=== PATIENT | female | born 1960 | race Caucasian/White ===

== ENCOUNTER → 2018-02-12 01:26 | Outpatient (CLI) | payer MEDICAID, SELFPAY ==
--- NOTE | 2018-02-12 14:16 | SCREENCT_ITS ---
SYMPTOMS/DIAGNOSIS: COPD, J44.9 CT SCAN OF THE CHEST: CT scan of the chest was performed following the lung cancer screening protocol. There are no priors for comparison. There is atherosclerosis of the thoracic aorta but no aneurysmal dilatation is seen. The heart size is within normal limits. No significant pericardial effusion is seen. No significant mediastinal, hilar or axillary adenopathy is seen on this noncontrast examination. No pleural effusion or pneumothorax is identified. Moderate central lobular emphysematous changes are present in the lungs. There is a 3 mm noncalcified pulmonary nodule in the right upper lobe adjacent to the major fissure. No other pulmonary nodules are seen. There is scarring seen in the left lung apex. There is an infiltrate seen in the right lower lobe. This may represent atelectasis, scarring or pneumonia. Degenerative changes are seen in the spine. IMPRESSION: 1. A 3 mm noncalcified pulmonary nodule in the right upper lobe. 2. Moderate central lobular emphysema. 3. Infiltrate in the right lower lobe. This may represent atelectasis, scarring or pneumonia. Follow-up as clinically appropriate. Lung-RAD Category: 2- Benign Appearance/Behavior Lung- RAD Managements of Findings As appropriate to the specific findings
== END ==
PROVIDERS: PCP Nurse Practitioner; Visit Provider Internal Medicine
DX: Z12.2 Encounter for screening for malignant neoplasm of respiratory organs (principal); J44.9 Chronic obstructive pulmonary disease, unspecified; R91.1 Solitary pulmonary nodule; R91.8 Other nonspecific abnormal finding of lung field
CPT/HCPCS: G0297

== ENCOUNTER 2018-08-16 21:36 | Emergency (ER) | payer MEDICAID, SELFPAY ==
[2018-08-16] VITALS (58 sets, daily range): BP systolic 137–153; BP diastolic 58–132; PULSE 64–83; RESP 10–31; TEMP 37; O2SAT 88–94
--- NOTE | 2018-08-16 21:39 | ED.GENADUL_ITS ---
Discharge Plan Disposition Patient Disposition: HOME Condition: Stable Discharge Details Chief Complaint: Dizzy/Sync Clinical Impression: Dizziness, Weakness, Vertigo Reason For Visit: JOHN Primary Care Provider: Jenna Nayak ED Provider: Astrid Steinberg Home Meds and New Rx's Prescriptions: New meclizine 12.5 mg tablet 12.5 mg PO TID PRN (Reason: dizziness) Qty: 7 RF: 0 Continued cyanocobalamin (vitamin B-12) 1,000 MCG/1 ML solution 1,000 mcg IJ MONTHLY Qty: 1 RF: 0 ascorbic acid (vitamin C) [Vitamin C] 500 MG tablet 500 mg PO DAILY RF: 0 ketoconazole 15 GM cream 1 film Topical BID PRNQty: 1 RF: 1 diaper,brief,adult,disposable [Briefs, Adult-Extra Large] 1 EACH misc 1 ea Miscellaneous TID Qty: 90 RF: 11 sennosides [Senokot] 8.6 MG tablet 1 tab-cap PO DAILY PRNQty: 30 RF: 12 trazodone 50 MG tablet 25 mg PO HS Qty: 15 RF: 12 citalopram 20 MG tablet 20 mg PO DAILY Qty: 30 RF: 12 primidone 250 MG tablet 250 mg PO as directed Qty: 60 RF: 12 pantoprazole 40 MG tablet,delayed release (DR/EC) 40 mg PO DAILY Qty: 30 RF: 12 oxybutynin chloride 5 MG tablet 5 mg PO TID Qty: 90 RF: 12 Fluticasone/Umeclidin/Vilanter [Trelegy Ellipta 100-62.5-25] 1 EACH BLST.W.DEV 1 ea Inhalation DAILY RF: 0 ipratropium-albuterol 3 ML solution for nebulization 3 ml Inhalation Q6H PRN PRNQty: 1 RF: 12 lovastatin 40 mg tablet 40 mg PO DAILY Qty: 30 RF: 5 ProAir HFA 90 mcg/actuation HFA aerosol inhaler 2 puff Inhalation Q4H PRN Qty: 3 RF: 3 Discharge Instructions Instructions: Vertigo (ED), Weakness (ED) Additional Instructions: Take the Compazine as needed and directed for any nausea or vomiting. Drink plenty of fluids and get plenty of rest. Follow-up with your primary care doctor in 1 week for reevaluation. Return immediately to the emergency department with any worsening or new concerning symptoms. Discharge Data Discharge Physician: Astrid Steinberg Medical Decision Making 58-year-old female with a history of GERD, hypertension, hyperlipidemia, COPD, DVT, seizure disorder and depression who presents for dizziness, generalized weakness, and nausea today. No complaints of chest pain, shortness of breath, abdominal pain. She does admit to some diarrhea but denies any vomiting or fever. Afebrile. Patient is a smoker and has COPD and O2 sat 94%. No tachycardia normal respiratory rate. No focal deficits on exam. Normal ENT exam, and lungs clear to auscultation. Differential diagnosis includes vertigo, electrolyte abnormality, MA, UTI, dehydration, etc. Will place an IV, bolus IV fluids, Compazine, meclizine labs, urinalysis, CT head EKG and chest x-ray and reassess. 0015 --labs and imaging reviewed and unremarkable. Normal white blood cell count, electrolytes, troponin, lipase, urinalysis. Chest x-ray and CT head negative for acute findings. 0100 --patient was able to ambulate, drink fluids and feels much better. Prior to evaluation, patient's friends pushing pt out in wheelchair and stated to me you're a quack. They asked what was taking so long and that it should not take this long for one blood test. Explained to patient and friends that we obtain multiple blood tests, EKG and imaging all of which take time, and in a busy emergency department with multiple other patients, while awaiting patient's improvement with fluids, meds and p.o. challenge, this can take time. It was explained to patient that her workup was negative and she is now agreeable to wait for her discharge paperwork. We will send home with 2 tabs of Compazine as well as prescription for meclizine. Explained that her symptom presentation could be due to vertigo, dehydration. Instructed to follow-up with primary care doctor for reevaluation and return here at any time if worse per Medical Records Medical records reviewed: Yes I reviewed the patient's medical records. Imaging Data Radiologic Study: Radiologist's impression: CT Head Without Contrast EXAM DATE/TIME: 08/16/2018 10:02 PM FINDINGS: Brain: Typical for age. No hemorrhage. No evidence of acute infarct. No mass. Ventricles: No ventriculomegaly. Bones/joints: Unremarkable. Sinuses: No sinus fluid. Mastoid air cells: Unremarkable. Soft tissues: Unremarkable. IMPRESSION: No acute intracranial abnormality. XR Chest, 2 Views EXAM DATE/TIME: 08/16/2018 10:02 PM FINDINGS: Lungs: Unremarkable. No consolidation. Pleural space: Unremarkable. No evidence of pneumothorax. Heart/Mediastinum: Unremarkable. Heart size within normal limits for technique. Bones/joints: Unremarkable. IMPRESSION: No acute findings. Lab Data Lab results reviewed: Yes I reviewed the patient's lab results. Laboratory Tests Range/Units 08/16/18 08/16/18 08/16/18 22:05 22:05 22:45 WBC (4.4-10.8) k/cumm 9.67 RBC (4.00-5.20) m/cumm 4.64 Hgb (12.0-15.5) g/dL 14.6 Hct (36.0-46.0) % 43.0 MCV (80-95) fL 92.7 MCH (27.0-33.0) pg 31.5 MCHC (32.0-36.0) g/dL 34.0 RDW (11.7-14.6) % 14.5 Plt Count (130-400) x1000/uL 275 MPV (8.0-11.0) fL 10.3 Immature Gran % 0.1 Neutrophils % 70.2 Lymphocytes % 24.5 Monocytes % 4.3 Eosinophils % 0.7 Basophils % 0.2 Absolute Neutrophils (1.2-6.7) k/cumm 6.78 H Absolute Lymphocytes (1.2-3.4) k/cumm 2.37 Absolute Monocytes (0.11-0.7) k/cumm 0.42 Absolute Eosinophils (0.0-0.7) k/cumm 0.07 Absolute Basophils (0.0-0.2) k/cumm 0.02 Sodium (136-145) mmol/L 139 Potassium (3.5-5.1) mmol/L 3.8 Chloride (98-107) mmol/L 104 Carbon Dioxide (21.0-32.0) mmol/L 27.8 Anion Gap (3-11) mmol/L 7.2 BUN (7-18) mg/dL 11 Creatinine (0.55-1.02) mg/dL 0.83 Estimated GFR/1.73 m2 (mL/min/1.73m2) >= 60.00 Glucose (70-100) mg/dL 140 H Calcium (8.5-10.1) mg/dL 9.1 Magnesium (1.8-2.4) mg/dL 1.9 Total Bilirubin (0.2-1.0) mg/dL 0.2 AST (15-37) U/L 15 ALT (12-78) U/L 12 Alkaline Phosphatase (46-116) U/L 81 Troponin I (0.00-0.06) ng/mL < 0.02 Total Protein (6.4-8.2) g/dL 7.3 Albumin (3.4-5.0) g/dL 3.3 L Lipase (73-393) U/L 84 Urine Color (Yellow) Yellow Urine Clarity Sl cloudy Urine pH (5-8) 7.5 Ur Specific Plush (1.005-1.025) 1.010 Urine Protein (Negative) mg/dL Negative Urine Ketones (Negative) mg/dL Negative Urine Blood (Negative) Negative Urine Nitrite (Negative) Negative Urine Bilirubin (Negative) Negative Urine Urobilinogen (Up TO 0.2) EU/dL 0.2 Ur Leukocyte Esterase (Negative) Negative Urine Glucose (Negative) mg/dL Negative ECG Data Attestation: I personally reviewed and interpreted this ECG (s) as follows: Interpretation: Rate of 71, sinus, no acute ST elevation or depression. QTc 450. QRS 94 HPI General Mode of arrival: ambulatory . Date/Time Provider Initiated Documentation: 08/16/18 21:46 . Limitations to Documentation: no limitations . Information obtained by: patient . HPI Narrative: Patient is a 58 yo F with a history of COPD, hypertension, seizure disorder, depression, hyperlipidemia and GERD who presents for generalized weakness, nausea and dizziness today. Patient states she occasionally feels lightheadedness but also a spinning sensation. She had told EMS that she was concerned about possibly having a seizure due to the symptoms. She states her last seizure was 5 years ago. Patient states her throat feels dry and she did not eat much today. She admits to 3 episodes of diarrhea today but denies any bleeding. She denies any known fever, vomiting, chest pain, shortness of breath, abdominal pain, headache, urinary symptoms, vision changes, or recent hospital admission or recent antibiotics. Related Data Home Medications Medication Instructions Recorded Confirmed cyanocobalamin (vitamin B-12) 1,000 mcg IJ MONTHLY #1 vial 09/17/12 08/16/18 ascorbic acid (vitamin C) [Vitamin 500 mg PO DAILY 05/24/13 08/16/18 C] ketoconazole 1 film TOPICAL BID PRN #1 tube 02/08/16 08/16/18 diaper,brief,adult,disposable #90 ea 06/10/16 [Briefs, Adult-Extra Large] citalopram 20 mg PO DAILY #30 tab-cap 11/29/17 08/16/18 oxybutynin chloride 5 mg PO TID #90 tab-cap 11/29/17 08/16/18 pantoprazole 40 mg PO DAILY #30 tab-cap 11/29/17 08/16/18 primidone 250 mg PO as directed #60 tab 11/29/17 08/16/18 sennosides [Senokot] 1 tab-cap PO DAILY PRN #30 tab-cap 11/29/17 08/16/18 trazodone 25 mg PO HS #15 tab-cap 11/29/17 08/16/18 Fluticasone/Umeclidin/Vilanter 1 ea INHALATION DAILY 01/18/18 08/16/18 [Valdez Martinez 100-62.5-25] ipratropium-albuterol 3 ml INHALATION Q6H PRN PRN #1 box 02/16/18 08/16/18 lovastatin 40 mg tablet 40 mg PO DAILY #30 tab 08/06/18 08/16/18 albuterol sulfate HFA 90 2 puff INHALATION Q4H PRN #3 08/16/18 08/16/18 mcg/actuation aerosol inhaler inhaler meclizine 12.5 mg PO TID PRN #7 tab 08/17/18 Previous Rx's Medication Instructions Recorded citalopram 20 mg PO DAILY #30 tab-cap 11/29/17 oxybutynin chloride 5 mg PO TID #90 tab-cap 11/29/17 pantoprazole 40 mg PO DAILY #30 tab-cap 11/29/17 primidone 250 mg PO as directed #60 tab 11/29/17 trazodone 25 mg PO HS #15 tab-cap 11/29/17 lovastatin 40 mg tablet 40 mg PO DAILY #30 tab 08/06/18 albuterol sulfate HFA 90 2 puff INHALATION Q4H PRN #3 08/16/18 mcg/actuation aerosol inhaler inhaler meclizine 12.5 mg PO TID PRN #7 tab 08/17/18 Allergies Allergy/AdvReac Type Severity Reaction Status Date / Time Penicillins Allergy Intermediate SKIN RASH Unverified 08/16/18 21:44 adhesive AdvReac Mild Skin Rash Unverified 08/16/18 21:44 Review of Systems Review of Systems All systems reviewed & are unremarkable except as noted in HPI and below Constitutional Reports as per HPI, Denies chills, Denies fever(s) and Reports weakness Eyes Denies blurry vision ENT Denies dizziness, Denies sore throat and Denies throat swelling Cardiovascular Denies chest pain and Denies dyspnea Respiratory Denies cough and Denies dyspnea Gastrointestinal Denies abdominal pain, Denies diarrhea, Reports nausea and Denies vomiting Genitourinary Denies hematuria and Denies dysuria Musculoskeletal Denies back pain and Denies numbness Integumentary/Breasts Denies lesions and Denies rash Neurologic Denies dizziness, Denies focal weakness, Denies numbness and Reports weakness Allergic/Immunologic Denies throat swelling PFSH Medical History Hyperlipemia (Acute) Depression (Chronic) GERD (gastroesophageal reflux disease) (Chronic) HTN (hypertension) (Chronic) Seizure disorder (Chronic) Chronic obstructive lung disease DVT of leg (deep venous thrombosis) Hyperlipidemia Surgical History H/O shoulder surgery (Chronic) History of hysterectomy (Chronic) Family History Father COPD (chronic obstructive pulmonary disease) Social History Smoking and Tabacco status: Current every day alcohol intake: former substance use type: former substance user Exam Const General: cooperative, healthy appearing and no acute distress HENMT Head: normal to inspection Ears: hearing grossly normal bilaterally and TM's normal bilaterally General nose exam: external nose normal Face and sinus: normal facial exam Mouth: oral mucosae normal Teeth and gingiva: dentition normal Throat: posterior oropharynx normal Eyes General: appearance normal, both eyes and all related structures Pupils: PERRL EOM: EOM intact bilaterally Neck Neck: normal visual inspection and No submandibular swelling Lymphatic: no lymphadenopathy noted Chest Chest: normal inspection of the chest and no tenderness Resp Effort & Inspection: normal respiratory effort and able to speak in complete sentences Auscultation: clear to auscultation bilaterally Cardio Rate: regular rate Rhythm: regular rhythm GI Inspection: normal to inspection Palpation: soft, not firm, not rigid and nontender Auscultation: normal bowel sounds Skin General skin exam: no rashes or lesions noted Neuro General: alert, awake and oriented x3 Cognition: normal cognition Speech: speech normal Motor: muscle tone normal throughout and strength 5/5 throughout Sensory Exam: no sensory deficits noted Extrem General: normal to inspection, full ROM and no edema Psych Appearance: grossly normal Mental Status: mental status grossly normal Speech and Movement: speech and movement normal Affect: normal affect
--- NOTE | 2018-08-16 21:59 | DI.COMBO_ITS ---
SYMPTOM/DIAGNOSIS: WEAK, DIZZY CRANIAL CT (WITHOUT CONTRAST): A noncontrast cranial CT was performed. The ventricular system is normal in appearance. There is no evidence of an intracranial mass lesion. There is no evidence of a subdural or epidural hematoma. No focal areas of decreased attenuation are seen. CONCLUSION: Normal noncontrast Cranial CT. PA AND LATERAL CHEST: There appear to be changes of COPD and pulmonary scarring. No gross interval change in appearance in comparison with previous examinations including 08/17/17. No pleural effusion is seen. CONCLUSION: No evidence of acute intrapulmonary process.
[2018-08-16] MEDS: Normal Saline 1,000 ML 1000 ML IV (22:12)
[2018-08-16] MEDS: Prochlorperazine 10 MG/2 ML VIAL IVP (22:13)
[2018-08-16] MEDS: Meclizine 25 MG TAB PO (22:13)
[2018-08-16 22:14] LABS: Abs Immature Grans 0.01 k/cumm (0.0-0.09); Absolute Basophil Count 0.02 k/cumm (0.0-0.2); Absolute Eosinophil Count 0.07 k/cumm (0.0-0.7); Absolute Lymphocyte Count 2.37 k/cumm (1.2-3.4); Absolute Monocyte Count 0.42 k/cumm (0.11-0.7); Absolute Neutrophil Count 6.78 k/cumm (1.2-6.7); Basophils % 0.2; Eosinophils % 0.7; HGB 14.6 g/dL (12.0-15.5); Immature Grans % 0.1; Lymphocytes % 24.5; Mean Corpuscular Hemoglobin 31.5 pg (27.0-33.0); Mean Corpuscular Volume 92.7 fL (80-95); Mean Platelet Volume 10.3 fL (8.0-11.0); Monocytes % 4.3; Neutrophils % 70.2; Platelet Count 275 x1000/uL (130-400); RBC 4.64 m/cumm (4.00-5.20); RBC Distribution Width 14.5 % (11.7-14.6); White Blood Cell Count 9.67 k/cumm (4.4-10.8)
[2018-08-16 22:34] LABS: ALT 12 U/L (12-78); AST 15 U/L (15-37); Albumin 3.3 g/dL (3.4-5.0); Alkaline Phosphatase 81 U/L (46-116); Anion Gap 7.2 mmol/L (3-11); BUN 11 mg/dL (7-18); Bilirubin, Total 0.2 mg/dL (0.2-1.0); CO2 27.8 mmol/L (21.0-32.0); CREATININE 0.83 mg/dL (0.55-1.02); Calcium 9.1 mg/dL (8.5-10.1); Chloride 104 mmol/L (98-107); Glucose 140 mg/dL (70-100); Lipase 84 U/L (73-393); Magnesium 1.9 mg/dL (1.8-2.4); Potassium 3.8 mmol/L (3.5-5.1); Sodium 139 mmol/L (136-145); Total Protein 7.3 g/dL (6.4-8.2); Troponin I < 0.02 ng/mL (0.00-0.06)
--- NOTE | 2018-08-16 23:16 | DI.VRAD_ITS ---
EXAM: CT Head Without Contrast EXAM DATE/TIME: 08/16/2018 10:02 PM CLINICAL HISTORY: 58 years old, female; Signs and symptoms; Dizziness and other: Weakness, R/O acute cva/mass TECHNIQUE: Axial computed tomography images of the head/brain without contrast. Coronal and sagittal reformatted images were created and reviewed. COMPARISON: CT HEAD WITHOUT CONTRAST 09/16/2011 12:52 PM FINDINGS: Brain: Typical for age. No hemorrhage. No evidence of acute infarct. No mass. Ventricles: No ventriculomegaly. Bones/joints: Unremarkable. Sinuses: No sinus fluid. Mastoid air cells: Unremarkable. Soft tissues: Unremarkable. IMPRESSION: No acute intracranial abnormality. Dictated and Authenticated by: Roni Leong MD. Ordering:MATILDE Resendiz MD
--- NOTE | 2018-08-16 23:17 | DI.VRAD_ITS ---
EXAM: XR Chest, 2 Views EXAM DATE/TIME: 08/16/2018 10:02 PM CLINICAL HISTORY: 58 years old, female; Signs and symptoms; Other: Weakness, dizziness, R/O acute disease TECHNIQUE: XR of the chest, 2 views. COMPARISON: CR CHEST 2 VIEWS PA,LAT 08/17/2017 7:32 AM FINDINGS: Lungs: Unremarkable. No consolidation. Pleural space: Unremarkable. No evidence of pneumothorax. Heart/Mediastinum: Unremarkable. Heart size within normal limits for technique. Bones/joints: Unremarkable. IMPRESSION: No acute findings. Dictated and Authenticated by: Roni Leong MD. Ordering:MATILDE Resendiz MD
[2018-08-16 23:24] LABS: Bilirubin Negative (Negative); Blood Negative (Negative); Clarity Sl Cloudy; Glucose Negative (Negative); Ketones Negative (Negative); Leukocyte Esterase Negative (Negative); Nitrite Negative (Negative); Urobilinogen 0.2 EU/dL (Up TO 0.2); pH 7.5 (5-8)
[2018-08-17] VITALS (12 sets, daily range): RESP 16–27
--- NOTE | 2018-08-17 01:21 | NUR.NOTE ---
patient receive medication and follow up instruction per MD order Nursing Note:
== END 2018-08-17 01:20 | disposition home or self-care (01) ==
PROVIDERS: Emergency Provider Physician Assistant; PCP Nurse Practitioner
DX: R42 Dizziness and giddiness (principal); R53.1 Weakness; I10 Essential (primary) hypertension; J44.9 Chronic obstructive pulmonary disease, unspecified
CPT/HCPCS: 36415; 80053; 83690; 93005; 96361; 96374; 99285; 70450; 71046; 81003; 83735; 84484; 85025; 93010; J0780

== ENCOUNTER 2018-11-20 00:09 | Outpatient (CLI) | payer MEDICAID, SELFPAY ==
--- NOTE | 2018-11-20 08:27 | DI.US_ITS ---
SYMPTOMS/DIAGNOSIS: CHRONIC OBSTRUCTIVE LUNG DISEASE, J44.9, ALPHA 1 ANTITRYPSIN DEFICIENCY ABDOMINAL ULTRASOUND: Comparison is made with March,. The liver appears enlarged at 16.6 cm in length. The echogenicity appears normal. No focal liver lesions are identified. There is no evidence of biliary dilatation. The gallbladder has a normal appearance. The pancreas is obscured by bowel gas. The kidneys show no evidence of hydronephrosis or stones. The spleen is normal in size. IMPRESSION: Hepatomegaly. No evidence of fatty infiltration or focal liver lesions.
[2018-11-20 10:06] LABS: Cholesterol 191 mg/dL (50-200); HDL Cholesterol 58 mg/dL (40-60); LDL CHOLESTEROL 98 mg/dL (<100); Triglyceride 163 mg/dL (30-150)
== END 2018-11-20 00:29 ==
PROVIDERS: PCP Nurse Practitioner; Visit Provider Internal Medicine
DX: E78.5 Hyperlipidemia, unspecified (principal); R16.0 Hepatomegaly, not elsewhere classified; J44.9 Chronic obstructive pulmonary disease, unspecified; E88.01 Alpha-1-antitrypsin deficiency
CPT/HCPCS: 36415; 80061; 83721; 76700

== ENCOUNTER 2018-12-04 15:28 | Outpatient (REF) | payer MEDICAID, SELFPAY ==
[2018-12-04 19:41] LABS: ALT 18 U/L (12-78); AST 12 U/L (15-37); Albumin 3.4 g/dL (3.4-5.0); Alkaline Phosphatase 94 U/L (46-116); Bilirubin, Direct 0.08 mg/dL (0.00-0.20); Bilirubin, Total 0.3 mg/dL (0.2-1.0); Total Protein 6.8 g/dL (6.4-8.2)
== END 2018-12-04 15:48 ==
LOC: LBN 15:28
PROVIDERS: PCP Nurse Practitioner; Visit Provider Nurse Practitioner
DX: E88.01 Alpha-1-antitrypsin deficiency (principal)
CPT/HCPCS: 80076

== ENCOUNTER 2019-01-08 11:15 | Outpatient (REF) | payer MEDICAID, SELFPAY ==
--- NOTE | 2019-01-08 10:10 | PAPFT_PTH ---
PATIENT: Sophy Alvarado LOC: [facility] U#:[id number] AGE/SX: 58/F ROOM: RE01/08/[address]: Jenna Nayak APRN : 1960 BED: DIS: 01/08/2019 SPEC #: [id number] RECD: 01/08/19 12:47 STATUS: RADHA REJamar #: [id number] BHARATH: 01/08/19 10:[address]: Jenna Nayak DEPT: [facility] Cytology RECD BY: Adilene Macias Tissues: 1 - CX/ENDOCX FOR PAP SMEARS Procedures: PAP THIN PREP/UVM Screening HPV DNA PROBE Comments: [id number]
== END 2019-01-08 11:35 ==
LOC: LBN 11:15
PROVIDERS: PCP Nurse Practitioner; Visit Provider Nurse Practitioner
DX: Z12.4 Encounter for screening for malignant neoplasm of cervix (principal); Z11.51 Encounter for screening for human papillomavirus (HPV)
CPT/HCPCS: 88142; 87624

== ENCOUNTER 2019-02-15 02:23 | Outpatient (CLI) | payer MEDICAID, SELFPAY ==
--- NOTE | 2019-02-15 13:09 | DI.CTLCSR_ITS ---
SYMPTOMS/DIAGNOSIS: TOBACCO USE, Z72.0 CT CHEST, LOW DOSE LUNG CANCER SCREENING PROTOCOL: CT examination of the chest was performed utilizing low dose lung cancer screening protocol. Images obtained through the upper abdomen show unremarkable appearance of visualized portions of liver, spleen and pancreas. Left adrenal appears hypertrophied. Right adrenal unremarkable in appearance. No mediastinal or hilar mass or adenopathy seen. Tracheobronchial tree appears intact. There are diffuse changes of central lobular emphysema and there are areas of linear scarring seen, predominantly in right lung base and left lung apex; these are essentially unchanged from the previous examination of 02/12/2018. Previously described 3 mm nodule again noted directly adjacent to major fissure on the right. A 5 mm well-circumscribed noncalcified nodule is also seen in the right upper lobe more peripherally at the level of the distal trachea and is unchanged from the previous examination. No new nodule identified. No pleural effusion or pleural-based mass. CONCLUSION: Stable right pulmonary nodules as described. Category 2. Continue annual screening with LDCT in 12 months. Lung-RAD Category: 2- Benign Appearance/Behavior Lung- RAD Management of Findings: Continue annual LDCT screening in 12 months
== END 2019-02-15 02:43 ==
PROVIDERS: PCP Nurse Practitioner; Visit Provider Internal Medicine
DX: R91.1 Solitary pulmonary nodule (principal); Z87.891 Personal history of nicotine dependence; Z12.2 Encounter for screening for malignant neoplasm of respiratory organs; F17.210 Nicotine dependence, cigarettes, uncomplicated
CPT/HCPCS: G0297

== ENCOUNTER 2019-02-21 07:36 | Outpatient (CLI) | payer MEDICAID, SELFPAY ==
--- NOTE | 2019-02-21 14:02 | DI.RAD_ITS ---
SYMPTOMS/DIAGNOSIS: LEFT HIP PAIN, LEFT GROIN PAIN, LOW BACK PAIN, LEFT LOWER QUADRANT PAIN, M25.552, R10.32, M54.5 LEFT HIP AND PELVIS: Three views were obtained. There is slight narrowing of the cartilaginous joint spaces of both hips superiorly. Minimal acetabular spurring noted bilaterally. No other significant bony or soft tissue abnormality seen. CONCLUSION: Mild DJD, both hips. LUMBOSACRAL SPINE: Six views were obtained. There is mild degenerative change of both SI joints. There are mild facet and vertebral endplate hypertrophic degenerative changes. Intervertebral disc spaces mildly narrowed at L4-5 and L5-S1. CONCLUSION: Degenerative change of the lumbar spine as described above.
== END 2019-02-21 07:56 ==
PROVIDERS: PCP Nurse Practitioner; Visit Provider Nurse Practitioner
DX: M25.552 Pain in left hip (principal); R10.32 Left lower quadrant pain; M54.5 Low back pain; M16.0 Bilateral primary osteoarthritis of hip; M47.817 Spondylosis without myelopathy or radiculopathy, lumbosacral region; M51.37 Other intervertebral disc degeneration, lumbosacral region
CPT/HCPCS: 72110; 73502

== ENCOUNTER 2019-03-22 08:29 | Day surgery (SDC) | payer MEDICAID, SELFPAY ==
[2019-03-22 10:07] VITALS: BP 139/76; PULSE 77; RESP 20; TEMP 36.6; O2SAT 88
[2019-03-22] MEDS: Albuterol/Ipratropium 3 ML UPD VIAL (12:39)
--- NOTE | 2019-03-22 12:40 | NUR.NOTE ---
Addendum entered by Loly Mary RN 03/22/19 12:46: Pt was given gingerale and toast after case was cancelled. Addendum entered by Loly Mary RN 03/22/19 12:46: Original Note: Pt case cancelled by Dr. Min and Anesthesia due to difficulty breathing, sats in low 80s and a poor prep. Per pt she was still having brown stool and was unable to finish prep. Pt did receive a duoneb shortly after arriving to [facility]. Nursing Note:
== END 2019-03-22 11:30 | disposition home or self-care (01) ==
LOC: SUR 08:29
PROVIDERS: PCP Nurse Practitioner; Visit Provider Surgery
DX: Z12.11 Encounter for screening for malignant neoplasm of colon (principal); Z86.010 Personal history of colon polyps; Z53.09 Procedure and treatment not carried out because of other contraindication; Y66 Nonadministration of surgical and medical care; R06.09 Other forms of dyspnea; J44.9 Chronic obstructive pulmonary disease, unspecified
CPT/HCPCS: 45378; 99211; J7620

== ENCOUNTER 2019-04-18 04:11 | Inpatient (IN) | payer MEDICAID, SELFPAY ==
[2019-04-18] VITALS (71 sets, daily range): BP systolic 86–121; BP diastolic 29–97; PULSE 80–108; RESP 4–33; TEMP 36.7–37.5; O2SAT 9–100
--- NOTE | 2019-04-18 04:21 | ED.GENADUL_ITS ---
Discharge Plan Disposition Patient Disposition: [facility] INPATIENT Condition: Serious Discharge Details Chief Complaint: SOB Clinical Impression: COPD exacerbation Primary Care Provider: Jenna Nayak ED Provider: Carlos Palacio [place] Meds and New Rx's Prescriptions: No Action citalopram 20 mg tablet 20 mg PO DAILY Qty: 90 RF: 3 lovastatin 40 mg tablet 40 mg PO DAILY Qty: 90 RF: 3 oxybutynin chloride 5 mg tablet 5 mg PO TID Qty: 270 RF: 3 trazodone 50 mg tablet 25 mg PO HS Qty: 45 RF: 3 meclizine 12.5 mg tablet 12.5 mg PO TID PRN (Reason: dizziness) Qty: 30 RF: 0 cyanocobalamin (vitamin B-12) 1,000 MCG/1 ML solution 1,000 mcg IJ MONTHLY Qty: 1 RF: 0 ascorbic acid (vitamin C) [Vitamin C] 500 MG tablet 500 mg PO DAILY RF: 0 ketoconazole 15 GM cream 1 film Topical BID PRNQty: 1 RF: 1 (DME) Briefs, Adult-Extra Large 1 EACH misc 1 ea Miscellaneous TID Qty: 90 RF: 11 sennosides [Senokot] 8.6 MG tablet 1 tab-cap PO DAILY PRNQty: 30 RF: 12 ipratropium-albuterol 3 ML solution for nebulization 3 ml Inhalation Q6H PRN PRNQty: 1 RF: 12 pantoprazole 40 mg tablet,delayed release (DR/EC) 40 mg PO DAILY Qty: 90 RF: 3 primidone 250 mg tablet 250 mg PO as directed Qty: 60 RF: 12 meloxicam 15 mg tablet 15 mg PO DAILY Qty: 30 RF: 0 Trelegy Ellipta 100-62.5-25 mcg blister with device 1 inh IH DAILY RF: 0 albuterol sulfate [ProAir HFA] 90 mcg/actuation HFA aerosol inhaler 2 puff Inhalation Q4H PRN Qty: 3 RF: 3 Medical Decision Making Patient presenting with COPD exacerbation. She is not febrile. She is working relatively hard. She has diffuse wheezing and decreased breath sounds. She has already had Solu-Medrol. She has had one DuoNeb. We will go ahead and start her on CPAP. Continue albuterol neb. Obtain EKG, portable chest x-ray, laboratory studies. Will need admission to ICU for further management. EKG is sinus rhythm at 93. She has normal axis and intervals. She has no acute ST changes. Chest x-ray shows some interstitial prominence but no definitive infiltrate. No effusions. Laboratories studies significant for CBC with minimally elevated white count of 11.4. She is hemoconcentrated with a hemoglobin of 15.9. Chemistries unremarkable other than elevated bicarb at 34 likely suggesting chronic CO2 retention. Liver function normal. Troponin negative. Patient is doing better on CPAP. Discussed with hospitalist. Patient accepted to hospitalist service to an ICU bed for further management of COPD exacerbation. Medical Records Medical records reviewed: Yes I reviewed the patient's medical records. Lab Data Lab results reviewed: Yes I reviewed the patient's lab results. ECG Data Attestation: I personally reviewed and interpreted this ECG (s) as follows: HPI General Mode of arrival: EMS . Date/Time Provider Initiated Documentation: 04/18/19 04:23 . Limitations to Documentation: no limitations . Information obtained by: patient, EMS and RN notes reviewed . HPI Narrative: Patient is brought in by ambulance with shortness of breath and wheezing. Patient has a history of severe COPD. She continues to smoke. Over the last 3 to 4 days, she has had increased difficulty breathing. She has been wearing her oxygen more. She has been using her nebulizer machine. Tonight she became much worse. She called EMS and was brought in. She received a DuoNeb and IV Solu- Medrol in route. She denies having fever. She denies any chest pain or pressure. She denies URI type symptoms. She has a minimal nonproductive cough. Related Data Home Medications Medication Instructions Recorded Confirmed cyanocobalamin (vitamin B-12) 1,000 mcg IJ MONTHLY #1 vial 09/17/12 03/22/19 ascorbic acid (vitamin C) [Vitamin 500 mg PO DAILY 05/24/13 03/22/19 C] ketoconazole 1 film TOPICAL BID PRN #1 tube 02/08/16 03/22/19 Briefs, Adult-Extra Large #90 ea 06/10/16 03/01/19 sennosides [Senokot] 1 tab-cap PO DAILY PRN #30 tab-cap 11/29/17 03/20/19 ipratropium-albuterol 3 ml INHALATION Q6H PRN PRN #1 box 02/16/18 03/22/19 meclizine 12.5 mg tablet 12.5 mg PO TID PRN #30 tab 08/23/18 03/22/19 pantoprazole 40 mg tablet,delayed 40 mg PO DAILY #90 tab-cap 09/03/18 03/22/19 release primidone 250 mg tablet 250 mg PO as directed #60 tab 11/01/18 03/22/19 citalopram 20 mg tablet 20 mg PO DAILY #90 tab-cap 12/04/18 03/22/19 lovastatin 40 mg tablet 40 mg PO DAILY #90 tab 12/04/18 03/22/19 oxybutynin chloride 5 mg tablet 5 mg PO TID #270 tab-cap 12/04/18 03/22/19 trazodone 50 mg tablet 25 mg PO HS #45 tab-cap 12/04/18 03/22/19 meloxicam 15 mg tablet 15 mg PO DAILY #30 tab 02/28/19 03/22/19 fluticasone fur. 100 mcg-umeclid 1 inh IH DAILY 03/08/19 03/22/19 62.5 mcg-vilant 25 mcg inhalat.powder albuterol sulfate 90 mcg/actuation 2 puff INHALATION Q4H PRN #3 03/18/19 03/22/19 aerosol inhaler inhaler Previous Rx's Medication Instructions Recorded meclizine 12.5 mg tablet 12.5 mg PO TID PRN #30 tab 08/23/18 pantoprazole 40 mg tablet,delayed 40 mg PO DAILY #90 tab-cap 09/03/18 release primidone 250 mg tablet 250 mg PO as directed #60 tab 11/01/18 citalopram 20 mg tablet 20 mg PO DAILY #90 tab-cap 12/04/18 lovastatin 40 mg tablet 40 mg PO DAILY #90 tab 12/04/18 oxybutynin chloride 5 mg tablet 5 mg PO TID #270 tab-cap 12/04/18 trazodone 50 mg tablet 25 mg PO HS #45 tab-cap 12/04/18 meloxicam 15 mg tablet 15 mg PO DAILY #30 tab 02/28/19 albuterol sulfate 90 mcg/actuation 2 puff INHALATION Q4H PRN #3 03/18/19 aerosol inhaler inhaler Allergies Allergy/AdvReac Type Severity Reaction Status Date / Time Penicillins Allergy Intermediate SKIN RASH Verified 03/22/19 10:02 adhesive AdvReac Mild Skin Rash Verified 03/22/19 10:02 General Stated Complaint: SOB BO: 2 Review of Systems Review of Systems Narrative: 04/22 Review of Systems completed and is negative except as stated above in HPI (Systems reviewed: Const, Eyes, ENT, Resp, CV, GI, , MSK, Skin, Neuro) [facility] Medical History B12 deficiency (Acute 07/29/14) Benign neoplasm of colon (Acute 11/22/12) Chronic obstructive lung disease Depression (Chronic) DVT of leg (deep venous thrombosis) Fx upper humerus-closed (Acute 03/05/13) GERD (gastroesophageal reflux disease) (Chronic) HTN (hypertension) (Chronic) Hyperlipidemia Hypomagnesemia (Acute 11/28/17) Insomnia (Acute) Left hip pain (Acute) Memory loss (Acute 11/22/12) Mood disorder (Acute) Other convulsions (Acute 11/22/12) Seizure disorder (Chronic) Sensorineural hearing loss, bilateral (Acute 05/25/15) Tendonitis of wrist, left (Acute 03/31/17) Tinnitus (Acute 09/04/14) Tobacco dependence syndrome (Acute 11/22/12) Unspecified hearing loss (Acute 11/22/12) Urinary incontinence (Acute 11/22/12) Surgical History H/O shoulder surgery (Chronic) per pt she reports she has never had shoulder surgery History of cataract surgery (Chronic) History of colonoscopy (Chronic) Social History Smoking/Tobacco Use Status: Current every day Tobacco Type: cigarettes Alcohol Intake: former Drug use: Current Sobriety Substance use type: former substance user Housing: apartment What type of physical activity do you participate in: walking Duration: 15-30 minutes/day Frequency: daily Seatbelt use: always 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 Slight tachycardia and tachypnea. Normal blood pressure . Normal oxygen saturation on DuoNeb at 6 L. Const: WDWN elderly female in NAD. HEENT: NC/AT. Normal facial exam. Eyes: Normal conjunctiva and sclera. Neck: Supple. Trachea midline. Lungs: Increased work of breathing. Lungs with diffuse wheezing and decreased. Cor: RRR without murmur/gallop. Good radial pulses. GI: Soft. NT/ND. No guarding or rebound. Neuro: A+O x 3. CN grossly in tact. Good strength and no focal deficit. Ext: No C/C/E. No deformity or tenderness. Skin: Warm and dry without rash. Course Vital Signs Vital signs: Vital Signs Temperature 98.1 F 04/18/19 04:04 Pulse 108 H 04/18/19 04:04 Respiratory Rate 23 04/18/19 04:04 Blood Pressure 121/73 04/18/19 04:04 Pulse Oximetry 96 04/18/19 04:04 Temperature 98.1 F 04/18/19 04:04 Temperature Source Skin 04/18/19 04:04 Pulse 108 H 04/18/19 04:04 Respiratory Rate 25 H 04/18/19 04:12 Respiratory Effort Labored 04/18/19 04:12 Blood Pressure 121/73 04/18/19 04:04 Blood Pressure Position Supine 04/18/19 04:04 Pulse Oximetry 96 04/18/19 04:04 Oxygen Delivery Method Nasal Cannula 04/18/19 04:04 Oxygen Flow Rate 4 04/18/19 04:04 Critical Care Time Critical Care Time Critical Care Time: Yes Total Critical Care Time: 45 Attestation: Upon my evaluation, this patient had a high probability of imminent or life- threatening deterioration, which required my direct attention, intervention, and personal management. I have personally provided minutes of critical care time exclusive of time spent on separately billable procedures. Time includes review of laboratory data, radiology results, discussion with consultants, and monit oring for potential decompensation. Interventions were performed as documented above.
[2019-04-18] MEDS: Albuterol 2.5 MG/3 ML INH SOLN VIAL (04:22)
--- NOTE | 2019-04-18 04:23 | NUR.NOTE ---
GERALDO Hansen from home with c/o 3-4 days of not feeling well. tonight feeling increasing SOB. On EMS arrival RA sat 83% after walking to answer door. Denies CP. ST on monitor. Pt arrived with #20 to left wrist. 125mg solumedrol given en route. 1 duoneb given en route. Pt grunting with breathing. Speaking in 4-5 word sentences. insp/exp wheezes throughout.
--- NOTE | 2019-04-18 05:04 | DI.RAD_ITS ---
EXAM: XR PORTABLE CHEST AP INDICATION: SOB. COMPARISON: XR CHEST 2V PA LATERAL from 08/16/2018 TECHNIQUE: 2D digital imaging was performed. FINDINGS: Semi upright portable chest was obtained. Heart is not enlarged. Mild pole pulmonary interstitial p rominence noted, nonspecific, likely chronic fibrotic change. Possibility of mild superimposed acute edema not excluded, follow-up PA and lateral chest recommended. IMPRESSION:
--- NOTE | 2019-04-18 05:10 | NUR.NOTE ---
Placed on bipap by MD Palacio, initial setting 15/5, changed to 10/5 by RT. Pt devin well.
[2019-04-18 05:16] LABS: ALT 12 U/L (14-59); AST 12 U/L (15-37); Alkaline Phosphatase 102 U/L (46-116); Anion Gap 6.3 mmol/L (3-11); BUN 5 mg/dL (7-18); Bilirubin, Total 0.3 mg/dL (0.2-1.0); CO2 33.7 mmol/L (21.0-32.0); CREATININE 0.77 mg/dL (0.55-1.02); Calcium 9.1 mg/dL (8.5-10.1); Chloride 102 mmol/L (98-107); Glucose 119 mg/dL (70-100); Magnesium 2.2 mg/dL (1.8-2.4); Potassium 3.7 mmol/L (3.5-5.1); Sodium 142 mmol/L (136-145); Total Protein 8.3 g/dL (6.4-8.2)
[2019-04-18 05:20] LABS: Troponin I < 0.05 ng/mL (0.00-0.06)
--- NOTE | 2019-04-18 05:20 | NUR.NOTE ---
EKG done without V5. Attempted with 3 machines, unable to obtain KEG with all leads. MD Palacio aware.
--- NOTE | 2019-04-18 05:28 | DI.VRAD_ITS ---
PROCEDURE INFORMATION: Exam: XR Chest, 1 View Exam date and time: 04/18/2019 4:59 AM Clinical history: 58 years old, female; Shortness of breath TECHNIQUE: Imaging protocol: XR of the chest Views: 1 view. COMPARISON: CR XR CHEST 2V PA LATERAL 08/16/2018 11:05 PM FINDINGS: Lungs: Interstitial prominence noted without definite septal lines. Differential would include early CHF prior to septal thickening. An atypical nonspecific infectious/inflammatory process such as a viral pneumonia should be excluded in the correct clinical setting. Pleural space: Unremarkable. No pleural effusion. No pneumothorax. Heart/Mediastinum: Unremarkable. No cardiomegaly. Bones/joints: Unremarkable. IMPRESSION: Interstitial prominence noted without definite septal lines. Differential would include early CHF prior to septal thickening. An atypical nonspecific infectious/inflammatory process such as a viral pneumonia should be excluded in the correct clinical setting. Dictated and Authenticated by: Geronimo White MD. Ordering:DORI Gonzalez MD
[2019-04-18 05:40] LABS: Abs Immature Grans 0.02 k/cumm (0.0-0.09); Absolute Basophil Count 0.07 k/cumm (0.0-0.2); Absolute Eosinophil Count 0.71 k/cumm (0.0-0.7); Absolute Monocyte Count 1.03 k/cumm (0.11-0.7); Basophils % 0.6; Eosinophils % 6.2; HCT 48.4 % (36.0-46.0); HGB 15.9 g/dL (12.0-15.5); Immature Grans % 0.2; Lymphocytes % 26.9; Mean Corp. HGB Concentration 32.9 g/dL (32.0-36.0); Mean Corpuscular Hemoglobin 31.1 pg (27.0-33.0); Mean Corpuscular Volume 94.7 fL (80-95); Mean Platelet Volume 11.2 fL (8.0-11.0); Neutrophils % 57.1; Platelet Count 286 x1000/uL (130-400); RBC 5.11 m/cumm (4.00-5.20); RBC Distribution Width 14.9 % (11.7-14.6); White Blood Cell Count 11.43 k/cumm (4.4-10.8)
[2019-04-18 05:41] LABS: Absolute Lymphocyte Count 3.07 k/cumm (1.2-3.4); Absolute Neutrophil Count 6.53 k/cumm (1.2-6.7)
[2019-04-18] MEDS: levoFLOXacin 750 MG/150 ML BAG 100 MG IVPB (05:53)
[2019-04-18] MEDS: Lactated Ringers 500 ML IV (06:12)
--- NOTE | 2019-04-18 06:15 | HPE_ITS ---
Date of service: 04/18/19 Time of Service: 06:15 Assessment and Plan Assessment and plan (1) COPD exacerbation: Status: Acute Assessment and plan: continue scheduled nebulizer treatments w/ DuoNeb along w/ prn albuterol; continue iv corticosteroids and Levaquin. Use BIPAP for supportive care and transition back to NC oxygen once her stability is sustained. Presently she appears to be stable and markedly improved from her condition upon arrival per Dr. Palacio and the ER staff. History of Present Illness History of Present Illness Chief Complaint: dyspnea Narrative: 58-year-old female smoker with a history of COPD on chronic home oxygen 3 L/min per nasal cannula but not chronically on corticosteroids, history of alpha-1 antitrypsin heterozygosity as well as hypertension, GERD, hyperlipidemia, tobaccoism presents emergency department with 2 to 3 days of increasing dyspnea and nonproductive cough not associated with a fever or rigors or chills or chest pain. Dyspnea worsen in spite of of her increased use of her DuoNeb treatments at home. She called EMS to bring her into the hospital. On their arrival she was in acute respiratory distress was given immediate DuoNeb treatment and Solu- Medrol and placed on oxygen. On arrival to the emergency department she was tachycardic with a heart rate of 108 bpm stable blood pressure 121/73. Oxygen saturation was 96% 4 L/min per nasal cannula and she was afebrile at 36.7 but was tachypneic with respiratory rates of 25 to 30 breaths/min. She was placed on BiPAP and given further nebulizer treatments with albuterol. She was started on Levaquin 750 mg IV for COPD exacerbation. She has stabilized with use of BiPAP and is no longer in respiratory distress. She is being admitted to the intensive care unit for further treatment of COPD exacerbation. She is currently up-to-date on her Pneumovax 23. Review of Systems Review of Systems ROS Unobtainable: All systems reviewed & are unremarkable except as noted in HPI and below Eyes Eyes: Reports system reviewed and no additional complaints, except as docu ENT Ears, Nose, Mouth, and Throat: Reports system reviewed and no additional complaints, except as docu and Reports hearing loss Cardiovascular Cardiovascular: Denies chest pain, Denies chest pain at rest, Denies chest pain with activity, Denies pedal edema, Denies edema, Denies lightheadedness, Reports dyspnea, Reports dyspnea on exertion and Denies orthopnea Respiratory Respiratory: Reports as per HPI, Denies change in phlegm color, Denies chest congestion, Reports cough, Denies hemoptysis, Denies excessive phlegm production, Denies pain with cough, Reports dyspnea, Reports dyspnea on exertion and Reports wheezing Gastrointestinal Gastrointestinal: Reports system reviewed and no additional complaints, except as docu Genitourinary Genitourinary: Reports system reviewed and no additional complaints, except as docu Musculoskeletal Musculoskeletal: Reports system reviewed and no additional complaints, except as docu Integumentary/Breasts Skin/Breast: Reports system reviewed and no additional complaints, except as docu Neurologic Neurologic: Reports system reviewed and no additional complaints, except as docu Psychiatric Psychiatric: Reports system reviewed and no additional complaints, except as docu Endocrine Endocrine: Reports system reviewed and no additional complaints, except as docu Hematologic/Lymphatic Hematologic/Lymphatic: Reports system reviewed and no additional complaints, except as docu Allergic/Immunologic Allergic/Immunologic: Reports system reviewed and no additional complaints, exc ept as docu and Reports wheezing [facility] Medical History (Updated 04/18/19 @ 07:11 by David Matthews) [id number] 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 Sargent B12 deficiency (Chronic 07/29/14) Benign neoplasm of colon (Chronic 11/22/12) Chronic airway obstruction, not elsewhere classified (Chronic 11/22/12) Severe 01/2016 FEV1 36%; 11/2012 overnight O2 sat: no sig nocturnal hypoxia alpha 1 antitrypsin level NL 02/15/18 Last APt with Rosetta at sleep/pulmonary clinic 02/15/18 Depression (Chronic) DVT of leg (deep venous thrombosis) Essential hypertension (Chronic 08/23/17) Fx upper humerus-closed (Acute 03/05/13) GERD (gastroesophageal reflux disease) (Chronic) Hyperlipidemia Hypomagnesemia (Chronic 11/28/17) Influenza A (Inactive) Insomnia (Chronic) Left hip pain (Acute) Memory loss (Acute 11/22/12) Mood disorder (Chronic) Other convulsions (Acute 11/22/12) Pneumonia (Inactive) Seizure disorder (Chronic) Sensorineural hearing loss, bilateral (Chronic 05/25/15) Tendonitis of wrist, left (Acute 03/31/17) Tinnitus (Acute 09/04/14) Tobacco dependence syndrome (Acute 11/22/12) Unspecified hearing loss (Acute 11/22/12) Urinary incontinence (Acute 11/22/12) Surgical History H/O shoulder surgery (Chronic) per pt she reports she has never had shoulder surgery History of cataract surgery (Chronic) History of colonoscopy (Chronic) Family History Father COPD (chronic obstructive pulmonary disease) Social History Smoking/Tobacco Use Status: Current every day Tobacco Type: cigarettes Alcohol Intake: former Drug use: Current Sobriety Substance use type: former substance user Housing: apartment What type of physical activity do you participate in: walking Duration: 15-30 minutes/day Frequency: daily Seatbelt use: always Drive 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 Working smoke detector in home: Yes Fire extinguisher in home: Yes Carbon monox detector in home: Yes Do you feel safe at home: Yes Do you feel safe in your relationship?: Yes Meds Home Medications and Allergies Home Medications Medication Instructions Recorded Confirmed Type cyanocobalamin (vitamin B-12) 1,000 mcg IJ MONTHLY #1 vial 09/17/12 04/18/19 History ascorbic acid (vitamin C) [Vitamin 500 mg PO DAILY 05/24/13 04/18/19 History C] ketoconazole 1 film TOPICAL BID PRN #1 tube 02/08/16 04/18/19 History Briefs, Adult-Extra Large #90 ea 06/10/16 03/01/19 History sennosides [Senokot] 1 tab-cap PO DAILY PRN #30 tab-cap 11/29/17 04/18/19 H istory ipratropium-albuterol 3 ml INHALATION Q6H PRN PRN #1 box 02/16/18 04/18/19 History meclizine 12.5 mg tablet 12.5 mg PO TID PRN #30 tab 08/23/18 04/18/19 Rx pantoprazole 40 mg tablet,delayed 40 mg PO DAILY #90 tab-cap 09/03/18 04/18/19 Rx release primidone 250 mg tablet 250 mg PO as directed #60 tab 11/01/18 04/18/19 Rx citalopram 20 mg tablet 20 mg PO DAILY #90 tab-cap 12/04/18 04/18/19 Rx lovastatin 40 mg tablet 40 mg PO DAILY #90 tab 12/04/18 04/18/19 Rx oxybutynin chloride 5 mg tablet 5 mg PO TID #270 tab-cap 12/04/18 04/18/19 Rx trazodone 50 mg tablet 25 mg PO HS #45 tab-cap 12/04/18 04/18/19 Rx meloxicam 15 mg tablet 15 mg PO DAILY #30 tab 02/28/19 04/18/19 Rx fluticasone fur. 100 mcg-umeclid 1 inh IH DAILY 03/08/19 04/18/19 History 62.5 mcg-vilant 25 mcg inhalat.powder albuterol sulfate 90 mcg/actuation 2 puff INHALATION Q4H PRN #3 03/18/19 04/18/19 Rx aerosol inhaler inhaler Allergies Allergy/AdvReac Type Severity Reaction Status Date / Time Penicillins Allergy Intermediate SKIN RASH Verified 03/22/19 10:02 adhesive AdvReac Mild Skin Rash Verified 03/22/19 10:02 Exam Const General: cooperative, comfortable, no acute distress and disheveled Nutritional Appearance: average body habitus Orientation: alert, awake and oriented x3 HENMT Head: normal to inspection, no palpable skull fracture, normocephalic and atraumatic Ears: TM's normal bilaterally, EAC's normal and hearing grossly impaired bilaterally Eyes General: appearance normal, both eyes and all related structures Visual Ash: normal visual ash by confrontation Alignment and Position: alignment normal Periorbital: periorbital findings normal Eyelids: eyelids normal Conjunctivae: conjunctivae normal Sclera: sclerae normal Cornea: corneas normal Pupils: PERRL EOM: EOM intact bilaterally Direct ophthalmoscopy: normal light reflex Neck Neck: normal visual inspection, full ROM, no lymphadenopathy, trachea midline and no JVD Thyroid: thyroid normal Carotids: normal carotid upstroke Lymphatic: no lymphadenopathy noted Resp Effort & Inspection: cough Quality of cough: dry, no respiratory distress, no retractions, tachypneic, no use of accessory muscles and prolonged expiratory phase Auscultation: wheezes expiratory wheezes and scattered wheezes Percussion: percussion normal Cardio Jugular venous pressure: no JVD Palpation: normal PMI Rate: regular rate Rhythm: regular rhythm Heart Sounds: other (heart sounds obscured by diffuse wheezing) Pulses: posterior tibial pulses present bilaterally diminished and dorsalis pe dis pulses present on the right 2+ and on the left 1+ GI Inspection: normal to inspection, obesity and no scars Palpation: soft and no hepatosplenomegaly Percussion: normal to percussion Auscultation: normal bowel sounds Skin General skin exam: no rashes or lesions noted, elasticity normal and turgor normal Neuro General: alert, awake, oriented x3, moves all extremities and no focal motor deficits Cognition: normal cognition Speech: speech normal Motor: muscle tone normal throughout, strength 5/5 throughout and no movement abnormalities noted Sensory Exam: no sensory deficits noted Extrem General: full ROM, normal capillary refill, no joint enlargement, no pedal edema and no calf tenderness Psych Appearance: disheveled Mental Status: mental status grossly normal Speech and Movement: speech and movement normal Mood: congruent mood Affect: normal affect Attitude: cooperative Thought Process: normal Thought Content: normal Insight: insight good Judgment: judgment good Results Imaging Chest x-ray: image reviewed EKG: image reviewed Labs Result diagrams: 04/18/19 03:50 04/18/19 03:50 Labs: Laboratory Results - last 24 hr 04/18/19 04/18/19 03:50 03:50 WBC 11.43 H RBC 5.11 Hgb 15.9 H Hct 48.4 H MCV 94.7 MCH 31.1 MCHC 32.9 RDW 14.9 H Plt Count 286 MPV 11.2 H Immature Gran % 0.2 Neutrophils % 57.1 Lymphocytes % 26.9 Monocytes % 9.0 Eosinophils % 6.2 Basophils % 0.6 Absolute Neutrophils 6.53 Absolute Lymphocytes 3.07 Absolute Monocytes 1.03 H Absolute Eosinophils 0.71 H Absolute Basophils 0.07 Sodium 142 Potassium 3.7 Chloride 102 Carbon Dioxide 33.7 H Anion Gap 6.3 BUN 5 L Creatinine 0.77 Estimated GFR/1.73 m2 >= 60.00 Glucose 119 H Calcium 9.1 Magnesium 2.2 Total Bilirubin 0.3 AST 12 L ALT 12 L Alkaline Phosphatase 102 Troponin I < 0.05 Total Protein 8.3 H Albumin 4.0 Last Vital Signs Temp 36.7 C 04/18/19 04:04 Pulse 89 04/18/19 06:05 Resp 24 04/18/19 06:05 BP 92/59 L 04/18/19 06:05 Pulse Ox 95 04/18/19 06:05
--- NOTE | 2019-04-18 06:15 | NUR.NOTE ---
Plan for admission. BP 92/57, MD Palacio aware, LR bolus hung. Pt intermittently sleeping, easily arousable to voice. Remains on bipap 10/5, devin well. pt reports she wears home O2, 3L PRN.
--- NOTE | 2019-04-18 06:59 | NUR.NOTE ---
Bipap removed per MD. placed on 3L O2 NC. sats 95% Provided with po fluids.
[2019-04-18] MEDS: Albuterol/Ipratropium 3 ML UPD VIAL UPD ×4 (08:14→19:58)
[2019-04-18] MEDS: Budesonide/Formoterol 80/4.5 6.9 GM 60 PUFF INH IH ×2 (08:36→19:58)
--- NOTE | 2019-04-18 08:45 | W.PM.PROGNOT ---
Date of Service Date of service: 04/18/19 Time of Service: 16:00 Subjective Subjective Interval history since last seen: Patient state she feels better. Has been refusing BiPAP since arrival to the ICU. On 3L of O2. Still hypotensive. Requests real food, which I think at this point is safe. Continue empiric levofloxacin, scheduled and prn nebs, solumedrol, symbicort, antitussives. I have consulted palliative care given patient's code status, refusal of BiPAP therapy in ICU and her COPD. Objective Objective Clinical Data: Abnormal lab results 04/18/19 04/18/19 Range/Units 03:50 03:50 WBC 11.43 H (4.4-10.8) k/cumm Hgb 15.9 H (12.0-15.5) g/dL Hct 48.4 H (36.0-46.0) % RDW 14.9 H (11.7-14.6) % MPV 11.2 H (8.0-11.0) fL Absolute Monocytes 1.03 H (0.11-0.7) k/cumm Absolute Eosinophils 0.71 H (0.0-0.7) k/cumm Carbon Dioxide 33.7 H (21.0-32.0) mmol/L BUN 5 L (7-18) mg/dL Glucose 119 H (70-100) mg/dL AST 12 L (15-37) U/L ALT 12 L (14-59) U/L Total Protein 8.3 H (6.4-8.2) g/dL Vital Signs Temperature 37.2 C 04/18/19 08:22 Temperature Source Tympanic 04/18/19 08:22 Pulse 90 04/18/19 08:27 Pulse 88 04/18/19 07:20 Respiratory Rate 27 H 04/18/19 08:27 Respiratory Effort 04/18/19 08:22 Respiratory Depth Shallow 04/18/19 08:22 Respiratory Pattern Normal 04/18/19 08:22 Blood Pressure 98/52 L 04/18/19 07:16 Blood Pressure Mean 64 04/18/19 07:16 Blood Pressure Position Supine 04/18/19 08:22 Pulse Oximetry 96 04/18/19 08:27 Oxygen Delivery Method Nasal Cannula 04/18/19 08:22 Oxygen Flow Rate 3 04/18/19 08:22 Fraction of Inspired Oxygen (FIO2) 30 04/18/19 05:06 Pain Level 0 04/18/19 08:22 Intake & Output 04/17/19 04/17/19 04/18/19 11:59 23:59 11:59 Intake Total 500 / 500 Balance 500 / 500 Weight 71.2 kg Intake: IV 500 / 500 Laboratory Results WBC 11.43 k/cumm (4.4-10.8) H 04/18/19 03:50 RBC 5.11 m/cumm (4.00-5.20) 04/18/19 03:50 Hgb 15.9 g/dL (12.0-15.5) H 04/18/19 03:50 Hct 48.4 % (36.0-46.0) H 04/18/19 03:50 MCV 94.7 fL (80-95) 04/18/19 03:50 MCH 31.1 pg (27.0-33.0) 04/18/19 03:50 MCHC 32.9 g/dL (32.0-36.0) 04/18/19 03:50 RDW 14.9 % (11.7-14.6) H 04/18/19 03:50 Plt Count 286 x1000/uL (130-400) 04/18/19 03:50 MPV 11.2 fL (8.0-11.0) H 04/18/19 03:50 Immature Gran % 0.2 04/18/19 03:50 Neutrophils % 57.1 04/18/19 03:50 Lymphocytes % 26.9 04/18/19 03:50 Monocytes % 9.0 04/18/19 03:50 Eosinophils % 6.2 04/18/19 03:50 Basophils % 0.6 04/18/19 03:50 Absolute Neutrophils 6.53 k/cumm (1.2-6.7) 04/18/19 03:50 Absolute Lymphocytes 3.07 k/cumm (1.2-3.4) 04/18/19 03:50 Absolute Monocytes 1.03 k/cumm (0.11-0.7) H 04/18/19 03:50 Absolute Eosinophils 0.71 k/cumm (0.0-0.7) H 04/18/19 03:50 Absolute Basophils 0.07 k/cumm (0.0-0.2) 04/18/19 03:50 Sodium 142 mmol/L (136-145) 04/18/19 03:50 Potassium 3.7 mmol/L (3.5-5.1) 04/18/19 03:50 Chloride 102 mmol/L (98-107) 04/18/19 03:50 Carbon Dioxide 33.7 mmol/L (21.0-32.0) H 04/18/19 03:50 Anion Gap 6.3 mmol/L (3-11) 04/18/19 03:50 BUN 5 mg/dL (7-18) L 04/18/19 03:50 Creatinine 0.77 mg/dL (0.55-1.02) 04/18/19 03:50 Estimated GFR/1.73 m2 >= 60.00 (mL/min/1.73m2) 04/18/19 03:50 Glucose 119 mg/dL (70-100) H 04/18/19 03:50 Calcium 9.1 mg/dL (8.5-10.1) 04/18/19 03:50 Magnesium 2.2 mg/dL (1.8-2.4) 04/18/19 03:50 Total Bilirubin 0.3 mg/dL (0.2-1.0) 04/18/19 03:50 AST 12 U/L (15-37) L 04/18/19 03:50 ALT 12 U/L (14-59) L 04/18/19 03:50 Alkaline Phosphatase 102 U/L (46-116) 04/18/19 03:50 Troponin I < 0.05 ng/mL (0.00-0.06) 04/18/19 03:50 Total Protein 8.3 g/dL (6.4-8.2) H 04/18/19 03:50 Albumin 4.0 g/dL (3.4-5.0) 04/18/19 03:50
[2019-04-18 09:15] LABS: BE 5.9 mmol/L (-3-3); HCO3 31 mmol/L (22-28); pCO2 51 mmHg (34-47); pH 7.39 (7.35-7.45); pO2 66 mmHg (83-108); sO2 93 % (94-98); tCO2 27 mmol/L (22-29)
[2019-04-18 09:18] LABS: FIO2L 3 L; Site Right Radial
[2019-04-18] MEDS: Umeclidinium 7 CAP INHALER 1 CAP IH (09:26)
[2019-04-18] MEDS: Enoxaparin 40 MG/0.4 ML SYR SC (10:12)
[2019-04-18] MEDS: methylPREDNISolone SUCC 125 MG VIAL 60 MG IVP ×2 (10:14→15:37)
[2019-04-18] MEDS: Oxybutynin 5 MG TAB PO ×3 (10:17→19:05)
[2019-04-18] MEDS: Citalopram 20 MG TAB PO (10:17)
[2019-04-18] MEDS: Primidone 250 MG TAB 125 MG PO (10:17)
[2019-04-18] MEDS: Pantoprazole 40 MG TABCR PO (10:18)
--- NOTE | 2019-04-18 11:24 | PHARADMIT ---
Addendum entered by Isauro Bassett III 04/20/19 14:03: Pharmacy Note Subjective MD noted that patient is slow to recover from this exacerbation. Objective VS-Ok Labs-WNL No BM noted yet Assessment Steroids to PO, continue Updrafts and levaquin empirically Plan Sputum: normal austin,scant growth, Kacy Albicans. Continue current therapy. Addendum entered by Isauro Bassett III 04/19/19 11:09: Pharmacy Note Subjective COPD EXACERBATION, Hx of Alpha-1 antichymotrysin deficiency. MD thought this may be a PE, but Chest CT shows no evidence. Had palliative care consult today, patient does not want intubation. COSLT form completed. Objective VS-OK K+4.3 Na-136, WBC-9.20 Wgt-72.2 Assessment Levaquin IV continues for now, Sputum culture pending Plan Watch sputum & ABX therapy. Original Note: Admission Pharmacy Clinical Review COPD EXACERBATION Code Status Full Code Current Weight 71.2 kg Renally Cleared and Narrow Therapeutic Index Meds CrCl ~59, meds ok -- levofloxacin q24h QTc Value / Action Taken QTc 448 BP Control, Fever BP 107/58, afebrile Electrolytes reviewed Na 142, K+ 3.7, Mag 2.2 DVT Prophylaxis LMWH 40MG Opiate Usage / Scheduled Bowel Regimen Ordered none, prn Plt/SCr for Heparin / Enoxaparin Plt 286, Scr 0.77 INR for Warfarin H/H stable, WBC/Bands H/H 15.9/48.4, WBC 11.43 Antibiotic appropriateness Levofloxacin 750 q24h Cultures and Sensitivities None Surgical ABX d/c within 24 hr DM control / Insulin Dosing Heart Failure (Check EF%) (FELIPE's, B-Block, Diuretics) IV to PO Switch Home Meds Reviewed Yes -- all ok Home Meds Not Ordered Trelegy -- switched to symbicort and incruse per HP, meloxicam, meclizine Comments Abx day 1
--- NOTE | 2019-04-18 12:31 | PDOC.CMIN ---
- If Service Date Differs Date of service: 04/18/19 Time of Service: 12:32 Care Management Initial Assess REASON FOR HOSPITALIZATION:: COPD exacerbation PAST MEDICAL HISTORY/PAST SURGICAL HISTORY:: COPD, current tobacco use, seizures, alpha 1 deficiency, HTN, GERD, insomnia, tendonitis of the left wrist, hearing loss, urinary incontinence, humerus fracture and left hip pain. PREVIOUS FUNCTIONAL STATUS/SOCIAL/FAMILY SUPPORTS:: Sophy lives at home by herself, she is independent at home. She uses chronic oxygen through [facility]. She lives in subsidized housing in [place]. Sophy has one cat and one dog. Her support person is her mother. CURRENT FUNCTIONAL STATUS:: Nursing shares concerns that Sophy arrived unkepmt, Sophy is independent and lives at home alone. CM is familer with Sophy from the community she appears to be at baseline. Sophy is sitting up in the chair when CM arrives. She reports she came to the ER department to find out what was wrong with her and was admitted. She has her family taking care of her dog while she is inpatient. Sophy will plan to return home at time of discharge. ADVANCE DIRECTIVES:: None on file - Palliaitve consult in place. CM notifed service of referral. Has patient been provided with information about the portal?: Yes Did the patient sign up for the portal?: No CODE STATUS:: Full Code INSURANCE COVERAGE / FINANCIAL ISSUES:: Medicaid CURRENT HOME/COMMUNITY SERVICES/EQUIPMENT:: [employer], and moderate needs CFC (per Pt), and home oxygen through [facility]. PRIMARY CARE PHYSICIAN:: Jenna Nayak NP POTENTIAL DISCHARGE NEEDS:: Follow up with primary care and resumption of community services. PATIENT/FAMILY EDUCATION NEEDS:: Discharge education, limitations and follow up plan of care. ANTICIPATED BARRIERS TO DISCHARGE:: None TRANSPORTATION:: Via RCT at time of discharge. PLAN:: Sophy is being treated in the ICU for COPD. She will be discharged home when medically ready. Anticipate no additional services at time of discharge and resumption of communtiy services in place. CM will continue to provide support discharge planning.
[2019-04-18] MEDS: Lactated Ringers 1,000 ML 65 ML IV (14:24)
[2019-04-18] MEDS: Normal Saline Flush 10 ML SYR IVP (15:39)
[2019-04-18] MEDS: Acetaminophen 325 MG TAB PO (19:05)
[2019-04-18] MEDS: Lovastatin 40 MG TAB PO (19:05)
[2019-04-18] MEDS: traZODone 50 MG TAB 25 MG PO (21:49)
[2019-04-18] MEDS: Primidone 250 MG TAB PO (21:50)
[2019-04-19] VITALS (42 sets, daily range): BP systolic 82–116; BP diastolic 47–83; PULSE 66–100; RESP 1–36; TEMP 36.8–37.4; O2SAT 88–100
[2019-04-19] MEDS: methylPREDNISolone SUCC 125 MG VIAL 60 MG IVP ×4 (01:10→23:50)
[2019-04-19] MEDS: Albuterol/Ipratropium 3 ML UPD VIAL UPD ×7 (01:10→23:50)
[2019-04-19] MEDS: Lactated Ringers 1,000 ML 65 ML IV ×2 (05:37→17:34)
[2019-04-19 06:39] LABS: Abs Immature Grans 0.02 k/cumm (0.0-0.09); Absolute Basophil Count 0.01 k/cumm (0.0-0.2); Absolute Lymphocyte Count 1.13 k/cumm (1.2-3.4); Absolute Monocyte Count 0.27 k/cumm (0.11-0.7); Absolute Neutrophil Count 7.77 k/cumm (1.2-6.7); Basophils % 0.1; HCT 40.1 % (36.0-46.0); HGB 13.3 g/dL (12.0-15.5); Immature Grans % 0.2; Lymphocytes % 12.3; Mean Corp. HGB Concentration 33.2 g/dL (32.0-36.0); Mean Corpuscular Hemoglobin 31.1 pg (27.0-33.0); Mean Corpuscular Volume 93.7 fL (80-95); Mean Platelet Volume 10.2 fL (8.0-11.0); Monocytes % 2.9; Neutrophils % 84.5; Platelet Count 233 x1000/uL (130-400); RBC 4.28 m/cumm (4.00-5.20); RBC Distribution Width 14.3 % (11.7-14.6)
[2019-04-19] MEDS: Pantoprazole 40 MG TABCR PO (06:49)
[2019-04-19] MEDS: Albuterol 2.5 MG/3 ML INH SOLN VIAL UPD (06:49)
[2019-04-19 06:52] LABS: Anion Gap 5.3 mmol/L (3-11); BUN 12 mg/dL (7-18); CO2 30.7 mmol/L (21.0-32.0); CREATININE 0.71 mg/dL (0.55-1.02); Calcium 8.3 mg/dL (8.5-10.1); Chloride 100 mmol/L (98-107); Glucose 130 mg/dL (70-100); Potassium 4.3 mmol/L (3.5-5.1); Sodium 136 mmol/L (136-145)
[2019-04-19 06:53] LABS: Magnesium 2.1 mg/dL (1.8-2.4)
[2019-04-19 07:15] LABS: Procalcitonin < 0.1 ng/mL
[2019-04-19] MEDS: Budesonide/Formoterol 80/4.5 6.9 GM 60 PUFF INH IH ×2 (08:03→20:07)
--- NOTE | 2019-04-19 08:06 | W.PM.PROGNOT ---
Date of Service Date of service: 04/19/19 Time of Service: 08:06 Assessment and Plan Assessment and plan (1) COPD exacerbation: Status: Acute Assessment and plan: Improving. I see that, in 2018, an echocardiogram revealed RV pressure and volume overload - I wonder if some of the symptoms have to do with pulmonary hypertension. Repeat echo ordered. CTA ruled out a PE. For now, continue present course of treatment - empiric levofloxacin, IV steroids (keep dose same), symbicort, scheduled and prn nebs. Can be transferred out of ICU later today. (2) Pulmonary hypertension: Status: Acute Assessment and plan: Echo in 2018 with RV pressure and volume overload. Exact PA pressures could not be estimated at that time. Echo is being repeated today. Monitor volume status carefully (3) Nicotine withdrawal: Status: Acute Assessment and plan: Provide nicotine replacement (4) Gastroesophageal reflux disease: Status: Chronic Assessment and plan: Continue protonix (5) Hypotension: Status: Acute Assessment and plan: Obtain echo. Continue gentle IVF, carefully monitoring respiratory status. Not on any anithypertensives at this time, but is on oxybutynin. (6) DVT prophylaxis: Status: Acute Assessment and plan: Lovenox (7) Discharge planning issues: Status: Acute Assessment and plan: DNI Would benefit from home health RN, PT, OT, [employer] Palliative care would like to follow up with the patient on Monday if she is still here and at home on discharge. Subjective Subjective Interval history since last seen: Spent the night up in a chair short of breath, was on 3L. Episode of shortness of breath at 6 am - better with nebs. At 7 am - 88% on 3L - now on 4L MARTE with exertion - 86% - had to be increased to 5L. Not interested in BiPAP this am. Met with palliative care - changed code status to DNI, but would still like chest compressions/shocks. Denies dizziness, chest pain, nausea, vomiting. Shortness of breath is better. She is worried about who is going to take care of her cat. Exam Narrative Exam Narrative: General: Anxious, tearful middle-aged female, who looks much older than her stated age, sitting in a chair, mildly tachypneic HEENT: EOMI, MMM Heart: RRR, no m/r/g Lungs: quiet expiratory wheezing R>L; mostly diminished breath sounds B GI; abdomen soft, nontender, nondistended Extremities: trace edema BLE's Objective Objective Clinical Data: Abnormal lab results 04/18/19 04/19/19 04/19/19 Range/Units 09:10 06:25 06:25 Absolute Neutrophils 7.77 H (1.2-6.7) k/cumm Absolute Lymphocytes 1.13 L (1.2-3.4) k/cumm pCO2 51 H (34-47) mmHg pO2 66 L (83-108) mmHg O2 Saturation 93 L (94-98) % ABG HCO3 31 H (22-28) mmol/L ABG Base Excess 5.9 H (-3-3) mmol/L Glucose 130 H (70-100) mg/dL Calcium 8.3 L (8.5-10.1) mg/dL Vital Signs Temperature 37.2 C 04/19/19 04:00 Temperature Source Temporal Artery Scan 04/19/19 04:00 Pulse 100 H 04/19/19 07:52 Pulse 82 04/18/19 16:01 Respiratory Rate 20 04/19/19 07:52 Respiratory Effort 04/19/19 04:00 Respiratory Depth Normal 04/19/19 04:00 Respiratory Pattern Tachypnea 04/19/19 04:00 Blood Pressure 97/52 L 04/19/19 06:00 Blood Pressure Mean 68 04/18/19 16:01 Blood Pressure Position Sitting 04/18/19 16:24 Pulse Oximetry 88 L 04/19/19 07:52 Oxygen Delivery Method Nasal Cannula 04/19/19 07:52 Oxygen Flow Rate 5 04/19/19 07:52 Fraction of Inspired Oxygen (FIO2) 30 04/18/19 05:06 Pain Level 0 04/19/19 04:00 Intake & Output 04/18/19 04/18/19 04/19/19 11:59 23:59 11:59 Intake Total 650 / 650 1988.083 / 1988.083 Output Total 335 / 850 515 / 850 725 / 725 Balance 315 / -200 -515 / -200 1264.083 / 1264.083 Weight 71.2 kg Intake: IV 650 / 650 989.083 / 989.083 Oral 1000 / 1000 Output: Urine 335 / 850 515 / 850 725 / 725 Other: Urine Color Yellow Yellow Yellow Urine Appearance Clear Clear Clear Urine Odor Normal Strong Comment Wearing Attends. Wearing Attends. History of incontinence. Wearing Attends. History of incontinence. Voiding Methods Bedside Commode Bedside Commode Laboratory Results WBC 9.20 k/cumm (4.4-10.8) 04/19/19 06:25 RBC 4.28 m/cumm (4.00-5.20) 04/19/19 06:25 Hgb 13.3 g/dL (12.0-15.5) D 04/19/19 06:25 Hct 40.1 % (36.0-46.0) 04/19/19 06:25 MCV 93.7 fL (80-95) 04/19/19 06:25 MCH 31.1 pg (27.0-33.0) 04/19/19 06:25 MCHC 33.2 g/dL (32.0-36.0) 04/19/19 06:25 RDW 14.3 % (11.7-14.6) 04/19/19 06:25 Plt Count 233 x1000/uL (130-400) 04/19/19 06:25 MPV 10.2 fL (8.0-11.0) 04/19/19 06:25 Immature Gran % 0.2 04/19/19 06:25 Neutrophils % 84.5 04/19/19 06:25 Lymphocytes % 12.3 04/19/19 06:25 Monocytes % 2.9 04/19/19 06:25 Eosinophils % 0.0 04/19/19 06:25 Basophils % 0.1 04/19/19 06:25 Absolute Neutrophils 7.77 k/cumm (1.2-6.7) H 04/19/19 06:25 Absolute Lymphocytes 1.13 k/cumm (1.2-3.4) L 04/19/19 06:25 Absolute Monocytes 0.27 k/cumm (0.11-0.7) 04/19/19 06:25 Absolute Eosinophils 0.00 k/cumm (0.0-0.7) 04/19/19 06:25 Absolute Basophils 0.01 k/cumm (0.0-0.2) 04/19/19 06:25 Sample Site Right radial 04/18/19 09:10 pCO2 51 mmHg (34-47) H 04/18/19 09:10 pO2 66 mmHg (83-108) L 04/18/19 09:10 O2 Saturation 93 % (94-98) L 04/18/19 09:10 ABG pH 7.39 (7.35-7.45) 04/18/19 09:10 ABG HCO3 31 mmol/L (22-28) H 04/18/19 09:10 ABG Total CO2 27 mmol/L (22-29) 04/18/19 09:10 ABG Base Excess 5.9 mmol/L (-3-3) H 04/18/19 09:10 Oxygen Liter Flow 3 L 04/18/19 09:10 Sodium 136 mmol/L (136-145) 04/19/19 06:25 Potassium 4.3 mmol/L (3.5-5.1) 04/19/19 06:25 Chloride 100 mmol/L (98-107) 04/19/19 06:25 Carbon Dioxide 30.7 mmol/L (21.0-32.0) 04/19/19 06:25 Anion Gap 5.3 mmol/L (3-11) 04/19/19 06:25 BUN 12 mg/dL (7-18) D 04/19/19 06:25 Creatinine 0.71 mg/dL (0.55-1.02) 04/19/19 06:25 Estimated GFR/1.73 m2 >= 60.00 (mL/min/1.73m2) 04/19/19 06:25 Glucose 130 mg/dL (70-100) H 04/19/19 06:25 Calcium 8.3 mg/dL (8.5-10.1) L 04/19/19 06:25 Magnesium 2.1 mg/dL (1.8-2.4) 04/19/19 06:25 Total Bilirubin 0.3 mg/dL (0.2-1.0) 04/18/19 03:50 AST 12 U/L (15-37) L 04/18/19 03:50 ALT 12 U/L (14-59) L 04/18/19 03:50 Alkaline Phosphatase 102 U/L (46-116) 04/18/19 03:50 Troponin I < 0.05 ng/mL (0.00-0.06) 04/18/19 03:50 Total Protein 8.3 g/dL (6.4-8.2) H 04/18/19 03:50 Albumin 4.0 g/dL (3.4-5.0) 04/18/19 03:50 Procalcitonin < 0.1 ng/mL 04/19/19 06:25 CTA chest: No evidence of pulmonary emboli. There are small regions of atelectasis or infiltration involving the lower lobes. Echo pending
[2019-04-19] MEDS: Umeclidinium 7 CAP INHALER 1 CAP IH (08:11)
[2019-04-19 08:16] LABS: Troponin I < 0.05 ng/mL (0.00-0.06)
[2019-04-19] MEDS: levoFLOXacin 750 MG/150 ML BAG 100 MG IVPB (08:40)
[2019-04-19] MEDS: Primidone 250 MG TAB 125 MG PO ×2 (08:41→13:53)
[2019-04-19] MEDS: Oxybutynin 5 MG TAB PO ×3 (08:41→20:08)
[2019-04-19] MEDS: Citalopram 20 MG TAB PO (08:42)
[2019-04-19] MEDS: Normal Saline Flush 10 ML SYR IVP ×2 (08:43→23:50)
--- NOTE | 2019-04-19 09:41 | W.PALLCONSUL ---
Date of service: 04/19/19 Time of Service: 08:41 History of Present Illness History of Present Illness Chief Complaint: Shortness of breath Narrative: I was asked by Dr Marquez to see Latrell and assess goals of care and specially CODE status. She was concerned because the patient came in with severe SOB, yet refused CPAP. Dr Marquez was concerned that Latrell's present status of FULL CODE was not in keeping with the patient's wishes. From her H and P: History of Present Illness History of Present Illness Chief Complaint: dyspnea Narrative: 58-year-old female smoker with a history of COPD on chronic home oxygen 3 L/min per nasal cannula but not chronically on corticosteroids, history of alpha-1 antitrypsin heterozygosity as well as hypertension, GERD, hyperlipidemia, tobaccoism presents emergency department with 2 to 3 days of increasing dyspnea and nonproductive cough not associated with a fever or rigors or chills or chest pain. Dyspnea worsen in spite of of her increased use of her DuoNeb treatments at home. She called EMS to bring her into the hospital. On their arrival she was in acute respiratory distress was given immediate DuoNeb treatment and Solu-Medrol and placed on oxygen. On arrival to the emergency department she was tachycardic with a heart rate of 108 bpm stable blood pressure 121/73. Oxygen saturation was 96% 4 L/min per nasal cannula and she was afebrile at 36.7 but was tachypneic with respiratory rates of 25 to 30 breaths/min. She was placed on BiPAP and given further nebulizer treatments with albuterol. She was started on Levaquin 750 mg IV for COPD exacerbation. She has stabilized with use of BiPAP and is no longer in respiratory distress. She is being admitted to the intensive care unit for further treatment of COPD exacerbation. She is currently up-to-date on her Pneumovax 23. Pt is a poor historian and keeps repeating I want to go home and be with my dog. Assessment and Plan Assessment and plan (1) [id number] deficiency: Status: Chronic (2) Chronic airway obstruction, not elsewhere classified: Status: Chronic Assessment and plan: Discussion regarding CODE Status. She was absolutely positive she did NOT want intubation for any length of time. She was ok with chest compressions and use of pads, but does NOT want intubation of any sort. COLST completed. Dr Marquez informed I am happy to see Latrell in the future if she is still at [facility] or at her home Review of Systems Constitutional Constitutional: Reports daytime sleepiness, Reports difficulty sleeping and Reports weakness Cardiovascular Cardiovascular: Reports dyspnea and Reports dyspnea on exertion Respiratory Respiratory: Reports chest congestion, Reports dyspnea and Reports dyspnea on exertion Neurologic Neurologic: Reports weakness Psychiatric Psychiatric: Reports abnormal sleep pattern, Reports anxiety and Reports depression [facility] Medical History (Updated 04/18/19 @ 07:11 by David Matthews) 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 Sargent B12 deficiency (Chronic 07/29/14) Benign neoplasm of colon (Chronic 11/22/12) Chronic airway obstruction, not elsewhere classified (Chronic 11/22/12) Severe 01/2016 FEV1 36%; 11/2012 overnight O2 sat: no sig nocturnal hypoxia alpha 1 antitrypsin level NL 02/15/18 Last APt with Rosetta at sleep/pulmonary clinic 02/15/18 Depression (Chronic) DVT of leg (deep venous thrombosis) Essential hypertension (Chronic 08/23/17) Fx upper humerus-closed (Acute 03/05/13) GERD (gastroesophageal reflux disease) (Chronic) Hyperlipidemia Hypomagnesemia (Chronic 11/28/17) Influenza A (Inactive) Insomnia (Chronic) Left hip pain (Acute) Memory loss (Acute 11/22/12) Mood disorder (Chronic) Other convulsions (Acute 11/22/12) Pneumonia (Inactive) Seizure disorder (Chronic) Sensorineural hearing loss, bilateral (Chronic 05/25/15) Tendonitis of wrist, left (Acute 03/31/17) Tinnitus (Acute 09/04/14) Tobacco dependence syndrome (Acute 11/22/12) Unspecified hearing loss (Acute 11/22/12) Urinary incontinence (Acute 11/22/12) Surgical History H/O shoulder surgery (Chronic) per pt she reports she has never had shoulder surgery History of cataract surgery (Chronic) History of colonoscopy (Chronic) Family History Father COPD (chronic obstructive pulmonary disease) Social History Smoking/Tobacco Use Status: Current every day Tobacco Type: cigarettes Alcohol Intake: former Drug use: Current Sobriety Substance use type: former substance user Housing: apartment What type of physical activity do you participate in: walking Duration: 15-30 minutes/day Frequency: daily Seatbelt use: always 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 HENMT Other: Considerable facial hair Resp Effort & Inspection: able to speak in complete sentences Other: ent Name: Nelia CHAVEZ #: [id number]: ICU Ordering Provider: Carlos Palacio M.D. : ADM IN Primary Care Provider: Jenna Nayak NPDate of Exam: 04/18/19Sex: F Admission Date: 04/18/19 : 1960 Age: 58 Exam(s) a RAD:XR portable chest AP EXAM: XR PORTABLE CHEST AP INDICATION: SOB. COMPARISON: XR CHEST 2V PA LATERAL from 08/16/2018 TECHNIQUE: 2D digital imaging was performed. FINDINGS: Semi upright portable chest was obtained. Heart is not enlarged. Mild pole pulmonary interstitial prominence noted, nonspecific, likely chronic fibrotic change. Possibility of mild superimposed acute edema not excluded, follow-up PA and lateral chest recommended. IMPRESSION Psych Appearance: disheveled Mental Status: other (upset she can't be with her dog) Speech and Movement: speech clear Mood: other (upset she can't be with her dog) Affect: sad Attitude: cooperative Insight: limited Results Last Vital Signs Temp 99.0 F 04/19/19 04:00 Pulse 85 04/19/19 08:05 Resp 22 04/19/19 08:05 BP 97/52 L 04/19/19 06:00 Pulse Ox 92 L 04/19/19 08:14 Labs Result diagrams: 04/19/19 06:25 04/19/19 06:25 Labs: Laboratory Results - last 24 hr 04/19/19 04/19/19 04/19/19 06:25 06:25 06:25 WBC RBC Hgb Hct MCV MCH MCHC RDW Plt Count MPV Immature Gran % Neutrophils % Lymphocytes % Monocytes % Eosinophils % Basophils % Absolute Neutrophils Absolute Lymphocytes Absolute Monocytes Absolute Eosinophils Absolute Basophils Sodium 136 Potassium 4.3 Chloride 100 Carbon Dioxide 30.7 Anion Gap 5.3 BUN 12 D Creatinine 0.71 Estimated GFR/1.73 m2 >= 60.00 Glucose 130 H Calcium 8.3 L Magnesium 2.1 Troponin I < 0.05 Procalcitonin < 0.1 04/19/19 06:25 WBC 9.20 RBC 4.28 Hgb 13.3 D Hct 40.1 MCV 93.7 MCH 31.1 MCHC 33.2 RDW 14.3 Plt Count 233 MPV 10.2 Immature Gran % 0.2 Neutrophils % 84.5 Lymphocytes % 12.3 Monocytes % 2.9 Eosinophils % 0.0 Basophils % 0.1 Absolute Neutrophils 7.77 H Absolute Lymphocytes 1.13 L Absolute Monocytes 0.27 Absolute Eosinophils 0.00 Absolute Basophils 0.01 Sodium Potassium Chloride Carbon Dioxide Anion Gap BUN Creatinine Estimated GFR/1.73 m2 Glucose Calcium Magnesium Troponin I Procalcitonin
--- NOTE | 2019-04-19 09:50 | DI.CT_ITS ---
EXAM: CT CHEST PE CTA CLINICAL HISTORY: hypotension, pulmonary hypertension, ?PE. TECHNIQUE: Examination of thepatient was carried out with intravenous administration of 100 cc of Om nipaque 350 COMPARISON: No exams were available for comparison FINDINGS: There is no evidence of PE. The heart is not enlarged. There is no evidence of right ventricular stra in. Densities in the lower lobes could represent atelectasis or infiltrate. There is nothing to sug gest an aortic aneurysm or dissection. IMPRESSION: No evidence of pulmonary emboli. There are small regions of atelectasis or infiltration involving the lower lobes.
[2019-04-19] MEDS: Omnipaque 350 MG/ML 100 ML BTL IJ (09:57)
[2019-04-19] MEDS: Enoxaparin 40 MG/0.4 ML SYR SC (10:41)
--- NOTE | 2019-04-19 11:45 | DI.US_ITS ---
APPROVED REPORT EXAM: Comprehensive 2D, Doppler, and color-flow Echocardiogram Patient Location: In-Patient Room/Bed: 220A ICU Purification Supervisor: ADELFO Lopez (AE) Indications: Follow up pulmonary HTN Left Ventricle The left ventricle is normal. The left ventricular systolic function is normal. The left ventricular ejection fraction is within the normal range. The posterior wall thickness is normal. There is normal LV segmental wall motion. The left ventricular diastolic function is indeterminate. LVEF is 65-70%. Right Ventricle The right ventricle is normal size. The right ventricular systolic function is normal. Atria The left atrium is mildly dilated. The right atrium size is normal. Aortic Valve The aortic valve is normal in structure. There is no aortic valvular stenosis. No aortic regurgitatio n is present. Mitral Valve The mitral valve is normal in structure. No evidence of mitral valve stenosis. Trace mitral regurgita tion. Tricuspid Valve The tricuspid valve is normal in structure. Trace tricuspid regurgitation. Pulmonic Valve The pulmonic valve is not well-visualized. Great Vessels The aortic root size is normal. The IVC is normal in size and collapses >50% with inspiration. Pericardium There is no pericardial effusion. 2D Dimensions IVSd 0.7 cm F: 0.6-1.0 LV Mass 131.0 g F: 67 - 162 PWd 0.7 cm F: 0.6 - 1.0 LV Mass Index 76.1 g/m2 F: 43 - 95 LVDd 5.1 cm F: 3.9 - 5.3 LVDs 3.3 cm F: 2.2 - 3.5 Aortic Root 3.0 cm F: 2.7 - 3.3 Left Atrium 4.0 cm F: 2.7 - 3.8 LVOT 1.8 cm (M/F) 1.5-2.5 LVEF (Teich) 65.0 % LV Diastology E/A Ratio 0.8 Aortic Valve LVOT Area 2.7 cm2 LVOT Peak Irvin. 1.2 m/s LVOT Mean Irvin. 0.7 m/s LVOT Peak Gr. 6.2 mmHg LVOT Mean Gr. 2.8 mmHg AoV Peak Irvin. 1.7 (0.5-1.3 m/s) AoV Mean Irvin. 1.1 m/s AO Peak GR. 11.8 mmHg AO Mean GR. 6.3 (<5 mmHg) RAMÍREZ (VTI) 1.9 (2.5-4.5 cm2) Mitral Valve MV E Max Irvin. 0.7 (0.4-1.3 m/s) MV A Velocity 0.9 (0.4-1.3 m/s) MV PHT 89.0 msec Pulmonary Valve PV Peak Velocity 0.9 (0.5-1.5 m/s) Tricuspid Valve TR P. Velocity 2.4 m/s TR P. Gradient 23.9 mmHg Conclusion Left Ventricle : The left ventricle is normal. The posterior wall thickness is normal. The left vent ricular diastolic function is indeterminate. There is normal LV segmental wall motion. LVEF is 65-70% . Right Ventricle : The right ventricle is normal size. The right ventricular systolic function is norm al. Atria : The left atrium is mildly dilated. The right atrium size is normal. Aortic Valve : The aortic valve is normal in structure. No aortic regurgitation is present. There is no aortic valvular stenosis. Mitral Valve : The mitral valve is normal in structure. Trace mitral regurgitation. No evidence of mi tral valve stenosis. Tricuspid Valve : The tricuspid valve is normal in structure. Trace tricuspid regurgitation. Compared to echocardiogram dated 08/16/2017, there is no longer systolic flattening of the ventricular septum. This would indicate RV pressures are within normal limits.
--- NOTE | 2019-04-19 14:15 | PDOC.CMPRO ---
- If Service Date Differs Date of service: 04/19/19 Time of Service: 14:15 Care Management Progress Note S/O: CM met with Sophy in the ICU she feels that she may be doing a little better. She is hopeful that she can go home today she is waiting for echo results. Her CT scan was negative for PE. She wants to go home to be with her dog who is being taken care of by her Mom. Sophy agrees home health nursing she will need a face to face for new services. She will also resume services through [facility] moderate needs. Sophy would like to have her hair cut, SANTINO contacted [facility] who she has gone to before. CM left a voicemail. A:Sophy is a 58 year old female admitted with acute COPD with a long history of COPD and oxygen dependence. P: Sophy will be discharged home when medically ready. She will resume oxygen services through [facility]. She will have new nursing through [facility]. CM contacted services and provided new referral to [facility]. Sophy will need RCT arranged at time of discharge.
[2019-04-19] MEDS: Lovastatin 40 MG TAB PO (20:07)
[2019-04-19] MEDS: traZODone 50 MG TAB 25 MG PO (21:51)
[2019-04-19] MEDS: Primidone 250 MG TAB PO (21:51)
[2019-04-20] VITALS (34 sets, daily range): BP systolic 103–129; BP diastolic 54–79; PULSE 68–91; RESP 1–36; TEMP 36.6–37.2; O2SAT 86–97
[2019-04-20] MEDS: Albuterol/Ipratropium 3 ML UPD VIAL UPD ×5 (03:39→21:09)
[2019-04-20] MEDS: Benzonatate 200 MG CAP PO (04:41)
[2019-04-20] MEDS: guaiFENesin 600 MG TABCR PO (04:42)
[2019-04-20] MEDS: Pantoprazole 40 MG TABCR PO (06:41)
[2019-04-20 06:57] LABS: Abs Immature Grans 0.01 k/cumm (0.0-0.09); Absolute Lymphocyte Count 1.14 k/cumm (1.2-3.4); Absolute Neutrophil Count 7.46 k/cumm (1.2-6.7); HCT 42.2 % (36.0-46.0); HGB 13.6 g/dL (12.0-15.5); Immature Grans % 0.1; Lymphocytes % 12.5; Mean Corp. HGB Concentration 32.2 g/dL (32.0-36.0); Mean Corpuscular Hemoglobin 30.6 pg (27.0-33.0); Mean Corpuscular Volume 94.8 fL (80-95); Mean Platelet Volume 10.8 fL (8.0-11.0); Monocytes % 5.5; Neutrophils % 81.9; Platelet Count 267 x1000/uL (130-400); RBC 4.45 m/cumm (4.00-5.20); RBC Distribution Width 14.5 % (11.7-14.6); White Blood Cell Count 9.11 k/cumm (4.4-10.8)
[2019-04-20 07:08] LABS: Anion Gap 5.9 mmol/L (3-11); BUN 16 mg/dL (7-18); CO2 31.1 mmol/L (21.0-32.0); Calcium 8.1 mg/dL (8.5-10.1); Chloride 106 mmol/L (98-107); Glucose 145 mg/dL (70-100); Potassium 4.1 mmol/L (3.5-5.1); Sodium 143 mmol/L (136-145)
[2019-04-20] MEDS: Citalopram 20 MG TAB PO (08:11)
[2019-04-20] MEDS: Primidone 250 MG TAB 125 MG PO ×2 (08:11→13:37)
[2019-04-20] MEDS: Oxybutynin 5 MG TAB PO ×3 (08:11→21:09)
[2019-04-20] MEDS: methylPREDNISolone SUCC 125 MG VIAL 60 MG IVP (08:14)
[2019-04-20] MEDS: levoFLOXacin 750 MG/150 ML BAG 100 MG IVPB (08:14)
[2019-04-20] MEDS: Lactated Ringers 1,000 ML 65 ML IV (08:17)
[2019-04-20] MEDS: Budesonide/Formoterol 80/4.5 6.9 GM 60 PUFF INH IH ×2 (08:28→21:10)
[2019-04-20] MEDS: Normal Saline Flush 10 ML SYR IVP ×2 (10:10→15:58)
[2019-04-20] MEDS: Enoxaparin 40 MG/0.4 ML SYR SC (10:10)
--- NOTE | 2019-04-20 11:26 | PGE_ITS ---
Date of Service Date of service: 04/20/19 Time of Service: 11:26 Assessment and Plan Assessment and plan (1) COPD exacerbation: Status: Acute Assessment and plan: Improving symptomatically. - Continue steroids but change to oral prednisone. - Currently on empiric antibiotics - Day #3 of Levofloxacin. - Continue aggressive nebs, NIPPV if needed. - Also with question of PHTN clinically - ECHO was previously performed, with results pending at this time. (2) Gastroesophageal reflux disease: Status: Chronic Assessment and plan: Continue PPI therapy. (3) Dyslipidemia: Status: Acute Assessment and plan: On statin therapy chronically. (4) DVT prophylaxis: Status: Acute Assessment and plan: SC Lovenox. (5) Advance directive on file: Status: Acute Assessment and plan: DNI per patient's discussion with palliative care. Subjective Subjective Interval history since last seen: 58-year-old woman with a prior history of COPD on home O2, admitted from [facility] Emergency Department on 04/18 with a diagnosis of acute COPD Exacerbation. Mrs. Alvarado has a prior history of Oxygen depended COPD, on 3L/minute of home O2. Her other Medical History includes Heterozygous for alpha-1 antitrypsin Deficiency, HTN, GERD, Dyslipidemia, and Tobacco use. She initially presented via EMS to the ED with acute respiratory distress, where she was found to be tachypneic and tachycardic. Imaging with CXR and eventual CTA of the chest was essentially unremarkable, although with noted areas of atelectasis vs. infiltration by CT Scan involving the lower lobes. Her labwork was unremarkable. She initially required BiPAP therapy, and following administration of nebulizer therapy, antibiotics, and IV Steroids she was referred for admission. This morning Mrs. Alvarado feels vastly improved, and reportedly near her baseline, although with reported significant dyspnea with minimal exertion. An ECHO was performed, with official results pending at this time. No overnight events reported. She remains afebrile. Exam Narrative Exam Narrative: General: Patient appears comfortable, AAOX3, NAD Neck: Supple CV: Regular, nontachycardic, S1S2, No rubs, murmurs, or gallops. Pulmonary: Diminished diffusely but with clear breathsounds, minimal wheezing. Abdomen: + Bowel Sounds, soft, nontender, nondistended Vascular: No lower extremity edema Psych: Normal mood and affect. Objective Objective Clinical Data: Abnormal lab results 10/12/19 10/12/19 Range/Units 06:32 06:32 Absolute Neutrophils 7.46 H (1.2-6.7) k/cumm Absolute Lymphocytes 1.14 L (1.2-3.4) k/cumm Glucose 145 H (70-100) mg/dL Calcium 8.1 L (8.5-10.1) mg/dL Vital Signs Temperature 36.6 C 04/20/19 07:50 Temperature Source Temporal Artery Scan 04/20/19 07:50 Pulse 68 04/20/19 08:26 Pulse 86 04/19/19 19:00 Respiratory Rate 20 04/20/19 08:26 Respiratory Effort Short of Breath 04/20/19 07:50 Respiratory Depth Normal 04/20/19 07:50 Respiratory Pattern Tachypnea 04/20/19 07:50 Blood Pressure 117/68 04/20/19 07:51 Blood Pressure Mean 78 04/20/19 07:51 Blood Pressure Position Sitting 04/20/19 07:50 Pulse Oximetry 96 04/20/19 08:26 Oxygen Delivery Method Nasal Cannula 04/20/19 08:26 Oxygen Flow Rate 2 04/20/19 08:26 Fraction of Inspired Oxygen (FIO2) 30 04/18/19 05:06 Pain Level 0 04/20/19 07:50 Intake & Output 04/19/19 04/19/19 04/20/19 11:59 23:59 11:59 Intake Total 2715.000 / 3844.083 1129.083 / 3844.083 1631.583 / 1631.583 Output Total 950 / 1400 450 / 1400 1450 / 1450 Balance 1765.000 / 2444.083 679.083 / 2444.083 181.583 / 181.583 Weight 72.212 kg 73.7 kg Intake: IV 1590.000 / 2189.083 599.083 / 2189.083 1106.583 / 1106.583 Oral 1125 / 1655 530 / 1655 525 / 525 Output: Urine 950 / 1400 450 / 1400 1450 / 1450 Other: Urine Color Pale Yellow Yellow Urine Appearance Clear Clear Clear Urine Odor None None Strong Comment Wearing Attends. History of incontinence. Wears attends, and uses bedside commode Pt has a hx of incontinence and has some with bad coughing jags. Otherwise uses BSC about every 2-4 hours. Voiding Methods Bedside Commode Bedside Commode Laboratory Results WBC 9.11 k/cumm (4.4-10.8) 04/20/19 06:32 RBC 4.45 m/cumm (4.00-5.20) 04/20/19 06:32 Hgb 13.6 g/dL (12.0-15.5) 04/20/19 06:32 Hct 42.2 % (36.0-46.0) 04/20/19 06:32 MCV 94.8 fL (80-95) 04/20/19 06:32 MCH 30.6 pg (27.0-33.0) 04/20/19 06:32 MCHC 32.2 g/dL (32.0-36.0) 04/20/19 06:32 RDW 14.5 % (11.7-14.6) 04/20/19 06:32 Plt Count 267 x1000/uL (130-400) 04/20/19 06:32 MPV 10.8 fL (8.0-11.0) 04/20/19 06:32 Immature Gran % 0.1 04/20/19 06:32 Neutrophils % 81.9 04/20/19 06:32 Lymphocytes % 12.5 04/20/19 06:32 Monocytes % 5.5 04/20/19 06:32 Eosinophils % 0.0 04/20/19 06:32 Basophils % 0.0 04/20/19 06:32 Absolute Neutrophils 7.46 k/cumm (1.2-6.7) H 04/20/19 06:32 Absolute Lymphocytes 1.14 k/cumm (1.2-3.4) L 04/20/19 06:32 Absolute Monocytes 0.50 k/cumm (0.11-0.7) 04/20/19 06:32 Absolute Eosinophils 0.00 k/cumm (0.0-0.7) 04/20/19 06:32 Absolute Basophils 0.00 k/cumm (0.0-0.2) 04/20/19 06:32 Sample Site Right radial 04/18/19 09:10 pCO2 51 mmHg (34-47) H 04/18/19 09:10 pO2 66 mmHg (83-108) L 04/18/19 09:10 O2 Saturation 93 % (94-98) L 04/18/19 09:10 ABG pH 7.39 (7.35-7.45) 04/18/19 09:10 ABG HCO3 31 mmol/L (22-28) H 04/18/19 09:10 ABG Total CO2 27 mmol/L (22-29) 04/18/19 09:10 ABG Base Excess 5.9 mmol/L (-3-3) H 04/18/19 09:10 Oxygen Liter Flow 3 L 04/18/19 09:10 Sodium 143 mmol/L (136-145) 04/20/19 06:32 Potassium 4.1 mmol/L (3.5-5.1) 04/20/19 06:32 Chloride 106 mmol/L (98-107) 04/20/19 06:32 Carbon Dioxide 31.1 mmol/L (21.0-32.0) 04/20/19 06:32 Anion Gap 5.9 mmol/L (3-11) 04/20/19 06:32 BUN 16 mg/dL (7-18) 04/20/19 06:32 Creatinine 0.70 mg/dL (0.55-1.02) 04/20/19 06:32 Estimated GFR/1.73 m2 >= 60.00 (mL/min/1.73m2) 04/20/19 06:32 Glucose 145 mg/dL (70-100) H 04/20/19 06:32 Calcium 8.1 mg/dL (8.5-10.1) L 04/20/19 06:32 Magnesium 2.0 mg/dL (1.8-2.4) 04/20/19 06:32 Total Bilirubin 0.3 mg/dL (0.2-1.0) 04/18/19 03:50 AST 12 U/L (15-37) L 04/18/19 03:50 ALT 12 U/L (14-59) L 04/18/19 03:50 Alkaline Phosphatase 102 U/L (46-116) 04/18/19 03:50 Troponin I < 0.05 ng/mL (0.00-0.06) 04/19/19 06:25 Total Protein 8.3 g/dL (6.4-8.2) H 04/18/19 03:50 Albumin 4.0 g/dL (3.4-5.0) 04/18/19 03:50 Procalcitonin < 0.1 ng/mL 04/19/19 06:25
--- NOTE | 2019-04-20 15:45 | PDOC.CMPRO ---
- If Service Date Differs Date of service: 04/20/19 Time of Service: 15:45 Care Management Progress Note S/O: Sophy was sitting up in a chair in the ICU when CM met with her. She was pleasant and smiling and stated that she was going to be discharged tomorrow. Nursing informed CM that her Mom could not transport tomorrow, it would have to wait until Monday. CM assured Sophy that RCT would be contacted to arrange transportation home. Sophy said she is feeling much better and has been OOB ambulating. Those are the 2 things that the doctor said must happen in order for her to go home. A:Sophy is a 58 year old female admitted with acute COPD with a long history of COPD and oxygen dependence. P: Sophy will be discharged home when medically ready. She will resume oxygen services through [facility]. She will have new nursing through [facility]. CM contacted services and provided new referral to [facility]. Sophy will need RCT arranged at time of discharge.
[2019-04-20] MEDS: Lovastatin 40 MG TAB PO (21:09)
[2019-04-20] MEDS: predniSONE 20 MG TAB 60 MG PO (21:09)
[2019-04-20] MEDS: traZODone 50 MG TAB 25 MG PO (22:12)
[2019-04-20] MEDS: Primidone 250 MG TAB PO (22:12)
[2019-04-21] MEDS: Albuterol/Ipratropium 3 ML UPD VIAL UPD ×3 (00:33→08:20)
[2019-04-21 03:47] VITALS: BP 128/60; PULSE 78; RESP 19; TEMP 36.9; O2SAT 94
[2019-04-21] MEDS: Albuterol 2.5 MG/3 ML INH SOLN VIAL UPD (05:32)
[2019-04-21] MEDS: Pantoprazole 40 MG TABCR PO (07:22)
[2019-04-21 08:20] VITALS: PULSE 71; RESP 18; RESP 4; O2SAT 95
[2019-04-21 08:28] VITALS: BP 104/65; PULSE 65; RESP 18; TEMP 36.7; O2SAT 95
[2019-04-21] MEDS: Budesonide/Formoterol 80/4.5 6.9 GM 60 PUFF INH IH (08:29)
[2019-04-21 08:40] VITALS: O2SAT 95
[2019-04-21] MEDS: Primidone 250 MG TAB 125 MG PO (08:45)
[2019-04-21] MEDS: levoFLOXacin 750 MG/150 ML BAG 100 MG IVPB (08:45)
[2019-04-21] MEDS: Oxybutynin 5 MG TAB PO (08:46)
[2019-04-21] MEDS: predniSONE 20 MG TAB 60 MG PO (08:46)
[2019-04-21] MEDS: Citalopram 20 MG TAB PO (08:46)
[2019-04-21] MEDS: Enoxaparin 40 MG/0.4 ML SYR SC (10:21)
--- NOTE | 2019-04-21 11:43 | DSE_ITS ---
Date of service: 04/21/19 Time of Service: 11:43 DS: Diagnosis Discharge Diagnosis (1) COPD exacerbation: Status: Acute Discharge Plan Disposition Patient Disposition: HOME W/HOME HEALTH SERVICE Condition: Stable Discharge Details Chief Complaint: SOB Clinical Impression: COPD exacerbation Reason For Visit: COPD EXACERBATION Admit Date/Time: 04/18/19 05:59 Admit Provider: David Matthews Attending Provider: David Matthews Primary Care Provider: Jenna Nayak ED Provider: Carlos Palacio [facility] Course Hospital Course: Chief Complaint: Dyspnea HPI: 58-year-old woman with a prior history of COPD on home O2, admitted from [facility] Emergency Department on 04/18 with a diagnosis of acute COPD Exacerbation. Mrs. Alvarado has a prior history of Oxygen depended COPD, on 3L/minute of home O2. Her other Medical History includes Heterozygous for alpha-1 antitrypsin Deficiency, HTN, GERD, Dyslipidemia, and Tobacco use. She initially presented via EMS to the ED with acute respiratory distress, where she was found to be tachypneic and tachycardic. Imaging with CXR and eventual CTA of the chest was essentially unremarkable, although with noted areas of atelectasis vs. infiltration by CT Scan involving the lower lobes. Her labwork was unremarkable. She initially required BiPAP therapy, and following administration of nebulizer therapy, antibiotics, and IV Steroids she was referred for admission. This morning Mrs. Alvarado continues to feel vastly improved, and reportedly near her baseline. An ECHO was performed, with official results pending prior to discharge. She is requesting to be discharged home. No overnight events reported. She remains afebrile. Hospital Course: (1) COPD exacerbation: Improving symptomatically. - Continue steroids with plans for a slow taper. - Currently on empiric antibiotics - Day #4 of a planned 5 day course of Levofloxacin. - Continue aggressive nebs upon return home - patient reportedly has a nebulizer machine at home. - Also with question of PHTN clinically - ECHO was previously performed, with results pending at time of disharge. Patient's ECHO was performed on a Monday afternoon, with results unavailable over the weekend. (2) Gastroesophageal reflux disease: Continue PPI therapy. (3) Dyslipidemia: On statin therapy chronically. (4) DVT prophylaxis: Was maintained on SC Lovenox. (5) Advance directive on file: DNI per patient's discussion with palliative care. Home Meds and New Rx's Prescriptions: New levofloxacin 750 mg tablet 750 mg PO DAILY Qty: 1 RF: 0 prednisone 10 mg tablet 10 mg PO DAILY Qty: 72 RF: 0 Continued citalopram 20 mg tablet 20 mg PO DAILY Qty: 90 RF: 3 lovastatin 40 mg tablet 40 mg PO DAILY Qty: 90 RF: 3 oxybutynin chloride 5 mg tablet 5 mg PO TID Qty: 270 RF: 3 trazodone 50 mg tablet 25 mg PO HS Qty: 45 RF: 3 meclizine 12.5 mg tablet 12.5 mg PO TID PRN (Reason: dizziness) Qty: 30 RF: 0 cyanocobalamin (vitamin B-12) 1,000 MCG/1 ML solution 1,000 mcg IJ MONTHLY Qty: 1 RF: 0 ascorbic acid (vitamin C) [Vitamin C] 500 MG tablet 500 mg PO DAILY RF: 0 ketoconazole 15 GM cream 1 film Topical BID PRNQty: 1 RF: 1 (DME) Briefs, Adult-Extra Large 1 EACH misc 1 ea Miscellaneous TID Qty: 90 RF: 11 sennosides [Senokot] 8.6 MG tablet 1 tab-cap PO DAILY PRNQty: 30 RF: 12 pantoprazole 40 mg tablet,delayed release (DR/EC) 40 mg PO DAILY Qty: 90 RF: 3 primidone 250 mg tablet 250 mg PO as directed Qty: 60 RF: 12 meloxicam 15 mg tablet 15 mg PO DAILY Qty: 30 RF: 0 Trelegy Ellipta 100-62.5-25 mcg blister with device 1 inh IH DAILY RF: 0 albuterol sulfate [ProAir HFA] 90 mcg/actuation HFA aerosol inhaler 2 puff Inhalation Q4H PRN Qty: 3 RF: 3 Changed ipratropium-albuterol 3 ML solution for nebulization 3 ml Inhalation Q4H PRNQty: 1 RF: 12 Discharge Instructions Additional Instructions: Please see your primary care provider in 1 week. Please take your medications when prescribed. Over the next 3-4 days use your nebulizer every 4 hours while awake. Take prednisone and the antibiotic levofloxacin as prescribed until your pills are completed. Activity:: No strenuous activity Equipment/Supplies:: Patient to be discharged with [facility] Oxygen tank Diet:: As Tolerated Discharge Orders Discharge Orders: Discharge Order (Routine); Ordered 04/21/19 Ordered By: Anders Cary DS: Summary Status at Discharge Functional status at discharge: independent ambulation Overall status at discharge: patient is back to baseline Mental Status: mental status grossly normal Speech and Movement: speech and movement normal Mood: congruent mood Affect: normal affect Exam Narrative Exam Narrative: General: Patient appears comfortable, AAOX3, NAD Neck: Supple CV: Regular, nontachycardic, S1S2, No rubs, murmurs, or gallops. Pulmonary: Diminished diffusely but with clear breathsounds, minimal continued wheezing. Abdomen: + Bowel Sounds, soft, nontender, nondistended Vascular: No lower extremity edema Psych: Normal mood and affect. Psych Mental Status: mental status grossly normal Speech and Movement: speech and movement normal Mood: congruent mood Affect: normal affect DS: Data Vitals/I&O Vitals and I&O: Vital Signs Temperature 36.7 C 04/21/19 08:28 Temperature Source Tympanic 04/21/19 08:28 Pulse 65 04/21/19 08:28 Pulse Rhythm Regular 04/21/19 09:47 Pulse 86 04/19/19 19:00 Respiratory Rate 18 04/21/19 08:28 Respiratory Effort Non-Labored 04/21/19 09:47 Respiratory Depth Normal 04/21/19 09:47 Respiratory Pattern Normal 04/21/19 09:47 Blood Pressure 104/65 04/21/19 08:28 Blood Pressure Mean 71 04/20/19 15:45 Blood Pressure Position Sitting 04/20/19 12:08 Pulse Oximetry 95 04/21/19 08:28 Oxygen Delivery Method Nasal Cannula 04/21/19 08:28 Oxygen Flow Rate 2 04/21/19 08:28 Fraction of Inspired Oxygen (FIO2) 30 04/18/19 05:06 Pain Level 0 04/21/19 08:28 Intake & Output 04/20/19 04/20/19 04/21/19 11:59 23:59 11:59 Intake Total 1631.583 / 3581.583 1950.000 / 3581.583 250 / 250 Output Total 1550 / 2425 875 / 2425 Balance 81.583 / 6109.093 0884.000 / 1156.583 250 / 250 Weight 73.7 kg 74.5 kg Intake: IV 1106.583 / 2106.583 1000.000 / 2106.583 Oral 525 / 1475 950 / 1475 250 / 250 Output: Urine 1550 / 2425 875 / 2425 Other: Urine Color Yellow Yellow Yellow Urine Appearance Clear Clear Clear Urine Odor Normal Comment Pt has a hx of incontinence and has some with bad coughing jags. Otherwise uses BSC about every 2-4 hours. Stool Size Moderate Moderate Stool Characteristics Formed Soft Formed Voiding Methods Bedside Commode Bedside Commode Toilet Diaper Data Completed and Pending Completed studies during hospitalization [Text1]: Exam(s) 04/18/2019 a RAD:XR portable chest AP EXAM: XR PORTABLE CHEST AP INDICATION: SOB. COMPARISON: XR CHEST 2V PA LATERAL from 08/16/2018 TECHNIQUE: 2D digital imaging was performed. FINDINGS: Semi upright portable chest was obtained. Heart is not enlarged. Mild pole pulmonary interstitial prominence noted, nonspecific, likely chronic fibrotic change. Possibility of mild superimposed acute edema not excluded, follow-up PA and lateral chest recommended. --------- Exam(s) 04/19/[address]:CT chest PE CTA EXAM: CT CHEST PE CTA CLINICAL HISTORY: hypotension, pulmonary hypertension, ?PE. TECHNIQUE: Examination of thepatient was carried out with intravenous administration of 100 cc of Omnipaque 350 COMPARISON: No exams were available for comparison FINDINGS: There is no evidence of PE. The heart is not enlarged. There is no evidence of right ventricular strain. Densities in the lower lobes could represent atelectasis or infiltrate. There is nothing to suggest an aortic aneurysm or dissection. IMPRESSION: No evidence of pulmonary emboli. There are small regions of atelectasis or infiltration involving the lower lobes. 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 Sargent B12 deficiency (Chronic 07/29/14) Benign neoplasm of colon (Chronic 11/22/12) Chronic airway obstruction, not elsewhere classified (Chronic 11/22/12) Severe 01/2016 FEV1 36%; 11/2012 overnight O2 sat: no sig nocturnal hypoxia alpha 1 antitrypsin level NL 02/15/18 Last APt with Edwardyaz at sleep/pulmonary clinic 02/15/18 Depression (Chronic) DVT of leg (deep venous thrombosis) Essential hypertension (Chronic 08/23/17) Fx upper humerus-closed (Acute 03/05/13) GERD (gastroesophageal reflux disease) (Chronic) Hyperlipidemia Hypomagnesemia (Chronic 11/28/17) Influenza A (Inactive) Insomnia (Chronic) Left hip pain (Acute) Memory loss (Acute 11/22/12) Mood disorder (Chronic) Other convulsions (Acute 11/22/12) Pneumonia (Inactive) Seizure disorder (Chronic) Sensorineural hearing loss, bilateral (Chronic 05/25/15) Tendonitis of wrist, left (Acute 03/31/17) Tinnitus (Acute 09/04/14) Tobacco dependence syndrome (Acute 11/22/12) Unspecified hearing loss (Acute 11/22/12) Urinary incontinence (Acute 11/22/12) Surgical History H/O shoulder surgery (Chronic) per pt she reports she has never had shoulder surgery History of cataract surgery (Chronic) History of colonoscopy (Chronic) Family History Father COPD (chronic obstructive pulmonary disease) Social History Smoking/Tobacco Use Status: Current every day Tobacco Type: cigarettes Alcohol Intake: former Drug use: Current Sobriety Substance use type: former substance user Housing: apartment What type of physical activity do you participate in: walking Duration: 15-30 minutes/day Frequency: daily Seatbelt use: always Drive intox or ride w/intox services delivery driver: No Working smoke detector in home: Yes Fire extinguisher in home: Yes Carbon monox detector in home: Yes Do you feel safe at home: Yes Do you feel safe in your relationship?: Yes
[2019-04-21 11:59] VITALS: BP 104/59; PULSE 67; RESP 18; TEMP 37; O2SAT 93
--- NOTE | 2019-04-21 12:18 | PDOC.HHF2F ---
Home Health Certification Home Health Certification: 1. Encounter Date and Reason I certify that SUZIE CHAVEZ was seen by Anders Cary on 04/21/19 and that I had a [id number] encounter with this patient that meets the physician face to face encounter requirements. 2. Clinical Findings Supporting Skilled Need and Homebound Status I certify that home health services are medically necessary, include either intermittent intermediate and/or physical/speech therapy, and that this patient is homebound in that absences from the home require considerable and taxing effort and are infrequent or of short duration, or are attributable to the need to receive medical care. [X] (a) Attached documentation from encounter provides clinical findings supporting skilled need and homebound status (including what assistance patient requires to leave the home). The encounter with the patient was in whole, or in part, for the following medical condition, which is the primary reason for home health care: COPD EXACERBATION Detention: Status check following discharge. New medication reconciliation. Physical Therapy/Occupational Therapy: Chronic deconditioning with acute hospitalization. Medical Social Work: Please assist in obtaining outpatient resources. 3. Certification and Authentication I certify that I composed the above information based on my clinical judgement relating to this patient's medical condition and, if applicable, clinical findings communicated to me by the NPP or inpatient physician who performed the Home Health Referral. All further orders will be obtained through ____Jenna Nayak (Community Based Physician - PCP)
--- NOTE | 2019-04-21 13:05 | CMDISCH_ITS ---
- If Service Date Differs Date of service: 04/21/19 Time of Service: 13:05 LACE Index Scoring Tool - Questions: Length of Stay (in days): 2 Acuity (Admit via E.D.?): Yes Comorbidities: Chronic Pulmonary Disease E.D. Visits: 2 - Answers: Total Score: 9 Risk of Readmission: Low Risk Care Management Discharge Reason for Hospitalization: COPD exacerbation Discharge Plan: Sophy will be discharged home with new the [facility] for nursing through [facility]. She will transport via [facility] and follow up with her PCP and discharge plan of care. Patient/Family Education Needs: Discharge plan, limitations, follow up plan, Ask Me Three.
== END 2019-04-21 13:51 | disposition home health service (06) | DRG 191 ==
LOC: ER 06:09 → ICU 09:00 → MS 04-20 18:42 → ICU 04-29 13:20
PROVIDERS: Internal Medicine; Admitting Provider Internal Medicine; Emergency Provider Emergency Medicine; PCP Nurse Practitioner; Visit Provider Internal Medicine
DX: J44.1 Chronic obstructive pulmonary disease with (acute) exacerbation (principal); F17.213 Nicotine dependence, cigarettes, with withdrawal; Z99.81 Dependence on supplemental oxygen; I95.9 Hypotension, unspecified; R06.03 Acute respiratory distress; E88.01 Alpha-1-antitrypsin deficiency; I10 Essential (primary) hypertension; K21.9 Gastro-esophageal reflux disease without esophagitis; E78.5 Hyperlipidemia, unspecified; F17.210 Nicotine dependence, cigarettes, uncomplicated; F32.9 Major depressive disorder, single episode, unspecified; Z71.6 Tobacco abuse counseling
CPT/HCPCS: 36415; 71275; 80048; 80053; 82805; 84145; 93005; 94640; 96361; 96365; 99220; 99232; 99239; 99254; 99285; J1650; NC; 36600; 71045; 83735; 84484; 85025; 87070; 87205; 93010; 93306; 94667; 99223; J1956; J2930; J3490; J7512; J7613; J7620

== ENCOUNTER 2019-05-19 02:29 | Inpatient (IN) | payer MEDICAID, SELFPAY ==
[2019-05-19] VITALS (50 sets, daily range): BP systolic 106–151; BP diastolic 52–82; PULSE 86–126; RESP 4–42; TEMP 36.5–38.1; O2SAT 88–97
--- NOTE | 2019-05-19 02:24 | ED.GENADUL_ITS ---
Discharge Plan Disposition Patient Disposition: [facility] INPATIENT Condition: Stable Discharge Details Chief Complaint: SOB Clinical Impression: Sepsis, Pneumonia, Acute exacerbation of chronic obstructive pulmonary disease Primary Care Provider: Jenna Nayak ED Provider: Lazaro Stiles Home Meds and New Rx's Prescriptions: No Action citalopram 20 mg tablet 20 mg PO DAILY Qty: 90 RF: 3 lovastatin 40 mg tablet 40 mg PO DAILY Qty: 90 RF: 3 oxybutynin chloride 5 mg tablet 5 mg PO TID Qty: 270 RF: 3 trazodone 50 mg tablet 25 mg PO HS Qty: 45 RF: 3 meclizine 12.5 mg tablet 12.5 mg PO TID PRN (Reason: dizziness) Qty: 30 RF: 0 prednisone 20 mg tablet 40 mg PO DAILY Qty: 14 RF: 0 azithromycin [Zithromax Z-Lake] 250 mg tablet See Rx Instructions PO .COMPLEX Qty: 6 RF: 0 cyanocobalamin (vitamin B-12) 1,000 MCG/1 ML solution 1,000 mcg IJ MONTHLY Qty: 1 RF: 0 ascorbic acid (vitamin C) [Vitamin C] 500 MG tablet 500 mg PO DAILY RF: 0 ketoconazole 15 GM cream 1 film Topical BID PRNQty: 1 RF: 1 (DME) Briefs, Adult-Extra Large 1 EACH misc 1 ea Miscellaneous TID Qty: 90 RF: 11 sennosides [Senokot] 8.6 MG tablet 1 tab-cap PO DAILY PRNQty: 30 RF: 12 pantoprazole 40 mg tablet,delayed release (DR/EC) 40 mg PO DAILY Qty: 90 RF: 3 primidone 250 mg tablet 250 mg PO as directed Qty: 60 RF: 12 meloxicam 15 mg tablet 15 mg PO DAILY Qty: 30 RF: 0 Trelegy Ellipta 100-62.5-25 mcg blister with device 1 inh IH DAILY RF: 0 albuterol sulfate [ProAir HFA] 90 mcg/actuation HFA aerosol inhaler 2 puff Inhalation Q4H PRN Qty: 3 RF: 3 (DME) shower chair Qty: 1 RF: 0 Atrovent HFA 17 mcg/actuation HFA aerosol inhaler 2 puff IH QID Qty: 12.9 RF: 12 (DME) Shower Chair Qty: 1 RF: 0 Medical Decision Making This is a pleasant 59-year-old female with a history of COPD, hyper tension, previous blood clot, alpha-1 antitrypsin deficiency, seizure disorder, depression, hyperlipidemia and GERD who was on 2 L of home O2. She presents for shortness of breath by EMS. She was recently diagnosed with pneumonia and started on azithromycin and steroids for which she has been taking for 3 days. She has not had any improvement of her symptoms, and is actually worsened. She has had intermittent fevers. She is febrile here. She refused BiPAP by EMS and here. Physical exam demonstrates tachypnea, mild tachycardia, diminished breath sounds, minimal wheezes in the apex. She denies any chest pain chest pressure chest heaviness. She is slightly anxious appearing, and notably refuses BiPAP when offered. She is otherwise ANO x4. Physical exam is concerning for respiratory distress secondary to COPD exacerbation and potentially pneumonia. However the patient's tachycardia seems to be notable, and with her history of previous blood clots, I am concerned for potential PE as well. However differential is highest for pneumonia and COPD exacerbation. We will gently rehydrate, give steroids, magnesium, serial nebulizers, and reassess. We will start the patient on Levaquin for suspected community-acquired pneumonia secondary to her penicillin allergy. 4:59 AM Patient's laboratory work-up is returned, no white count, lactate minimally elevated at 1.6, renal function normal, VBG demonstrates mildly elevated PCO2 at 59. However this is likely chronic his pH is normal. Troponin and proBNP are normal. TSH normal. Chest x-ray per virtual radiology shows COPD. Patient still is febrile, tachycardia has slightly improved now at 113. Not completely resolved by fluid bolus. D-dimer is positive, with the patient's history of clots, tachycardia and shortness of breath mild fever PE is still in the differential. CTA was ordered and demonstrates no evidence of pulmonary embolism. Small infiltrate in the right base potentially. Patient is still not urinated yet. Influenza test is negative. With patient's persistent tachycardia, increased oxygen demand, and tachypnea I do feel that she would benefit from admission, treatment for COPD. She is technically septic at this time, we will continue the antibiotics for suspected pulmonary etiology of her symptoms. 5:38 AM Still pending urinalysis. Discussed the case with the hospitalist , he agrees with the assessment and plan. I will place admission orders. Patient will be admitted to the floor under telemetry for further management. I have extensively reviewed the treatment plan with the patient. I have addressed all patient concerns at this time. I have also discussed the plan with the admitting physician and they agree with the current assessment and plan and have agreed to assume responsibility for the patient. All parties demonstrate verbal understanding and agreement with our assessment and plan at this time. EKG 3: 20 Rate 127, intervals normal, sinus tachycardia, nonspecific T wave abnormality, no significant ST elevation or depression, no significant Q waves or T wave inversions. No evidence of STEMI. FINDINGS: Lungs: Chronic interstitial markings. Lungs hyperinflated. Pleural space: Unremarkable. No evidence of pneumothorax. Heart/Mediastinum: Unremarkable. Heart size within normal limits for technique. Bones/joints: Unremarkable. IMPRESSION: COPD. Dictated and Authenticated by: Roni Leong MD. Ordering:AYO Willis MD FINDINGS: Pulmonary arteries: Unremarkable. No evidence of pulmonary emboli. Aorta: Unremarkable. No aortic aneurysm. No aortic dissection. Lungs: Small amount of atelectasis in the bases. Pleural space: Unremarkable. No pneumothorax. No pleural effusion. Heart: Unremarkable. No pericardial effusion. No obvious heart strain. Lymph nodes: Unremarkable. No enlarged lymph nodes. Bones/joints: Unremarkable. No acute fracture. Soft tissues: Unremarkable. IMPRESSION: Small amount of atelectasis in the bases. Small infiltrate right base not excluded. No obvious pulmonary emboli but large amount of breathing motion obscures segmental vessels. Thank you for allowing us to participate in the care of your patient. Dictated and Authenticated by: Roni Leong MD 05/19/2019 4:44 AM Eastern Time ([place] & [place]) HPI General Date/Time Provider Initiated Documentation: 05/19/19 02:55 . HPI Narrative: This is a pleasant 59-year-old female with a history of COPD, hypertension, alpha-1 antitrypsin deficiency, seizure disorder, depression, hyperlipidemia and GERD who is on 2 L of home oxygen at baseline, and continues to smoke. She presents today for evaluation of shortness of breath. She was recently diagnosed with community-acquired pneumonia, started on azithromycin for which she is taken 3 days, as well as oral prednisone. She has had intermittent fever and productive cough. Unfortunately in spite of her home breathing treatments, and the antibiotic and steroid she has not had any improvement of her symptoms. In fact she is worsened. Patient contacted EMS who brought her to the ED for further assessment. Vital signs were stable per EMS. Patient refused BiPAP. Patient denies any chest pain, arm neck or shoulder pain, chest heaviness or chest tightness. She is notably anxious. She denies any nausea vomiting or diarrhea. She has no other complaints at this time. She is notably poor historian. Related Data Home Medications Medication Instructions Recorded Confirmed cyanocobalamin (vitamin B-12) 1,000 mcg IJ MONTHLY #1 vial 09/17/12 04/18/19 ascorbic acid (vitamin C) [Vitamin 500 mg PO DAILY 05/24/13 04/18/19 C] ketoconazole 1 film TOPICAL BID PRN #1 tube 02/08/16 04/18/19 Briefs, Adult-Extra Large #90 ea 06/10/16 03/01/19 sennosides [Senokot] 1 tab-cap PO DAILY PRN #30 tab-cap 11/29/17 04/18/19 meclizine 12.5 mg tablet 12.5 mg PO TID PRN #30 tab 08/23/18 04/18/19 pantoprazole 40 mg tablet,delayed 40 mg PO DAILY #90 tab-cap 09/03/18 04/18/19 release primidone 250 mg tablet 250 mg PO as directed #60 tab 11/01/18 04/18/19 citalopram 20 mg tablet 20 mg PO DAILY #90 tab-cap 12/04/18 04/18/19 lovastatin 40 mg tablet 40 mg PO DAILY #90 tab 12/04/18 04/18/19 oxybutynin chloride 5 mg tablet 5 mg PO TID #270 tab-cap 12/04/18 04/18/19 trazodone 50 mg tablet 25 mg PO HS #45 tab-cap 12/04/18 04/18/19 meloxicam 15 mg tablet 15 mg PO DAILY #30 tab 02/28/19 04/18/19 fluticasone fur. 100 mcg-umeclid 1 inh IH DAILY 03/08/19 04/18/19 62.5 mcg-vilant 25 mcg inhalat.powder albuterol sulfate 90 mcg/actuation 2 puff INHALATION Q4H PRN #3 03/18/19 04/18/19 aerosol inhaler inhaler ipratropium bromide 17 2 puff IH QID #12.9 gm 05/08/19 mcg/actuation HFA aerosol inhaler shower chair #1 ea 05/08/19 Shower Chair #1 ea 05/09/19 azithromycin 250 mg tablet See Rx Instructions PO .COMPLEX #6 05/16/19 05/16/19 tab prednisone 20 mg tablet 40 mg PO DAILY #14 tab 05/16/19 05/16/19 Previous Rx's Medication Instructions Recorded meclizine 12.5 mg tablet 12.5 mg PO TID PRN #30 tab 08/23/18 pantoprazole 40 mg tablet,delayed 40 mg PO DAILY #90 tab-cap 09/03/18 release primidone 250 mg tablet 250 mg PO as directed #60 tab 11/01/18 citalopram 20 mg tablet 20 mg PO DAILY #90 tab-cap 12/04/18 lovastatin 40 mg tablet 40 mg PO DAILY #90 tab 12/04/18 oxybutynin chloride 5 mg tablet 5 mg PO TID #270 tab-cap 12/04/18 trazodone 50 mg tablet 25 mg PO HS #45 tab-cap 12/04/18 meloxicam 15 mg tablet 15 mg PO DAILY #30 tab 02/28/19 albuterol sulfate 90 mcg/actuation 2 puff INHALATION Q4H PRN #3 03/18/19 aerosol inhaler inhaler ipratropium bromide 17 2 puff IH QID #12.9 gm 05/08/19 mcg/actuation HFA aerosol inhaler Shower Chair #1 ea 05/09/19 azithromycin 250 mg tablet See Rx Instructions PO .COMPLEX #6 05/16/19 tab prednisone 20 mg tablet 40 mg PO DAILY #14 tab 05/16/19 Allergies Allergy/AdvReac Type Severity Reaction Status Date / Time Penicillins Allergy Intermediate SKIN RASH Verified 05/19/19 02:43 adhesive AdvReac Mild Skin Rash Verified 05/19/19 02:43 General BO: 2 Review of Systems All systems reviewed & are unremarkable except as noted in HPI and below PFSH Social History (Updated 05/06/19 @ 11:36 by Magui Moyer) Smoking/Tobacco Use Status: Current every day Tobacco Type: cigarettes Alcohol Intake: former Drug use: Current Sobriety Substance use type: former substance user Housing: apartment What type of physical activity do you participate in: walking Duration: 15-30 minutes/day Frequency: daily Seatbelt use: always Drive intox or ride w/intox funeral car driver: No Working smoke detector in home: Yes Fire extinguisher in home: Yes Carbon monox detector in home: Yes Do you feel safe at home: Yes Do you feel safe in your relationship?: Yes Exam Narrative Exam Narrative: 1.Const: Well-nourished, Well-developed, appearing stated age 2.Eyes: PERRL, no conjunctival injection, and symmetrical lids. 3.ENT: Atraumatic external nose and ears. Notably dry MM. Neck: Symmetric, trachea midline, No thyromegaly. 4.CVS: +S1/S2, No murmurs or gallops. Peripheral pulses 2+ and equal in all extremities. Brisk capillary refill in all extremities. Radial pulses +2 bilaterally 5.RESP: Notably tachypneic with labored respiratory effort compounded by what appears to be an anxious state. Notably diminished breath sounds throughout, mild wheezes at the apex. 6.GI: Soft, Nontender/Nondistended, No hepatosplenomegaly. No guarding or rebound. 7.MSK: Normocephalic/Atraumatic, Extremities w/o deformity or ttp No cyanosis or clubbing, Normal movement of all extremities. No calf tenderness 8.Skin: Warm, Dry. No rashes or lesions. 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 Sensation grossly intact, no focal neurologic deficits. 10.Psych: (AAO) x3. Slightly anxious
--- NOTE | 2019-05-19 02:38 | DI.RAD_ITS ---
EXAM: XR PORTABLE CHEST AP INDICATION: cough, sob, fever, r/o fever. COMPARISON: XR PORTABLE CHEST AP from 04/18/2019 TECHNIQUE: 2D digital imaging was performed. FINDINGS: The heart size and pulmonary vasculature are within normal limits. The lungs appear hyperinflated, suggesting underlying COPD. Chronic interstitial markings are presen t likely reflecting fibrosis. No focal consolidating infiltrates are seen. No pleural effusions or pneumothoraces are identified. Degenerative changes are seen in the spine. IMPRESSION: No acute pulmonary process.
[2019-05-19] MEDS: methylPREDNISolone SUCC 125 MG VIAL IVP (02:48)
[2019-05-19] MEDS: Albuterol/Ipratropium 3 ML UPD VIAL 9 ML UPD (02:49)
[2019-05-19] MEDS: MAGNESIUM SULFATE 2 GM/50 ML BAG IVPB (02:49)
[2019-05-19] MEDS: levoFLOXacin 750 MG/150 ML BAG 100 MG IVPB (02:52)
[2019-05-19] MEDS: Normal Saline 1,000 ML 1000 ML IV (02:53)
--- NOTE | 2019-05-19 03:00 | NUR.NOTE ---
Nursing Note: pt confirms with this nurse that she is a DNR DNI. aware.
--- NOTE | 2019-05-19 03:00 | NUR.NOTE ---
Nursing Note: verbal order to infuse magnesium over 45min-60 min
[2019-05-19 03:03] LABS: BE (Venous) 9.6 mmol/L (-3-3); HCO3 (Venous) 35 mmol/L (22-28); O2 Sat (Venous) 76 % (70-80); TCO2 (Venous) 31 mmol/L (22-29); pCO2 (Venous) 59 mm/Hg (34-47); pH (Venous) 7.38 (7.32-7.43); pO2 (Venous) 38 mm/Hg (28-44)
[2019-05-19 03:04] LABS: Lactate 1.6 mmol/L (0.6-1.4)
[2019-05-19 03:07] LABS: Abs Immature Grans 0.02 k/cumm (0.0-0.09); Absolute Basophil Count 0.02 k/cumm (0.0-0.2); Absolute Eosinophil Count 0.18 k/cumm (0.0-0.7); Absolute Lymphocyte Count 1.39 k/cumm (1.2-3.4); Absolute Monocyte Count 0.66 k/cumm (0.11-0.7); Absolute Neutrophil Count 7.63 k/cumm (1.2-6.7); Basophils % 0.2; Eosinophils % 1.8; HCT 45.9 % (36.0-46.0); HGB 15.2 g/dL (12.0-15.5); Immature Grans % 0.2; Mean Corp. HGB Concentration 33.1 g/dL (32.0-36.0); Mean Corpuscular Hemoglobin 31.2 pg (27.0-33.0); Mean Corpuscular Volume 94.3 fL (80-95); Mean Platelet Volume 10.4 fL (8.0-11.0); Monocytes % 6.7; Neutrophils % 77.1; Platelet Count 307 x1000/uL (130-400); RBC 4.87 m/cumm (4.00-5.20); RBC Distribution Width 15.1 % (11.7-14.6)
[2019-05-19 03:21] LABS: PTT Activated 24.4 sec (21.0-31.4); Prothrombin Time 9.7 sec (9.3-11.0)
[2019-05-19 03:32] LABS: ALT 16 U/L (14-59); AST 14 U/L (15-37); Albumin 3.7 g/dL (3.4-5.0); Alkaline Phosphatase 86 U/L (46-116); Anion Gap 7.5 mmol/L (3-11); BUN 6 mg/dL (7-18); Bilirubin, Total 0.1 mg/dL (0.2-1.0); CO2 33.5 mmol/L (21.0-32.0); CREATININE 0.75 mg/dL (0.55-1.02); Calcium 9.1 mg/dL (8.5-10.1); Chloride 104 mmol/L (98-107); Glucose 94 mg/dL (70-100); NT-proBNP 166 pg/mL; Potassium 3.7 mmol/L (3.5-5.1); Sodium 145 mmol/L (136-145); TSH (W/Ref FT4) 1.02 uIU/mL (0.36-3.74); Total Protein 7.5 g/dL (6.4-8.2)
[2019-05-19 03:33] LABS: Troponin I < 0.05 ng/mL (0.00-0.06)
[2019-05-19 03:35] LABS: D-Dimer 737 ng/mlFEU (<500)
--- NOTE | 2019-05-19 03:37 | DI.VRAD_ITS ---
PROCEDURE INFORMATION: Exam: XR Chest, 1 View Exam date and time: 05/19/2019 3:27 AM Clinical history: 59 years old, female; Cough and fever and shortness of breath; Patient HX: Cough, SOB, fever TECHNIQUE: Imaging protocol: XR of the chest Views: 1 view. COMPARISON: XR PORTABLE CHEST AP 04/18/2019 4:49 AM FINDINGS: Lungs: Chronic interstitial markings. Lungs hyperinflated. Pleural space: Unremarkable. No evidence of pneumothorax. Heart/Mediastinum: Unremarkable. Heart size within normal limits for technique. Bones/joints: Unremarkable. IMPRESSION: COPD. Dictated and Authenticated by: Roni Leong MD. Ordering:AYO Willis MD
--- NOTE | 2019-05-19 03:39 | DI.CT_ITS ---
EXAM: CT CHEST PE CTA CLINICAL HISTORY: SOB, tachy, hx of clots, elevated dimer TECHNIQUE: Axial CT angiography was performed with multi-slice acquisition and multi-planar and/or 3 D reconstructions. The exam was performed utilizing 67 cc's of Omnipaque 350. COMPARISON: CT CHEST PE CTA from 04/19/2019 FINDINGS: There is patient motion artifact present. There is no evidence of a pulmonary embolus. The thoracic aorta is intact. No evidence of thoracic aortic dissection or aneurysm. The heart size is within normal limits. No pericardial effusion is seen. No evidence of right heart strain. No significant thoracic adenopathy, pleural effusion or pneumothorax is identified. Dependent atelectatic changes are seen in the lung bases. There is a small infiltrate in the right l ower lobe. This may represent atelectasis or pneumonia. Emphysematous changes are present in the al ngs. The tracheobronchial tree is unremarkable. Degenerative changes are seen in the spine. IMPRESSION: 1. No evidence of pulmonary embolus, thoracic aortic dissection or aneurysm. 2. Right basilar infiltrate. This may represent atelectasis or pneumonia.
--- NOTE | 2019-05-19 03:45 | NUR.NOTE ---
Nursing Note: pt sleeping with adequate chest rise and fall. awoke pt and she still declines bipap. aware.
[2019-05-19] MEDS: LORazepam 2 MG/ML VIAL (04:34)
[2019-05-19] MEDS: Omnipaque 350 MG/ML 100 ML BTL IJ (04:37)
--- NOTE | 2019-05-19 04:45 | DI.VRAD_ITS ---
PROCEDURE INFORMATION: Exam: CT Angiography Chest With Contrast Exam date and time: 05/19/2019 4:26 AM Clinical history: 59 years old, female; Shortness of breath and other: Tachycardic; Patient HX: SOB, tachy, h/o clots, elevated d dimer TECHNIQUE: Imaging protocol: Computed tomographic angiography of the chest with intravenous contrast. 3D rendering: MIP reconstructed images were created and reviewed. COMPARISON: CT CHEST PE CTA 04/19/2019 9:34 AM FINDINGS: Pulmonary arteries: Unremarkable. No evidence of pulmonary emboli. Aorta: Unremarkable. No aortic aneurysm. No aortic dissection. Lungs: Small amount of atelectasis in the bases. Pleural space: Unremarkable. No pneumothorax. No pleural effusion. Heart: Unremarkable. No pericardial effusion. No obvious heart strain. Lymph nodes: Unremarkable. No enlarged lymph nodes. Bones/joints: Unremarkable. No acute fracture. Soft tissues: Unremarkable. IMPRESSION: Small amount of atelectasis in the bases. Small infiltrate right base not excluded. No obvious pulmonary emboli but large amount of breathing motion obscures segmental vessels. Dictated and Authenticated by: Roni Leong MD. Ordering:AYO Willis MD
--- NOTE | 2019-05-19 05:53 | HPE_ITS ---
Date of service: 05/19/19 Time of Service: 05:53 Assessment and Plan Assessment and plan (1) COPD exacerbation: Status: Acute Assessment and plan: Continue with IV corticosteroids, high flow nasal cannula to maintain oxygen saturation of 88% or above, broad-spectrum IV antibiotics. I have continue the IV Levaquin that was started in the ER but we may need to consider changing to cefepime in light of her recent use of Levaquin. Patient adamantly refuses noninvasive positive pressure ventilation and declines any intubation or CPR. Her CODE STATUS been changed to DNR/DNI from a previous status of DNI. (2) Community acquired pneumonia of right lower lobe of lung: Status: Suspected Assessment and plan: As above History of Present Illness History of Present Illness Chief Complaint: dyspnea Narrative: Mrs. Alvarado is a 59 yr old w/ history of Oxygen dependent COPD, on 2L/minute of home O2, heterozygous for alpha-1 antitrypsin Deficiency, HTN, GERD, Dyslipidemia, remote hx of DVT and Tobacco abuse. She continues to smoke 1 cigarette per day. She was hospitalized recently at [facility] from 04/18/2019 to 04/21/2019 for COPD exacerbation (CXR did not show pneumonia and CTA showed areas of atelectasis vs infiltration at bilateral bases), she was treated w/ nebulized aerosols, antibiotics and corticosteroids. She was discharged home to complete 5 day course of Levaquin and tapering corticosteroids. She was followed up by her PCP Jenna Nayak on 05/06 and seen again on 05/16/2019 at which time she was diagnosed w/ recurrent COPD exacerbation requiring nebulized DuoNeb while in the office and was prescribed 7 days of prednisone 40 mg and started on 5 days of azithromycin. She now presents to the ER with worsening dyspnea and non- productive cough and was in acute respiratory distress w/ tachypnea and tachycardia. She refused BIPAP by EMS and the ER. She was found to be febrile 38.1, tachycardic at 125, but not hypotensive (BP 138/61), tachypneic 42/minute. Labs were remarkable for elevated pCO2 59 on VBG but with pH 7.38, elevated CO2 33 on CMP, normal renal and liver function tests, normal troponin <0.05 and normal BNP 166. d-dimer was elevated at 737 but still within the age corrected parameters. Nevertheless, she underwent CTA chest that did not show PE but demonstrated atelectasis at the bases and possible small infiltrate at right ba se could not be excluded however she had a lot of respiratory motion artifact. Treatment in the ER included multiple nebulizer treatments, solumedrol 125 mg IVP, Levaquin 750 mg IVP and magnesium bolus 2 gm and Tylenol 1000 mg orally and fluid bolus 1000 mL. She has a DNI code status. She is refusing BIPAP. She will be admitted to med/surg for continued respiratory nebulizer treatments, iv corticosteroid, and Levaquin. Review of Systems Constitutional Constitutional: Reports daytime sleepiness, Reports fatigue, Denies fever(s) and Reports weakness Cardiovascular Cardiovascular: Reports system reviewed and no additional complaints, except as docu Respiratory Respiratory: Reports as per HPI Gastrointestinal Gastrointestinal: Reports system reviewed and no additional complaints, except as docu Genitourinary Genitourinary: Reports system reviewed and no additional complaints, except as docu Neurologic Neurologic: Reports weakness Endocrine Endocrine: Reports fatigue [facility] Medical History [id number] 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 Sargent B12 deficiency (Chronic 07/29/14) Benign neoplasm of colon (Chronic 11/22/12) Chronic airway obstruction, not elsewhere classified (Chronic 11/22/12) Severe 01/2016 FEV1 36%; 11/2012 overnight O2 sat: no sig nocturnal hypoxia alpha 1 antitrypsin level NL 02/15/18 Last APt with Rosetta at sleep/pulmonary clinic 02/15/18 Depression (Chronic) DVT of leg (deep venous thrombosis) Essential hypertension (Chronic 08/23/17) Fx upper humerus-closed (Acute 03/05/13) GERD (gastroesophageal reflux disease) (Chronic) Hyperlipidemia Hypomagnesemia (Chronic 11/28/17) Influenza A (Inactive) Insomnia (Chronic) Left hip pain (Acute) Memory loss (Acute 11/22/12) Mood disorder (Chronic) Other convulsions (Acute 11/22/12) Pneumonia (Inactive) Seizure disorder (Chronic) Sensorineural hearing loss, bilateral (Chronic 05/25/15) Tendonitis of wrist, left (Acute 03/31/17) Tinnitus (Acute 09/04/14) Tobacco dependence syndrome (Acute 11/22/12) Unspecified hearing loss (Acute 11/22/12) Urinary incontinence (Acute 11/22/12) Surgical History H/O shoulder surgery (Chronic) per pt she reports she has never had shoulder surgery History of cataract surgery (Chronic) History of colonoscopy (Chronic) Family History Father COPD (chronic obstructive pulmonary disease) Social History Smoking/Tobacco Use Status: Current every day Tobacco Type: cigarettes Alcohol Intake: former Drug use: Current Sobriety Substance use type: former substance user Housing: apartment What type of physical activity do you participate in: walking Duration: 15-30 minutes/day Frequency: daily Seatbelt use: always Drive intox or ride w/intox 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 Working smoke detector in home: Yes Fire extinguisher in home: Yes Carbon monox detector in home: Yes Do you feel safe at home: Yes Do you feel safe in your relationship?: Yes Meds Home Medications and Allergies Home Medications Medication Instructions Recorded Confirmed Type cyanocobalamin (vitamin B-12) 1,000 mcg IJ MONTHLY #1 vial 09/17/12 04/18/19 History ascorbic acid (vitamin C) [Vitamin 500 mg PO DAILY 05/24/13 04/18/19 History C] ketoconazole 1 film TOPICAL BID PRN #1 tube 02/08/16 04/18/19 History Briefs, Adult-Extra Large #90 ea 06/10/16 03/01/19 History sennosides [Senokot] 1 tab-cap PO DAILY PRN #30 tab-cap 11/29/17 04/18/19 History meclizine 12.5 mg tablet 12.5 mg PO TID PRN #30 tab 08/23/18 04/18/19 Rx pantoprazole 40 mg tablet,delayed 40 mg PO DAILY #90 tab-cap 09/03/18 04/18/19 Rx release primidone 250 mg tablet 250 mg PO as directed #60 tab 11/01/18 04/18/19 Rx citalopram 20 mg tablet 20 mg PO DAILY #90 tab-cap 12/04/18 04/18/19 Rx lovastatin 40 mg tablet 40 mg PO DAILY #90 tab 12/04/18 04/18/19 Rx oxybutynin chloride 5 mg tablet 5 mg PO TID #270 tab-cap 12/04/18 04/18/19 Rx trazodone 50 mg tablet 25 mg PO HS #45 tab-cap 12/04/18 04/18/19 Rx meloxicam 15 mg tablet 15 mg PO DAILY #30 tab 02/28/19 04/18/19 Rx fluticasone fur. 100 mcg-umeclid 1 inh IH DAILY 03/08/19 04/18/19 History 62.5 mcg-vilant 25 mcg inhalat.powder albuterol sulfate 90 mcg/actuation 2 puff INHALATION Q4H PRN #3 03/18/19 04/18/19 Rx aerosol inhaler inhaler ipratropium bromide 17 2 puff IH QID #12.9 gm 05/08/19 Rx mcg/actuation HFA aerosol inhaler shower chair #1 ea 05/08/19 History Shower Chair #1 ea 05/09/19 Rx azithromycin 250 mg tablet See Rx Instructions PO .COMPLEX #6 05/16/19 05/16/19 Rx tab prednisone 20 mg tablet 40 mg PO DAILY #14 tab 05/16/19 05/16/19 Rx Allergies Allergy/AdvReac Type Severity Reaction Status Date / Time Penicillins Allergy Intermediate SKIN RASH Verified 05/19/19 02:43 adhesive AdvReac Mild Skin Rash Verified 05/19/19 02:43 Exam Const General: cooperative, acute distress mild, disheveled, frail appearing and ill appearing chronically Nutritional Appearance: overweight Orientation: alert, awake and oriented x3 Resp Effort & Inspection: cough Quality of cough: wet and tachypneic Auscultation: rhonchi lower bilaterally and wheezes scattered wheezes Cardio Jugular venous pressure: no JVD Palpation: normal PMI Rate: tachycardic Rhythm: regular rhythm Heart Sounds: other (heart sounds obscured by diffuse wheezing) GI Inspection: obesity Palpation: soft, no hepatosplenomegaly and nontender Percussion: normal to percussion Auscultation: normal bowel sounds Rectal Exam - female: deferred Skin General skin exam: no rashes or lesions noted Neuro General: alert, awake, oriented x3, moves all extremities and no focal motor deficits Cognition: normal cognition Speech: speech normal Motor: muscle tone normal throughout and no movement abnormalities noted Extrem General: normal to inspection, full ROM, no pedal edema and no calf tenderness Psych Appearance: disheveled Mental Status: mental status grossly normal Speech and Movement: speech and movement normal Mood: congruent mood Affect: normal affect Attitude: cooperative Thought Process: normal Thought Content: normal Insight: fair Judgment: fair Results Imaging Chest x-ray: report reviewed (IMPRESSION: COPD.) CT scan - chest: report reviewed (IMPRESSION: Small amount of atelectasis in the bases. Small infiltrate right base not excluded. No obvious pulmonary emboli but large amount of breathing motion obscures segmental vessels. Dictated and Authenticated by: Roni Leong MD.) Labs Result diagrams: 05/19/19 02:45 05/19/19 02:45 Labs: Laboratory Results - last 24 hr 05/19/19 05/19/19 05/19/19 02:45 02:45 02:45 WBC RBC Hgb Hct MCV MCH MCHC RDW Plt Count MPV Immature Gran % Neutrophils % Lymphocytes % Monocytes % Eosinophils % Basophils % Absolute Neutrophils Absolute Lymphocytes Absolute Monocytes Absolute Eosinophils Absolute Basophils PT 9.7 INR 1.0 APTT 24.4 D-Dimer 737 H VBG pH VBG pCO2 VBG pO2 VBG HCO3 VBG Total CO2 VBG O2 Saturation VBG Base Excess Sodium 145 Potassium 3.7 Chloride 104 Carbon Dioxide 33.5 H Anion Gap 7.5 BUN 6 L Creatinine 0.75 Estimated GFR/1.73 m2 >= 60.00 Glucose 94 Lactate 1.6 H Calcium 9.1 Total Bilirubin 0.1 L AST 14 L ALT 16 Alkaline Phosphatase 86 Troponin I < 0.05 NT-Pro-B Natriuret Pep 166 Total Protein 7.5 Albumin 3.7 TSH 1.02 05/19/19 05/19/19 02:45 02:45 WBC 9.90 RBC 4.87 Hgb 15.2 Hct 45.9 MCV 94.3 MCH 31.2 MCHC 33.1 RDW 15.1 H Plt Count 307 MPV 10.4 Immature Gran % 0.2 Neutrophils % 77.1 Lymphocytes % 14.0 Monocytes % 6.7 Eosinophils % 1.8 Basophils % 0.2 Absolute Neutrophils 7.63 H Absolute Lymphocytes 1.39 Absolute Monocytes 0.66 Absolute Eosinophils 0.18 Absolute Basophils 0.02 PT INR APTT D-Dimer VBG pH 7.38 VBG pCO2 59 H VBG pO2 38 VBG HCO3 35 H VBG Total CO2 31 H VBG O2 Saturation 76 VBG Base Excess 9.6 H Sodium Potassium Chloride Carbon Dioxide Anion Gap BUN Creatinine Estimated GFR/1.73 m2 Glucose Lactate Calcium Total Bilirubin AST ALT Alkaline Phosphatase Troponin I NT-Pro-B Natriuret Pep Total Protein Albumin TSH Last Vital Signs Temp 37.3 C 05/19/19 04:53 Pulse 113 H 05/19/19 04:45 Resp 36 H 05/19/19 04:50 BP 124/55 L 05/19/19 04:45 Pulse Ox 92 L 05/19/19 04:50
[2019-05-19 06:16] LABS: Troponin I < 0.05 ng/mL (0.00-0.06)
[2019-05-19 07:02] LABS: Bilirubin Negative (Negative); Blood Trace-intact (Negative); Clarity Clear (Clear); Glucose Negative (Negative); Ketones Negative (Negative); Leukocyte Esterase Negative (Negative); Nitrite Positive (Negative); Specific Gravity <= 1.005 (1.005-1.025); Urobilinogen 0.2 EU/dL (Up TO 0.2); pH 5.5 (5-8)
[2019-05-19 07:09] LABS: Bacteria Many HPF (Negative); C & S Indicated? Yes; Casts Negative LPF (Negative); Crystals Negative HPF (Negative); Epithelial Cells Rare HPF (Negative); Mucus Negative (Negative)
[2019-05-19] MEDS: Albuterol/Ipratropium 3 ML UPD VIAL UPD ×4 (07:32→21:21)
[2019-05-19] MEDS: guaiFENesin 600 MG TABCR PO (08:43)
[2019-05-19] MEDS: Enoxaparin 40 MG/0.4 ML SYR SC (08:43)
[2019-05-19 08:47] LABS: Lactate 0.9 mmol/L (0.6-1.4)
[2019-05-19 09:07] LABS: Troponin I < 0.05 ng/mL (0.00-0.06)
[2019-05-19] MEDS: methylPREDNISolone SUCC 125 MG VIAL 60 MG IVP ×2 (10:12→17:10)
[2019-05-19] MEDS: Normal Saline Flush 10 ML SYR IVP ×5 (10:12→21:32)
[2019-05-19] MEDS: Budesonide 0.5 MG/2 ML UPD VIAL UPD ×2 (11:12→21:21)
[2019-05-19] MEDS: LORazepam 2 MG/ML VIAL 1 MG IVP (11:18)
[2019-05-19 11:51] LABS: Procalcitonin < 0.1 ng/mL
--- NOTE | 2019-05-19 14:14 | NUR.NOTE ---
Nursing Note: Patient became sob and cyanotic after transfer to the toilet RT called to give treatment. Treatment had little effect, and provider was not happy with overall appearance. Patient did consent to bipap over an hour this really had a good effect, patient relaxed and was able to get some real sleep.Patient was monitored closely
--- NOTE | 2019-05-19 14:23 | PHARADMIT ---
Addendum entered by Isauro Bassett III 05/23/19 16:34: Pharmacy Note Subjective notes that patient is at nd stage COPD Objective vs-ok SCr-0.62 Lytes-OK h&h-OK Last BM-05/20 Assessment MS plans to continue Cefepime & Vancomycin at this time Plan Vancomycin trough ordered for 11am on Monday Addendum entered by Maribell Horowitz 05/22/19 15:53: Pharmacy Note Subjective Patient Really wants to go home, may go AMA Objective VS ok, labs ok Vanco trough 21.3 Assessment Vanco and Cefepime continue Vanco interval changed from Q10h to Q12h Palliative consult today still on IV steroids, will need to convert to oral Plan Anticipate discharge soon Addendum entered by Lwaanda Lopez 05/21/19 17:09: Pharmacy Note Subjective Has had periods of improvement but also times of significantly worsening breathing requiring BiPAP and prn lorazepam Objective BP 98/67, Assessment Cefepime day 3, Vancomycin day 2 (vanco was added on 05/20 given lack of progression) Plan Cont IV abx, steroids, aggressive nebs Watch for ototoxicity with vanco as patient has underlying hearing loss Original Note: Admission Pharmacy Clinical Review pneumonia, COPD exacerbation Code Status DNR/DNI Current Weight Wgt-74 kg Renally Cleared and Narrow Therapeutic Index Meds CrCl~ 53.44 mL/min Meds-OK QTc Value / Action Taken QTc-442 (Protonix,Celex,Trazodone-home meds not ordered) BP Control, Fever BP-112/81 Tmax-37C Electrolytes reviewed Na-145 K+3.7 DVT Prophylaxis Lovenox 40mg Opiate Usage / Scheduled Bowel Regimen Ordered No Yes Plt/SCr for Heparin / Enoxaparin Plts-307 SCr-0.75 INR for Warfarin inr-1.0 H/H stable, WBC/Bands H&H- 15.2/45.9 WBC-9.90 Antibiotic appropriateness Levaquin 750mg IV q24hrs Cultures and Sensitivities Blood/Urine-pending, Flu-neg Surgical ABX d/c within 24 hr NA DM control / Insulin Dosing BG-94 Heart Failure (Check EF%) (FELIPE's, B-Block, Diuretics) none IV to PO Switch No Home Meds Reviewed Yes Home Meds Not Ordered Trelegy ellipta, Vit-C, B-12, Celexa,Lovastatin, Ketoconazole crm, meclizine, Meloxicam Oxybutinin, Protonix, Primidone, Senna, Trazodone,Z-gee, Comments
[2019-05-19] MEDS: LORazepam 1 MG TAB PO (17:33)
[2019-05-19] MEDS: POTASSIUM CHLORIDE 20 MEQ, POTASSIUM CHLORIDE 10 MEQ 30 MEQ PO (17:35)
[2019-05-19] MEDS: Magnesium Oxide 400 MG TAB PO (17:36)
--- NOTE | 2019-05-19 18:08 | NUR.NOTE ---
Nursing Note: patient is still having difficulty breathing, she has refused to go back on bi pap. she has been offered this a couple of times. She was offered Ativan po to help her relax and she accepted. It was also noted that her home dose of primodone was not ordered, this was brought to the attention of the ccc, awaiting further orders
[2019-05-19] MEDS: Levalbuterol 0.63 MG/3 ML UPD VIAL UPD (20:14)
[2019-05-19] MEDS: CEFEPIME 2 GM in Normal Saline 100 ML IVPB (21:21)
[2019-05-19] MEDS: Primidone 250 MG TAB PO (21:22)
[2019-05-20] VITALS (26 sets, daily range): BP systolic 111–134; BP diastolic 72–77; PULSE 78–104; RESP 2–39; TEMP 36.4–37.1; O2SAT 86–95
[2019-05-20] MEDS: methylPREDNISolone SUCC 125 MG VIAL 60 MG IVP ×3 (01:44→17:56)
[2019-05-20] MEDS: Normal Saline Flush 10 ML SYR IVP ×4 (01:45→20:31)
[2019-05-20] MEDS: Albuterol/Ipratropium 3 ML UPD VIAL UPD ×6 (01:45→22:43)
[2019-05-20] MEDS: CEFEPIME 2 GM in Normal Saline 100 ML IVPB ×3 (04:25→20:29)
[2019-05-20] MEDS: Budesonide 0.5 MG/2 ML UPD VIAL UPD ×2 (10:15→22:43)
[2019-05-20] MEDS: Primidone 250 MG TAB 125 MG PO ×2 (11:36→16:33)
[2019-05-20] MEDS: LORazepam 1 MG TAB PO ×2 (11:37→16:34)
[2019-05-20] MEDS: Enoxaparin 40 MG/0.4 ML SYR SC (11:38)
--- NOTE | 2019-05-20 12:22 | PDOC.CMIN ---
- If Service Date Differs Date of service: 05/20/19 Time of Service: 12:22 Care Management Initial Assess REASON FOR HOSPITALIZATION:: Pneumonia, COPD exacerbation PAST MEDICAL HISTORY/PAST SURGICAL HISTORY:: COPD, current tobacco use, seizures, alpha 1 deficiency, HTN, GERD, insomnia, tendonitis of the left wrist, hearing loss, urinary incontinence, humerus fracture and left hip pain. PREVIOUS FUNCTIONAL STATUS/SOCIAL/FAMILY SUPPORTS:: Sophy lives at home by herself, she is independent at home. She uses chronic oxygen through [employer]. She lives in subsidized housing in [place]. Sophy has one cat and one dog. Her support person is her mother.She has choices for care moderate needs and her case maker is Tanisha Valladares at [facility] [phone] ext [phone] CURRENT FUNCTIONAL STATUS:: Sophy is sitting up in the chair she is crying, concerned about being in the hospital she is afraid her dog will not be cared for at home. Sophy is difficult to console, she is wheezing, tachypnic and struggling with secreations. She is insistant on leaving AMA. SANTINO was able to provide support, including desculation and reflective and active listening. Sophy was willing to take her updraft medications and take a shower after desculating. SANTINO contacted Sophy's Mom to address the dog she states she has been ill and is not able to go to the home. Sophy has a friend Bette that may be able to take care of the dog, there are also people willing to take the dog home for a few days if needed. Sophy is resistant to having the dog leave the home and has agreed to the friend. SANTINO has left a message for her friend waiting for call back. ADVANCE DIRECTIVES:: [facility] on file Has patient been provided with information about the portal?: Yes Did the patient sign up for the portal?: No CODE STATUS:: DNR/DNI INSURANCE COVERAGE / FINANCIAL ISSUES:: Medicaid CURRENT HOME/COMMUNITY SERVICES/EQUIPMENT:: [employer], moderate needs [facility], Home health nursing, and home oxygen through [email or web address]. PRIMARY CARE PHYSICIAN:: Jenna Nayak [facility] POTENTIAL DISCHARGE NEEDS:: Follow up with primary care and resumption of community services including home health. PATIENT/FAMILY EDUCATION NEEDS:: Discharge education, limitations and follow up plan of care including ask me three and self management ANTICIPATED BARRIERS TO DISCHARGE:: None TRANSPORTATION:: Via RCT coordianted by CM at time of discharge PLAN:: Sophy will be discharged home with resumption of home health services including nursing, she would benefit from better breathers program through home health. CM will continue to provide support discharge planning and disposition.
[2019-05-20] MEDS: Levalbuterol 0.63 MG/3 ML UPD VIAL UPD (15:56)
--- NOTE | 2019-05-20 16:28 | PGE_ITS ---
Date of Service Date of service: 05/20/19 Time of Service: 16:29 Assessment and Plan Assessment and plan (1) Community acquired pneumonia of right lower lobe of lung: Status: Suspected Assessment and plan: Recent history of hospitalization, along with antibiotic use with Levaquin and Azithromycin. - Continue Cefepime. Given lack of progression add vancomycin today. - Continue IV Steroids, aggressive nebs. - Given anxiety component, also with low dose benzo as needed. - Continue supplemental oxygen, BiPAP as required. (2) COPD exacerbation: Status: Acute Assessment and plan: As above. (3) Gastroesophageal reflux disease: Status: Chronic Assessment and plan: Initiate PPI therapy. (4) Dyslipidemia: Status: Acute Assessment and plan: Continue statin therapy. (5) DVT prophylaxis: Status: Acute Assessment and plan: SC Lovenox (6) Advance directive on file: Status: Acute Assessment and plan: DNR/DNI per discussion with admitting attending Subjective Subjective Interval history since last seen: 59 year old woman with a prior history of COPD on home O2, admitted from [facility] Emergency Department on 05/19 with a diagnosis of acute COPD Exacerbation. Mrs. Alvarado has a prior history of Oxygen depended COPD, on 3L/minute of home O2. She also continues to smoke despite multiple prior discussions, ongoing Oxygen requirement, and frequent pulmonary symptoms. Her other Medical History includes Heterozygous for alpha-1 antitrypsin Deficiency, HTN, GERD, and Dyslipidemia. She was admitted here between 04/18 and 04/21 of this year and treated for a COPD exacerbation, at which time she requested to leave prior to completion of her therapy. She was discharged with recommendations for completion of her antibiotic course with Levofloxacin, and a slow planned steroid taper. She was followed up by her PCP on 05/06 and seen again on 05/16/2019, at which time she was diagnosed with recurrent COPD exacerbation requiring nebulized DuoNeb while in the office, and a subsequent 7 day course of prednisone and 5 days of azithromycin. She presented to the ED via EMS on the day of her current admission with evidence of acute respiratory distress. Her labwork was unremarkable with the exception of a mildly elevated Lactate that quickly normalized, as well as negative troponins. Her urinalysis was nitrite +, but LE negative and with very few WBCs on microscopy. Rapid flu was checked and negative. Imaging with CXR showed no acute findings, and CTA was without evidence of PE or aneurysm, but with a right basilar infiltrate (Atelectasis vs. Pneumonia). The patient was administered IV steroids, nebs, and a dose of Levofloxacin and referred for admission for further evaluation and treatment. Since admission Mrs. Alvarado has had periods of improvement, but also with times of significantly worsening breathing that has required BiPAP therapy - reluctantly agreed to by patient. She has been maintained on antibiotic therapy with Cefepime, with optimized nebulizer therapy and IV Steroids. No overnight events reported. Patient is again requesting to leave today. Exam Narrative Exam Narrative: General: Patient appears tearful and angry, AAOX3, NAD Neck: Supple CV: Regular, borderline tachycardic, S1S2, No rubs, murmurs, or gallops. Pulmonary: Diffuse wheezing but with good air entry. No rhonchi. Abdomen: + Bowel Sounds, soft, nontender, nondistended Vascular: No lower extremity edema Psych: Normal mood and affect. Objective Objective Clinical Data: Vital Signs Temperature 37.1 C 05/20/19 16:14 Temperature Source Temporal Artery Scan 05/20/19 16:14 Pulse 90 05/20/19 16:14 Pulse Rhythm Regular 05/20/19 15:52 Pulse 114 H 05/19/19 05:47 Respiratory Rate 34 H 05/20/19 16:14 Respiratory Effort Labored 05/20/19 15:55 Respiratory Depth Deep 05/20/19 15:55 Respiratory Pattern Normal 05/20/19 15:55 Blood Pressure 134/77 05/20/19 16:14 Blood Pressure Mean 77 05/19/19 05:47 Pulse Oximetry 90 L 05/20/19 16:14 Oxygen Delivery Method Room Air 05/20/19 16:14 Oxygen Flow Rate 0 05/20/19 16:14 Fraction of Inspired Oxygen (FIO2) 26 05/20/19 01:12 Pain Level 0 05/20/19 11:35 Comment 05/20/19 07:48 Intake & Output 05/19/19 05/20/19 05/20/19 23:59 11:59 23:59 Intake Total 340 / 1540 410 / 410 Output Total 500 / 500 Balance 340 / 990 410 / -90 -500 / -90 Intake: IV 100 / 1300 110 / 110 Oral 240 / 240 300 / 300 Output: Urine 500 / 500 Other: Urine Color Yellow Yellow Urine Appearance Clear Clear Clear Urine Odor Strong Stool Size Moderate Copious Stool Characteristics Soft Liquid Formed Brown Voiding Methods Bedside Commode Bedside Commode Laboratory Results WBC 9.90 k/cumm (4.4-10.8) 05/19/19 02:45 RBC 4.87 m/cumm (4.00-5.20) 05/19/19 02:45 Hgb 15.2 g/dL (12.0-15.5) 05/19/19 02:45 Hct 45.9 % (36.0-46.0) 05/19/19 02:45 MCV 94.3 fL (80-95) 05/19/19 02:45 MCH 31.2 pg (27.0-33.0) 05/19/19 02:45 MCHC 33.1 g/dL (32.0-36.0) 05/19/19 02:45 RDW 15.1 % (11.7-14.6) H 05/19/19 02:45 Plt Count 307 x1000/uL (130-400) 05/19/19 02:45 MPV 10.4 fL (8.0-11.0) 05/19/19 02:45 Immature Gran % 0.2 05/19/19 02:45 Neutrophils % 77.1 05/19/19 02:45 Lymphocytes % 14.0 05/19/19 02:45 Monocytes % 6.7 05/19/19 02:45 Eosinophils % 1.8 05/19/19 02:45 Basophils % 0.2 05/19/19 02:45 Absolute Neutrophils 7.63 k/cumm (1.2-6.7) H 05/19/19 02:45 Absolute Lymphocytes 1.39 k/cumm (1.2-3.4) 05/19/19 02:45 Absolute Monocytes 0.66 k/cumm (0.11-0.7) 05/19/19 02:45 Absolute Eosinophils 0.18 k/cumm (0.0-0.7) 05/19/19 02:45 Absolute Basophils 0.02 k/cumm (0.0-0.2) 05/19/19 02:45 PT 9.7 sec (9.3-11.0) 05/19/19 02:45 INR 1.0 (0.9-1.1) 05/19/19 02:45 APTT 24.4 sec (21.0-31.4) 05/19/19 02:45 D-Dimer 737 ng/mlFEU (<500) H 05/19/19 02:45 VBG pH 7.38 (7.32-7.43) 05/19/19 02:45 VBG pCO2 59 mm/Hg (34-47) H 05/19/19 02:45 VBG pO2 38 mm/Hg (28-44) 05/19/19 02:45 VBG HCO3 35 mmol/L (22-28) H 05/19/19 02:45 VBG Total CO2 31 mmol/L (22-29) H 05/19/19 02:45 VBG O2 Saturation 76 % (70-80) 05/19/19 02:45 VBG Base Excess 9.6 mmol/L (-3-3) H 05/19/19 02:45 Sodium 145 mmol/L (136-145) 05/19/19 02:45 Potassium 3.7 mmol/L (3.5-5.1) 05/19/19 02:45 Chloride 104 mmol/L (98-107) 05/19/19 02:45 Carbon Dioxide 33.5 mmol/L (21.0-32.0) H 05/19/19 02:45 Anion Gap 7.5 mmol/L (3-11) 05/19/19 02:45 BUN 6 mg/dL (7-18) L 05/19/19 02:45 Creatinine 0.75 mg/dL (0.55-1.02) 05/19/19 02:45 Estimated GFR/1.73 m2 >= 60.00 (mL/min/1.73m2) 05/19/19 02:45 Glucose 94 mg/dL (70-100) 05/19/19 02:45 Lactate 0.9 mmol/L (0.6-1.4) 05/19/19 08:40 Calcium 9.1 mg/dL (8.5-10.1) 05/19/19 02:45 Total Bilirubin 0.1 mg/dL (0.2-1.0) L 05/19/19 02:45 AST 14 U/L (15-37) L 05/19/19 02:45 ALT 16 U/L (14-59) 05/19/19 02:45 Alkaline Phosphatase 86 U/L (46-116) 05/19/19 02:45 Troponin I < 0.05 ng/mL (0.00-0.06) 05/19/19 08:40 NT-Pro-B Natriuret Pep 166 pg/mL (-299) 05/19/19 02:45 Total Protein 7.5 g/dL (6.4-8.2) 05/19/19 02:45 Albumin 3.7 g/dL (3.4-5.0) 05/19/19 02:45 Procalcitonin < 0.1 ng/mL 05/19/19 08:40 TSH 1.02 uIU/mL (0.36-3.74) 05/19/19 02:45 Urine Color Yellow (Yellow) 05/19/19 06:20 Urine Clarity Clear (Clear) 05/19/19 06:20 Urine pH 5.5 (5-8) 05/19/19 06:20 Ur Specific [place] <= 1.005 (1.005-1.025) 05/19/19 06:20 Urine Protein Negative mg/dL (Negative) 05/19/19 06:20 Urine Ketones Negative mg/dL (Negative) 05/19/19 06:20 Urine Blood Trace-intact (Negative) H 05/19/19 06:20 Urine Nitrite Positive (Negative) H 05/19/19 06:20 Urine Bilirubin Negative (Negative) 05/19/19 06:20 Urine Urobilinogen 0.2 EU/dL (Up TO 0.2) 05/19/19 06:20 Ur Leukocyte Esterase Negative (Negative) 05/19/19 06:20 Urine RBC 3-5 (0-2) H 05/19/19 06:20 Urine WBC 3-5 HPF (0-5) 05/19/19 06:20 Ur Epithelial Cells Rare HPF (Negative) 05/19/19 06:20 Urine Crystals Negative HPF (Negative) 05/19/19 06:20 Urine Bacteria Many HPF (Negative) 05/19/19 06:20 Urine Casts Negative LPF (Negative) 05/19/19 06:20 Urine Mucus Negative (Negative) 05/19/19 06:20 Ur Culture Indicated? Yes 05/19/19 06:20 Urine Glucose Negative mg/dL (Negative) 05/19/19 06:20
[2019-05-20] MEDS: Pantoprazole 40 MG VIAL IVP (17:57)
[2019-05-20] MEDS: Lovastatin 40 MG TAB PO (20:31)
[2019-05-20] MEDS: Oxybutynin 5 MG TAB PO (20:31)
[2019-05-20] MEDS: Primidone 250 MG TAB PO (22:43)
[2019-05-20] MEDS: traZODone 50 MG TAB 25 MG PO (22:43)
[2019-05-21] VITALS (22 sets, daily range): BP systolic 98–144; BP diastolic 67–97; PULSE 71–98; RESP 4–32; TEMP 36–37.1; O2SAT 90–99
[2019-05-21] MEDS: methylPREDNISolone SUCC 125 MG VIAL 60 MG IVP ×3 (02:26→17:15)
[2019-05-21] MEDS: Normal Saline Flush 10 ML SYR IVP ×6 (02:27→19:50)
[2019-05-21] MEDS: CEFEPIME 2 GM in Normal Saline 100 ML IVPB ×3 (03:35→19:49)
[2019-05-21] MEDS: Albuterol/Ipratropium 3 ML UPD VIAL UPD ×5 (05:55→21:08)
[2019-05-21 07:25] LABS: Abs Immature Grans 0.01 k/cumm (0.0-0.09); Absolute Basophil Count 0.01 k/cumm (0.0-0.2); Absolute Lymphocyte Count 1.08 k/cumm (1.2-3.4); Absolute Monocyte Count 0.52 k/cumm (0.11-0.7); Absolute Neutrophil Count 3.86 k/cumm (1.2-6.7); Basophils % 0.2; HCT 43.3 % (36.0-46.0); Immature Grans % 0.2; Lymphocytes % 19.7; Mean Corp. HGB Concentration 32.3 g/dL (32.0-36.0); Mean Corpuscular Hemoglobin 31.3 pg (27.0-33.0); Mean Corpuscular Volume 96.9 fL (80-95); Monocytes % 9.5; Neutrophils % 70.4; Platelet Count 257 x1000/uL (130-400); RBC 4.47 m/cumm (4.00-5.20); RBC Distribution Width 15.3 % (11.7-14.6); White Blood Cell Count 5.48 k/cumm (4.4-10.8)
[2019-05-21] MEDS: Primidone 250 MG TAB 125 MG PO ×2 (07:25→17:14)
[2019-05-21] MEDS: LORazepam 1 MG TAB PO ×3 (07:25→21:09)
[2019-05-21] MEDS: Enoxaparin 40 MG/0.4 ML SYR SC (07:26)
[2019-05-21 07:35] LABS: Anion Gap 7.2 mmol/L (3-11); BUN 20 mg/dL (7-18); CO2 27.8 mmol/L (21.0-32.0); CREATININE 0.73 mg/dL (0.55-1.02); Calcium 8.9 mg/dL (8.5-10.1); Chloride 106 mmol/L (98-107); Glucose 137 mg/dL (70-100); Magnesium 2.3 mg/dL (1.8-2.4); Potassium 4.6 mmol/L (3.5-5.1); Sodium 141 mmol/L (136-145)
[2019-05-21] MEDS: Meloxicam 15 MG TAB PO (07:38)
[2019-05-21] MEDS: Oxybutynin 5 MG TAB PO ×3 (07:38→19:49)
[2019-05-21] MEDS: Ascorbic Acid 500 MG TAB PO (07:39)
[2019-05-21] MEDS: Citalopram 20 MG TAB PO (07:39)
[2019-05-21] MEDS: Budesonide 0.5 MG/2 ML UPD VIAL UPD ×2 (09:19→21:08)
--- NOTE | 2019-05-21 09:20 | CMPROGNOTE_ITS ---
- If Service Date Differs Date of service: 05/21/19 Time of Service: 09:20 Care Management Progress Note S/O: Sophy had an episode of difficulty breathing early this morning and required Ativan to cope. She is very anxious about her dog who is home alone. CM contacted her mother who states she is not feeling well and can't go care for the dog. Sophy's brother was apparently sent by her mother to feed the dog this morning but it is not clear if or when he will return. Sophy has a friend , Ying, who may be able to help but CM has been unable to reach her. Several calls have been made but the line is either busy, someone hangs up or a message states the number is no longer in service. A: Sophy is a 59 year old woman admitted with COPD exacerbation P: Sophy will be discharged home with resumption of home health services including nursing. She would benefit from [facility] program through home health. CM will continue to provide support, discharge planning and disposition. Attempts to reach her friend will also continue.
--- NOTE | 2019-05-21 15:32 | CHAPLAIN ---
Sophy was sitting up in her chair when I visited. She told me about her dog, Kirt Bear, and a cat that she had put down three days after she was discharged the last time she was a patient here. Sophy became tearful talking about how much she misses her dog, and telling me about her physical issue. No one understands what I'm going through, she said. I offered comfort and support and will continue to visit
[2019-05-21] MEDS: Levalbuterol 0.63 MG/3 ML UPD VIAL UPD (16:13)
--- NOTE | 2019-05-21 16:43 | W.PM.PROGNOT ---
Date of Service Date of service: 05/21/19 Time of Service: 16:43 Assessment and Plan Assessment and plan (1) Community acquired pneumonia of right lower lobe of lung: Status: Suspected Assessment and plan: Recent history of hospitalization, along with antibiotic use with Levaquin and Azithromycin. Procalcitonin undetectable at time of admission, but CT with right basilar infiltrate and evidence of fever at time of admission. - Continue Cefepime. Given lack of progression added vancomycin on 05/19. - Continue IV Steroids, aggressive nebs. Hold off on weaning of steroids. - Given anxiety component, also with low dose benzo as needed. - Continue supplemental oxygen, BiPAP as required. (2) COPD exacerbation: Status: Acute Assessment and plan: As above. (3) Gastroesophageal reflux disease: Status: Chronic Assessment and plan: Continue PPI therapy. (4) Dyslipidemia: Status: Acute Assessment and plan: Continue statin therapy. (5) DVT prophylaxis: Status: Acute Assessment and plan: SC Lovenox (6) Advance directive on file: Status: Acute Assessment and plan: DNR/DNI per discussion with admitting attending Subjective Subjective Patient reports: no new complaints Interval history since last seen: 59 year old woman with a prior history of COPD on home O2, admitted from [facility] Emergency Department on 05/19 with a diagnosis of acute COPD Exacerbation. Mrs. Alvarado has a prior history of Oxygen depended COPD, on 3L/minute of home O2. She also continues to smoke despite multiple prior discussions, ongoing Oxygen requirement, and frequent pulmonary symptoms. Her other Medical History includes Heterozygous for alpha-1 antitrypsin Deficiency, HTN, GERD, and Dyslipidemia. She was admitted here between 04/18 and 04/21 of this year and treated for a COPD exacerbation, at which time she requested to leave prior to completion of her therapy. She was discharged with recommendations for completion of her antibiotic course with Levofloxacin, and a slow planned steroid taper. She was followed up by her PCP on 05/06 and seen again on 05/16/2019, at which time she was diagnosed with recurrent COPD exacerbation requiring nebulized DuoNeb while in the office, and a subsequent 7 day course of prednisone and 5 days of azithromycin. She presented to the ED via EMS on the day of her current admission with evidence of acute respiratory distress. Her labwork was unremarkable with the exception of a mildly elevated Lactate that quickly normalized, as well as negative troponins. Her urinalysis was nitrite +, but LE negative and with very few WBCs on microscopy. Rapid flu was checked and negative. Imaging with CXR showed no acute findings, and CTA was without evidence of PE or aneurysm, but with a right basilar infiltrate (Atelectasis vs. Pneumonia). The patient was administered IV steroids, nebs, and a dose of Levofloxacin and referred for admission for further evaluation and treatment. Since admission Mrs. Alvarado has had periods of improvement, but also with times of significantly worsening breathing that has required BiPAP therapy - reluctantly agreed to by patient. Her worsening respiratory status is in part related to worsening anxiety, and responds well to prn lorazepam. She has been maintained on antibiotic therapy with Cefepime, with Vancomycin added on 04/19, with optimized nebulizer therapy and IV Steroids. No overnight events reported. Patient is again requesting to leave today. Exam Narrative Exam Narrative: General: Patient appears tearful and angry again, AAOX3, NAD Neck: Supple CV: Regular, borderline tachycardic, S1S2, No rubs, murmurs, or gallops. Pulmonary: Diffuse wheezing but with good air entry. No rhonchi. Abdomen: + Bowel Sounds, soft, nontender, nondistended Vascular: No lower extremity edema Psych: Normal mood and affect. Objective Objective Clinical Data: Abnormal lab results 05/21/19 05/21/19 Range/Units 07:00 07:00 MCV 96.9 H (80-95) fL RDW 15.3 H (11.7-14.6) % Absolute Lymphocytes 1.08 L (1.2-3.4) k/cumm BUN 20 H D (7-18) mg/dL Glucose 137 H (70-100) mg/dL Vital Signs Temperature 37.1 C 05/21/19 16:18 Temperature Source Tympanic 05/21/19 16:18 Pulse 79 05/21/19 16:19 Pulse Rhythm Regular 05/21/19 15:17 Pulse 114 H 05/19/19 05:47 Respiratory Rate 22 05/21/19 16:19 Respiratory Effort Labored 05/21/19 15:17 Respiratory Depth Deep 05/21/19 15:17 Respiratory Pattern Tachypnea 05/21/19 15:17 Blood Pressure 98/67 L 05/21/19 16:18 Blood Pressure Mean 77 05/19/19 05:47 Pulse Oximetry 98 05/21/19 16:19 Oxygen Delivery Method Nasal Cannula 05/21/19 16:18 Oxygen Flow Rate 2 05/21/19 16:18 Fraction of Inspired Oxygen (FIO2) 26 05/21/19 09:04 Pain Level 0 05/21/19 16:18 Comment 05/20/19 07:48 Intake & Output 05/20/19 05/21/19 05/21/19 23:59 11:59 23:59 Intake Total 420 / 830 300 / 400 100 / 400 Output Total 500 / 500 Balance -80 / 330 300 / 400 100 / 400 Weight 74 kg Intake: IV 420 / 530 300 / 400 100 / 400 Output: Urine 500 / 500 Other: Urine Color Yellow Yellow Urine Appearance Clear Clear Urine Odor None Stool Size Copious Stool Characteristics Liquid Voiding Methods Bedside Commode Bedside Commode Laboratory Results WBC 5.48 k/cumm (4.4-10.8) 05/21/19 07:00 RBC 4.47 m/cumm (4.00-5.20) 05/21/19 07:00 Hgb 14.0 g/dL (12.0-15.5) 05/21/19 07:00 Hct 43.3 % (36.0-46.0) 05/21/19 07:00 MCV 96.9 fL (80-95) H 05/21/19 07:00 MCH 31.3 pg (27.0-33.0) 05/21/19 07:00 MCHC 32.3 g/dL (32.0-36.0) 05/21/19 07:00 RDW 15.3 % (11.7-14.6) H 05/21/19 07:00 Plt Count 257 x1000/uL (130-400) 05/21/19 07:00 MPV 11.0 fL (8.0-11.0) 05/21/19 07:00 Immature Gran % 0.2 05/21/19 07:00 Neutrophils % 70.4 05/21/19 07:00 Band Neutrophils % Cancelled 05/20/19 05:35 Lymphocytes % 19.7 05/21/19 07:00 Atypical Lymphs % Cancelled 05/20/19 05:35 Monocytes % 9.5 05/21/19 07:00 Eosinophils % 0.0 05/21/19 07:00 Basophils % 0.2 05/21/19 07:00 Metamyelocytes % Cancelled 05/20/19 05:35 Myelocytes % Cancelled 05/20/19 05:35 Promyelocytes % Cancelled 05/20/19 05:35 Absolute Neutrophils 3.86 k/cumm (1.2-6.7) 05/21/19 07:00 Absolute Lymphocytes 1.08 k/cumm (1.2-3.4) L 05/21/19 07:00 Absolute Monocytes 0.52 k/cumm (0.11-0.7) 05/21/19 07:00 Absolute Eosinophils 0.00 k/cumm (0.0-0.7) 05/21/19 07:00 Absolute Basophils 0.01 k/cumm (0.0-0.2) 05/21/19 07:00 Nucleated RBCs Cancelled 05/20/19 05:35 Differential Comment Cancelled 05/20/19 05:35 Other Cell Type Cancelled 05/20/19 05:35 RBC Morphology Cancelled 05/20/19 05:35 Polychromasia Cancelled 05/20/19 05:35 Hypochromasia Cancelled 05/20/19 05:35 Poikilocytosis Cancelled 05/20/19 05:35 Basophilic Stippling Cancelled 05/20/19 05:35 Anisocytosis Cancelled 05/20/19 05:35 Microcytosis Cancelled 05/20/19 05:35 Macrocytosis Cancelled 05/20/19 05:35 Spherocytes Cancelled 05/20/19 05:35 Target Cells Cancelled 05/20/19 05:35 Tear Drop Cells Cancelled 05/20/19 05:35 Ovalocytes Cancelled 05/20/19 05:35 Stomatocytes Cancelled 05/20/19 05:35 Cooper-Archer Bodies Cancelled 05/20/19 05:35 Shmuel Cells Cancelled 05/20/19 05:35 Acanthocytes (Spur) Cancelled 05/20/19 05:35 Schistocytes Cancelled 05/20/19 05:35 PT 9.7 sec (9.3-11.0) 05/19/19 02:45 INR 1.0 (0.9-1.1) 05/19/19 02:45 APTT 24.4 sec (21.0-31.4) 05/19/19 02:45 D-Dimer 737 ng/mlFEU (<500) H 05/19/19 02:45 VBG pH 7.38 (7.32-7.43) 05/19/19 02:45 VBG pCO2 59 mm/Hg (34-47) H 05/19/19 02:45 VBG pO2 38 mm/Hg (28-44) 05/19/19 02:45 VBG HCO3 35 mmol/L (22-28) H 05/19/19 02:45 VBG Total CO2 31 mmol/L (22-29) H 05/19/19 02:45 VBG O2 Saturation 76 % (70-80) 05/19/19 02:45 VBG Base Excess 9.6 mmol/L (-3-3) H 05/19/19 02:45 Sodium 141 mmol/L (136-145) 05/21/19 07:00 Potassium 4.6 mmol/L (3.5-5.1) D 05/21/19 07:00 Chloride 106 mmol/L (98-107) 05/21/19 07:00 Carbon Dioxide 27.8 mmol/L (21.0-32.0) 05/21/19 07:00 Anion Gap 7.2 mmol/L (3-11) 05/21/19 07:00 BUN 20 mg/dL (7-18) H D 05/21/19 07:00 Creatinine 0.73 mg/dL (0.55-1.02) 05/21/19 07:00 Estimated GFR/1.73 m2 >= 60.00 (mL/min/1.73m2) 05/21/19 07:00 Glucose 137 mg/dL (70-100) H 05/21/19 07:00 Lactate 0.9 mmol/L (0.6-1.4) 05/19/19 08:40 Calcium 8.9 mg/dL (8.5-10.1) 05/21/19 07:00 Magnesium 2.3 mg/dL (1.8-2.4) 05/21/19 07:00 Total Bilirubin 0.1 mg/dL (0.2-1.0) L 05/19/19 02:45 AST 14 U/L (15-37) L 05/19/19 02:45 ALT 16 U/L (14-59) 05/19/19 02:45 Alkaline Phosphatase 86 U/L (46-116) 05/19/19 02:45 Troponin I < 0.05 ng/mL (0.00-0.06) 05/19/19 08:40 NT-Pro-B Natriuret Pep 166 pg/mL (-299) 05/19/19 02:45 Total Protein 7.5 g/dL (6.4-8.2) 05/19/19 02:45 Albumin 3.7 g/dL (3.4-5.0) 05/19/19 02:45 Procalcitonin < 0.1 ng/mL 05/19/19 08:40 TSH 1.02 uIU/mL (0.36-3.74) 05/19/19 02:45 Urine Color Yellow (Yellow) 05/19/19 06:20 Urine Clarity Clear (Clear) 05/19/19 06:20 Urine pH 5.5 (5-8) 05/19/19 06:20 Ur Specific [place] <= 1.005 (1.005-1.025) 05/19/19 06:20 Urine Protein Negative mg/dL (Negative) 05/19/19 06:20 Urine Ketones Negative mg/dL (Negative) 05/19/19 06:20 Urine Blood Trace-intact (Negative) H 05/19/19 06:20 Urine Nitrite Positive (Negative) H 05/19/19 06:20 Urine Bilirubin Negative (Negative) 05/19/19 06:20 Urine Urobilinogen 0.2 EU/dL (Up TO 0.2) 05/19/19 06:20 Ur Leukocyte Esterase Negative (Negative) 05/19/19 06:20 Urine RBC 3-5 (0-2) H 05/19/19 06:20 Urine WBC 3-5 HPF (0-5) 05/19/19 06:20 Ur Epithelial Cells Rare HPF (Negative) 05/19/19 06:20 Urine Crystals Negative HPF (Negative) 05/19/19 06:20 Urine Bacteria Many HPF (Negative) 05/19/19 06:20 Urine Casts Negative LPF (Negative) 05/19/19 06:20 Urine Mucus Negative (Negative) 05/19/19 06:20 Ur Culture Indicated? Yes 05/19/19 06:20 Urine Glucose Negative mg/dL (Negative) 05/19/19 06:20
[2019-05-21] MEDS: Pantoprazole 40 MG VIAL IVP (17:15)
[2019-05-21] MEDS: MORPHine 2 MG/ML SYR 1 MG IVP (18:26)
[2019-05-21] MEDS: Lovastatin 40 MG TAB PO (19:50)
[2019-05-21] MEDS: Primidone 250 MG TAB PO (21:08)
[2019-05-21] MEDS: traZODone 50 MG TAB 25 MG PO (21:09)
[2019-05-22] VITALS (16 sets, daily range): BP systolic 118–145; BP diastolic 74–89; PULSE 79–111; RESP 2–32; TEMP 36.4–37.4; O2SAT 87–96
[2019-05-22] MEDS: Normal Saline Flush 10 ML SYR IVP ×8 (00:02→23:56)
[2019-05-22] MEDS: methylPREDNISolone SUCC 125 MG VIAL 60 MG IVP ×3 (02:06→17:17)
[2019-05-22] MEDS: Albuterol/Ipratropium 3 ML UPD VIAL UPD ×5 (02:07→20:31)
[2019-05-22] MEDS: CEFEPIME 2 GM in Normal Saline 100 ML IVPB ×3 (03:33→23:55)
[2019-05-22] MEDS: LORazepam 1 MG TAB PO ×3 (03:33→20:09)
[2019-05-22 07:23] LABS: Abs Immature Grans 0.01 k/cumm (0.0-0.09); Absolute Basophil Count 0.01 k/cumm (0.0-0.2); Absolute Lymphocyte Count 1.08 k/cumm (1.2-3.4); Absolute Neutrophil Count 4.71 k/cumm (1.2-6.7); Basophils % 0.2; HCT 44.6 % (36.0-46.0); HGB 14.1 g/dL (12.0-15.5); Immature Grans % 0.2; Lymphocytes % 17.4; Mean Corp. HGB Concentration 31.6 g/dL (32.0-36.0); Mean Corpuscular Hemoglobin 30.3 pg (27.0-33.0); Mean Corpuscular Volume 95.7 fL (80-95); Mean Platelet Volume 10.6 fL (8.0-11.0); Monocytes % 6.4; Neutrophils % 75.8; Platelet Count 289 x1000/uL (130-400); RBC 4.66 m/cumm (4.00-5.20); White Blood Cell Count 6.21 k/cumm (4.4-10.8)
[2019-05-22 07:34] LABS: Anion Gap 4.9 mmol/L (3-11); BUN 22 mg/dL (7-18); CO2 30.1 mmol/L (21.0-32.0); CREATININE 0.73 mg/dL (0.55-1.02); Calcium 8.6 mg/dL (8.5-10.1); Chloride 107 mmol/L (98-107); Glucose 126 mg/dL (70-100); Magnesium 2.2 mg/dL (1.8-2.4); Potassium 4.7 mmol/L (3.5-5.1); Sodium 142 mmol/L (136-145)
[2019-05-22] MEDS: Citalopram 20 MG TAB PO (07:39)
[2019-05-22] MEDS: Enoxaparin 40 MG/0.4 ML SYR SC (07:39)
[2019-05-22] MEDS: Primidone 250 MG TAB 125 MG PO ×2 (07:40→16:23)
[2019-05-22] MEDS: Oxybutynin 5 MG TAB PO ×3 (07:40→20:09)
[2019-05-22] MEDS: Meloxicam 15 MG TAB PO (07:40)
[2019-05-22] MEDS: Ascorbic Acid 500 MG TAB PO (07:40)
[2019-05-22] MEDS: Budesonide 0.5 MG/2 ML UPD VIAL UPD ×2 (09:49→20:31)
[2019-05-22 09:51] LABS: Vancomycin, Trough 21.3 ug/mL (10.0-20.0)
--- NOTE | 2019-05-22 10:37 | W.PALLCONSUL ---
Date of service: 05/22/19 Time of Service: 10:38 History of Present Illness History of Present Illness Chief Complaint: SOB Narrative: From H and P History of Present Illness History of Present Illness Chief Complaint: dyspnea Narrative: Mrs. Alvarado is a 59 yr old w/ history of Oxygen dependent COPD, on 2L/minute of home O2, heterozygous for alpha-1 antitrypsin Deficiency, HTN, GERD, Dyslipidemia, remote hx of DVT and Tobacco abuse. She continues to smoke 1 cigarette per day. She was hospitalized recently at [facility] from 04/18/2019 to 04/21/2019 for COPD exacerbation (CXR did not show pneumonia and CTA showed areas of atelectasis vs infiltration at bilateral bases), she was treated w/ nebulized aerosols, antibiotics and corticosteroids. She was discharged home to complete 5 day course of Levaquin and tapering corticosteroids. She was followed up by her PCP Jenna Nayak on 05/06 and seen again on 05/16/2019 at which time she was diagnosed w/ recurrent COPD exacerbation requiring nebulized DuoNeb while in the office and was prescribed 7 days of prednisone 40 mg and started on 5 days of azithromycin. She now presents to the ER with worsening dyspnea and non-productive cough and was in acute respiratory distress w/ tachypnea and tachycardia. She refused BIPAP by EMS and the ER. She was found to be febrile 38.1, tachycardic at 125, but not hypotensive (BP 138/61), tachypneic 42/minute. Labs were remarkable for elevated pCO2 59 on VBG but with pH 7.38, elevated CO2 33 on CMP, normal renal and liver function tests, normal troponin <0.05 and normal BNP 166. d-dimer was elevated at 737 but still within the age corrected parameters. Nevertheless, she underwent CTA chest that did not show PE but demonstrated atelectasis at the bases and possible small infiltrate at right base could not be excluded however she had a lot of respiratory motion artifact. Treatment in the ER included multiple nebulizer treatments, solumedrol 125 mg IVP, Levaquin 750 mg IVP and magnesium bolus 2 gm and Tylenol 1000 mg orally and fluid bolus 1000 mL. She has a DNI code status. She is refusing BIPAP. She will be admitted to med/surg for continued respiratory nebulizer treatments, iv corticosteroid, and Levaquin. Patient states to me that she is feeling much better and wants to go home. She is adamant that she get discharged immediately. She does not want to wait 2 or 3 hours. She will talk to me at another time but that mostly she wants to go home. Consults Consult date: 05/22/19 Requesting physician: Anders Cary Assessment and Plan Assessment and plan (1) Community acquired pneumonia of right lower lobe of lung: Status: Suspected (2) Pulmonary hypertension: Status: Acute (3) Esjyj-7-mhciyvxbelvxtkoc deficiency: Status: Chronic (4) Chronic airway obstruction, not elsewhere classified: Status: Chronic Assessment and plan: COPD exacerbation in person who is oxygen dependent, still smoking, and heterozygous for alpha antitrypsin. At this point she wants to go home. I have spoken to hospitalist regarding this. She can certainly check out AMA anytime she wants to if she can walk from her room to the front end web designer to sign the papers. Doubtful that she would be able to do this at this time. She had definite wheezing which could be heard across the room. We did talk briefly about her condition. Staying in the hospital was not something she was willing to do. She was willing to have me come and talk to her when she goes home. Her CODE STATUS has changed from DNI to DNR/DNI. Thank you very much for this consult. I will see her at home. This document was created by [employer] and may contain grammatical and translation errors. Review of Systems Narrative: She says her breathing is better. She is less short of breath. She has no chest pain. She is not tired. She wants to see her dog. 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 Sargent B12 deficiency (Chronic 07/29/14) Benign neoplasm of colon (Chronic 11/22/12) Chronic airway obstruction, not elsewhere classified (Chronic 11/22/12) Severe 01/2016 FEV1 36%; 11/2012 overnight O2 sat: no sig nocturnal hypoxia alpha 1 antitrypsin level NL 02/15/18 Last APt with Rosetta at sleep/pulmonary clinic 02/15/18 Depression (Chronic) DVT of leg (deep venous thrombosis) Essential hypertension (Chronic 08/23/17) Fx upper humerus-closed (Acute 03/05/13) GERD (gastroesophageal reflux disease) (Chronic) Hyperlipidemia Hypomagnesemia (Chronic 11/28/17) Influenza A (Inactive) Insomnia (Chronic) Left hip pain (Acute) Memory loss (Acute 11/22/12) Mood disorder (Chronic) Other convulsions (Acute 11/22/12) Pneumonia (Inactive) Seizure disorder (Chronic) Sensorineural hearing loss, bilateral (Chronic 05/25/15) Tendonitis of wrist, left (Acute 03/31/17) Tinnitus (Acute 09/04/14) Tobacco dependence syndrome (Acute 11/22/12) Unspecified hearing loss (Acute 11/22/12) Urinary incontinence (Acute 11/22/12) Surgical History H/O shoulder surgery (Chronic) per pt she reports she has never had shoulder surgery History of cataract surgery (Chronic) History of colonoscopy (Chronic) Family History Father COPD (chronic obstructive pulmonary disease) Social History Smoking/Tobacco Use Status: Current every day Tobacco Type: cigarettes Alcohol Intake: former Drug use: Current Sobriety Substance use type: former substance user Housing: apartment What type of physical activity do you participate in: walking Duration: 15-30 minutes/day Frequency: daily Seatbelt use: always Drive intox or ride w/intox hook up driver: No Working smoke detector in home: Yes Fire extinguisher in home: Yes Carbon monox detector in home: Yes Do you feel safe at home: Yes Do you feel safe in your relationship?: Yes Exam Narrative Exam Narrative: She is sitting in her chair yelling loud enough that the people at the front end web designer came to see what was going on. She kept saying over and over I want to go home I want to go home. She said she feels fine now Const General: anxious, combative, disheveled and ill appearing Nutritional Appearance: overweight Orientation: awake Limitations: behavioral limitations HENMT Ears: hearing grossly impaired Eyes General: appearance normal, both eyes and all related structures Neck Lymphatic: no lymphadenopathy noted Resp Effort & Inspection: abnormal respiratory pattern and uses accessory muscles Auscultation: wheezes Cardio Rate: tachycardic Psych Appearance: disheveled Speech and Movement: agitated and slowed movement Mood: anxious mood Affect: labile affect Attitude: other Thought Process: perseverating (Wants to go home and be with her dog) Insight: poor Judgment: poor Results Last Vital Signs Temp 97.9 F 05/22/19 07:48 Pulse 111 H 05/22/19 09:59 Resp 32 H 05/22/19 09:59 BP 135/74 05/22/19 07:48 Pulse Ox 91 L 05/22/19 09:59 Labs Result diagrams: 05/22/19 06:55 05/22/19 06:55 Labs: Laboratory Results - last 24 hr 05/22/19 05/22/19 05/22/19 06:55 06:55 09:15 WBC 6.21 RBC 4.66 Hgb 14.1 Hct 44.6 MCV 95.7 H MCH 30.3 MCHC 31.6 L RDW 15.0 H Plt Count 289 MPV 10.6 Immature Gran % 0.2 Neutrophils % 75.8 Lymphocytes % 17.4 Monocytes % 6.4 Eosinophils % 0.0 Basophils % 0.2 Absolute Neutrophils 4.71 Absolute Lymphocytes 1.08 L Absolute Monocytes 0.40 Absolute Eosinophils 0.00 Absolute Basophils 0.01 Sodium 142 Potassium 4.7 Chloride 107 Carbon Dioxide 30.1 Anion Gap 4.9 BUN 22 H Creatinine 0.73 Estimated GFR/1.73 m2 >= 60.00 Glucose 126 H Calcium 8.6 Magnesium 2.2 Vancomycin Trough 21.3 H*
--- NOTE | 2019-05-22 10:55 | NUR.NOTE ---
Nursing Note:Patient reports is going home today. Patient adamant about this decision. Reminded about need for continued monitoring to ensure respiratory effort is adequate. Patient states will be getting dressed to go home and leaving hospital. Respiratory effort still appears labored with shortness of breath at rest and with exertion. SaO2 96% on BiPAP and 94% on 1 L Nasal cannula. Patient removed both BiPAP this am and later removed nasal cannula after having it on for a couple hours. O2 sat on room air holding between 91-92%. Discussed with patient about leaving against medical advice. Patient made aware of risks regarding respiratory complications patient may face upon leaving facility.
--- NOTE | 2019-05-22 11:16 | CMPROGNOTE_ITS ---
- If Service Date Differs Date of service: 05/22/19 Time of Service: 11:16 Care Management Progress Note S/O: Sophy is tearful when CM enters into the room she wants to go home and is not able to understand why she is still here. CM listen while Sophy expressed her concern. She states the hospital is making me sick, I will be okay if I go home, I will have my updraft machine. CM provided education related COPD and the concern and risk if she were to leave Against medical advice including . Sophy continues to have wheezing and shortness of breath, she is resisting treatment due to her concern for her pets at home and her symptoms of anxiety. Sophy has been provided the information r/t ability to leave AMA and CM has deescalated her several times this morning. CM will continue to provide support to assist with management of the patient behaviors and encourage patient to accept treatment for acute medical condition. Palliative care did meet with patient this morning and will continue to provide support as outpatient once she is discharged. A: Sophy is a 59 year old female admitted with COPD and pneumonia P:Sophy remains acute she continues to receive IV abx and steroids. She has threatened several times to leave AMA however she has been able to be red irected. She will need RCT transportation when she does leave.
--- NOTE | 2019-05-22 13:54 | W.PM.PROGNOT ---
Date of Service Date of service: 05/22/19 Time of Service: 13:54 Assessment and Plan Assessment and plan (1) Community acquired pneumonia of right lower lobe of lung: Status: Suspected Assessment and plan: Recent history of hospitalization, along with antibiotic use with Levaquin and Azithromycin. Procalcitonin undetectable at time of admission, but CT with right basilar infiltrate and evidence of fever at time of admission. - Continue Cefepime. Given lack of progression added vancomycin on 05/19. - Continue IV Steroids, aggressive nebs. Hold off on weaning of steroids. - Given anxiety component, also with low dose benzo as needed. - Continue supplemental oxygen, BiPAP as required. 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 Is not stable for discharge at this time. (2) COPD exacerbation: Status: Acute Assessment and plan: As above. (3) Gastroesophageal reflux disease: Status: Chronic Assessment and plan: Continue PPI therapy. (4) Dyslipidemia: Status: Acute Assessment and plan: Continue statin therapy. (5) DVT prophylaxis: Status: Acute Assessment and plan: SC Lovenox (6) Advance directive on file: Status: Acute Assessment and plan: DNR/DNI per discussion with admitting attending. Subjective Subjective Patient reports: no new complaints Interval history since last seen: 59 year old woman with a prior history of COPD on home O2, admitted from [facility] Emergency Department on 05/19 with a diagnosis of acute COPD Exacerbation. Mrs. Alvarado has a prior history of Oxygen depended COPD, on 3L/minute of home O2. She also continues to smoke despite multiple prior discussions, ongoing Oxygen requirement, and frequent pulmonary symptoms. Her other Medical History includes Heterozygous for alpha-1 antitrypsin Deficiency, HTN, GERD, and Dyslipidemia. She was admitted here between 04/18 and 04/21 of this year and treated for a COPD exacerbation, at which time she requested to leave prior to completion of her therapy. She was discharged with recommendations for completion of her antibiotic course with Levofloxacin, and a slow planned steroid taper. She was followed up by her PCP on 05/06 and seen again on 05/16/2019, at which time she was diagnosed with recurrent COPD exacerbation requiring nebulized DuoNeb while in the office, and a subsequent 7 day course of prednisone and 5 days of azithromycin. She presented to the ED via EMS on the day of her current admission with evidence of acute respiratory distress. Her labwork was unremarkable with the exception of a mildly elevated Lactate that quickly normalized, as well as negative troponins. Her urinalysis was nitrite +, but LE negative and with very few WBCs on microscopy. Rapid flu was checked and negative. Imaging with CXR showed no acute findings, and CTA was without evidence of PE or aneurysm, but with a right basilar infiltrate (Atelectasis vs. Pneumonia). The patient was administered IV steroids, nebs, and a dose of Levofloxacin and referred for admission for further evaluation and treatment. Since admission Mrs. Alvarado has had periods of improvement, but also with times of significantly worsening breathing that has required BiPAP therapy - reluctantly agreed to by patient. However, currently without need for BiPAP over the last 24 hours, and with respiratory status also seemingly worsening with anxiety, and responds well to prn lorazepam. She has been maintained on antibiotic therapy with Cefepime, with Vancomycin added on 04/19, with optimized nebulizer therapy and IV Steroids. No overnight events reported. Patient is again requesting to leave today. Exam Narrative Exam Narrative: General: Patient appears tearful and angry again, AAOX3, NAD Neck: Supple CV: Regular, tachycardic, S1S2, No rubs, murmurs, or gallops. Pulmonary: Diffuse wheezing essentially unchanged, diffusely rhonchorous, but with good air entry. No rhonchi. Abdomen: + Bowel Sounds, soft, nontender, nondistended Vascular: No lower extremity edema Psych: Normal mood and affect. Objective Objective Clinical Data: Abnormal lab results 05/22/19 05/22/19 05/22/19 Range/Units 06:55 06:55 09:15 MCV 95.7 H (80-95) fL MCHC 31.6 L (32.0-36.0) g/dL RDW 15.0 H (11.7-14.6) % Absolute Lymphocytes 1.08 L (1.2-3.4) k/cumm BUN 22 H (7-18) mg/dL Glucose 126 H (70-100) mg/dL Vancomycin Trough 21.3 H* (10.0-20.0) ug/mL Vital Signs Temperature 36.6 C 05/22/19 07:48 Temperature Source Tympanic 05/22/19 07:48 Pulse 111 H 05/22/19 09:59 Pulse Rhythm Regular 05/22/19 07:45 Pulse 114 H 05/19/19 05:47 Respiratory Rate 32 H 05/22/19 09:59 Respiratory Effort Labored 05/22/19 09:41 Respiratory Depth Deep 05/22/19 09:41 Respiratory Pattern Normal 05/22/19 09:41 Blood Pressure 135/74 05/22/19 07:48 Blood Pressure Mean 77 05/19/19 05:47 Pulse Oximetry 91 L 05/22/19 09:59 Oxygen Delivery Method Nasal Cannula 05/22/19 09:37 Oxygen Flow Rate 1 05/22/19 09:37 Fraction of Inspired Oxygen (FIO2) 26 05/22/19 07:48 Pain Level 0 05/22/19 07:48 Comment 05/20/19 07:48 Intake & Output 05/21/19 05/22/19 05/22/19 23:59 11:59 23:59 Intake Total 790 / 1090 110 / 330 220 / 330 Output Total 500 / 500 Balance 790 / 1090 -390 / -170 220 / -170 Weight 74 kg Intake: IV 420 / 720 110 / 210 100 / 210 Oral 370 / 370 120 / 120 Output: Urine 500 / 500 Other: Urine Color Yellow Pale Yellow Urine Appearance Clear Clear Urine Odor Strong Voiding Methods Diaper Toilet Incontinent Laboratory Results WBC 6.21 k/cumm (4.4-10.8) 05/22/19 06:55 RBC 4.66 m/cumm (4.00-5.20) 05/22/19 06:55 Hgb 14.1 g/dL (12.0-15.5) 05/22/19 06:55 Hct 44.6 % (36.0-46.0) 05/22/19 06:55 MCV 95.7 fL (80-95) H 05/22/19 06:55 MCH 30.3 pg (27.0-33.0) 05/22/19 06:55 MCHC 31.6 g/dL (32.0-36.0) L 05/22/19 06:55 RDW 15.0 % (11.7-14.6) H 05/22/19 06:55 Plt Count 289 x1000/uL (130-400) 05/22/19 06:55 MPV 10.6 fL (8.0-11.0) 05/22/19 06:55 Immature Gran % 0.2 05/22/19 06:55 Neutrophils % 75.8 05/22/19 06:55 Band Neutrophils % Cancelled 05/20/19 05:35 Lymphocytes % 17.4 05/22/19 06:55 Atypical Lymphs % Cancelled 05/20/19 05:35 Monocytes % 6.4 05/22/19 06:55 Eosinophils % 0.0 05/22/19 06:55 Basophils % 0.2 05/22/19 06:55 Metamyelocytes % Cancelled 05/20/19 05:35 Myelocytes % Cancelled 05/20/19 05:35 Promyelocytes % Cancelled 05/20/19 05:35 Absolute Neutrophils 4.71 k/cumm (1.2-6.7) 05/22/19 06:55 Absolute Lymphocytes 1.08 k/cumm (1.2-3.4) L 05/22/19 06:55 Absolute Monocytes 0.40 k/cumm (0.11-0.7) 05/22/19 06:55 Absolute Eosinophils 0.00 k/cumm (0.0-0.7) 05/22/19 06:55 Absolute Basophils 0.01 k/cumm (0.0-0.2) 05/22/19 06:55 Nucleated RBCs Cancelled 05/20/19 05:35 Differential Comment Cancelled 05/20/19 05:35 Other Cell Type Cancelled 05/20/19 05:35 RBC Morphology Cancelled 05/20/19 05:35 Polychromasia Cancelled 05/20/19 05:35 Hypochromasia Cancelled 05/20/19 05:35 Poikilocytosis Cancelled 05/20/19 05:35 Basophilic Stippling Cancelled 05/20/19 05:35 Anisocytosis Cancelled 05/20/19 05:35 Microcytosis Cancelled 05/20/19 05:35 Macrocytosis Cancelled 05/20/19 05:35 Spherocytes Cancelled 05/20/19 05:35 Target Cells Cancelled 05/20/19 05:35 Tear Drop Cells Cancelled 05/20/19 05:35 Ovalocytes Cancelled 05/20/19 05:35 Stomatocytes Cancelled 05/20/19 05:35 [place] Bodies Cancelled 05/20/19 05:35 Shmuel Cells Cancelled 05/20/19 05:35 Acanthocytes (Spur) Cancelled 05/20/19 05:35 Schistocytes Cancelled 05/20/19 05:35 PT 9.7 sec (9.3-11.0) 05/19/19 02:45 INR 1.0 (0.9-1.1) 05/19/19 02:45 APTT 24.4 sec (21.0-31.4) 05/19/19 02:45 D-Dimer 737 ng/mlFEU (<500) H 05/19/19 02:45 VBG pH 7.38 (7.32-7.43) 05/19/19 02:45 VBG pCO2 59 mm/Hg (34-47) H 05/19/19 02:45 VBG pO2 38 mm/Hg (28-44) 05/19/19 02:45 VBG HCO3 35 mmol/L (22-28) H 05/19/19 02:45 VBG Total CO2 31 mmol/L (22-29) H 05/19/19 02:45 VBG O2 Saturation 76 % (70-80) 05/19/19 02:45 VBG Base Excess 9.6 mmol/L (-3-3) H 05/19/19 02:45 Sodium 142 mmol/L (136-145) 05/22/19 06:55 Potassium 4.7 mmol/L (3.5-5.1) 05/22/19 06:55 Chloride 107 mmol/L (98-107) 05/22/19 06:55 Carbon Dioxide 30.1 mmol/L (21.0-32.0) 05/22/19 06:55 Anion Gap 4.9 mmol/L (3-11) 05/22/19 06:55 BUN 22 mg/dL (7-18) H 05/22/19 06:55 Creatinine 0.73 mg/dL (0.55-1.02) 05/22/19 06:55 Estimated GFR/1.73 m2 >= 60.00 (mL/min/1.73m2) 05/22/19 06:55 Glucose 126 mg/dL (70-100) H 05/22/19 06:55 Lactate 0.9 mmol/L (0.6-1.4) 05/19/19 08:40 Calcium 8.6 mg/dL (8.5-10.1) 05/22/19 06:55 Magnesium 2.2 mg/dL (1.8-2.4) 05/22/19 06:55 Total Bilirubin 0.1 mg/dL (0.2-1.0) L 05/19/19 02:45 AST 14 U/L (15-37) L 05/19/19 02:45 ALT 16 U/L (14-59) 05/19/19 02:45 Alkaline Phosphatase 86 U/L (46-116) 05/19/19 02:45 Troponin I < 0.05 ng/mL (0.00-0.06) 05/19/19 08:40 NT-Pro-B Natriuret Pep 166 pg/mL (-299) 05/19/19 02:45 Total Protein 7.5 g/dL (6.4-8.2) 05/19/19 02:45 Albumin 3.7 g/dL (3.4-5.0) 05/19/19 02:45 Procalcitonin < 0.1 ng/mL 05/19/19 08:40 TSH 1.02 uIU/mL (0.36-3.74) 05/19/19 02:45 Urine Color Yellow (Yellow) 05/19/19 06:20 Urine Clarity Clear (Clear) 05/19/19 06:20 Urine pH 5.5 (5-8) 05/19/19 06:20 Ur Specific [place] <= 1.005 (1.005-1.025) 05/19/19 06:20 Urine Protein Negative mg/dL (Negative) 05/19/19 06:20 Urine Ketones Negative mg/dL (Negative) 05/19/19 06:20 Urine Blood Trace-intact (Negative) H 05/19/19 06:20 Urine Nitrite Positive (Negative) H 05/19/19 06:20 Urine Bilirubin Negative (Negative) 05/19/19 06:20 Urine Urobilinogen 0.2 EU/dL (Up TO 0.2) 05/19/19 06:20 Ur Leukocyte Esterase Negative (Negative) 05/19/19 06:20 Urine RBC 3-5 (0-2) H 05/19/19 06:20 Urine WBC 3-5 HPF (0-5) 05/19/19 06:20 Ur Epithelial Cells Rare HPF (Negative) 05/19/19 06:20 Urine Crystals Negative HPF (Negative) 05/19/19 06:20 Urine Bacteria Many HPF (Negative) 05/19/19 06:20 Urine Casts Negative LPF (Negative) 05/19/19 06:20 Urine Mucus Negative (Negative) 05/19/19 06:20 Ur Culture Indicated? Yes 05/19/19 06:20 Urine Glucose Negative mg/dL (Negative) 05/19/19 06:20 Vancomycin Trough 21.3 ug/mL (10.0-20.0) H* 05/22/19 09:15
[2019-05-22] MEDS: Pantoprazole 40 MG VIAL IVP (17:18)
[2019-05-22] MEDS: Lovastatin 40 MG TAB PO (20:09)
[2019-05-22] MEDS: Primidone 250 MG TAB PO (20:32)
[2019-05-22] MEDS: traZODone 50 MG TAB 25 MG PO (20:32)
[2019-05-23] VITALS (17 sets, daily range): BP systolic 109–132; BP diastolic 74–79; PULSE 67–106; RESP 2–24; TEMP 35.6–36.8; O2SAT 90–97
[2019-05-23] MEDS: methylPREDNISolone SUCC 125 MG VIAL 60 MG IVP ×3 (03:21→17:40)
[2019-05-23] MEDS: LORazepam 1 MG TAB PO ×3 (07:05→13:49)
[2019-05-23] MEDS: Levalbuterol 0.63 MG/3 ML UPD VIAL UPD (07:07)
[2019-05-23 07:30] LABS: Abs Immature Grans 0.03 k/cumm (0.0-0.09); Absolute Basophil Count 0.01 k/cumm (0.0-0.2); Absolute Eosinophil Count 0.01 k/cumm (0.0-0.7); Absolute Lymphocyte Count 1.44 k/cumm (1.2-3.4); Absolute Monocyte Count 0.42 k/cumm (0.11-0.7); Basophils % 0.1; Eosinophils % 0.1; HCT 45.1 % (36.0-46.0); HGB 14.6 g/dL (12.0-15.5); Immature Grans % 0.3; Lymphocytes % 16.5; Mean Corp. HGB Concentration 32.4 g/dL (32.0-36.0); Mean Corpuscular Hemoglobin 30.5 pg (27.0-33.0); Mean Corpuscular Volume 94.4 fL (80-95); Mean Platelet Volume 10.5 fL (8.0-11.0); Monocytes % 4.8; Neutrophils % 78.2; Platelet Count 325 x1000/uL (130-400); RBC 4.78 m/cumm (4.00-5.20); RBC Distribution Width 14.9 % (11.7-14.6); White Blood Cell Count 8.71 k/cumm (4.4-10.8)
[2019-05-23 07:33] LABS: Anion Gap 5.4 mmol/L (3-11); BUN 20 mg/dL (7-18); CO2 31.6 mmol/L (21.0-32.0); CREATININE 0.62 mg/dL (0.55-1.02); Calcium 8.8 mg/dL (8.5-10.1); Chloride 106 mmol/L (98-107); Glucose 115 mg/dL (70-100); Magnesium 2.1 mg/dL (1.8-2.4); Potassium 4.4 mmol/L (3.5-5.1); Sodium 143 mmol/L (136-145)
[2019-05-23 07:35] LABS: Absolute Neutrophil Count 6.81 k/cumm (1.2-6.7)
[2019-05-23] MEDS: CEFEPIME 2 GM in Normal Saline 100 ML IVPB ×3 (08:30→23:10)
[2019-05-23] MEDS: Normal Saline Flush 10 ML SYR IVP ×5 (08:30→23:10)
[2019-05-23] MEDS: Enoxaparin 40 MG/0.4 ML SYR SC (08:31)
[2019-05-23] MEDS: Oxybutynin 5 MG TAB PO ×3 (08:31→19:47)
[2019-05-23] MEDS: Ascorbic Acid 500 MG TAB PO (08:31)
[2019-05-23] MEDS: Primidone 250 MG TAB 125 MG PO ×2 (08:32→16:25)
[2019-05-23] MEDS: Citalopram 20 MG TAB PO (08:34)
[2019-05-23] MEDS: Meloxicam 15 MG TAB PO (08:34)
[2019-05-23] MEDS: Albuterol/Ipratropium 3 ML UPD VIAL UPD ×4 (10:09→21:33)
[2019-05-23] MEDS: Budesonide 0.5 MG/2 ML UPD VIAL UPD ×2 (10:11→21:36)
--- NOTE | 2019-05-23 13:15 | PDOC.CMPRO ---
- If Service Date Differs Date of service: 05/23/19 Time of Service: 13:15 Care Management Progress Note S/O: Sophy remains acute today she is alert and continuing with her treatment plan. Hopeful she will be discharged in the next 24 hours. She is using ativan to control her symptoms of anxiety and with her breathing. She continues on IV abx and continues to need support in coping with her admission. A: Sophy is a 59 year old female admitted with COPD and pneumonia P:Sophy remains acute she continues to receive IV abx and steroids. She continues to respond to redirection as needed. She will have resumption of home health at time of discharge. She will need RCT transportation when she does leave.
--- NOTE | 2019-05-23 15:26 | CHAPLAIN ---
Sophy was crying when I walked into her room. Dr. Cary had just left and Sophy said he'd told that she was not being discharged today. She said she was worried she won't be home in time for her dog, Kirt Martinez's, birthday. Sophy added that she has been treated disrespectfully and hasn't gotten the food that she's wanted to eat. I let Vicky, from Dietary know that Sophy complained about her food selection. Sophy has been crying on and off since she's been here, but is usually redirected to focus on something other than not being discharged.
--- NOTE | 2019-05-23 16:30 | PGE_ITS ---
Date of Service Date of service: 05/23/19 Time of Service: 16:30 Assessment and Plan Assessment and plan (1) Community acquired pneumonia of right lower lobe of lung: Status: Suspected Assessment and plan: Recent history of hospitalization, along with antibiotic use with Levaquin and Azithromycin. Procalcitonin undetectable at time of admission, but CT with right basilar infiltrate and evidence of fever at time of admission. - Continue Cefepime. Given lack of progression added vancomycin on 05/19 - currently day #4 of antibiotics. - Continue IV Steroids, aggressive nebs. Hold off on weaning of steroids. - Given anxiety component, also with low dose benzo as needed. - Continue supplemental oxygen, BiPAP as required. 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 Is not stable for discharge at this time. (2) COPD exacerbation: Status: Acute Assessment and plan: As above. (3) Gastroesophageal reflux disease: Status: Chronic Assessment and plan: Continue PPI therapy. (4) Dyslipidemia: Status: Acute Assessment and plan: Continue statin therapy. (5) DVT prophylaxis: Status: Acute Assessment and plan: SC Lovenox (6) Advance directive on file: Status: Acute Assessment and plan: DNR/DNI per discussion with admitting attending. Subjective Subjective Patient reports: no new complaints Interval history since last seen: 59 year old woman with a prior history of COPD on home O2, admitted from [facility] Emergency Department on 05/19 with a diagnosis of acute COPD Exacerbation. Mrs. Alvarado has a prior history of Oxygen depended COPD, on 3L/minute of home O2. She also continues to smoke despite multiple prior discussions, ongoing Oxygen requirement, and frequent pulmonary symptoms. Her other Medical History includes Heterozygous for alpha-1 antitrypsin Deficiency, HTN, GERD, and Dyslipidemia. She was admitted here between 04/18 and 04/21 of this year and treated for a COPD exacerbation, at which time she requested to leave prior to completion of her therapy. She was discharged with recommendations for completion of her antibiotic course with Levofloxacin, and a slow planned steroid taper. She was followed up by her PCP on 05/06 and seen again on 05/16/2019, at which time she was diagnosed with recurrent COPD exacerbation requiring nebulized DuoNeb while in the office, and a subsequent 7 day course of prednisone and 5 days of azithromycin. She presented to the ED via EMS on the day of her current admission with evidence of acute respiratory distress. Her labwork was unremarkable with the exception of a mildly elevated Lactate that quickly normalized, as well as negative troponins. Her urinalysis was nitrite +, but LE negative and with very few WBCs on microscopy. Rapid flu was checked and negative. Imaging with CXR showed no acute findings, and CTA was without evidence of PE or aneurysm, but with a right basilar infiltrate (Atelectasis vs. Pneumonia). The patient was administered IV steroids, nebs, and a dose of Levofloxacin and referred for admission for further evaluation and treatment. Since admission Mrs. Alvarado has had periods of improvement, but also with times of significantly worsening breathing that has required BiPAP therapy - reluctantly agreed to by patient. However, currently without need for BiPAP, and with improving pulmonary exam. Respiratory status also seemingly worsens with anxiety, and responds well to prn lorazepam. She has been maintained on antibiotic therapy with Cefepime, with Vancomycin added on 04/19, with optimized nebulizer therapy and IV Steroids. No overnight events reported. Patient is again requesting to leave today. Exam Narrative Exam Narrative: General: Patient appears tearful and angry again, AAOX3, NAD Neck: Supple CV: Regular, tachycardic, S1S2, No rubs, murmurs, or gallops. Pulmonary: Diffuse wheezing appears improved, good air entry. No rhonchi. Abdomen: + Bowel Sounds, soft, nontender, nondistended Vascular: No lower extremity edema Psych: Normal mood and affect. Objective Objective Clinical Data: Abnormal lab results 05/23/19 05/23/19 Range/Units 07:05 07:05 RDW 14.9 H (11.7-14.6) % Absolute Neutrophils 6.81 H (1.2-6.7) k/cumm BUN 20 H (7-18) mg/dL Glucose 115 H (70-100) mg/dL Vital Signs Temperature 36.8 C 05/23/19 15:54 Temperature Source Tympanic 05/23/19 15:54 Pulse 92 H 05/23/19 15:54 Pulse Rhythm Regular 05/23/19 12:45 Pulse 114 H 05/19/19 05:47 Respiratory Rate 22 05/23/19 15:54 Respiratory Effort 05/23/19 12:45 Respiratory Depth Deep 05/23/19 12:45 Respiratory Pattern Tachypnea 05/23/19 12:45 Blood Pressure 119/74 05/23/19 15:54 Blood Pressure Mean 77 05/19/19 05:47 Pulse Oximetry 91 L 05/23/19 15:54 Oxygen Delivery Method Nasal Cannula 05/23/19 15:54 Oxygen Flow Rate 1 05/23/19 15:54 Fraction of Inspired Oxygen (FIO2) 26 05/23/19 10:21 Pain Level 0 05/23/19 10:59 Comment 05/20/19 07:48 Intake & Output 05/22/19 05/23/19 05/23/19 23:59 11:59 23:59 Intake Total 680 / 790 400 / 1080 680 / 1080 Output Total 1000 / 1000 Balance 680 / 290 -600 / 80 680 / 80 Intake: IV 320 / 430 400 / 600 200 / 600 Oral 360 / 360 480 / 480 Output: Urine 1000 / 1000 Other: Urine Color Yellow Yellow Urine Appearance Clear Clear Clear Urine Odor Strong Comment voids in toilet. Urine in toilet bowl. Voiding Methods Toilet Bedside Commode Laboratory Results WBC 8.71 k/cumm (4.4-10.8) D 05/23/19 07:05 RBC 4.78 m/cumm (4.00-5.20) 05/23/19 07:05 Hgb 14.6 g/dL (12.0-15.5) 05/23/19 07:05 Hct 45.1 % (36.0-46.0) 05/23/19 07:05 MCV 94.4 fL (80-95) 05/23/19 07:05 MCH 30.5 pg (27.0-33.0) 05/23/19 07:05 MCHC 32.4 g/dL (32.0-36.0) 05/23/19 07:05 RDW 14.9 % (11.7-14.6) H 05/23/19 07:05 Plt Count 325 x1000/uL (130-400) 05/23/19 07:05 MPV 10.5 fL (8.0-11.0) 05/23/19 07:05 Immature Gran % 0.3 05/23/19 07:05 Neutrophils % 78.2 05/23/19 07:05 Band Neutrophils % Cancelled 05/20/19 05:35 Lymphocytes % 16.5 05/23/19 07:05 Atypical Lymphs % Cancelled 05/20/19 05:35 Monocytes % 4.8 05/23/19 07:05 Eosinophils % 0.1 05/23/19 07:05 Basophils % 0.1 05/23/19 07:05 Metamyelocytes % Cancelled 05/20/19 05:35 Myelocytes % Cancelled 05/20/19 05:35 Promyelocytes % Cancelled 05/20/19 05:35 Absolute Neutrophils 6.81 k/cumm (1.2-6.7) H 05/23/19 07:05 Absolute Lymphocytes 1.44 k/cumm (1.2-3.4) 05/23/19 07:05 Absolute Monocytes 0.42 k/cumm (0.11-0.7) 05/23/19 07:05 Absolute Eosinophils 0.01 k/cumm (0.0-0.7) 05/23/19 07:05 Absolute Basophils 0.01 k/cumm (0.0-0.2) 05/23/19 07:05 Nucleated RBCs Cancelled 05/20/19 05:35 Differential Comment Cancelled 05/20/19 05:35 Other Cell Type Cancelled 05/20/19 05:35 RBC Morphology Cancelled 05/20/19 05:35 Polychromasia Cancelled 05/20/19 05:35 Hypochromasia Cancelled 05/20/19 05:35 Poikilocytosis Cancelled 05/20/19 05:35 Basophilic Stippling Cancelled 05/20/19 05:35 Anisocytosis Cancelled 05/20/19 05:35 Microcytosis Cancelled 05/20/19 05:35 Macrocytosis Cancelled 05/20/19 05:35 Spherocytes Cancelled 05/20/19 05:35 Target Cells Cancelled 05/20/19 05:35 Tear Drop Cells Cancelled 05/20/19 05:35 Ovalocytes Cancelled 05/20/19 05:35 Stomatocytes Cancelled 05/20/19 05:35 Cooper-Alleghany Bodies Cancelled 05/20/19 05:35 Shmuel Cells Cancelled 05/20/19 05:35 Acanthocytes (Spur) Cancelled 05/20/19 05:35 Schistocytes Cancelled 05/20/19 05:35 PT 9.7 sec (9.3-11.0) 05/19/19 02:45 INR 1.0 (0.9-1.1) 05/19/19 02:45 APTT 24.4 sec (21.0-31.4) 05/19/19 02:45 D-Dimer 737 ng/mlFEU (<500) H 05/19/19 02:45 VBG pH 7.38 (7.32-7.43) 05/19/19 02:45 VBG pCO2 59 mm/Hg (34-47) H 05/19/19 02:45 VBG pO2 38 mm/Hg (28-44) 05/19/19 02:45 VBG HCO3 35 mmol/L (22-28) H 05/19/19 02:45 VBG Total CO2 31 mmol/L (22-29) H 05/19/19 02:45 VBG O2 Saturation 76 % (70-80) 05/19/19 02:45 VBG Base Excess 9.6 mmol/L (-3-3) H 05/19/19 02:45 Sodium 143 mmol/L (136-145) 05/23/19 07:05 Potassium 4.4 mmol/L (3.5-5.1) 05/23/19 07:05 Chloride 106 mmol/L (98-107) 05/23/19 07:05 Carbon Dioxide 31.6 mmol/L (21.0-32.0) 05/23/19 07:05 Anion Gap 5.4 mmol/L (3-11) 05/23/19 07:05 BUN 20 mg/dL (7-18) H 05/23/19 07:05 Creatinine 0.62 mg/dL (0.55-1.02) 05/23/19 07:05 Estimated GFR/1.73 m2 >= 60.00 (mL/min/1.73m2) 05/23/19 07:05 Glucose 115 mg/dL (70-100) H 05/23/19 07:05 Lactate 0.9 mmol/L (0.6-1.4) 05/19/19 08:40 Calcium 8.8 mg/dL (8.5-10.1) 05/23/19 07:05 Magnesium 2.1 mg/dL (1.8-2.4) 05/23/19 07:05 Total Bilirubin 0.1 mg/dL (0.2-1.0) L 05/19/19 02:45 AST 14 U/L (15-37) L 05/19/19 02:45 ALT 16 U/L (14-59) 05/19/19 02:45 Alkaline Phosphatase 86 U/L (46-116) 05/19/19 02:45 Troponin I < 0.05 ng/mL (0.00-0.06) 05/19/19 08:40 NT-Pro-B Natriuret Pep 166 pg/mL (-299) 05/19/19 02:45 Total Protein 7.5 g/dL (6.4-8.2) 05/19/19 02:45 Albumin 3.7 g/dL (3.4-5.0) 05/19/19 02:45 Procalcitonin < 0.1 ng/mL 05/19/19 08:40 TSH 1.02 uIU/mL (0.36-3.74) 05/19/19 02:45 Urine Color Yellow (Yellow) 05/19/19 06:20 Urine Clarity Clear (Clear) 05/19/19 06:20 Urine pH 5.5 (5-8) 05/19/19 06:20 Ur Specific Hubbell <= 1.005 (1.005-1.025) 05/19/19 06:20 Urine Protein Negative mg/dL (Negative) 05/19/19 06:20 Urine Ketones Negative mg/dL (Negative) 05/19/19 06:20 Urine Blood Trace-intact (Negative) H 05/19/19 06:20 Urine Nitrite Positive (Negative) H 05/19/19 06:20 Urine Bilirubin Negative (Negative) 05/19/19 06:20 Urine Urobilinogen 0.2 EU/dL (Up TO 0.2) 05/19/19 06:20 Ur Leukocyte Esterase Negative (Negative) 05/19/19 06:20 Urine RBC 3-5 (0-2) H 05/19/19 06:20 Urine WBC 3-5 HPF (0-5) 05/19/19 06:20 Ur Epithelial Cells Rare HPF (Negative) 05/19/19 06:20 Urine Crystals Negative HPF (Negative) 05/19/19 06:20 Urine Bacteria Many HPF (Negative) 05/19/19 06:20 Urine Casts Negative LPF (Negative) 05/19/19 06:20 Urine Mucus Negative (Negative) 05/19/19 06:20 Ur Culture Indicated? Yes 05/19/19 06:20 Urine Glucose Negative mg/dL (Negative) 05/19/19 06:20 Vancomycin Trough 21.3 ug/mL (10.0-20.0) H* 05/22/19 09:15
[2019-05-23] MEDS: Pantoprazole 40 MG VIAL IVP (17:40)
[2019-05-23] MEDS: Lovastatin 40 MG TAB PO (19:47)
[2019-05-23] MEDS: Primidone 250 MG TAB PO (21:32)
[2019-05-23] MEDS: traZODone 50 MG TAB 25 MG PO (21:32)
[2019-05-24] VITALS (9 sets, daily range): BP systolic 107–119; BP diastolic 65–77; PULSE 77–109; RESP 4–24; TEMP 36.2–36.9; O2SAT 90–96
[2019-05-24] MEDS: methylPREDNISolone SUCC 125 MG VIAL 60 MG IVP ×2 (01:09→10:29)
[2019-05-24] MEDS: Normal Saline Flush 10 ML SYR IVP ×2 (01:11→10:30)
[2019-05-24] MEDS: Albuterol/Ipratropium 3 ML UPD VIAL UPD ×3 (01:11→10:08)
[2019-05-24 07:12] LABS: Abs Immature Grans 0.04 k/cumm (0.0-0.09); Absolute Basophil Count 0.01 k/cumm (0.0-0.2); Absolute Eosinophil Count 0.01 k/cumm (0.0-0.7); Absolute Lymphocyte Count 2.04 k/cumm (1.2-3.4); Absolute Monocyte Count 0.66 k/cumm (0.11-0.7); Absolute Neutrophil Count 7.87 k/cumm (1.2-6.7); Basophils % 0.1; Eosinophils % 0.1; HGB 14.2 g/dL (12.0-15.5); Immature Grans % 0.4; Lymphocytes % 19.2; Mean Corp. HGB Concentration 32.3 g/dL (32.0-36.0); Mean Corpuscular Hemoglobin 30.8 pg (27.0-33.0); Mean Corpuscular Volume 95.4 fL (80-95); Mean Platelet Volume 10.5 fL (8.0-11.0); Monocytes % 6.2; Platelet Count 331 x1000/uL (130-400); RBC 4.61 m/cumm (4.00-5.20); RBC Distribution Width 14.9 % (11.7-14.6); White Blood Cell Count 10.63 k/cumm (4.4-10.8)
[2019-05-24 07:38] LABS: Anion Gap 6.2 mmol/L (3-11); BUN 23 mg/dL (7-18); CO2 29.8 mmol/L (21.0-32.0); Calcium 8.6 mg/dL (8.5-10.1); Chloride 106 mmol/L (98-107); Glucose 114 mg/dL (70-100); Magnesium 2.1 mg/dL (1.8-2.4); Potassium 4.4 mmol/L (3.5-5.1); Sodium 142 mmol/L (136-145)
[2019-05-24] MEDS: Enoxaparin 40 MG/0.4 ML SYR SC (08:26)
[2019-05-24] MEDS: Primidone 250 MG TAB 125 MG PO (08:27)
[2019-05-24] MEDS: Meloxicam 15 MG TAB PO (08:27)
[2019-05-24] MEDS: LORazepam 1 MG TAB PO (08:27)
[2019-05-24] MEDS: Citalopram 20 MG TAB PO (08:27)
[2019-05-24] MEDS: Ascorbic Acid 500 MG TAB PO (08:27)
[2019-05-24] MEDS: Oxybutynin 5 MG TAB PO (08:27)
[2019-05-24] MEDS: CEFEPIME 2 GM in Normal Saline 100 ML IVPB (08:28)
[2019-05-24] MEDS: Budesonide 0.5 MG/2 ML UPD VIAL UPD (10:15)
--- NOTE | 2019-05-24 10:16 | DSE_ITS ---
Date of service: 05/24/19 Time of Service: 10:16 DS: Diagnosis Discharge Diagnosis (1) Community acquired pneumonia of right lower lobe of lung: Status: Suspected (2) COPD exacerbation: Status: Acute (3) Gastroesophageal reflux disease: Status: Chronic (4) Dyslipidemia: Status: Acute Discharge Plan Disposition Patient Disposition: HOME W/HOME HEALTH SERVICE Condition: Stable Discharge Details Chief Complaint: SOB Clinical Impression: Sepsis, Pneumonia, Acute exacerbation of chronic obstructive pulmonary disease Reason For Visit: PNEUMONIA,COPD EXACERBATION Admit Date/Time: 05/19/19 05:36 Admit Provider: David Matthews Attending Provider: David Matthews Primary Care Provider: Jenna Nayak ED Provider: Lazaro Stiles Hospital Course Hospital Course: Chief Complaint: Dyspnea HPI: 59 year old woman with a prior history of COPD on home O2, admitted from [facility] Emergency Department on 05/19 with a diagnosis of acute COPD Exacerbation. Mrs. Alvarado has a prior history of Oxygen depended COPD, on 3L/minute of home O2. She also continues to smoke daily. Her other Medical History includes Heterozygous for alpha-1 antitrypsin Deficiency, HTN, GERD, and Dyslipidemia. She was admitted here between 04/18 and 04/21 of this year and treated for a COPD exacerbation, at which time she requested to leave prior to completion of her therapy. She was discharged with recommendations for completion of her antibiotic course with Levofloxacin, and a slow planned steroid taper. She was followed up by her PCP on 05/06 and seen again on 05/16/2019, at which time she was diagnosed with recurrent COPD exacerbation requiring nebulized DuoNeb while in the office, and a subsequent 7 day course of prednisone and 5 days of azithromycin. She presented to the ED via EMS on the day of her current admission with evidence of acute respiratory distress. Her labwork was unremarkable with the exception of a mildly elevated Lactate that quickly normalized, as well as negative troponins. Her urinalysis was nitrite +, but LE negative and with very few WBCs on microscopy (Urine Culture without significant growth during hospital course). Rapid flu was checked and negative. Imaging with CXR showed no acute findings, and CTA was without evidence of PE or aneurysm, but with a right basilar infiltrate (Atelectasis vs. Pneumonia). The patient was administered IV steroids, nebs, and a dose of Levofloxacin and referred for admission for further evaluation and treatment. Since admission Mrs. Alvarado has had periods of worsening symptoms requiring BiPAP therapy, but none over the last 48 hours that were reported. Her pulmonary exam remains abnormal but improved, and she reports feeling much better and near baseline. Respiratory status also seemingly worsens with anxiety, and responds well to prn lorazepam. She has been maintained on antibiotic therapy with Cefepime and Vancomycin given underlying lung disease and 2 recent courses of antibiotic therapy, with optimized nebulizer therapy and IV Steroids. No overnight events reported. Patient is again requesting to leave today. Hospital Course: (1) Pneumonia: Recent history of hospitalization, along with antibiotic use with Levaquin and Azithromycin. Procalcitonin undetectable at time of admission, but CT with right basilar infiltrate and evidence of fever at time of admission. - Received a short 5 day course of Cefepime and vancomycin. Sputum culture unrevealing. - Continue Steroids and taper, and recommend aggressive nebs at home. - Given anxiety component, will also discharge with low dose benzo therapy as needed. Patient did see clear benefit from this. - Continue supplemental oxygen upon return home - appears to be at or near her baseline. 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 She unfortunately remains at high risk for readmission. (2) COPD exacerbation: As above. (3) Gastroesophageal reflux disease: Continue PPI therapy. (4) Dyslipidemia: Continue statin therapy. (5) DVT prophylaxis: Was maintained on SC Lovenox (6) Advance directive on file: DNR/DNI per discussion with admitting attending. (7) Disposition: Discharge to home. Mrs. Alvarado will benefit from Home Health for PT and nursing - will be resumed upon dishcarge. Home Meds and New Rx's Prescriptions: New ipratropium-albuterol 0.5 mg-3 mg(2.5 mg base)/3 mL Solution For Nebulization 3 ml UPD Q4H Qty: 1 RF: 0 lovastatin 40 mg Tablet 40 mg PO QPM Qty: 0 RF: 0 lorazepam 1 mg Tablet 1 mg PO TID PRN (Reason: Anxiety) Qty: 21 RF: 0 prednisone 20 mg tablet 20 mg PO DAILY Qty: 35 RF: 0 Continued citalopram 20 mg tablet 20 mg PO DAILY Qty: 90 RF: 3 lovastatin 40 mg tablet 40 mg PO DAILY Qty: 90 RF: 3 oxybutynin chloride 5 mg tablet 5 mg PO TID Qty: 270 RF: 3 trazodone 50 mg tablet 25 mg PO HS Qty: 45 RF: 3 meclizine 12.5 mg tablet 12.5 mg PO TID PRN (Reason: dizziness) Qty: 30 RF: 0 cyanocobalamin (vitamin B-12) 1,000 MCG/1 ML solution 1,000 mcg IJ MONTHLY Qty: 1 RF: 0 ascorbic acid (vitamin C) [Vitamin C] 500 MG tablet 500 mg PO DAILY RF: 0 ketoconazole 15 GM cream 1 film Topical BID PRNQty: 1 RF: 1 (DME) Briefs, Adult-Extra Large 1 EACH misc 1 ea Miscellaneous TID Qty: 90 RF: 11 sennosides [Senokot] 8.6 MG tablet 1 tab-cap PO DAILY PRNQty: 30 RF: 12 pantoprazole 40 mg tablet,delayed release (DR/EC) 40 mg PO DAILY Qty: 90 RF: 3 primidone 250 mg tablet 250 mg PO as directed Qty: 60 RF: 12 meloxicam 15 mg tablet 15 mg PO DAILY Qty: 30 RF: 0 Trelegy Ellipta 100-62.5-25 mcg blister with device 1 inh IH DAILY RF: 0 albuterol sulfate [ProAir HFA] 90 mcg/actuation HFA aerosol inhaler 2 puff Inhalation Q4H PRN Qty: 3 RF: 3 (DME) shower chair Qty: 1 RF: 0 Atrovent HFA 17 mcg/actuation HFA aerosol inhaler 2 puff IH QID Qty: 12.9 RF: 12 (DME) Shower Chair Qty: 1 RF: 0 Discontinued prednisone 20 mg tablet 40 mg PO DAILY Qty: 14 RF: 0 azithromycin [Zithromax Z-Lake] 250 mg tablet See Rx Instructions PO .COMPLEX Qty: 6 RF: 0 Discharge Instructions Additional Instructions: Please see your primary care provider within a week of dishcarge. You have a steroid taper with prednisone - please finish it as prescribed. Please take your breathing treatments every 4 hours while awake over the next week or so. Stand Alone Forms: Nursing Discharge Form Referrals: Christy Rosario NP [NURSE PRACTITIONER] - 05/31/19 10:00 am Activity:: No strenuous activity Equipment/Supplies:: No Equipment Needed Diet:: As Tolerated Discharge Orders Discharge Orders: Discharge Order (Routine); Ordered 05/24/19 Ordered By: Anders Cary DS: Summary Status at Discharge Functional status at discharge: independent ambulation Overall status at discharge: patient is back to baseline Mental Status: mental status grossly normal Speech and Movement: speech and movement normal Mood: congruent mood Affect: normal affect Exam Narrative Exam Narrative: General: Patient appears tearful and angry again, AAOX3, NAD Neck: Supple CV: Regular, mildly tachycardic, S1S2, No rubs, murmurs, or gallops. Pulmonary: Diffuse wheezing improving, good air entry. No rhonchi. Abdomen: + Bowel Sounds, soft, nontender, nondistended Vascular: No lower extremity edema Psych: Normal mood and affect. Psych Mental Status: mental status grossly normal Speech and Movement: speech and movement normal Mood: congruent mood Affect: normal affect DS: Data Vitals/I&O Vitals and I&O: Vital Signs Temperature 36.9 C 05/24/19 07:10 Temperature Source Tympanic 05/24/19 07:10 Pulse 106 H 05/24/19 10:08 Pulse Rhythm Regular 05/24/19 05:11 Pulse 114 H 05/19/19 05:47 Respiratory Rate 24 05/24/19 10:08 Respiratory Effort 05/24/19 05:11 Respiratory Depth Deep 05/24/19 05:11 Respiratory Pattern Irregular 05/23/19 21:05 Blood Pressure 119/77 05/24/19 07:10 Blood Pressure Mean 77 05/19/19 05:47 Pulse Oximetry 95 05/24/19 10:08 Oxygen Delivery Method Nasal Cannula 05/24/19 10:08 Oxygen Flow Rate 1 05/24/19 10:08 Fraction of Inspired Oxygen (FIO2) 26 05/24/19 10:10 Pain Level 0 05/24/19 08:15 Comment 05/20/19 07:48 Intake & Output 05/23/19 05/23/19 05/24/19 11:59 23:59 11:59 Intake Total 400 / 1860 1460 / 1860 300 / 300 Output Total 1000 / 1000 Balance -600 / 860 1460 / 860 300 / 300 Weight 74 kg Intake: IV 400 / 900 500 / 900 300 / 300 Oral 960 / 960 Output: Urine 1000 / 1000 Other: Urine Color Yellow Yellow Pale Yellow Urine Appearance Clear Clear Clear Urine Odor Strong None Voiding Methods Bedside Commode Toilet Toilet Data Completed and Pending Completed studies during hospitalization [Text1]: Exam(s) a RAD:XR portable chest AP EXAM: XR PORTABLE CHEST AP INDICATION: cough, sob, fever, r/o fever. COMPARISON: XR PORTABLE CHEST AP from 04/18/2019 TECHNIQUE: 2D digital imaging was performed. FINDINGS: The heart size and pulmonary vasculature are within normal limits. The lungs appear hyperinflated, suggesting underlying COPD. Chronic interstitial markings are present likely reflecting fibrosis. No focal consolidating infiltrates are seen. No pleural effusions or pneumothoraces are identified. Degenerative changes are seen in the spine. IMPRESSION: No acute pulmonary process. --------- Exam(s) a CT:CT chest PE CTA EXAM: CT CHEST PE CTA CLINICAL HISTORY: SOB, tachy, hx of clots, elevated dimer TECHNIQUE: Axial CT angiography was performed with multi-slice acquisition and multi-planar and/or 3D reconstructions. The exam was performed utilizing 67 cc's of Omnipaque 350. COMPARISON: CT CHEST PE CTA from 04/19/2019 FINDINGS: There is patient motion artifact present. There is no evidence of a pulmonary embolus. The thoracic aorta is intact. No evidence of thoracic aortic dissection or aneurysm. The heart size is within normal limits. No pericardial effusion is seen. No evidence of right heart strain. No significant thoracic adenopathy, pleural effusion or pneumothorax is identified. Dependent atelectatic changes are seen in the lung bases. There is a small infiltrate in the right lower lobe. This may represent atelectasis or pneumonia. Emphysematous changes are present in the lungs. The tracheobronchial tree is unremarkable. Degenerative changes are seen in the spine. IMPRESSION: 1. No evidence of pulmonary embolus, thoracic aortic dissection or aneurysm. 2. Right basilar infiltrate. This may represent atelectasis or pneumonia. Labs on day of discharge: Labs from last 24 hours 05/24/19 05/24/19 05/24/19 11:00 06:48 06:48 WBC 10.63 RBC 4.61 Hgb 14.2 Hct 44.0 MCV 95.4 H MCH 30.8 MCHC 32.3 RDW 14.9 H Plt Count 331 MPV 10.5 Immature Gran % 0.4 Neutrophils % 74.0 Lymphocytes % 19.2 Monocytes % 6.2 Eosinophils % 0.1 Basophils % 0.1 Absolute Neutrophils 7.87 H Absolute Lymphocytes 2.04 Absolute Monocytes 0.66 Absolute Eosinophils 0.01 Absolute Basophils 0.01 Sodium 142 Potassium 4.4 Chloride 106 Carbon Dioxide 29.8 Anion Gap 6.2 BUN 23 H Creatinine 0.70 Estimated GFR/1.73 m2 >= 60.00 Glucose 114 H Calcium 8.6 Magnesium 2.1 Vancomycin Trough Pending [facility] Medical History 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 Sargent B12 deficiency (Chronic 07/29/14) Benign neoplasm of colon (Chronic 11/22/12) Chronic airway obstruction, not elsewhere classified (Chronic 11/22/12) Severe 01/2016 FEV1 36%; 11/2012 overnight O2 sat: no sig nocturnal hypoxia alpha 1 antitrypsin level NL 02/15/18 Last APt with Rosetta at sleep/pulmonary clinic 02/15/18 Depression (Chronic) DVT of leg (deep venous thrombosis) Essential hypertension (Chronic 08/23/17) Fx upper humerus-closed (Acute 03/05/13) GERD (gastroesophageal reflux disease) (Chronic) Hyperlipidemia Hypomagnesemia (Chronic 11/28/17) Influenza A (Inactive) Insomnia (Chronic) Left hip pain (Acute) Memory loss (Acute 11/22/12) Mood disorder (Chronic) Other convulsions (Acute 11/22/12) Pneumonia (Inactive) Seizure disorder (Chronic) Sensorineural hearing loss, bilateral (Chronic 05/25/15) Tendonitis of wrist, left (Acute 03/31/17) Tinnitus (Acute 09/04/14) Tobacco dependence syndrome (Acute 11/22/12) Unspecified hearing loss (Acute 11/22/12) Urinary incontinence (Acute 11/22/12) Surgical History H/O shoulder surgery (Chronic) per pt she reports she has never had shoulder surgery History of cataract surgery (Chronic) History of colonoscopy (Chronic) Family History Father COPD (chronic obstructive pulmonary disease) Social History Smoking/Tobacco Use Status: Current every day Tobacco Type: cigarettes Alcohol Intake: former Drug use: Current Sobriety Substance use type: former substance user Housing: apartment What type of physical activity do you participate in: walking Duration: 15-30 minutes/day Frequency: daily Seatbelt use: always Drive intox or ride w/intox entry driver operator: No Working smoke detector in home: Yes Fire extinguisher in home: Yes Carbon monox detector in home: Yes Do you feel safe at home: Yes Do you feel safe in your relationship?: Yes
--- NOTE | 2019-05-24 11:01 | PDOC.HHF2F_ITS ---
Home Health Certification Home Health Certification: 1. Encounter Date and Reason I certify that SUZIE CHAVEZ was seen by Anders Cary on 05/24/19 and that I had a [id number] encounter with this patient that meets the physician face to face encounter requirements. 2. Clinical Findings Supporting Skilled Need and Homebound Status I certify that home health services are medically necessary, include either intermittent group home and/or physical/speech therapy, and that this patient is homebound in that absences from the home require considerable and taxing effort and are infrequent or of short duration, or are attributable to the need to receive medical care. [X] (a) Attached documentation from encounter provides clinical findings supporting skilled need and homebound status (including what assistance patient requires to leave the home). The encounter with the patient was in whole, or in part, for the following medical condition, which is the primary reason for home health care: PNEUMONIA,COPD EXACERBATION [facility]: Post Hospital follow-up for COPD exacerbation, new medications including prednisone taper. Vital signs. Physical Therapy: Deconditioning at baseline, worsened following hospitalization. Speech Therapy: Homebound: 3. Certification and Authentication I certify that I composed the above information based on my clinical judgement relating to this patient's medical condition and, if applicable, clinical findings communicated to me by the NPP or inpatient physician who performed the Home Health Referral. All further orders will be obtained through Jenna Nayak (Community Based Physician - PCP)
--- NOTE | 2019-05-24 12:08 | PDOC.CMDIS ---
- If Service Date Differs Date of service: 05/24/19 Time of Service: 12:08 LACE Index Scoring Tool - Questions: Length of Stay (in days): 4 - 6 Acuity (Admit via E.D.?): Yes Comorbidities: Chronic Pulmonary Disease E.D. Visits: 3 - Answers: Total Score: 12 Risk of Readmission: High Risk Care Management Discharge Reason for Hospitalization: Pneumonia, COPD exacerbation Discharge Plan: Sophy will be discharged home today via RCT with resumption of home health services including nursing, OT and addition of PT for better breathing. Sophy feels improved today and feels her breathing is better and at her baseline. Patient/Family Education Needs: Discharge education, limitations and follow up plan of care including self management and ask me three. Sophy has oxygen at home and will use it as directed she is willing to have home health resume services and participate with better breathing program. Services Needed at Discharge: Home Health Care Services, Homemaking Services, Occupational Therapy, Oxygen Therapy, Physical Therapy, Transportation
== END 2019-05-24 13:59 | disposition home health service (06) | DRG 190 ==
LOC: ER 05:50 → MS 06:53
PROVIDERS: Admitting Provider Internal Medicine; Emergency Provider Student in an Organized Health Care Education/Training Program; PCP Nurse Practitioner; Visit Provider Internal Medicine
DX: J44.0 Chronic obstructive pulmonary disease with (acute) lower respiratory infection (principal); J18.1 Lobar pneumonia, unspecified organism; J98.11 Atelectasis; J44.1 Chronic obstructive pulmonary disease with (acute) exacerbation; F06.4 Anxiety disorder due to known physiological condition; K21.9 Gastro-esophageal reflux disease without esophagitis; E78.5 Hyperlipidemia, unspecified; Z99.81 Dependence on supplemental oxygen; F17.210 Nicotine dependence, cigarettes, uncomplicated; E88.01 Alpha-1-antitrypsin deficiency; I10 Essential (primary) hypertension; Z51.5 Encounter for palliative care; Z66 Do not resuscitate
CPT/HCPCS: 36415; 71275; 80048; 80053; 82805; 84145; 87040; 87449; 93005; 94640; 96361; 96365; 96368; 99223; 99232; 99239; 99253; 99285; J1650; 71045; 80202; 81003; 81015; 83605; 83735; 83880; 84443; 84484; 85025; 85379; 85610; 85730; 87070; 87086; 87205; 93010; 94660; J1956; J2060; J2270; J2930; J3490; J7614; J7620; J7626

== ENCOUNTER 2019-07-03 22:42 | Inpatient (IN) | payer MEDICAID, SELFPAY ==
[2019-07-03] VITALS (16 sets, daily range): BP systolic 118–147; BP diastolic 67–89; PULSE 98–117; RESP 8–33; TEMP 36.6; O2SAT 92–97
--- NOTE | 2019-07-03 22:46 | ED.GENADUL_ITS ---
Discharge Plan Disposition Patient Disposition: [facility] INPATIENT Condition: Serious Discharge Details Chief Complaint: SOB Clinical Impression: COPD exacerbation Admit Date/Time: 07/04/19 00:17 Admit Provider: David Matthews Attending Provider: David Matthews Primary Care Provider: Jenna Nayak ED Provider: Carlos Palacio Discharge Data Discharge Date/Time-TO BE ENTERED AT DEPARTURE: 07/04/19 02:12 Medical Decision Making Patient arrives in respiratory distress. She is taken off EMS CPAP and placed on our BiPAP machine. Albuterol neb ordered and respiratory called in to start continuous neb. IV Solu-Medrol given here. Laboratory studies obtained. EKG shows no acute ST changes. Chest x-ray ordered. Patient slowly began to respond to the albuterol. Wheezing continued but there was much better air exchange. Initial blood gas showed a pH of 7.30 with a PCO2 of 63. Labs otherwise unremarkable and troponin negative. Chest x-ray with COPD changes but no evidence of pneumonia or pneumothorax. Breathing steadily continue to get better on a continuous albuterol. Case discussed with hospitalist. Patient will be admitted to the ICU for further management. Patient per my conversation with her wishes to remain DNR/DNI. Medical Records Medical records reviewed: Yes I reviewed the patient's medical records. Lab Data Lab results reviewed: Yes I reviewed the patient's lab results. ECG Data Attestation: I personally reviewed and interpreted this ECG (s) as follows: Prior ECG tracings: not available for review Interpretation: Sinus tachycardia at 111. Normal axis and intervals. No acute ST changes. HPI General Mode of arrival: EMS . Date/Time Provider Initiated Documentation: 07/03/19 22:46 . Limitations to Documentation: physical limitation . Information obtained by: patient, EMS, RN notes reviewed and old records reviewed . HPI Narrative: Patient presents to ED by ambulance with respiratory distress. Patient has history of COPD. She still actively smokes. She reports getting more short of breath tonight. She denies having fever, chest pain, abdominal pain, vomiting, leg pain or leg swelling. She received 2 DuoNeb treatments in the ambulance. She was placed on CPAP. She arrives here in continued distress. Related Data Home Medications Medication Instructions Recorded Confirmed ascorbic acid (vitamin C) [Vitamin 500 mg PO DAILY 05/24/13 07/04/19 C] ketoconazole 1 film TOPICAL BID PRN #1 tube 02/08/16 07/04/19 Briefs, Adult-Extra Large #90 ea 06/10/16 07/04/19 sennosides [Senokot] 1 tab-cap PO DAILY PRN #30 tab-cap 11/29/17 07/04/19 meclizine 12.5 mg tablet 12.5 mg PO TID PRN #30 tab 08/23/18 07/04/19 pantoprazole 40 mg tablet,delayed 40 mg PO DAILY #90 tab-cap 09/03/18 07/04/19 release primidone 250 mg tablet 250 mg PO as directed #60 tab 11/01/18 07/04/19 citalopram 20 mg tablet 20 mg PO DAILY #90 tab-cap 12/04/18 07/04/19 lovastatin 40 mg tablet 40 mg PO DAILY #90 tab 12/04/18 07/04/19 oxybutynin chloride 5 mg tablet 5 mg PO TID #270 tab-cap 12/04/18 07/04/19 trazodone 50 mg tablet 25 mg PO HS #45 tab-cap 12/04/18 07/04/19 meloxicam 15 mg tablet 15 mg PO DAILY #30 tab 02/28/19 07/04/19 fluticasone fur. 100 mcg-umeclid 1 inh IH DAILY 03/08/19 06/19/19 62.5 mcg-vilant 25 mcg inhalat.powder albuterol sulfate 90 mcg/actuation 2 puff INHALATION Q4H PRN #3 03/18/19 07/04/19 aerosol inhaler inhaler ipratropium bromide 17 2 puff IH QID #12.9 gm 05/08/19 07/04/19 mcg/actuation HFA aerosol inhaler shower chair #1 ea 05/08/19 07/04/19 Shower Chair #1 ea 05/09/19 07/04/19 ipratropium-albuterol 3 ml UPD Q4H #1 ml 05/24/19 07/04/19 cyanocobalamin (vitamin B-12) 1,000 mcg IM MONTHLY #1 vial 06/04/19 07/04/19 1,000 mcg/mL injection solution Previous Rx's Medication Instructions Recorded meclizine 12.5 mg tablet 12.5 mg PO TID PRN #30 tab 08/23/18 pantoprazole 40 mg tablet,delayed 40 mg PO DAILY #90 tab-cap 09/03/18 release primidone 250 mg tablet 250 mg PO as directed #60 tab 11/01/18 citalopram 20 mg tablet 20 mg PO DAILY #90 tab-cap 12/04/18 lovastatin 40 mg tablet 40 mg PO DAILY #90 tab 12/04/18 oxybutynin chloride 5 mg tablet 5 mg PO TID #270 tab-cap 12/04/18 trazodone 50 mg tablet 25 mg PO HS #45 tab-cap 12/04/18 meloxicam 15 mg tablet 15 mg PO DAILY #30 tab 02/28/19 albuterol sulfate 90 mcg/actuation 2 puff INHALATION Q4H PRN #3 03/18/19 aerosol inhaler inhaler ipratropium bromide 17 2 puff IH QID #12.9 gm 05/08/19 mcg/actuation HFA aerosol inhaler Shower Chair #1 ea 05/09/19 ipratropium-albuterol 3 ml UPD Q4H #1 ml 05/24/19 cyanocobalamin (vitamin B-12) 1,000 mcg IM MONTHLY #1 vial 06/04/19 1,000 mcg/mL injection solution Allergies Allergy/AdvReac Type Severity Reaction Status Date / Time Penicillins Allergy Intermediate SKIN RASH Verified 07/03/19 22:46 adhesive AdvReac Mild Skin Rash Verified 07/03/19 22:46 General Stated Complaint: SOB BO: 2 Review of Systems Unobtainable due to (Review of systems not obtained due to respiratory distress and acuity ) [facility] Medical History (Updated 07/04/19 @ 01:39 by David Matthews) Wdafv-2-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 Sargent B12 deficiency (Chronic 07/29/14) Benign neoplasm of colon (Chronic 11/22/12) Chronic airway obstruction, not elsewhere classified (Chronic 11/22/12) Severe 01/2016 FEV1 36%; 11/2012 overnight O2 sat: no sig nocturnal hypoxia alpha 1 antitrypsin level NL 02/15/18 Last APt with Rosetta at sleep/pulmonary clinic 02/15/18 Depression (Chronic) DVT of leg (deep venous thrombosis) Essential hypertension (Chronic 08/23/17) Fx upper humerus-closed (Resolved 03/05/13) GERD (gastroesophageal reflux disease) (Chronic) History of pneumonia (Resolved) Hyperlipidemia Hypomagnesemia (Chronic 11/28/17) Influenza A (Inactive) Insomnia (Chronic) Left hip pain (Resolved) Memory loss (Chronic 11/22/12) Mood disorder (Chronic) Other convulsions (Acute 11/22/12) Pneumonia (Inactive) Seizure disorder (Chronic) Sensorineural hearing loss, bilateral (Chronic 05/25/15) Tendonitis of wrist, left (Resolved 03/31/17) Tinnitus (Acute 09/04/14) Tobacco dependence syndrome (Acute 11/22/12) Unspecified hearing loss (Acute 11/22/12) Urinary incontinence (Chronic 11/22/12) Surgical History H/O shoulder surgery (Chronic) per pt she reports she has never had shoulder surgery History of cataract surgery (Chronic) History of colonoscopy (Chronic) Family History Father COPD (chronic obstructive pulmonary disease) Social History Smoking/Tobacco Use Status: Current every day Tobacco Type: cigarettes Alcohol Intake: former Drug use: Current Sobriety Substance use type: former substance user Housing: apartment What type of physical activity do you participate in: walking Duration: 15-30 minutes/day Frequency: daily Seatbelt use: always Drive intox or ride w/intox package delivery driver: No Working smoke detector in home: Yes Fire extinguisher in home: Yes Carbon monox detector in home: Yes Do you feel safe at home: Yes Do you feel safe in your relationship?: Yes Exam Narrative Exam Narrative: Vitals: Afebrile. Elevated blood pressure and heart rate. Respiratory distress even on CPAP. Saturations 96 on the CPAP. Const: Much older appearing than stated age female in respiratory distress despite CPAP. HEENT: NC/AT. CPAP mask in place. Neck: Supple. Trachea midline. Lungs: Respiratory distress with diffuse wheezing, rhonchi and diminished breath sounds throughout. Cor: RRR tachy without murmur/gallop. Good radial pulses. GI: Soft. NT/ND. No guarding or rebound. Neuro: A+O x 3. No gross motor or sensory deficit. Ext: No C/C/E. No calf tenderness. Skin: Warm and dry without rash. Course Vital Signs Vital signs: Vital Signs Temperature 97.9 F 07/03/19 22:43 Pulse 111 H 07/03/19 22:43 Respiratory Rate 27 H 07/03/19 22:43 Blood Pressure 143/87 H 07/03/19 22:43 Pulse Oximetry 96 07/03/19 22:43 Temperature 97.9 F 07/03/19 22:43 Temperature Source Temporal Artery Scan 07/03/19 22:43 Pulse 111 H 07/03/19 22:43 Respiratory Rate 27 H 07/03/19 22:43 Blood Pressure 143/87 H 07/03/19 22:43 Pulse Oximetry 96 07/03/19 22:43 Oxygen Delivery Method Bi-pap 07/03/19 22:43 Critical Care Time Critical Care Time Critical Care Time: Yes Total Critical Care Time: 60 Attestation: Upon my evaluation, this patient had a high probability of imminent or life- threatening deterioration, which required my direct attention, intervention, and personal management. I have personally provided minutes of critical care time exclusive of time spent on separately billable procedures. Time includes review of laboratory data, radiology results, discussion with consultants, and monitoring for potential decompensation. Interventions were performed as documented above.
--- NOTE | 2019-07-03 22:48 | DI.RAD_ITS ---
EXAM: XR PORTABLE CHEST AP INDICATION: SOB. COMPARISON: XR PORTABLE CHEST AP from 05/19/2019 TECHNIQUE: 2D digital imaging was performed. FINDINGS: Heart size and pulmonary vasculature are within normal limits. Stable chronic interstitial markings are seen in the lungs. No consolidating infiltrates, effusions or pneumothoraces are identified. IMPRESSION: No acute pulmonary process.
[2019-07-03] MEDS: Albuterol 2.5 MG/3 ML INH SOLN VIAL UPD (23:00)
[2019-07-03] MEDS: methylPREDNISolone SUCC 125 MG VIAL IVP (23:07)
[2019-07-03] MEDS: Normal Saline Flush 10 ML SYR IVP (23:07)
[2019-07-03] MEDS: Albuterol 2.5 MG/3 ML INH SOLN VIAL ×2 (23:10→23:25)
[2019-07-03 23:12] LABS: Abs Immature Grans 0.01 k/cumm (0.0-0.09); Absolute Basophil Count 0.06 k/cumm (0.0-0.2); Absolute Eosinophil Count 0.57 k/cumm (0.0-0.7); Absolute Lymphocyte Count 2.88 k/cumm (1.2-3.4); Absolute Monocyte Count 0.78 k/cumm (0.11-0.7); Absolute Neutrophil Count 6.17 k/cumm (1.2-6.7); Basophils % 0.6; Eosinophils % 5.4; HCT 46.7 % (36.0-46.0); HGB 15.1 g/dL (12.0-15.5); Immature Grans % 0.1; Lymphocytes % 27.5; Mean Corp. HGB Concentration 32.3 g/dL (32.0-36.0); Mean Corpuscular Hemoglobin 30.5 pg (27.0-33.0); Mean Corpuscular Volume 94.3 fL (80-95); Mean Platelet Volume 10.5 fL (8.0-11.0); Monocytes % 7.4; Platelet Count 263 x1000/uL (130-400); RBC 4.95 m/cumm (4.00-5.20); White Blood Cell Count 10.47 k/cumm (4.4-10.8)
[2019-07-03 23:38] LABS: ALT 14 U/L (14-59); AST 15 U/L (15-37); Albumin 3.6 g/dL (3.4-5.0); Alkaline Phosphatase 78 U/L (46-116); Anion Gap 6.9 mmol/L (3-11); BUN 8 mg/dL (7-18); Bilirubin, Total 0.2 mg/dL (0.2-1.0); CO2 32.1 mmol/L (21.0-32.0); CREATININE 0.64 mg/dL (0.55-1.02); Calcium 8.8 mg/dL (8.5-10.1); Chloride 106 mmol/L (98-107); Glucose 110 mg/dL (74-106); Magnesium 2.1 mg/dL (1.8-2.4); NT-proBNP 157 pg/mL (<300); Sodium 145 mmol/L (136-145); Total Protein 7.5 g/dL (6.4-8.2)
[2019-07-03 23:39] LABS: Troponin I < 0.05 ng/Ml (<0.06)
[2019-07-03 23:40] LABS: HCO3 30 mmol/L (22-28); pO2 93 mmHg (83-108); sO2 97 % (94-98); tCO2 27 mmol/L (22-29)
[2019-07-03 23:42] LABS: Site Right Radial
[2019-07-03 23:43] LABS: pCO2 61 mmHg (34-47)
[2019-07-04] VITALS (161 sets, daily range): BP systolic 87–135; BP diastolic 46–84; PULSE 63–109; RESP 4–34; TEMP 36.5–37.6; O2SAT 86–100
--- NOTE | 2019-07-04 00:11 | DI.VRAD_ITS ---
PROCEDURE INFORMATION: Exam: XR Chest, 1 View Exam date and time: 07/03/2019 11:01 PM Age: 59 years old Clinical indication: Shortness of breath TECHNIQUE: Imaging protocol: XR of the chest Views: 1 view. COMPARISON: XR PORTABLE CHEST AP 05/19/2019 3:14 AM FINDINGS: Lungs: Coarse interstitial lung markings. No focal consolidation. Pleural space: Unremarkable. No pleural effusion. No pneumothorax. Heart/Mediastinum: Unremarkable. No cardiomegaly. Diaphragm: Flattened hemidiaphragms. Bones/joints: Unremarkable. IMPRESSION: Findings consistent with COPD. No focal consolidation. Dictated and Authenticated by: Mariano Ba MD. Ordering:DORI Gonzalez MD
--- NOTE | 2019-07-04 01:24 | HPE_ITS ---
Date of service: 07/04/19 Time of Service: 01:24 Assessment and Plan Assessment and plan (1) Acute and chronic respiratory failure: Status: Acute Assessment and plan: Noninvasive positive pressure ventilation support along with IV corticosteroids and parenteral antibiotics (cefepime). We will repeat her ABG on her current BiPAP settings. Qualifiers: Respiratory failure complication: hypoxia and hypercapnia Qualified Code(s): J96.21 - Acute and chronic respiratory failure with hypoxia; J96.22 - Acute and chronic respiratory failure with hypercapnia (2) COPD with exacerbation: Status: Acute Assessment and plan: continue her home dose of Trelegy Ellipta along w/ above treatments. (3) Essential hypertension: Status: Chronic Assessment and plan: Patient first presented with hypertension on admit admission to the emergency department but at that time she was in respiratory extremis. Blood pressures have since stabilized and normalized since she is been on BiPAP. I do not see where she is on any medications for hypertension. For now we will just continue to monitor her blood pressure once she is weaned off of BiPAP. (4) Depression: Status: Chronic Assessment and plan: We will continue on her home dose of citalopram. (5) Seizure disorder: Status: Chronic Assessment and plan: Patient will be continued on her home dose of primidone. History of Present Illness History of Present Illness Chief Complaint: Dyspnea Narrative: History obtained from review of the patient's chart as well as discussion with Dr. Mariusz Palacio, emergency room attending. Patient currently on BiPAP mask. This 59-year-old female with a prior history of severe COPD on home oxygen and a history of heterozygosity for alpha-1 antitrypsin deficiency, hypertension, GERD, dyslipidemia was recently discharged from [facility] after hospitalization for sepsis and severe community-acquired pneumonia and was treated with cefepime and vancomycin. She was hospitalized from May 19 through May 24, 2019. She continues to smoke and now presents emergency department with acute dyspnea that began this evening. According Dr. Palacio EMS gave her couple of DuoNeb aerosol treatments and placed her on BiPAP mask because of the severity of her dyspnea. Since then she is received a continuous albuterol treatment in the emergency department and IV corticosteroids including Solu-Medrol 125 mg IV. Work-up in the ER included routine labs and chest x-ray. Chest x-ray reportedly shows coarse interstitial lung markings consistent with COPD. No focal consolidation. No pleural effusions. No pneumothorax and no cardiomegaly. Routine labs include a CBC demonstrated a white count of 10,470. No anemia. Chemistry panel showed carbon dioxide retention at 32.1. Normal BUN/creatinine electrolytes and LFTs. Troponin is less than 0.05. proBNP 157. Arterial blood gas on BiPAP mask demonstrate a PCO2 of 61 PO2 of 93 pH 7.30 oxygen saturation 97% with a calculated bicarbonate level of 30 base excess 4.0. Treatment the emergency department included continuous albuterol aerosol treatment for an hour. Patient was given IV Solu-Medrol 125 mg IV. She was started on IV fluids and placed on a BiPAP mask with an FiO2 of 30% and inspira tory pressure 10 cm of expiratory pressure 5 cm. Patient is now admitted to the intensive care unit for treatment of acute exacerbation of COPD. Patient will be started on cefepime for treatment of acute exacerbation of bronchitis in addition to her COPD. She will continue to receive IV corticosteroids and noninvasive positive pressure ventilation. She is a DNR/DNI by her choice. Review of Systems ENT Ears, Nose, Mouth, and Throat: Reports system reviewed and no additional comp laints, except as docu Cardiovascular Cardiovascular: Denies chest pain, Reports dyspnea and Reports dyspnea on exertion Respiratory Respiratory: Reports chest congestion, Reports cough, Reports excessive phlegm production, Reports dyspnea, Reports dyspnea on exertion and Reports wheezing Gastrointestinal Gastrointestinal: Reports system reviewed and no additional complaints, except as docu Genitourinary Genitourinary: Reports system reviewed and no additional complaints, except as docu Musculoskeletal Musculoskeletal: Reports system reviewed and no additional complaints, except as docu Integumentary/Breasts Skin/Breast: Reports system reviewed and no additional complaints, except as d ocu Neurologic Neurologic: Reports system reviewed and no additional complaints, except as docu Endocrine Endocrine: Reports system reviewed and no additional complaints, except as docu Hematologic/Lymphatic Hematologic/Lymphatic: Reports system reviewed and no additional complaints, except as docu Allergic/Immunologic Allergic/Immunologic: Reports wheezing [facility] Medical History (Updated 07/04/19 @ 02:57 by David Matthews) Wense-0-wjdzjeugaalnvpvn 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 Sargent B12 deficiency (Chronic 07/29/14) Benign neoplasm of colon (Chronic 11/22/12) Chronic airway obstruction, not elsewhere classified (Chronic 11/22/12) Severe 01/2016 FEV1 36%; 11/2012 overnight O2 sat: no sig nocturnal hypoxia alpha 1 antitrypsin level NL 02/15/18 Last APt with Rosetta at sleep/pulmonary clinic 02/15/18 Depression (Chronic) DVT of leg (deep venous thrombosis) Essential hypertension (Chronic 08/23/17) Fx upper humerus-closed (Resolved 03/05/13) GERD (gastroesophageal reflux disease) (Chronic) History of pneumonia (Resolved) Hyperlipidemia Hypomagnesemia (Chronic 11/28/17) Influenza A (Inactive) Insomnia (Chronic) Left hip pain (Resolved) Memory loss (Chronic 11/22/12) Mood disorder (Chronic) Other convulsions (Acute 11/22/12) Pneumonia (Inactive) Seizure disorder (Chronic) Sensorineural hearing loss, bilateral (Chronic 05/25/15) Tendonitis of wrist, left (Resolved 03/31/17) Tinnitus (Acute 09/04/14) Tobacco dependence syndrome (Acute 11/22/12) Unspecified hearing loss (Acute 11/22/12) Urinary incontinence (Chronic 11/22/12) Surgical History H/O shoulder surgery (Chronic) per pt she reports she has never had shoulder surgery History of cataract surgery (Chronic) History of colonoscopy (Chronic) Family History Father COPD (chronic obstructive pulmonary disease) Social History Smoking/Tobacco Use Status: Current every day Tobacco Type: cigarettes Alcohol Intake: former Drug use: Current Sobriety Substance use type: former substance user Housing: apartment What type of physical activity do you participate in: walking Duration: 15-30 minutes/day Frequency: daily Seatbelt use: always Drive intox or ride w/intox pharmacy delivery driver: No Working smoke detector in home: Yes Fire extinguisher in home: Yes Carbon monox detector in home: Yes Do you feel safe at home: Yes Do you feel safe in your relationship?: Yes Meds Home Medications and Allergies Home Medications Medication Instructions Recorded Confirmed Type ascorbic acid (vitamin C) [Vitamin 500 mg PO DAILY 05/24/13 07/04/19 History C] ketoconazole 1 film TOPICAL BID PRN #1 tube 02/08/16 07/04/19 History Briefs, Adult-Extra Large #90 ea 06/10/16 07/04/19 History sennosides [Senokot] 1 tab-cap PO DAILY PRN #30 tab-cap 11/29/17 07/04/19 History meclizine 12.5 mg tablet 12.5 mg PO TID PRN #30 tab 08/23/18 07/04/19 Rx pantoprazole 40 mg tablet,delayed 40 mg PO DAILY #90 tab-cap 09/03/18 07/04/19 Rx release primidone 250 mg tablet 250 mg PO as directed #60 tab 11/01/18 07/04/19 Rx citalopram 20 mg tablet 20 mg PO DAILY #90 tab-cap 12/04/18 07/04/19 Rx lovastatin 40 mg tablet 40 mg PO DAILY #90 tab 12/04/18 07/04/19 Rx oxybutynin chloride 5 mg tablet 5 mg PO TID #270 tab-cap 12/04/18 07/04/19 Rx trazodone 50 mg tablet 25 mg PO HS #45 tab-cap 12/04/18 07/04/19 Rx meloxicam 15 mg tablet 15 mg PO DAILY #30 tab 02/28/19 07/04/19 Rx fluticasone fur. 100 mcg-umeclid 1 inh IH DAILY 03/08/19 06/19/19 History 62.5 mcg-vilant 25 mcg inhalat.powder albuterol sulfate 90 mcg/actuation 2 puff INHALATION Q4H PRN #3 03/18/19 07/04/19 Rx aerosol inhaler inhaler ipratropium bromide 17 2 puff IH QID #12.9 gm 05/08/19 07/04/19 Rx mcg/actuation HFA aerosol inhaler shower chair #1 ea 05/08/19 07/04/19 History Shower Chair #1 ea 05/09/19 07/04/19 Rx ipratropium-albuterol 3 ml UPD Q4H #1 ml 05/24/19 07/04/19 Rx cyanocobalamin (vitamin B-12) 1,000 mcg IM MONTHLY #1 vial 06/04/19 07/04/19 Rx 1,000 mcg/mL injection solution Allergies Allergy/AdvReac Type Severity Reaction Status Date / Time Penicillins Allergy Intermediate SKIN RASH Verified 07/03/19 22:46 adhesive AdvReac Mild Skin Rash Verified 07/03/19 22:46 Exam Narrative Exam Narrative: Middle-aged female who appears to be much older than her stated age of 59. She is lying in the emergency room on a gurney in a semi- schumacher position. She is wearing a BiPAP mask which makes it difficult to understand her. She does not appear to be in respiratory extremis at this point. HEENT is unremarkable neck is supple without JVD. Lungs reveal scattered diffuse expiratory wheezes along with bibasilar rhonchi without rales. Heart is regular rate and rhythm without murmur rub or gallop. Abdomen is obese soft and nontender with normal active bowel sounds. No palpable masses. Lower extremities without peripheral cyanosis or edema. There is no calf tenderness or swelling. Genitalia rectal exam deferred. Neurologic exam is nonfocal grossly intact. Results Imaging Chest x-ray: report reviewed and image reviewed EKG: image reviewed Labs Result diagrams: 07/03/19 23:02 07/03/19 23:02 Labs: Laboratory Results - last 24 hr 07/03/19 07/03/19 07/03/19 23:02 23:02 23:29 WBC 10.47 RBC 4.95 Hgb 15.1 Hct 46.7 H MCV 94.3 MCH 30.5 MCHC 32.3 RDW 15.0 H Plt Count 263 MPV 10.5 Immature Gran % 0.1 Neutrophils % 59.0 Lymphocytes % 27.5 Monocytes % 7.4 Eosinophils % 5.4 Basophils % 0.6 Absolute Neutrophils 6.17 Absolute Lymphocytes 2.88 Absolute Monocytes 0.78 H Absolute Eosinophils 0.57 Absolute Basophils 0.06 Sample Site Right radial pCO2 61 H* pO2 93 O2 Saturation 97 ABG pH 7.30 L ABG HCO3 30 H ABG Total CO2 27 ABG Base Excess 4.0 H Sodium 145 Potassium 4.0 Chloride 106 Carbon Dioxide 32.1 H Anion Gap 6.9 BUN 8 Creatinine 0.64 Estimated GFR/1.73 m2 >= 60.00 Glucose 110 H Calcium 8.8 Magnesium 2.1 Total Bilirubin 0.2 AST 15 ALT 14 Alkaline Phosphatase 78 Troponin I < 0.05 NT-Pro-B Natriuret Pep 157 Total Protein 7.5 Albumin 3.6 Last Vital Signs Temp 36.6 C 07/03/19 22:43 Pulse 85 07/04/19 00:53 Resp 26 H 07/04/19 00:53 BP 115/79 07/04/19 00:30 Pulse Ox 91 L 07/04/19 00:53
[2019-07-04 02:32] LABS: Troponin I < 0.05 ng/Ml (<0.06)
[2019-07-04] MEDS: CEFEPIME 2 GM in Normal Saline 100 ML IVPB ×3 (02:48→17:04)
[2019-07-04] MEDS: Normal Saline 1,000 ML 85 ML IV ×2 (02:54→16:07)
[2019-07-04] MEDS: Albuterol/Ipratropium 3 ML UPD VIAL UPD ×5 (03:28→20:11)
[2019-07-04] MEDS: Oxybutynin 5 MG TAB PO ×4 (03:30→20:11)
[2019-07-04] MEDS: traZODone 50 MG TAB 25 MG PO ×2 (03:30→22:01)
[2019-07-04] MEDS: Pantoprazole 40 MG VIAL IVP (03:31)
[2019-07-04] MEDS: Primidone 250 MG TAB PO ×2 (04:25→22:01)
[2019-07-04 06:48] LABS: Lactate 0.9 mmol/L (0.6-1.4)
[2019-07-04 06:57] LABS: Abs Immature Grans 0.01 k/cumm (0.0-0.09); Absolute Basophil Count 0.01 k/cumm (0.0-0.2); Absolute Lymphocyte Count 0.87 k/cumm (1.2-3.4); Absolute Monocyte Count 0.09 k/cumm (0.11-0.7); Basophils % 0.2; HCT 42.7 % (36.0-46.0); HGB 13.6 g/dL (12.0-15.5); Immature Grans % 0.2; Lymphocytes % 13.2; Mean Corp. HGB Concentration 31.9 g/dL (32.0-36.0); Mean Corpuscular Volume 94.3 fL (80-95); Mean Platelet Volume 10.6 fL (8.0-11.0); Monocytes % 1.4; Platelet Count 224 x1000/uL (130-400); RBC 4.53 m/cumm (4.00-5.20); RBC Distribution Width 14.9 % (11.7-14.6)
[2019-07-04 07:00] LABS: Absolute Neutrophil Count 5.61 k/cumm (1.2-6.7)
[2019-07-04 07:20] LABS: ALT 11 U/L (14-59); AST 16 U/L (15-37); Alkaline Phosphatase 64 U/L (46-116); Anion Gap 6.8 mmol/L (3-11); BUN 9 mg/dL (7-18); Bilirubin, Total 0.3 mg/dL (0.2-1.0); CO2 30.2 mmol/L (21.0-32.0); CREATININE 0.64 mg/dL (0.55-1.02); Calcium 8.5 mg/dL (8.5-10.1); Chloride 106 mmol/L (98-107); Glucose 139 mg/dL (74-106); Sodium 143 mmol/L (136-145); TSH 0.28 uIU/mL (0.36-3.74); Total Protein 6.3 g/dL (6.4-8.2)
[2019-07-04 07:21] LABS: Troponin I < 0.05 ng/Ml (<0.06)
[2019-07-04 07:25] LABS: Procalcitonin < 0.1 ng/mL
[2019-07-04] MEDS: Enoxaparin 40 MG/0.4 ML SYR SC (08:53)
[2019-07-04] MEDS: methylPREDNISolone SUCC 125 MG VIAL 80 MG IVP ×3 (08:54→22:00)
[2019-07-04] MEDS: Citalopram 20 MG TAB PO (08:55)
[2019-07-04] MEDS: Primidone 250 MG TAB 125 MG PO ×2 (08:55→20:11)
[2019-07-04] MEDS: Normal Saline Flush 10 ML SYR IVP ×2 (08:55→14:29)
[2019-07-04 08:56] LABS: pH 7.35 (7.35-7.45)
[2019-07-04] MEDS: Ascorbic Acid 500 MG TAB PO (08:56)
[2019-07-04 08:57] LABS: FIO2 30% %; Site Right Radial; pCO2 53 mmHg (34-47); pO2 76 mmHg (83-108); sO2 96 % (94-98)
[2019-07-04 08:58] LABS: BE 3.7 mmol/L (-3-3); HCO3 29 mmol/L (22-28); tCO2 26 mmol/L (22-29)
--- NOTE | 2019-07-04 09:04 | INITIAL_ITS ---
- If Service Date Differs Date of service: 07/04/19 Time of Service: 09:04 Care Management Initial Assess REASON FOR HOSPITALIZATION:: COPD exacerbation, acute on chronic respiratory failure. PAST MEDICAL HISTORY/PAST SURGICAL HISTORY:: Medical History: Alph [id number] deficiency - does not need tx - Dr. Sargent, B12 deficiency, Benign neoplasm of colon, Chronic airway obstruction, not elsewhere classified - Severe 01/2016 FEV1 36%; 11/2012 overnight O2 sat: no sig nocturnal hypoxia - alpha 1 antitrypsin level NL -. 02/15/18 Last APt with Rosetta at sleep/pulmonary clinic 02/15/18, Depression,. DVT of leg (deep venous thrombosis), Essential hypertension, Fx upper humerus-closed, GERD (gastroesophageal reflux disease), History of pneumonia, Hyperlipidemia, Hypomagnesemia, Influenza A, Insomnia,. Left hip pain, Memory loss, Mood disord er, Other convulsions, Pneumonia,. Seizure disorder, Sensorineural hearing loss, bilateral, Tendonitis of wrist, left, Tinnitus, Tobacco dependence syndrome, Unspecified hearing loss, and. Urinary incontinence. Surgical History: H/O shoulder surgery - per pt she reports she has never had shoulder surgery, History of cataract surgery, and History of colonoscopy. PREVIOUS FUNCTIONAL STATUS/SOCIAL/FAMILY SUPPORTS:: Sophy lives alone with her dog in subsidized housing in [facility]. She names her mother and her brother as her family supports, but states her brother currently has a bum knee and her mom is [id number]. Sophy has [employer] - moderate needs, and her mattress spring encaser is Tanisha Valladares at [facility]. CURRENT FUNCTIONAL STATUS:: Sophy is lying in bed watching television when comes to meet with her. She is pleasant and easily engages into conversation. She expresses frustration with being back in the hospital again and says she came to the ER hoping for an updraft but ended up being admitted. She becomes tearful and talks about her fear she will be sent to a half-way from the hospital. CM reassures her she will be going home from the hospital. ADVANCE DIRECTIVES:: DNR/COLST on file at [facility]. Has patient been provided with information about the portal?: Yes Did the patient sign up for the portal?: No CODE STATUS:: DNR/DNI INSURANCE COVERAGE / FINANCIAL ISSUES:: Medicaid. CURRENT HOME/COMMUNITY SERVICES/EQUIPMENT:: Sophy reports she has life line, moderate needs CHC, Home Health nursing, and home oxygen through [employer]. PRIMARY CARE PHYSICIAN:: Jenna Nayak aprn ([facility]) POTENTIAL DISCHARGE NEEDS:: Follow-up appointment with PCP and resumption of community services including Home Health. PATIENT/FAMILY EDUCATION NEEDS:: Discharge plan, limitations, follow-up plan of care, including Ask Me Three and self-management. ANTICIPATED BARRIERS TO DISCHARGE:: None. TRANSPORTATION:: Via RCT coordinated by CM at time of discharge. PLAN:: Sophy will be discharged home when medically cleared by provider. Resumption of comunity services including Home Health at time of discharge. CM will continue to support patient and discharge planning needs.
[2019-07-04] MEDS: Omnipaque 350 MG/ML 100 ML BTL IJ (12:17)
--- NOTE | 2019-07-04 12:19 | DI.CT_ITS ---
EXAM: CT ABDOMEN PELVIS W CLINICAL HISTORY: LUQ pain TECHNIQUE: Imaging Protocol: Axial computed tomography images with coronal and sagittal reformatted images were created and reviewed CONTRAST MATERIAL: Intravenous: Omnipaque 350 Contrast volume: 100 contrast route:IV - Oral: Yes COMPARISON: CT CHEST PE CTA from 05/19/2019 FINDINGS: ABDOMEN: Lung Bases: Bilateral basilar infiltrates. Liver: Normal density. No measurable mass. Portal, superior mesenteric and splenic veins are patent. Gallbladder and biliary tract: No radiodense calculus or dilation. Pancreas: Normal density, no abnormal calcifications or inflammatory process. Spleen: Normal. Kidneys: Normal size, contour and axis. No radiodense stones or obstructive uropathy. No masses seen. Adrenal glands: Stable bilateral adrenal nodules. Abdominal Aorta: Atherosclerosis. No aneurysm. PELVIS: Bladder: Symmetric distention, no gross wall thickening. Bowel: Colonic diverticulosis, no evidence of acute diverticulitis. There is higher density material seen in the dependent portion of the proximal transverse colon. No evidence of an acute appendiciti s. Peritoneal cavity: No ascites, collection or mesenteric inflammatory response. Bones: Degenerative changes are seen in the spine. Reproductive organs: There is a complex mass seen in the left adnexa. It measures 5.6 centimeters AP x 6.1 centimeters transverse by 5.0 centimeters craniocaudad. It appears to be ovarian in origin. The uterus appears otherwise unremarkable. Lymph nodes: Unremarkable. Impression: 1. 6.1 centimeter complex mass in the left adnexa. It appears to be ovarian in origin and neoplasm s hould be considered. Pelvic ultrasound and gynecologic consult should be considered for further eval uation. 2. Bilateral basilar infiltrates. These may represent pneumonia or atelectasis. 3. High density material seen in the proximal transverse colon. Further evaluation with barium enema and/or colonoscopy is recommended. 4. Stable bilateral adrenal nodules. 5. Colonic diverticulosis but no evidence of acute diverticulitis. DATA REPOSITORY: All CT scans at this facility are submitted to the National Radiology Data Registry (NRDR) Dose Index Registry (DIR) with the [employer] ([employer]). RADIATION OPTIMIZATION: All CT scans at this facility use at least one of these dose optimization te chniques: automated exposure control; mA and/or kV adjustment per patient size (includes targeted exa ms where dose is matched to clinical indication); or iterative reconstruction.
--- NOTE | 2019-07-04 13:31 | PHARADMIT ---
Addendum entered by Maribell Horowitz 07/07/19 11:39: VS ok, no labs, going home on Hospice potentially Monday once arrangements and initial meeting can be arranged. findings of large colon mass, patient does not want follow-up or biopsy It could potentially cause a bowel obstruction, need to keep bowel movements soft Did have BM after Mag Citrate yesterday, and already two today Citalopram put on hold after discussion w/MD and interaction w/Krysten and Hx of seizure disorder IV Anbx changed to oral, IV steroids changed to oral ?possible transfer to /S Original Note: Admission Pharmacy Clinical Review COPD exacerbation, acute on chronic resp failure Code Status DNR/DNI Current Weight 70.3 kg Renally Cleared and Narrow Therapeutic Index Meds Crcl ~84.8 mL/min using adjusted body weight current meds okay QTc Value / Action Taken QTc 451 BP Control, Fever BP 125/54 afebrile Electrolytes reviewed within normal limits DVT Prophylaxis enoxaparin Opiate Usage / Scheduled Bowel Regimen Ordered no/prn Plt/SCr for Heparin / Enoxaparin plt 224 SCr 0.64 INR for Warfarin n/a H/H stable, WBC/Bands h/h 13.6/42.7 WBC 6.60 Antibiotic appropriateness cefepime Cultures and Sensitivities none Surgical ABX d/c within 24 hr n/a DM control / Insulin Dosing BG 139 none Heart Failure (Check EF%) (FELIPE's, B-Block, Diuretics) none IV to PO Switch n/a Home Meds Reviewed -multiple anticholinergic meds increases the risk of adverse/toxic effects: ipratropium,umeclidinium, meclizine, oxybutynin -primidone may increase the metabolism of citalopram, lovasatin and trazodone -citalopram may increase the antiplatelet effect of meloxicam; meloxicam may diminish the therapeutic effect of citalpram Home Meds Not Ordered cyanocobalamin, trelegy ellipta, ketoconazole, meloxicam Comments procalcitonin <0.1
--- NOTE | 2019-07-04 15:15 | DI.US_ITS ---
EXAM: US PELVIS LIMITED CLINICAL HISTORY: question of ovarian mass TECHNIQUE: Ultrasound performed using standard protocol. COMPARISON: CT ABDOMEN PELVIS W from 07/04/2019 FINDINGS: Transabdominal pelvic ultrasound was performed. The uterus measures 6.1 cm long x 2.2 cm AP x 2.7 cm transverse. The endometrial stripe is within normal limits at 2 mm. The right ovary was not visualized transabdominally. There is a hypoechoic mass seen in the left adnexa measuring 3.3 x 5 x 6.0 cm. Further characterizat ion is limited due to the transabdominal examination. Further imaging should be considered. Transva ginal examination might provide additional information. MRI may also be considered.
--- NOTE | 2019-07-04 15:28 | PGE_ITS ---
Date of Service Date of service: 07/04/19 Time of Service: 15:28 Subjective Subjective Interval history since last seen: Denies dizziness, chest pain, nausea, vomiting. Endorses RLQ pain. Had pain in LUQ earlier. States breathing is better. Crying about wanting to go home. She has been off of BiPAP since about 10 am, on 3L of O2, has been able to ambulate without desaturation. Her VSS are stable. On physical exam, her breath sounds are extremely diminished. She is visibly dyspneic. Her CT of the abdomen/pelvis revealed: 1. 6.1 centimeter complex mass in the left adnexa. It appears to be ovarian in origin and neoplasm should be considered. Pelvic ultrasound and gynecologic consult should be considered for further evaluation. 2. Bilateral basilar infiltrates. These may represent pneumonia or atelectasis. 3. High density material seen in the proximal transverse colon. Further evaluation with barium enema and/or colonoscopy is recommended. 4. Stable bilateral adrenal nodules. 5. Colonic diverticulosis but no evidence of acute diverticulitis. Her ultrasound of the pelvis was just completed, results are not yet available. I will consult both general surgery and WATER QUALITY SPECIALIST based on this CT result., Objective Objective Clinical Data: Abnormal lab results 07/03/19 07/03/19 07/03/19 Range/Units 23:02 23:02 23:29 Hct 46.7 H (36.0-46.0) % MCHC (32.0-36.0) g/dL RDW 15.0 H (11.7-14.6) % Absolute Lymphocytes (1.2-3.4) k/cumm Absolute Monocytes 0.78 H (0.11-0.7) k/cumm pCO2 61 H* (34-47) mmHg pO2 (83-108) mmHg ABG pH 7.30 L (7.35-7.45) ABG HCO3 30 H (22-28) mmol/L ABG Base Excess 4.0 H (-3-3) mmol/L Carbon Dioxide 32.1 H (21.0-32.0) mmol/L Glucose 110 H (74-106) mg/dL ALT (14-59) U/L Total Protein (6.4-8.2) g/dL Albumin (3.4-5.0) g/dL TSH (0.36-3.74) uIU/mL 07/04/19 07/04/19 07/04/19 Range/Units 01:52 06:35 06:35 Hct (36.0-46.0) % MCHC 31.9 L (32.0-36.0) g/dL RDW 14.9 H (11.7-14.6) % Absolute Lymphocytes 0.87 L (1.2-3.4) k/cumm Absolute Monocytes 0.09 L (0.11-0.7) k/cumm pCO2 53 H (34-47) mmHg pO2 76 L (83-108) mmHg ABG pH (7.35-7.45) ABG HCO3 29 H (22-28) mmol/L ABG Base Excess 3.7 H (-3-3) mmol/L Carbon Dioxide (21.0-32.0) mmol/L Glucose 139 H (74-106) mg/dL ALT 11 L (14-59) U/L Total Protein 6.3 L (6.4-8.2) g/dL Albumin 3.0 L (3.4-5.0) g/dL TSH 0.28 L (0.36-3.74) uIU/mL Vital Signs Temperature 37.1 C 07/04/19 10:58 Temperature Source Temporal Artery Scan 07/04/19 10:58 Pulse 79 07/04/19 14:40 Pulse 80 07/04/19 15:20 Respiratory Rate 17 07/04/19 15:20 Respiratory Effort Non-Labored 07/04/19 10:58 Respiratory Depth Normal 07/04/19 10:58 Respiratory Pattern Normal 07/04/19 10:58 Blood Pressure 125/80 07/04/19 14:40 Blood Pressure Mean 84 07/04/19 14:40 Blood Pressure Position Sitting 07/04/19 10:58 Pulse Oximetry 92 L 07/04/19 15:20 Oxygen Delivery Method Nasal Cannula 07/04/19 11:36 Oxygen Flow Rate 2 07/04/19 11:36 Fraction of Inspired Oxygen (FIO2) 21 07/04/19 07:59 Pain Level 0 07/04/19 10:58 Intake & Output 07/03/19 07/04/19 07/04/19 23:59 11:59 23:59 Intake Total 210 / 610 400 / 610 Output Total 400 / 750 350 / 750 Balance -190 / -140 50 / -140 Weight 72.3 kg 70.3 kg Intake: IV 110 / 110 Oral 100 / 500 400 / 500 Output: Urine 400 / 750 350 / 750 Other: Urine Color Light Shantelle Yellow Urine Appearance Clear Clear Urine Odor Normal Comment Checked for retention since patient was having abdominal pain. Voiding Methods Diaper Bedside Commode Incontinent Laboratory Results WBC 6.60 k/cumm (4.4-10.8) D 07/04/19 06:35 RBC 4.53 m/cumm (4.00-5.20) 07/04/19 06:35 Hgb 13.6 g/dL (12.0-15.5) 07/04/19 06:35 Hct 42.7 % (36.0-46.0) 07/04/19 06:35 MCV 94.3 fL (80-95) 07/04/19 06:35 MCH 30.0 pg (27.0-33.0) 07/04/19 06:35 MCHC 31.9 g/dL (32.0-36.0) L 07/04/19 06:35 RDW 14.9 % (11.7-14.6) H 07/04/19 06:35 Plt Count 224 x1000/uL (130-400) 07/04/19 06:35 MPV 10.6 fL (8.0-11.0) 07/04/19 06:35 Immature Gran % 0.2 07/04/19 06:35 Neutrophils % 85.0 07/04/19 06:35 Lymphocytes % 13.2 07/04/19 06:35 Monocytes % 1.4 07/04/19 06:35 Eosinophils % 0.0 07/04/19 06:35 Basophils % 0.2 07/04/19 06:35 Absolute Neutrophils 5.61 k/cumm (1.2-6.7) 07/04/19 06:35 Absolute Lymphocytes 0.87 k/cumm (1.2-3.4) L 07/04/19 06:35 Absolute Monocytes 0.09 k/cumm (0.11-0.7) L 07/04/19 06:35 Absolute Eosinophils 0.00 k/cumm (0.0-0.7) 07/04/19 06:35 Absolute Basophils 0.01 k/cumm (0.0-0.2) 07/04/19 06:35 Sample Site Cancelled 07/04/19 05:35 pCO2 Cancelled 07/04/19 05:35 pO2 Cancelled 07/04/19 05:35 O2 Saturation Cancelled 07/04/19 05:35 ABG pH Cancelled 07/04/19 05:35 ABG HCO3 Cancelled 07/04/19 05:35 ABG Total CO2 Cancelled 07/04/19 05:35 ABG Base Excess Cancelled 07/04/19 05:35 VBG pH Cancelled 07/04/19 Unknown VBG pCO2 Cancelled 07/04/19 Unknown VBG pO2 Cancelled 07/04/19 Unknown VBG HCO3 Cancelled 07/04/19 Unknown VBG Total CO2 Cancelled 07/04/19 Unknown VBG O2 Saturation Cancelled 07/04/19 Unknown VBG Base Excess Cancelled 07/04/19 Unknown Oxygen Liter Flow Cancelled 07/04/19 05:35 FiO2 Cancelled 07/04/19 05:35 Sodium 143 mmol/L (136-145) 07/04/19 06:35 Potassium 4.0 mmol/L (3.5-5.1) 07/04/19 06:35 Chloride 106 mmol/L (98-107) 07/04/19 06:35 Carbon Dioxide 30.2 mmol/L (21.0-32.0) 07/04/19 06:35 Anion Gap 6.8 mmol/L (3-11) 07/04/19 06:35 BUN 9 mg/dL (7-18) 07/04/19 06:35 Creatinine 0.64 mg/dL (0.55-1.02) 07/04/19 06:35 Estimated GFR/1.73 m2 >= 60.00 (mL/min/1.73m2) 07/04/19 06:35 Glucose 139 mg/dL (74-106) H 07/04/19 06:35 Lactate 0.9 mmol/L (0.6-1.4) 07/04/19 06:35 Calcium 8.5 mg/dL (8.5-10.1) 07/04/19 06:35 Magnesium 2.1 mg/dL (1.8-2.4) 07/03/19 23:02 Total Bilirubin 0.3 mg/dL (0.2-1.0) 07/04/19 06:35 AST 16 U/L (15-37) 07/04/19 06:35 ALT 11 U/L (14-59) L 07/04/19 06:35 Alkaline Phosphatase 64 U/L (46-116) 07/04/19 06:35 Troponin I < 0.05 ng/Ml (<0.06) 07/04/19 06:35 NT-Pro-B Natriuret Pep 157 pg/mL (<300) 07/03/19 23:02 Total Protein 6.3 g/dL (6.4-8.2) L 07/04/19 06:35 Albumin 3.0 g/dL (3.4-5.0) L 07/04/19 06:35 Procalcitonin < 0.1 ng/mL 07/04/19 06:35 TSH 0.28 uIU/mL (0.36-3.74) L 07/04/19 06:35
[2019-07-04 16:05] LABS: FREE T4 0.83 ng/dL (0.76-1.46)
[2019-07-04] MEDS: Lovastatin 40 MG TAB PO (20:11)
[2019-07-04 21:42] LABS: T3, Total 124 ng/dL (97-169)
[2019-07-05] VITALS (124 sets, daily range): BP systolic 89–138; BP diastolic 45–84; PULSE 67–114; RESP 4–41; TEMP 36.6–37.7; O2SAT 89–99
[2019-07-05] MEDS: Albuterol/Ipratropium 3 ML UPD VIAL UPD ×6 (00:13→19:54)
[2019-07-05] MEDS: LORazepam 1 MG TAB PO (01:17)
[2019-07-05] MEDS: CEFEPIME 2 GM in Normal Saline 100 ML IVPB ×3 (01:18→17:33)
[2019-07-05] MEDS: Pantoprazole 40 MG VIAL IVP (03:30)
[2019-07-05] MEDS: methylPREDNISolone SUCC 125 MG VIAL 80 MG IVP ×3 (04:26→23:00)
[2019-07-05] MEDS: Senna TAB 1 TAB PO (04:26)
[2019-07-05] MEDS: Enoxaparin 40 MG/0.4 ML SYR SC (04:27)
[2019-07-05] MEDS: LORazepam 2 MG/ML VIAL 1 MG IVP (05:37)
[2019-07-05] MEDS: Normal Saline 1,000 ML 85 ML IV (05:51)
--- NOTE | 2019-07-05 06:17 | NUR.NOTE ---
Nursing Maria Luisa 5am pt had been sitting up in her chair when she states I can't breathe! FIO2 had been turned up on her BIPAP to 30% due to low sturation to 88%. Her O2sat was 93% at this time. Her RR increased to 44, her HR increased to low 100's. She was helped back to bed. was contacted, order obtained for 1mg IVP Ativan which was given at 0507. MD states to keep the BIPAP at 30%. Pt has been resting since, her RR decreased to low 20's which has been optimum during this admission her O2sat is 94% at this time. BP 113/84, HR 75 T36.6 at this time.
[2019-07-05 06:54] LABS: Abs Immature Grans 0.02 k/cumm (0.0-0.09); Absolute Basophil Count 0.01 k/cumm (0.0-0.2); Absolute Eosinophil Count 0.01 k/cumm (0.0-0.7); Absolute Lymphocyte Count 0.73 k/cumm (1.2-3.4); Absolute Monocyte Count 0.38 k/cumm (0.11-0.7); Absolute Neutrophil Count 7.98 k/cumm (1.2-6.7); Basophils % 0.1; Eosinophils % 0.1; HGB 13.8 g/dL (12.0-15.5); Immature Grans % 0.2; Mean Corp. HGB Concentration 32.1 g/dL (32.0-36.0); Mean Corpuscular Hemoglobin 30.1 pg (27.0-33.0); Mean Corpuscular Volume 93.9 fL (80-95); Mean Platelet Volume 11.3 fL (8.0-11.0); Monocytes % 4.2; Neutrophils % 87.4; Platelet Count 233 x1000/uL (130-400); RBC 4.58 m/cumm (4.00-5.20); RBC Distribution Width 14.8 % (11.7-14.6); White Blood Cell Count 9.13 k/cumm (4.4-10.8)
[2019-07-05 07:11] LABS: Anion Gap 4.9 mmol/L (3-11); BUN 14 mg/dL (7-18); CO2 31.1 mmol/L (21.0-32.0); CREATININE 0.72 mg/dL (0.55-1.02); Calcium 8.7 mg/dL (8.5-10.1); Chloride 107 mmol/L (98-107); Glucose 129 mg/dL (74-106); Magnesium 2.1 mg/dL (1.8-2.4); Potassium 4.5 mmol/L (3.5-5.1); Sodium 143 mmol/L (136-145)
--- NOTE | 2019-07-05 08:25 | PGE_ITS ---
Date of Service Date of service: 07/05/19 Time of Service: 15:55 Assessment and Plan Assessment and plan (1) Acute and chronic respiratory failure: Status: Acute Assessment and plan: Not better. Some of this could be due to fluid overload - d/c IVF, diurese. Continue to offer BiPAP prn/HS. Treat COPD exacerbation. Qualifiers: Respiratory failure complication: hypoxia and hypercapnia Qualified Code(s): J96.21 - Acute and chronic respiratory failure with hypoxia; J96.22 - Acute and chronic respiratory failure with hypercapnia (2) COPD with exacerbation: Status: Acute Assessment and plan: Continue scheduled and prn nebs (3) Essential hypertension: Status: Chronic Assessment and plan: Not her acute issue. Monitor BP's off IVF. (4) Depression: Status: Chronic Assessment and plan: Continue citalopram. (5) Seizure disorder: Status: Chronic Assessment and plan: Continue primidone. (6) Mass of left ovary: Status: Acute Assessment and plan: Palliative care consult pending. At this point, per my discussion with Dr Carmona, if aggressive care is pursued, would benefit from a referral to EVENT MARKETING MANAGER once and, perhaps, a single surgery to take care of both her ovarian and colon mass. (7) Mass of hepatic flexure of colon: Status: Acute Assessment and plan: Palliative care pending. As above. Additionally, if aggressive care pursued, would need a colonoscopy. For this, her current COPD exacerbation needs to be resolved. (8) DVT prophylaxis: Status: Acute Assessment and plan: SC lovenox (9) Discharge planning issues: Status: Acute Assessment and plan: DNR/DNI Continues to require ICU as long as aggressive care is to be pursued. Palliative care consult is about to happen. Subjective Subjective Interval history since last seen: Sophy is short of breath, more so when she lays down. SVT 16 beats at 3 am while awake. ?association with a neb. 2 mg of ativan overnight for anxiety. O2 sat was 88%. Got placed on BiPAP at 4 am. Back on BiPAP this am @FiO2 of 30%, slept with it on. Now back on 3L (baseline). No n/v, abdominal pain when she is laying flat. Palliative care meeting is about to happen. Exam Narrative Exam Narrative: General: anxious female, tachypneic/dyspneic, looks worse when laying flat - panics, looks much older than her stated age HEENT: EOMI, MMM Heart: RRR, no m/r/g Lungs: Rhonchi B with crackles at bases; breathing worse laying flat Abdomen: soft, nontender, nondistended while laying flat, +BS Extremities: no edema BLE's, wearing TEDs Objective Objective Clinical Data: Abnormal lab results 07/04/19 07/04/19 07/05/19 Range/Units 01:52 06:35 06:04 RDW (11.7-14.6) % MPV (8.0-11.0) fL Absolute Neutrophils (1.2-6.7) k/cumm Absolute Lymphocytes (1.2-3.4) k/cumm pCO2 53 H (34-47) mmHg pO2 76 L (83-108) mmHg ABG HCO3 29 H (22-28) mmol/L ABG Base Excess 3.7 H (-3-3) mmol/L Glucose 139 H 129 H (74-106) mg/dL ALT 11 L (14-59) U/L Total Protein 6.3 L (6.4-8.2) g/dL Albumin 3.0 L (3.4-5.0) g/dL TSH 0.28 L (0.36-3.74) uIU/mL 07/05/19 Range/Units 06:04 RDW 14.8 H (11.7-14.6) % MPV 11.3 H (8.0-11.0) fL Absolute Neutrophils 7.98 H (1.2-6.7) k/cumm Absolute Lymphocytes 0.73 L (1.2-3.4) k/cumm pCO2 (34-47) mmHg pO2 (83-108) mmHg ABG HCO3 (22-28) mmol/L ABG Base Excess (-3-3) mmol/L Glucose (74-106) mg/dL ALT (14-59) U/L Total Protein (6.4-8.2) g/dL Albumin (3.4-5.0) g/dL TSH (0.36-3.74) uIU/mL Vital Signs Temperature 37.1 C 07/05/19 03:25 Temperature Source Tympanic 07/05/19 00:02 Pulse 71 07/05/19 08:09 Pulse 72 07/05/19 06:10 Respiratory Rate 16 07/05/19 08:10 Respiratory Effort 07/05/19 08:10 Respiratory Depth Normal 07/05/19 08:10 Respiratory Pattern Normal 07/05/19 08:10 Blood Pressure 113/84 07/05/19 04:01 Blood Pressure Mean 91 07/05/19 04:01 Blood Pressure Position Sitting 07/05/19 00:02 Pulse Oximetry 93 L 07/05/19 08:09 Oxygen Delivery Method Bi-pap 07/05/19 08:01 Oxygen Flow Rate 3 07/05/19 03:25 Fraction of Inspired Oxygen (FIO2) 30 07/05/19 08:09 Pain Level 0 07/05/19 03:25 Intake & Output 07/04/19 07/04/19 07/05/19 11:59 23:59 11:59 Intake Total 310 / 2450 2140 / 2450 1300 / 1300 Output Total 400 / 1375 975 / 1375 500 / 500 Balance -90 / 1075 1165 / 1075 800 / 800 Weight 70.3 kg 71.4 kg Intake: IV 210 / 1310 1100 / 1310 1100 / 1100 Oral 100 / 1140 1040 / 1140 200 / 200 Output: Urine 400 / 1375 975 / 1375 500 / 500 Other: Urine Color Light Shantelle Yellow Pale Yellow Urine Appearance Clear Clear Clear Urine Odor None None Comment Checked for retention since patient was having abdominal pain. has just voided 275 's on commode with negative dipstick up to commode at this time. voids clear yellow urine. Voiding Methods Diaper Bedside Commode Bedside Commode Incontinent Laboratory Results WBC 9.13 k/cumm (4.4-10.8) D 07/05/19 06:04 RBC 4.58 m/cumm (4.00-5.20) 07/05/19 06:04 Hgb 13.8 g/dL (12.0-15.5) 07/05/19 06:04 Hct 43.0 % (36.0-46.0) 07/05/19 06:04 MCV 93.9 fL (80-95) 07/05/19 06:04 MCH 30.1 pg (27.0-33.0) 07/05/19 06:04 MCHC 32.1 g/dL (32.0-36.0) 07/05/19 06:04 RDW 14.8 % (11.7-14.6) H 07/05/19 06:04 Plt Count 233 x1000/uL (130-400) 07/05/19 06:04 MPV 11.3 fL (8.0-11.0) H 07/05/19 06:04 Immature Gran % 0.2 07/05/19 06:04 Neutrophils % 87.4 07/05/19 06:04 Lymphocytes % 8.0 07/05/19 06:04 Monocytes % 4.2 07/05/19 06:04 Eosinophils % 0.1 07/05/19 06:04 Basophils % 0.1 07/05/19 06:04 Absolute Neutrophils 7.98 k/cumm (1.2-6.7) H 07/05/19 06:04 Absolute Lymphocytes 0.73 k/cumm (1.2-3.4) L 07/05/19 06:04 Absolute Monocytes 0.38 k/cumm (0.11-0.7) 07/05/19 06:04 Absolute Eosinophils 0.01 k/cumm (0.0-0.7) 07/05/19 06:04 Absolute Basophils 0.01 k/cumm (0.0-0.2) 07/05/19 06:04 Sample Site Cancelled 07/04/19 05:35 pCO2 Cancelled 07/04/19 05:35 pO2 Cancelled 07/04/19 05:35 O2 Saturation Cancelled 07/04/19 05:35 ABG pH Cancelled 07/04/19 05:35 ABG HCO3 Cancelled 07/04/19 05:35 ABG Total CO2 Cancelled 07/04/19 05:35 ABG Base Excess Cancelled 07/04/19 05:35 VBG pH Cancelled 07/04/19 Unknown VBG pCO2 Cancelled 07/04/19 Unknown VBG pO2 Cancelled 07/04/19 Unknown VBG HCO3 Cancelled 07/04/19 Unknown VBG Total CO2 Cancelled 07/04/19 Unknown VBG O2 Saturation Cancelled 07/04/19 Unknown VBG Base Excess Cancelled 07/04/19 Unknown Oxygen Liter Flow Cancelled 07/04/19 05:35 FiO2 Cancelled 07/04/19 05:35 Sodium 143 mmol/L (136-145) 07/05/19 06:04 Potassium 4.5 mmol/L (3.5-5.1) 07/05/19 06:04 Chloride 107 mmol/L (98-107) 07/05/19 06:04 Carbon Dioxide 31.1 mmol/L (21.0-32.0) 07/05/19 06:04 Anion Gap 4.9 mmol/L (3-11) 07/05/19 06:04 BUN 14 mg/dL (7-18) 07/05/19 06:04 Creatinine 0.72 mg/dL (0.55-1.02) 07/05/19 06:04 Estimated GFR/1.73 m2 >= 60.00 (mL/min/1.73m2) 07/05/19 06:04 Glucose 129 mg/dL (74-106) H 07/05/19 06:04 Lactate 0.9 mmol/L (0.6-1.4) 07/04/19 06:35 Calcium 8.7 mg/dL (8.5-10.1) 07/05/19 06:04 Magnesium 2.1 mg/dL (1.8-2.4) 07/05/19 06:04 Total Bilirubin 0.3 mg/dL (0.2-1.0) 07/04/19 06:35 AST 16 U/L (15-37) 07/04/19 06:35 ALT 11 U/L (14-59) L 07/04/19 06:35 Alkaline Phosphatase 64 U/L (46-116) 07/04/19 06:35 Troponin I < 0.05 ng/Ml (<0.06) 07/04/19 06:35 NT-Pro-B Natriuret Pep 157 pg/mL (<300) 07/03/19 23:02 Total Protein 6.3 g/dL (6.4-8.2) L 07/04/19 06:35 Albumin 3.0 g/dL (3.4-5.0) L 07/04/19 06:35 Procalcitonin < 0.1 ng/mL 07/04/19 06:35 TSH 0.28 uIU/mL (0.36-3.74) L 07/04/19 06:35 Free T4 0.83 ng/dL (0.76-1.46) 07/04/19 06:35
--- NOTE | 2019-07-05 09:07 | DI.US_ITS ---
EXAM: US TRANSVAGINAL CLINICAL HISTORY: left adnexal mass TECHNIQUE: Ultrasound performed using standard protocol. COMPARISON: US PELVIS LIMITED from 07/04/2019 FINDINGS: Transvaginal ultrasound was performed to supplement yesterday's transabdominal study. The left ovari an mass lesion identified on CT is seen ultrasonographically to measure 57 x 46 x 37 millimeters in d iameter and is of mixed echogenicity with predominantly solid echo characteristics. The borders are quite irregular and the solid components of the mass are heterogeneous. There is increased vascular flow to the mass. Right ovary appears heterogeneous and contains multiple calcifications but is norm al in size. Uterus is unremarkable. No free fluid identified in the cul-de-sac. IMPRESSION: Conclusion findings as described above are highly suggestive of left ovarian neoplasm. This measures about 5.7 cm in diameter on transvaginal examination.
--- NOTE | 2019-07-05 09:43 | DI.RAD_ITS ---
EXAM: XR ABDOMEN FLAT UPRIGHT CLINICAL HISTORY: sbo TECHNIQUE: COMPARISON: No exams were available for comparison FINDINGS: Three views were obtained. There is contrast material in the colon from yesterday's contrast-enhance d CT and there is contrast material also visible in the urinary bladder. Bowel gas pattern is within normal limits. No free intraperitoneal air seen. IMPRESSION: No evidence of acute process
[2019-07-05] MEDS: Ascorbic Acid 500 MG TAB PO (10:12)
[2019-07-05] MEDS: Citalopram 20 MG TAB PO (10:12)
[2019-07-05] MEDS: Primidone 250 MG TAB 125 MG PO ×2 (10:13→19:54)
[2019-07-05] MEDS: Oxybutynin 5 MG TAB PO ×3 (10:13→19:53)
--- NOTE | 2019-07-05 11:40 | DI.CT_ITS ---
EXAM: CT ABDOMEN PELVIS WO CLINICAL HISTORY: mass at hepatic flexure TECHNIQUE: COMPARISON: CT ABDOMEN PELVIS W from 07/04/2019 FINDINGS: CT examination of the abdomen was performed without contrast administration. Examination is compared with yesterday's contrast enhanced examination. There is oral contrast material in the colon on tod ay's study. Yesterday's examination showed findings raising the possibility of a proximal transverse colonic mass . On today's examination there is filling defect in the proximal transverse colon corresponding to t he suspected mass seen on yesterday's examination. The findings are highly suggestive of colonic mas s, likely colon carcinoma. The mass measures roughly 4-5 cm in diameter. No evidence of obstruction . IMPRESSION: Limited scan confirms nonobstructing 4-5 cm in diameter mass of the proximal transverse colon, presum ably colon carcinoma.
--- NOTE | 2019-07-05 12:36 | SCONE_ITS ---
Date of service: 07/05/19 Time of Service: 12:36 Assessment and Plan Assessment and plan (1) Mass of hepatic flexure of colon: Status: Acute Assessment and plan: pt is not obstructed at this time clinically. From CT- it does appear that the colon is very dilated, so there is some limitation, but material still seems to be able to pass. She does need a CE for diagnosis. I did d/w Dr. Marquez. Currently her lungs are not stable for anesthesia. She is on abx and steroids. She wound up on BiPAP again last pm. She has severe COPD and still smokes. She is O2 dependent at baseline. we will see her her lungs do over the weekend. Possibly she could have a CE on monday. I did not tell her about the x2 masses. Her mother is not w/ her. She does not have the intellectual capacity to process this information. (2) Mass of left ovary: Status: Acute Assessment and plan: currently this is asymp as well. This is a lg solid lesion and is most likely a cancer. She would require lap for dg and bx. tumor markers are ordered and pd she is not on hormones. History of Present Illness Narrative: Pt came into hosp on w/ acute resp issues. She has a hx of severe COPD. She is O2 dependent (though oft noncompliant) and still smokes. She was in the hosp for 10 days in mid May w/ pneumonia/acute exacerbation of COPD. She came in w/ basically the same thing. she was on bipap and started on steriods and abx. when she came off the BiPap- she was c/o some abdom pain so aCT scan was done. She has a 6cm solid ovarian mass- which is most likely a cancer. So also has a very dilated R colon and a mass at the hepatic flexure. this was shown better today by a repeat CT w/ more oral contrast. She does not appear to be completely obstructed- contrast material is defn getting through- but b/c of the dilation- there is defn started to have some problems. It is unclear at this time if this is two primaries or one of these is metastatic process. There does not appear to be anything in the liver or lungs. She would need a CE and a Dg laparoscopy- these two procedures would need to be done on different days. however, at this time, I don't think her lungs are stable to do a CE. Also, if she is going to have general anesthesia- I think this should be done where pulmonary is available. currently she is not obstructed or has peritonitis. We should continue to treat her aggressively for her lung Dx Consults Consult date: 06/27/19 Requesting physician: Olya Marquez Review of Systems All systems reviewed & are unremarkable except as noted in HPI and below, Unobtainable due to mental condition and Unobtainable due to (most taken from chart/RN's and hospitalist ) Constitutional Comments: pt denies any wt loss or abdoinal pain. She has been eating good per RN's. 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 Sargent B12 deficiency (Chronic 07/29/14) Benign neoplasm of colon (Chronic 11/22/12) Chronic airway obstruction, not elsewhere classified (Chronic 11/22/12) Severe 01/2016 FEV1 36%; 11/2012 overnight O2 sat: no sig nocturnal hypoxia alpha 1 antitrypsin level NL 02/15/18 Last APt with Rosetta at sleep/pulmonary clinic 02/15/18 Depression (Chronic) DVT of leg (deep venous thrombosis) Essential hypertension (Chronic 08/23/17) Fx upper humerus-closed (Resolved 03/05/13) GERD (gastroesophageal reflux disease) (Chronic) History of pneumonia (Resolved) Hyperlipidemia Hypomagnesemia (Chronic 11/28/17) Influenza A (Inactive) Insomnia (Chronic) Left hip pain (Resolved) Mass of hepatic flexure of colon (Acute) Mass of left ovary (Acute) Memory loss (Chronic 11/22/12) Mood disorder (Chronic) Other convulsions (Acute 11/22/12) Pneumonia (Inactive) Seizure disorder (Chronic) Sensorineural hearing loss, bilateral (Chronic 05/25/15) Tendonitis of wrist, left (Resolved 03/31/17) Tinnitus (Acute 09/04/14) Tobacco dependence syndrome (Acute 11/22/12) Unspecified hearing loss (Acute 11/22/12) Urinary incontinence (Chronic 05/16/13) Surgical History H/O shoulder surgery (Chronic) per pt she reports she has never had shoulder surgery History of cataract surgery (Chronic) History of colonoscopy (Chronic) Family History Father COPD (chronic obstructive pulmonary disease) Social History Smoking/Tobacco Use Status: Current every day Tobacco Type: cigarettes Alcohol Intake: former Drug use: Current Sobriety Substance use type: former substance user Housing: apartment What type of physical activity do you participate in: walking Duration: 15-30 minutes/day Frequency: daily Seatbelt use: always Drive intox or ride w/intox auto carrier driver: No Working smoke detector in home: Yes Fire extinguisher in home: Yes Carbon monox detector in home: Yes Do you feel safe at home: Yes Do you feel safe in your relationship?: Yes Exam HENMT Teeth and gingiva: poor dentition Other: appears much older than her stated age Resp Effort & Inspection: normal respiratory effort Other: audible exp wheeze. GI Inspection: distended (minimal ) Palpation: soft Other: she has no pain and good BS. Skin General skin exam: no rashes or lesions noted Results Last Vital Signs Temp 37.3 C 07/05/19 11:54 Pulse 85 07/05/19 12:00 Resp 29 H 07/05/19 12:01 BP 119/53 L 07/05/19 12:00 Pulse Ox 98 07/05/19 12:01 Labs Result diagrams: 07/05/19 06:04 07/05/19 06:04 Labs: Laboratory Results - last 24 hr 07/04/19 07/04/19 07/05/19 06:35 06:35 06:04 WBC RBC Hgb Hct MCV MCH MCHC RDW Plt Count MPV Immature Gran % Neutrophils % Lymphocytes % Monocytes % Eosinophils % Basophils % Absolute Neutrophils Absolute Lymphocytes Absolute Monocytes Absolute Eosinophils Absolute Basophils Sodium 143 143 Potassium 4.0 4.5 Chloride 106 107 Carbon Dioxide 30.2 31.1 Anion Gap 6.8 4.9 BUN 9 14 Creatinine 0.64 0.72 Estimated GFR/1.73 m2 >= 60.00 >= 60.00 Glucose 139 H 129 H Calcium 8.5 8.7 Magnesium 2.1 Total Bilirubin 0.3 AST 16 ALT 11 L Alkaline Phosphatase 64 Troponin I < 0.05 Total Protein 6.3 L Albumin 3.0 L TSH 0.28 L Free T4 0.83 Total T3 124 07/05/19 06:04 WBC 9.13 D RBC 4.58 Hgb 13.8 Hct 43.0 MCV 93.9 MCH 30.1 MCHC 32.1 RDW 14.8 H Plt Count 233 MPV 11.3 H Immature Gran % 0.2 Neutrophils % 87.4 Lymphocytes % 8.0 Monocytes % 4.2 Eosinophils % 0.1 Basophils % 0.1 Absolute Neutrophils 7.98 H Absolute Lymphocytes 0.73 L Absolute Monocytes 0.38 Absolute Eosinophils 0.01 Absolute Basophils 0.01 Sodium Potassium Chloride Carbon Dioxide Anion Gap BUN Creatinine Estimated GFR/1.73 m2 Glucose Calcium Magnesium Total Bilirubin AST ALT Alkaline Phosphatase Troponin I Total Protein Albumin TSH Free T4 Total T3
--- NOTE | 2019-07-05 17:05 | CMPROGNOTE_ITS ---
- If Service Date Differs Date of service: 07/05/19 Time of Service: 17:05 Care Management Progress Note S/O: CM met with Sophy in the ICU with , and her Mother Susanna and her Brother Jayson also present. In the meeting Sophy was notified she has two masses one on her ovary and the other in the transverse colon. Sophy has stated that she wants to be home with her dog and does not want surgical treatment. She understands that she would need a biopsy to confirm diagnosis however she does want any intervention at this time or transfer. Sophy has a goal of returning home on Monday which may include admission to Hospice. CM reviewed the need for family support at home when she becomes unable to care for herself. Her mother and brother appeared supportive and acknowledged that at some point increase care would be needed. Sophy does have a COLST form and does not want to be in the hospital for a prolonged period of time. Sophy is also clear that she does not want to placed in a nursing facility. Sophy is tearful at times however is very clear about her message of wanting to be home. CM will continue to provide support to patient discharge planning and disposition. Anticipate a Hospice admission at time of discharge versus resumption of home health services, and palliative until she is ready for hospice services. A: Sophy is a 59 year old female admitted with COPD exacerbation requiring BIPAP support, found to have two large masses on CT scan and U/S. P: Sophy will be discharged home when she is medically ready, she will have resumption of home health services for nursing. She will also resume her choices for care moderate needs. CM will fax Home Health update. Sophy will need to transport home via [facility] to be coordinated by CM. Sophy will resume her home oxygen through [employer].
--- NOTE | 2019-07-05 17:38 | W.PALLCONSUL ---
Date of service: 07/05/19 Time of Service: 15:38 History of Present Illness Narrative: Sophy is a 59-year-old woman who is alpha antitrypsin antibody deficient with severe COPD. She came to the hospital because of a COPD exacerbation. During her admission she had told Dr. Marquez that she had some abdominal pain. Dr. Marquez ordered a CT scan of the abdomen and pelvis and unfortunately through the work-up was found to have a mass on her transverse colon and also on her ovary. I have met with Sophy in the past. She is a cognitively challenged woman with severe COPD. Her main goal every time I have seen her has been to get out of the hospital and get home to be with her dog. Many times she is shouting at the top of her lungs how much she would like to get out of the hospital. I was asked by the hospitalist to meet with her to discuss her new findings, help her to understand what would be the work-up, and consequential surgery. Additionally she would like me to discuss recuperation, difficulty of the surgery due to her compromised breathing at baseline, and the possibility of needing a colostomy at some point should be transverse colon lesion block her colon. Dr. Marquez states that it is near obstructing at this point. There is also the difficulty of the surgery. And not having other ways to determine if this truly is cancerous versus benign mass. Dr. Duarte is with me to discuss the gynecological implications. Assessment and Plan Assessment and plan (1) Mass of left ovary: Status: Acute Assessment and plan: With Dr. Duarte, mother, brother, Ekaterina retail pharmacy manager and patient in the room we discussed her ovarian mass and colon mass. We talked about diagnostic work-up including a colonoscopy, we discussed surgery and chemotherapy, and also hospice with consideration for a diverting colostomy should she obstruct. She was adamant that she did not want surgery. She was okay with finding out what the masses were, but per Dr. Duarte that would require surgery. She was now willing to go to [facility] for surgery. She was now willing to undergo a colonoscopy as she has attempted this in the past and they have not been able to do so because of her breathing. She does not want to be away from her dog or her home any longer than what she needs to be. I offered to come back tomorrow after she had some time to think, she stated that she already thought about it and she does not want surgery. She did not feel I needed to come back because she was not going to change her mind. I also discussed not having surgery and what it might look like I E home health, hospice, dying. She understood this. She likes home health. She was not too sure about hospice. Regarding a diverting colostomy?uncertain if that could be done here at [facility] due to her compromised breathing at baseline. She was willing to consider this but glad she does not have to consider this today. I see that CEA and CEA 125 have been ordered but are still pending. Will be interesting to see what those show. I will come back during this hospitalization and see Sophy. I am open to being contacted over the weekend if care management feels that talking with me would yield different conclusions. I have spent more than 50% of time in counseling with this patient. This document was created by [employer] recognition and may contain grammatical and translation errors. (2) Mass of hepatic flexure of colon: Status: Acute (3) COPD with exacerbation: Status: Acute (4) Bgtgi-4-fomzcavpgvvxqwgl deficiency: Status: Chronic Review of Systems Narrative: Sophy is sitting in bed. Her mother and brother are with us. Dr. Duarte and Ekaterina, patient case coordinator's are also in the room. Sophy states that her breathing at baseline is impaired but again her only goal is to go home [facility] Medical History (Updated 07/05/19 @ 15:58 by Olya Marquez MD) Scbck-1-bisxfnineimqtuhe 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 Sargent B12 deficiency (Chronic 07/29/14) Benign neoplasm of colon (Chronic 11/22/12) Chronic airway obstruction, not elsewhere classified (Chronic 11/22/12) Severe 01/2016 FEV1 36%; 11/2012 overnight O2 sat: no sig nocturnal hypoxia alpha 1 antitrypsin level NL 02/15/18 Last APt with Rosetta at sleep/pulmonary clinic 02/15/18 Depression (Chronic) DVT of leg (deep venous thrombosis) Essential hypertension (Chronic 08/23/17) Fx upper humerus-closed (Resolved 03/05/13) GERD (gastroesophageal reflux disease) (Chronic) History of pneumonia (Resolved) Hyperlipidemia Hypomagnesemia (Chronic 11/28/17) Influenza A (Inactive) Insomnia (Chronic) Left hip pain (Resolved) Mass of hepatic flexure of colon (Acute) Mass of left ovary (Acute) Memory loss (Chronic 11/22/12) Mood disorder (Chronic) Other convulsions (Acute 11/22/12) Pneumonia (Inactive) Seizure disorder (Chronic) Sensorineural hearing loss, bilateral (Chronic 05/25/15) Tendonitis of wrist, left (Resolved 03/31/17) Tinnitus (Acute 09/04/14) Tobacco dependence syndrome (Acute 11/22/12) Unspecified hearing loss (Acute 11/22/12) Urinary incontinence (Chronic 11/22/12) Surgical History H/O shoulder surgery (Chronic) per pt she reports she has never had shoulder surgery History of cataract surgery (Chronic) History of colonoscopy (Chronic) Family History Father COPD (chronic obstructive pulmonary disease) Social History Smoking/Tobacco Use Status: Current every day Tobacco Type: cigarettes Alcohol Intake: former Drug use: Current Sobriety Substance use type: former substance user Housing: apartment What type of physical activity do you participate in: walking Duration: 15-30 minutes/day Frequency: daily Seatbelt use: always Drive intox or ride w/intox delivery route driver: No Working smoke detector in home: Yes Fire extinguisher in home: Yes Carbon monox detector in home: Yes Do you feel safe at home: Yes Do you feel safe in your relationship?: Yes Exam Narrative Exam Narrative: She is sitting in bed trying to absorb all of what we are saying. Adamant that she wants to go home and be with her dog. Abd/Pelvic CT: IMPRESSION: Limited scan confirms nonobstructing 4-5 cm in diameter mass of the proximal transverse colon, presumably colon carcinoma. Pelvic US: MPRESSION: Conclusion findings as described above are highly suggestive of left ovarian neoplasm. This measures about 5.7 cm in diameter on transvaginal examination. Results Last Vital Signs Temp 99.1 F 07/05/19 11:54 Pulse 78 07/05/19 15:21 Resp 26 H 07/05/19 15:21 BP 119/53 L 07/05/19 12:00 Pulse Ox 98 07/05/19 15:21 Labs Result diagrams: 07/05/19 06:04 07/05/19 06:04 Labs: Laboratory Results - last 24 hr 07/04/19 07/05/19 07/05/19 06:35 06:04 06:04 WBC 9.13 D RBC 4.58 Hgb 13.8 Hct 43.0 MCV 93.9 MCH 30.1 MCHC 32.1 RDW 14.8 H Plt Count 233 MPV 11.3 H Immature Gran % 0.2 Neutrophils % 87.4 Lymphocytes % 8.0 Monocytes % 4.2 Eosinophils % 0.1 Basophils % 0.1 Absolute Neutrophils 7.98 H Absolute Lymphocytes 0.73 L Absolute Monocytes 0.38 Absolute Eosinophils 0.01 Absolute Basophils 0.01 Sodium 143 Potassium 4.5 Chloride 107 Carbon Dioxide 31.1 Anion Gap 4.9 BUN 14 Creatinine 0.72 Estimated GFR/1.73 m2 >= 60.00 Glucose 129 H Calcium 8.7 Magnesium 2.1 Total T3 124
[2019-07-05] MEDS: Furosemide 20 MG/2 ML VIAL (18:32)
--- NOTE | 2019-07-05 19:08 | W.GYNCONSULT ---
Date of service: 07/05/19 Time of Service: 19:08 Assessment and Plan Assessment and plan (1) Ovarian tumor: Status: Acute Assessment and plan: I had an extensive conversation with the patient and her care team regarding the findings on imaging showing an ovarian mass. Whether or not this is related to the colonic mass is uncertain and it is conceivable that these are distinct entities. Typically my recommendation would be for referral to [facility] for management and most likely surgery. The patient is a poor surgical candidate and if consideration at all is given to surgical intervention I feel that she should be managed at a tertiary facility such as [facility]. I discussed with the patient and the care team that the ovarian mass is certainly suspicious for malignancy but that this could only be confirmed surgically. I will defer to the care team as to whether or not to involve [facility] in the care of this patient or if the patient will be managed under the Palliative care team and possibly hospice. (2) Colonic mass: Status: Acute (3) Zjtjs-2-bvigyieqvcmtlqrz deficiency: Status: Chronic (4) COPD with exacerbation: Status: Acute (5) Acute and chronic respiratory failure: Status: Acute Qualifiers: Respiratory failure complication: hypoxia and hypercapnia Qualified Code(s): J96.21 - Acute and chronic respiratory failure with hypoxia; J96.22 - Acute and chronic respiratory failure with hypercapnia History of Present Illness History of Present Illness Chief Complaint: Pelvic mass Narrative: 59 year old admitted to ICU for respiratory failure related to alpha 1 antitrypsin. The patient has a longstanding history of respiratory difficulties with frequent admissions. She did complain of some vague abdominal pain as well and a CT of the abdomen and pelvis was obtained demostrating a 6.1 cm left ovarian mass and a 4-5 cm mass involving the transverse colon suspicious for carcinoma. The patient is being evaluated by the palliative care team and discussion is centered around her ability to undergo treatment if desired. Of note the patient did, at one time, have an attempt at upper and lower endoscopy but the procedure was aborted due to respiratory difficulties. Review of Systems Constitutional Constitutional: Reports as per [facility] Medical History (Updated 07/05/19 @ 19:18 by Gigi Duarte MD) Rluhd-2-oevyfjiozelkuikl 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 Sargent B12 deficiency (Chronic 07/29/14) Benign neoplasm of colon (Chronic 11/22/12) Chronic airway obstruction, not elsewhere classified (Chronic 11/22/12) Severe 01/2016 FEV1 36%; 11/2012 overnight O2 sat: no sig nocturnal hypoxia alpha 1 antitrypsin level NL 02/15/18 Last APt with Rosetta at sleep/pulmonary clinic 02/15/18 Depression (Chronic) DVT of leg (deep venous thrombosis) Essential hypertension (Chronic 08/23/17) Fx upper humerus-closed (Resolved 03/05/13) GERD (gastroesophageal reflux disease) (Chronic) History of pneumonia (Resolved) Hyperlipidemia Hypomagnesemia (Chronic 11/28/17) Influenza A (Inactive) Insomnia (Chronic) Left hip pain (Resolved) Mass of hepatic flexure of colon (Acute) Mass of left ovary (Acute) Memory loss (Chronic 11/22/12) Mood disorder (Chronic) Other convulsions (Acute 11/22/12) Pneumonia (Inactive) Seizure disorder (Chronic) Sensorineural hearing loss, bilateral (Chronic 05/25/15) Tendonitis of wrist, left (Resolved 03/31/17) Tinnitus (Acute 09/04/14) Tobacco dependence syndrome (Acute 11/22/12) Unspecified hearing loss (Acute 11/22/12) Urinary incontinence (Chronic 11/22/12) Surgical History H/O shoulder surgery (Chronic) per pt she reports she has never had shoulder surgery History of cataract surgery (Chronic) History of colonoscopy (Chronic) Family History Father COPD (chronic obstructive pulmonary disease) Social History Smoking/Tobacco Use Status: Current every day Tobacco Type: cigarettes Alcohol Intake: former Drug use: Current Sobriety Substance use type: former substance user Housing: apartment What type of physical activity do you participate in: walking Duration: 15-30 minutes/day Frequency: daily Seatbelt use: always Drive intox or ride w/intox motorcycle 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 driver: No Working smoke detector in home: Yes Fire extinguisher in home: Yes Carbon monox detector in home: Yes Do you feel safe at home: Yes Do you feel safe in your relationship?: Yes Results Last Vital Signs Temp 99.9 F H 07/05/19 17:44 Pulse 104 H 07/05/19 17:44 Resp 29 H 07/05/19 17:44 BP 124/69 07/05/19 17:44 Pulse Ox 95 07/05/19 17:44 Labs Result diagrams: 07/05/19 06:04 07/05/19 06:04 Labs: Laboratory Results - last 24 hr 07/04/19 07/05/19 07/05/19 06:35 06:04 06:04 WBC 9.13 D RBC 4.58 Hgb 13.8 Hct 43.0 MCV 93.9 MCH 30.1 MCHC 32.1 RDW 14.8 H Plt Count 233 MPV 11.3 H Immature Gran % 0.2 Neutrophils % 87.4 Lymphocytes % 8.0 Monocytes % 4.2 Eosinophils % 0.1 Basophils % 0.1 Absolute Neutrophils 7.98 H Absolute Lymphocytes 0.73 L Absolute Monocytes 0.38 Absolute Eosinophils 0.01 Absolute Basophils 0.01 Sodium 143 Potassium 4.5 Chloride 107 Carbon Dioxide 31.1 Anion Gap 4.9 BUN 14 Creatinine 0.72 Estimated GFR/1.73 m2 >= 60.00 Glucose 129 H Calcium 8.7 Magnesium 2.1 Total T3 124
[2019-07-05] MEDS: Lovastatin 40 MG TAB PO (19:53)
[2019-07-05] MEDS: Polyethylene Glycol 3350 17 GM PACKET PO (19:54)
[2019-07-05] MEDS: traZODone 50 MG TAB 25 MG PO (22:59)
[2019-07-06] VITALS (35 sets, daily range): BP systolic 101–145; BP diastolic 45–82; PULSE 67–109; RESP 4–33; TEMP 36.5–37; O2SAT 89–96
[2019-07-06] MEDS: Albuterol/Ipratropium 3 ML UPD VIAL UPD ×6 (00:21→20:19)
[2019-07-06] MEDS: Acetaminophen 650 MG SUPP PR (00:35)
[2019-07-06] MEDS: CEFEPIME 2 GM in Normal Saline 100 ML IVPB (02:00)
[2019-07-06] MEDS: Enoxaparin 40 MG/0.4 ML SYR SC (06:18)
[2019-07-06 06:33] LABS: Abs Immature Grans 0.03 k/cumm (0.0-0.09); Absolute Basophil Count 0.01 k/cumm (0.0-0.2); Absolute Eosinophil Count 0.01 k/cumm (0.0-0.7); Absolute Lymphocyte Count 1.46 k/cumm (1.2-3.4); Absolute Monocyte Count 0.64 k/cumm (0.11-0.7); Basophils % 0.1; Eosinophils % 0.1; HCT 42.8 % (36.0-46.0); HGB 13.7 g/dL (12.0-15.5); Immature Grans % 0.3; Lymphocytes % 12.8; Mean Corpuscular Hemoglobin 30.1 pg (27.0-33.0); Mean Corpuscular Volume 94.1 fL (80-95); Mean Platelet Volume 10.8 fL (8.0-11.0); Monocytes % 5.6; Neutrophils % 81.1; Platelet Count 214 x1000/uL (130-400); RBC 4.55 m/cumm (4.00-5.20); RBC Distribution Width 14.9 % (11.7-14.6); White Blood Cell Count 11.41 k/cumm (4.4-10.8)
[2019-07-06 06:34] LABS: Absolute Neutrophil Count 9.25 k/cumm (1.2-6.7)
[2019-07-06 07:20] LABS: Anion Gap 7.7 mmol/L (3-11); BUN 24 mg/dL (7-18); CO2 28.3 mmol/L (21.0-32.0); CREATININE 0.52 mg/dL (0.55-1.02); Calcium 8.4 mg/dL (8.5-10.1); Chloride 107 mmol/L (98-107); Glucose 115 mg/dL (74-106); Potassium 4.4 mmol/L (3.5-5.1); Sodium 143 mmol/L (136-145)
[2019-07-06 07:39] LABS: TSH 0.31 uIU/mL (0.36-3.74)
[2019-07-06] MEDS: Polyethylene Glycol 3350 17 GM PACKET PO ×2 (08:23→20:18)
[2019-07-06] MEDS: Ascorbic Acid 500 MG TAB PO (08:24)
[2019-07-06] MEDS: Primidone 250 MG TAB 125 MG PO ×2 (08:24→20:18)
[2019-07-06] MEDS: Oxybutynin 5 MG TAB PO ×3 (08:24→20:17)
[2019-07-06] MEDS: Citalopram 20 MG TAB PO (08:24)
--- NOTE | 2019-07-06 09:48 | W.PM.PROGNOT ---
Date of Service Date of service: 07/06/19 Time of Service: 09:49 Assessment and Plan Assessment and plan (1) Colonic mass: Status: Acute Assessment and plan: It is my understanding at this time, pt does not want any surgical interventions and she wishes to go home on hospice. If she change her mind- I did d/w anesthesia- we could do her CE under spinal to get a dg. The only problem is this lesion is near obstructing and is probably going to b/c a bowel obstruction soon. This would require emergency surgery and colostomy adn prob prolonged mechanical ventilation. it is in a position that stenting is not on option. If she truly wants to be on hospice- she may require NGT for decompression. in the mean time- keep her on a bowel regimen to keep stools liquid to avoid obstruction -dulcolax BID -miralax BID reglan ac/hs opoids and adjuvants for pain steroids will help to shrink tumor and prevent obstruction, as well as help breathing adn would keep her own them while she is in hospice- consider using dexamethazone. meds for nausea and prokinetics. can use octreotide eventually for motility adn to decrease GI secretions. will follow peripherally. (2) Ovarian tumor: Status: Acute (3) Seizure disorder: Status: Chronic (4) COPD with exacerbation: Status: Acute (5) Pulmonary hypertension: Status: Chronic (6) [id number] deficiency: Status: Chronic (7) Essential hypertension: Status: Chronic (8) Gastroesophageal reflux disease: Status: Chronic Subjective Subjective Interval history since last seen: pt wants to go home on hospice. has been refusing needles and smith snot have IV in place. She is eating fine- no n/v. She is passing gas. She has not had a BM since she has been in the hosp. We need to keep stools liquid to avoid bowel obs from tumor. Exam GI Other: soft and no pain. + bs. Objective Objective Clinical Data: Abnormal lab results 07/06/19 07/06/19 Range/Units 06:15 06:15 WBC 11.41 H (4.4-10.8) k/cumm RDW 14.9 H (11.7-14.6) % Absolute Neutrophils 9.25 H (1.2-6.7) k/cumm BUN 24 H D (7-18) mg/dL Creatinine 0.52 L (0.55-1.02) mg/dL Glucose 115 H (74-106) mg/dL Calcium 8.4 L (8.5-10.1) mg/dL TSH 0.31 L (0.36-3.74) uIU/mL Vital Signs Temperature 36.6 C 07/06/19 00:00 Temperature Source Temporal Artery Scan 07/06/19 00:00 Pulse 73 07/06/19 07:46 Pulse 95 H 07/06/19 06:01 Respiratory Rate 25 H 07/06/19 07:46 Respiratory Effort 07/06/19 07:40 Respiratory Depth Normal 07/06/19 07:40 Respiratory Pattern Normal 07/06/19 07:40 Blood Pressure 145/75 H 07/06/19 06:01 Blood Pressure Mean 92 07/06/19 06:01 Blood Pressure Position Supine 07/06/19 00:00 Pulse Oximetry 96 07/06/19 07:46 Oxygen Delivery Method Nasal Cannula 07/06/19 07:39 Oxygen Flow Rate 1 07/06/19 07:39 Fraction of Inspired Oxygen (FIO2) 30 07/05/19 08:32 Pain Level 7 07/06/19 00:00 Comment 07/05/19 17:44 Intake & Output 07/05/19 07/05/19 07/06/19 11:59 23:59 11:59 Intake Total 1400 / 2740 1340 / 2740 240 / 240 Output Total 850 / 1950 1100 / 1950 400 / 400 Balance 550 / 790 240 / 790 -160 / -160 Weight 71.4 kg 77.4 kg Intake: IV 1200 / 2300 1100 / 2300 Oral 200 / 440 240 / 440 240 / 240 Output: Urine 850 / 1950 1100 / 1950 400 / 400 Other: Urine Color Pale Yellow Yellow Yellow Urine Appearance Clear Clear Clear Urine Odor None None None Comment yellow colored urine Voiding Methods Bedside Commode Bedside Commode Bedside Commode Laboratory Results WBC 11.41 k/cumm (4.4-10.8) H 07/06/19 06:15 RBC 4.55 m/cumm (4.00-5.20) 07/06/19 06:15 Hgb 13.7 g/dL (12.0-15.5) 07/06/19 06:15 Hct 42.8 % (36.0-46.0) 07/06/19 06:15 MCV 94.1 fL (80-95) 07/06/19 06:15 MCH 30.1 pg (27.0-33.0) 07/06/19 06:15 MCHC 32.0 g/dL (32.0-36.0) 07/06/19 06:15 RDW 14.9 % (11.7-14.6) H 07/06/19 06:15 Plt Count 214 x1000/uL (130-400) 07/06/19 06:15 MPV 10.8 fL (8.0-11.0) 07/06/19 06:15 Immature Gran % 0.3 07/06/19 06:15 Neutrophils % 81.1 07/06/19 06:15 Lymphocytes % 12.8 07/06/19 06:15 Monocytes % 5.6 07/06/19 06:15 Eosinophils % 0.1 07/06/19 06:15 Basophils % 0.1 07/06/19 06:15 Absolute Neutrophils 9.25 k/cumm (1.2-6.7) H 07/06/19 06:15 Absolute Lymphocytes 1.46 k/cumm (1.2-3.4) 07/06/19 06:15 Absolute Monocytes 0.64 k/cumm (0.11-0.7) 07/06/19 06:15 Absolute Eosinophils 0.01 k/cumm (0.0-0.7) 07/06/19 06:15 Absolute Basophils 0.01 k/cumm (0.0-0.2) 07/06/19 06:15 Sample Site Cancelled 07/04/19 05:35 pCO2 Cancelled 07/04/19 05:35 pO2 Cancelled 07/04/19 05:35 O2 Saturation Cancelled 07/04/19 05:35 ABG pH Cancelled 07/04/19 05:35 ABG HCO3 Cancelled 07/04/19 05:35 ABG Total CO2 Cancelled 07/04/19 05:35 ABG Base Excess Cancelled 07/04/19 05:35 VBG pH Cancelled 07/04/19 Unknown VBG pCO2 Cancelled 07/04/19 Unknown VBG pO2 Cancelled 07/04/19 Unknown VBG HCO3 Cancelled 07/04/19 Unknown VBG Total CO2 Cancelled 07/04/19 Unknown VBG O2 Saturation Cancelled 07/04/19 Unknown VBG Base Excess Cancelled 07/04/19 Unknown Oxygen Liter Flow Cancelled 07/04/19 05:35 FiO2 Cancelled 07/04/19 05:35 Sodium 143 mmol/L (136-145) 07/06/19 06:15 Potassium 4.4 mmol/L (3.5-5.1) 07/06/19 06:15 Chloride 107 mmol/L (98-107) 07/06/19 06:15 Carbon Dioxide 28.3 mmol/L (21.0-32.0) 07/06/19 06:15 Anion Gap 7.7 mmol/L (3-11) 07/06/19 06:15 BUN 24 mg/dL (7-18) H D 07/06/19 06:15 Creatinine 0.52 mg/dL (0.55-1.02) L 07/06/19 06:15 Estimated GFR/1.73 m2 >= 60.00 (mL/min/1.73m2) 07/06/19 06:15 Glucose 115 mg/dL (74-106) H 07/06/19 06:15 Lactate 0.9 mmol/L (0.6-1.4) 07/04/19 06:35 Calcium 8.4 mg/dL (8.5-10.1) L 07/06/19 06:15 Magnesium 2.0 mg/dL (1.8-2.4) 07/06/19 06:15 Total Bilirubin 0.3 mg/dL (0.2-1.0) 07/04/19 06:35 AST 16 U/L (15-37) 07/04/19 06:35 ALT 11 U/L (14-59) L 07/04/19 06:35 Alkaline Phosphatase 64 U/L (46-116) 07/04/19 06:35 Troponin I < 0.05 ng/Ml (<0.06) 07/04/19 06:35 NT-Pro-B Natriuret Pep 157 pg/mL (<300) 07/03/19 23:02 Total Protein 6.3 g/dL (6.4-8.2) L 07/04/19 06:35 Albumin 3.0 g/dL (3.4-5.0) L 07/04/19 06:35 Procalcitonin < 0.1 ng/mL 07/04/19 06:35 TSH 0.31 uIU/mL (0.36-3.74) L 07/06/19 06:15 Free T4 0.83 ng/dL (0.76-1.46) 07/04/19 06:35 Total T3 124 ng/dL (97-169) 07/04/19 06:35
[2019-07-06] MEDS: Magnesium Citrate 300 ML BTL PO (12:25)
[2019-07-06] MEDS: Metoclopramide 10 MG TAB 5 MG PO (17:16)
--- NOTE | 2019-07-06 17:57 | W.PM.PROGNOT ---
Date of Service Date of service: 07/06/19 Time of Service: 17:57 Assessment and Plan Assessment and plan (1) Colonic mass: Status: Acute Assessment and plan: Patient does not want further work-up for the colonic mass. She does not want transfer to a tertiary care center for colonoscopy or tissue diagnosis. She is met with palliative care and the plan is to go home on hospice on 07/08/2019. (2) COPD with exacerbation: Status: Acute Assessment and plan: Her breathing issues are relatively stable. She lost her IV access. Transition to oral prednisone and continue with updrafts. (3) Discharge planning issues: Status: Acute Assessment and plan: Patient is DNR/DNI. Following the palliative care meeting yesterday the plan is for discharge, home on hospice once her respiratory status is stable. Subjective Subjective Interval history since last seen: Patient offers no new complaints today. She was upset that her oxygen was turned down to 2 L/min, her home oxygen rate is 3 L/min. She never had significant desaturation. She states she feels much better at 3 L/min. She has been on the BiPAP intermittently. She is still eating. She has been passing gas but no bowel movement. Exam Narrative Exam Narrative: Patient is intermittently tearful. She seems to comprehend what is going on with her. She feels that her life is going nowhere. Her lung exam shows some diminished breath sounds bilaterally with expiratory wheezes. No focal rales. Heart sounds are distant but regular. Her abdomen is rounded but overall nontender to palpation. No guarding or rebound. Lower extremities no significant edema. Objective Objective Clinical Data: Abnormal lab results 07/06/19 07/06/19 Range/Units 06:15 06:15 WBC 11.41 H (4.4-10.8) k/cumm RDW 14.9 H (11.7-14.6) % Absolute Neutrophils 9.25 H (1.2-6.7) k/cumm BUN 24 H D (7-18) mg/dL Creatinine 0.52 L (0.55-1.02) mg/dL Glucose 115 H (74-106) mg/dL Calcium 8.4 L (8.5-10.1) mg/dL TSH 0.31 L (0.36-3.74) uIU/mL Vital Signs Temperature 37.0 C 07/06/19 12:53 Temperature Source Temporal Artery Scan 07/06/19 12:53 Pulse 91 H 07/06/19 15:45 Pulse 76 07/06/19 13:54 Respiratory Rate 20 07/06/19 15:45 Respiratory Effort Non-Labored 07/06/19 12:53 Respiratory Depth Normal 07/06/19 12:53 Respiratory Pattern Normal 07/06/19 12:53 Blood Pressure 106/62 07/06/19 13:54 Blood Pressure Mean 73 07/06/19 13:54 Blood Pressure Position Sitting 07/06/19 12:53 Pulse Oximetry 96 07/06/19 15:45 Oxygen Delivery Method Nasal Cannula 07/06/19 15:33 Oxygen Flow Rate 2 07/06/19 15:33 Fraction of Inspired Oxygen (FIO2) 30 07/05/19 08:32 Pain Level 0 07/06/19 12:53 Comment 07/05/19 17:44 Intake & Output 07/05/19 07/06/19 07/06/19 23:59 11:59 23:59 Intake Total 1340 / 2740 740 / 1040 300 / 1040 Output Total 1100 / 1950 1200 / 1500 300 / 1500 Balance 240 / 790 -460 / -460 0 / -460 Weight 77.4 kg Intake: IV 1100 / 2300 50 / 50 Oral 240 / 440 740 / 990 250 / 990 Output: Urine 1100 / 1950 1200 / 1500 300 / 1500 Other: Urine Color Yellow Yellow Yellow Urine Appearance Clear Clear Clear Urine Odor None Normal Normal Comment No concerns. No concerns. Voiding Methods Bedside Commode Bedside Commode Bedside Commode Laboratory Results WBC 11.41 k/cumm (4.4-10.8) H 07/06/19 06:15 RBC 4.55 m/cumm (4.00-5.20) 07/06/19 06:15 Hgb 13.7 g/dL (12.0-15.5) 07/06/19 06:15 Hct 42.8 % (36.0-46.0) 07/06/19 06:15 MCV 94.1 fL (80-95) 07/06/19 06:15 MCH 30.1 pg (27.0-33.0) 07/06/19 06:15 MCHC 32.0 g/dL (32.0-36.0) 07/06/19 06:15 RDW 14.9 % (11.7-14.6) H 07/06/19 06:15 Plt Count 214 x1000/uL (130-400) 07/06/19 06:15 MPV 10.8 fL (8.0-11.0) 07/06/19 06:15 Immature Gran % 0.3 07/06/19 06:15 Neutrophils % 81.1 07/06/19 06:15 Lymphocytes % 12.8 07/06/19 06:15 Monocytes % 5.6 07/06/19 06:15 Eosinophils % 0.1 07/06/19 06:15 Basophils % 0.1 07/06/19 06:15 Absolute Neutrophils 9.25 k/cumm (1.2-6.7) H 07/06/19 06:15 Absolute Lymphocytes 1.46 k/cumm (1.2-3.4) 07/06/19 06:15 Absolute Monocytes 0.64 k/cumm (0.11-0.7) 07/06/19 06:15 Absolute Eosinophils 0.01 k/cumm (0.0-0.7) 07/06/19 06:15 Absolute Basophils 0.01 k/cumm (0.0-0.2) 07/06/19 06:15 Sample Site Cancelled 07/04/19 05:35 pCO2 Cancelled 07/04/19 05:35 pO2 Cancelled 07/04/19 05:35 O2 Saturation Cancelled 07/04/19 05:35 ABG pH Cancelled 07/04/19 05:35 ABG HCO3 Cancelled 07/04/19 05:35 ABG Total CO2 Cancelled 07/04/19 05:35 ABG Base Excess Cancelled 07/04/19 05:35 VBG pH Cancelled 07/04/19 Unknown VBG pCO2 Cancelled 07/04/19 Unknown VBG pO2 Cancelled 07/04/19 Unknown VBG HCO3 Cancelled 07/04/19 Unknown VBG Total CO2 Cancelled 07/04/19 Unknown VBG O2 Saturation Cancelled 07/04/19 Unknown VBG Base Excess Cancelled 07/04/19 Unknown Oxygen Liter Flow Cancelled 07/04/19 05:35 FiO2 Cancelled 07/04/19 05:35 Sodium 143 mmol/L (136-145) 07/06/19 06:15 Potassium 4.4 mmol/L (3.5-5.1) 07/06/19 06:15 Chloride 107 mmol/L (98-107) 07/06/19 06:15 Carbon Dioxide 28.3 mmol/L (21.0-32.0) 07/06/19 06:15 Anion Gap 7.7 mmol/L (3-11) 07/06/19 06:15 BUN 24 mg/dL (7-18) H D 07/06/19 06:15 Creatinine 0.52 mg/dL (0.55-1.02) L 07/06/19 06:15 Estimated GFR/1.73 m2 >= 60.00 (mL/min/1.73m2) 07/06/19 06:15 Glucose 115 mg/dL (74-106) H 07/06/19 06:15 Lactate 0.9 mmol/L (0.6-1.4) 07/04/19 06:35 Calcium 8.4 mg/dL (8.5-10.1) L 07/06/19 06:15 Magnesium 2.0 mg/dL (1.8-2.4) 07/06/19 06:15 Total Bilirubin 0.3 mg/dL (0.2-1.0) 07/04/19 06:35 AST 16 U/L (15-37) 07/04/19 06:35 ALT 11 U/L (14-59) L 07/04/19 06:35 Alkaline Phosphatase 64 U/L (46-116) 07/04/19 06:35 Troponin I < 0.05 ng/Ml (<0.06) 07/04/19 06:35 NT-Pro-B Natriuret Pep 157 pg/mL (<300) 07/03/19 23:02 Total Protein 6.3 g/dL (6.4-8.2) L 07/04/19 06:35 Albumin 3.0 g/dL (3.4-5.0) L 07/04/19 06:35 Procalcitonin < 0.1 ng/mL 07/04/19 06:35 TSH 0.31 uIU/mL (0.36-3.74) L 07/06/19 06:15 Free T4 0.83 ng/dL (0.76-1.46) 07/04/19 06:35 Total T3 124 ng/dL (97-169) 07/04/19 06:35
[2019-07-06] MEDS: Albuterol 2.5 MG/3 ML INH SOLN VIAL IH (18:44)
--- NOTE | 2019-07-06 19:20 | CMPROGNOTE_ITS ---
- If Service Date Differs Date of service: 07/06/19 Time of Service: 19:20 Care Management Progress Note S/O: Sophy was sitting in her chair when CM met with her. She stated that she was feeling ok, but that she did not get her home oxygen amount today, as scheduled. She reported that she told the RN and it was adjusted, so she was better now. She stated that her plan was to return home when the provider clears her, which may be by Monday. CM will continue to follow. A: Sophy is a 59 year old female admitted with COPD exacerbation requiring BIPAP support, found to have two large masses on CT scan and U/S. P: Sophy will be discharged home when she is medically ready, she will have resumption of home health services for nursing. She will also resume her choices for care moderate needs. CM will fax Home Health update. Sophy will need to transport home via [facility] to be coordinated by CM. Sophy will resume her home oxygen through [facility].
[2019-07-06] MEDS: Cefpodoxime 200 MG TAB PO (20:18)
[2019-07-06] MEDS: Famotidine 20 MG TAB PO (20:19)
[2019-07-06] MEDS: Bisacodyl 5 MG TABEC PO (20:19)
[2019-07-06] MEDS: traZODone 50 MG TAB 25 MG PO (22:00)
[2019-07-07] VITALS (18 sets, daily range): BP systolic 102–136; BP diastolic 57–85; PULSE 70–89; RESP 4–24; TEMP 36.6–37.2; O2SAT 93–99
[2019-07-07] MEDS: Albuterol/Ipratropium 3 ML UPD VIAL UPD ×7 (00:18→23:34)
[2019-07-07] MEDS: Primidone 250 MG TAB PO ×2 (00:19→21:45)
[2019-07-07] MEDS: Enoxaparin 40 MG/0.4 ML SYR SC (05:22)
[2019-07-07] MEDS: Polyethylene Glycol 3350 17 GM PACKET PO (08:35)
[2019-07-07] MEDS: Famotidine 20 MG TAB PO ×2 (08:36→20:05)
[2019-07-07] MEDS: Cefpodoxime 200 MG TAB PO ×2 (08:36→20:05)
[2019-07-07] MEDS: Oxybutynin 5 MG TAB PO ×3 (08:36→20:05)
[2019-07-07] MEDS: Bisacodyl 5 MG TABEC PO (08:36)
[2019-07-07] MEDS: Ascorbic Acid 500 MG TAB PO (08:36)
[2019-07-07] MEDS: predniSONE 20 MG TAB 40 MG PO (08:36)
[2019-07-07] MEDS: Primidone 250 MG TAB 125 MG PO ×2 (08:37→20:18)
--- NOTE | 2019-07-07 09:47 | CMPROGNOTE_ITS ---
- If Service Date Differs Date of service: 07/07/19 Time of Service: 09:47 Care Management Progress Note S/O: Sophy was sitting up in her chair when CM met with her. She stated that she didn't get much sleep last night because the patient in the room next to her was loud. She is hoping to get some rest today. She stated that CM would need to arrange transportation with [facility] because her mother goes to the [facility] during the day and wouldn't be able to drive her. She reported that she had belongings when she arrived including her keys and some sy that she is concerned about not retrieving. CM stated that her belongings are being kept safe and that they would be given back upon discharge. CM will continue to follow. A: Sophy is a 59 year old female admitted with COPD exacerbation requiring BIPAP support, found to have two large masses on CT scan and U/S. P: Sophy will be discharged home when she is medically ready, she will have resumption of home health services for nursing. She will also resume her choices for care moderate needs. CM will fax Home Health update. Sophy will need to transport home via [facility] to be coordinated by CM. Sophy will resume her home oxygen through [employer]. CM will continue to follow.
--- NOTE | 2019-07-07 16:08 | W.PM.PROGNOT ---
Date of Service Date of service: 07/07/19 Time of Service: 16:08 Assessment and Plan Assessment and plan (1) COPD with exacerbation: Status: Acute Assessment and plan: Her breathing appears to be improving. She is tolerating the transition to p.o. prednisone 40 mg. Continue with scheduled updrafts and oxygen therapy. Likely transition back to home tomorrow with continued oxygen therapy. (2) Colonic mass: Status: Acute Assessment and plan: Large colonic mass discovered on this admission. She does not want any further work-up or surgeries. Concern is for possible colon obstruction down the road. Continue bowel regimen to keep stool as soft as possible. (3) Ebtln-3-[id number] deficiency: Status: Chronic Assessment and plan: Continue present medications. (4) Discharge planning issues: Status: Acute Assessment and plan: Plan is for discharge back to home tomorrow. She remains DNR/DNI. Will refer to home health for discussion of potential transition to hospice care. Subjective Subjective Interval history since last seen: Patient seems to be having a good day today. She is laughing and interacting well with staff. She says her breathing is improving but still somewhat difficult. She is pleased that she can transfer from bed to chair to commode independently. She still does not feel safe walking independently outside of the room. No complaint of abdominal discomfort. She had a large bowel movement last evening. Exam Narrative Exam Narrative: On exam she is animated and in no apparent distress. Her lung exam is notable for expiratory wheezes in both lung salomon. Good air movement in upper lung regions bilaterally. Heart sounds are distant but regular. Abdomen overall soft and nontender. Lower extremities no edema. Neurologically no focal deficits noted. Objective Objective Clinical Data: Vital Signs Temperature 36.8 C 07/07/19 11:54 Temperature Source Temporal Artery Scan 07/07/19 11:54 Pulse 79 07/07/19 16:06 Pulse Rhythm Regular 07/07/19 07:30 Pulse 73 07/06/19 17:00 Respiratory Rate 18 07/07/19 16:06 Respiratory Effort Non-Labored 07/07/19 08:10 Respiratory Depth Normal 07/07/19 08:10 Respiratory Pattern Normal 07/07/19 08:10 Blood Pressure 116/57 L 07/07/19 14:54 Blood Pressure Mean 73 07/07/19 14:54 Blood Pressure Position Sitting 07/06/19 12:53 Pulse Oximetry 97 07/07/19 16:06 Oxygen Delivery Method Nasal Cannula 07/07/19 16:06 Oxygen Flow Rate 3 07/07/19 16:06 Fraction of Inspired Oxygen (FIO2) 30 07/05/19 08:32 Pain Level 0 07/07/19 15:20 Comment 07/07/19 07:34 Intake & Output 07/06/19 07/07/19 07/07/19 23:59 11:59 23:59 Intake Total 820 / 1560 400 / 880 480 / 880 Output Total 400 / 1950 1375 / 1375 Balance 420 / -390 -975 / -495 480 / -495 Intake: IV 50 / 50 Oral 770 / 1510 400 / 880 480 / 880 Output: Urine 400 / 1950 1375 / 1375 Other: Urine Color Yellow Yellow Urine Appearance Clear Clear Urine Odor Normal Normal Comment mixed in stool voided large amt with large loose pudding consistency brown stool in commode Stool Occult Blood Negative Negative Stool Size Large Copious Stool Characteristics Soft Soft Soft Formed Brown Brown Voiding Methods Bedside Commode Bedside Commode Laboratory Results WBC 11.41 k/cumm (4.4-10.8) H 07/06/19 06:15 RBC 4.55 m/cumm (4.00-5.20) 07/06/19 06:15 Hgb 13.7 g/dL (12.0-15.5) 07/06/19 06:15 Hct 42.8 % (36.0-46.0) 07/06/19 06:15 MCV 94.1 fL (80-95) 07/06/19 06:15 MCH 30.1 pg (27.0-33.0) 07/06/19 06:15 MCHC 32.0 g/dL (32.0-36.0) 07/06/19 06:15 RDW 14.9 % (11.7-14.6) H 07/06/19 06:15 Plt Count 214 x1000/uL (130-400) 07/06/19 06:15 MPV 10.8 fL (8.0-11.0) 07/06/19 06:15 Immature Gran % 0.3 07/06/19 06:15 Neutrophils % 81.1 07/06/19 06:15 Lymphocytes % 12.8 07/06/19 06:15 Monocytes % 5.6 07/06/19 06:15 Eosinophils % 0.1 07/06/19 06:15 Basophils % 0.1 07/06/19 06:15 Absolute Neutrophils 9.25 k/cumm (1.2-6.7) H 07/06/19 06:15 Absolute Lymphocytes 1.46 k/cumm (1.2-3.4) 07/06/19 06:15 Absolute Monocytes 0.64 k/cumm (0.11-0.7) 07/06/19 06:15 Absolute Eosinophils 0.01 k/cumm (0.0-0.7) 07/06/19 06:15 Absolute Basophils 0.01 k/cumm (0.0-0.2) 07/06/19 06:15 Sample Site Cancelled 07/04/19 05:35 pCO2 Cancelled 07/04/19 05:35 pO2 Cancelled 07/04/19 05:35 O2 Saturation Cancelled 07/04/19 05:35 ABG pH Cancelled 07/04/19 05:35 ABG HCO3 Cancelled 07/04/19 05:35 ABG Total CO2 Cancelled 07/04/19 05:35 ABG Base Excess Cancelled 07/04/19 05:35 VBG pH Cancelled 07/04/19 Unknown VBG pCO2 Cancelled 07/04/19 Unknown VBG pO2 Cancelled 07/04/19 Unknown VBG HCO3 Cancelled 07/04/19 Unknown VBG Total CO2 Cancelled 07/04/19 Unknown VBG O2 Saturation Cancelled 07/04/19 Unknown VBG Base Excess Cancelled 07/04/19 Unknown Oxygen Liter Flow Cancelled 07/04/19 05:35 FiO2 Cancelled 07/04/19 05:35 Sodium 143 mmol/L (136-145) 07/06/19 06:15 Potassium 4.4 mmol/L (3.5-5.1) 07/06/19 06:15 Chloride 107 mmol/L (98-107) 07/06/19 06:15 Carbon Dioxide 28.3 mmol/L (21.0-32.0) 07/06/19 06:15 Anion Gap 7.7 mmol/L (3-11) 07/06/19 06:15 BUN 24 mg/dL (7-18) H D 07/06/19 06:15 Creatinine 0.52 mg/dL (0.55-1.02) L 07/06/19 06:15 Estimated GFR/1.73 m2 >= 60.00 (mL/min/1.73m2) 07/06/19 06:15 Glucose 115 mg/dL (74-106) H 07/06/19 06:15 Lactate 0.9 mmol/L (0.6-1.4) 07/04/19 06:35 Calcium 8.4 mg/dL (8.5-10.1) L 07/06/19 06:15 Magnesium 2.0 mg/dL (1.8-2.4) 07/06/19 06:15 Total Bilirubin 0.3 mg/dL (0.2-1.0) 07/04/19 06:35 AST 16 U/L (15-37) 07/04/19 06:35 ALT 11 U/L (14-59) L 07/04/19 06:35 Alkaline Phosphatase 64 U/L (46-116) 07/04/19 06:35 Troponin I < 0.05 ng/Ml (<0.06) 07/04/19 06:35 NT-Pro-B Natriuret Pep 157 pg/mL (<300) 07/03/19 23:02 Total Protein 6.3 g/dL (6.4-8.2) L 07/04/19 06:35 Albumin 3.0 g/dL (3.4-5.0) L 07/04/19 06:35 Procalcitonin < 0.1 ng/mL 07/04/19 06:35 TSH 0.31 uIU/mL (0.36-3.74) L 07/06/19 06:15 Free T4 0.83 ng/dL (0.76-1.46) 07/04/19 06:35 Total T3 124 ng/dL (97-169) 07/04/19 06:35
[2019-07-07] MEDS: Metoclopramide 10 MG TAB 5 MG PO (16:31)
--- NOTE | 2019-07-07 18:11 | NUR.NOTE ---
Nursing Note: Patient transferred from ICU to floor at approximately 1520. Patient transferred via wheelchair with steps over to recliner. Expiratory wheezes throughout at auscultation. Patient reports no more shortness of breath than at baseline. Positive pedal and radial pulses bilaterally. HR regular. Normal bowel sounds.
[2019-07-07] MEDS: traZODone 50 MG TAB 25 MG PO (21:45)
[2019-07-08] VITALS (8 sets, daily range): BP systolic 102; BP diastolic 62; PULSE 77–87; RESP 4–24; TEMP 37.2; O2SAT 92–98
[2019-07-08] MEDS: Albuterol/Ipratropium 3 ML UPD VIAL UPD ×3 (04:07→11:55)
[2019-07-08] MEDS: Enoxaparin 40 MG/0.4 ML SYR SC (05:34)
[2019-07-08] MEDS: Cefpodoxime 200 MG TAB PO (08:32)
[2019-07-08] MEDS: Oxybutynin 5 MG TAB PO (08:32)
[2019-07-08] MEDS: Bisacodyl 5 MG TABEC PO (08:32)
[2019-07-08] MEDS: Primidone 250 MG TAB 125 MG PO (08:33)
[2019-07-08] MEDS: Famotidine 20 MG TAB PO (08:33)
[2019-07-08] MEDS: Metoclopramide 10 MG TAB 5 MG PO (08:33)
[2019-07-08] MEDS: predniSONE 20 MG TAB 40 MG PO (08:34)
[2019-07-08] MEDS: Ascorbic Acid 500 MG TAB PO (08:34)
[2019-07-08] MEDS: Albuterol 2.5 MG/3 ML INH SOLN VIAL IH (10:04)
[2019-07-08 11:08] LABS: CA 125 7 U/mL (<30)
[2019-07-08 11:22] LABS: CEA 2.7 ng/mL (See Note)
--- NOTE | 2019-07-08 11:31 | DSE_ITS ---
Date of service: 07/08/19 Time of Service: 11:00 DS: Diagnosis Discharge Diagnosis (1) COPD with exacerbation: Status: Acute (2) Colonic mass: Status: Acute (3) Mxosi-5-xcqkchblflznbggc deficiency: Status: Chronic (4) Discharge planning issues: Status: Acute Discharge Plan Disposition Patient Disposition: HOME Condition: Serious Discharge Details Chief Complaint: SOB Clinical Impression: COPD exacerbation Reason For Visit: COPD EXACERBATION, ACUTE ON CHRONIC RESP FAILURE Admit Date/Time: 07/04/19 00:17 Admit Provider: David Matthews Attending Provider: David Matthews Primary Care Provider: Jenna Nayak [facility] Hospital Course: This 59-year-old female with a prior history of severe COPD on home oxygen and a history of heterozygosity for alpha-1 antitrypsin deficiency, hypertension, GERD, dyslipidemia was recently discharged from [facility] after hospitalization for sepsis and severe community-acquired pneumonia and was treated with cefepime and vancomycin. She was hospitalized from May 19 through May 24, 2019. She continues to smoke and now presents with acute dyspnea. Work-up in the ER included routine labs and chest x-ray. Chest x-ray reportedly shows coarse interstitial lung markings consistent with COPD. No focal consolidation. Patient was started on cefepime for treatment of acute exacerbation of bronchitis in addition to her COPD. She also was placed on IV corticosteroids and noninvasive positive pressure ventilation. She is a DNR/DNI by her choice. she responded to treatment and was weaned off bipap. her respiratory status continued to improve and she was down-stepped to oral steroids and antiboitics. she is stable on her baseline oxygen via nasal canula. Because she was also c/o abdominal pain on admission she underwent an abd/pelvic CT scan which showed: 1. 6.1 centimeter complex mass in the left adnexa. It appears to be ovarian in origin and neoplasm should be considered. Pelvic ultrasound and gynecologic consult should be considered for further evaluation. 2. Bilateral basilar infiltrates. These may represent pneumonia or atelectasis. 3. High density material seen in the proximal transverse colon. Further evaluation with barium enema and/or colonoscopy is recommended. 4. Stable bilateral adrenal nodules. 5. Colonic diverticulosis but no evidence of acute diverticulitis. gynecology and general surgery were consulted and patient declined any further work up. The ovarian mass is certainly suspicious for malignancy but could only be confirmed surgically. and recommendations from general surgery include: keeping her on a bowel regimen to keep stools liquid to avoid obstruction -dulcolax BID -miralax BID reglan ac/hs steroids will help to shrink tumor and prevent obstruction- consider using dexamethazone. she may require NGT for decompression. can use octreotide eventually for motility and to decrease GI secretions. she underwent a palliative care consult with Dr Marsh with Dr Duarte, the patients mother and brother and case management to discuss ovarian and colon mass,diagnostic work-up including a colonoscopy, surgery and chemotherapy, and also hospice with consideration for a diverting colostomy should she obstruct. She adamantly would refuse surgery. CEA and CEA 125 have been ordered and are still pending. medically she has been stable, eating and drinking well, bowels functioning too well. she denies any pain. she will be discharged to home with resumption of services. she will continue on cefpodoxime until jul 16 to complete a 10 day course. she will continue on prednisone 40 mg daily and will defer possible use of dexamethasone to outpatient team. continue bowel management as recommended. follow up outpatient with palliative care and pcp. Home Meds and New Rx's Prescriptions: New polyethylene glycol 3350 17 gram Powder In Packet 17 g PO BID Qty: 30 RF: 0 prednisone 20 mg Tablet 40 mg PO DAILY Qty: 20 RF: 0 primidone 250 mg Tablet 125 mg PO BID Qty: 60 RF: 0 cefpodoxime 200 mg Tablet 200 mg PO BID Qty: 17 RF: 0 bisacodyl 5 mg Tablet,Delayed Release (Dr/Ec) 5 mg PO BID Qty: 60 RF: 0 metoclopramide HCl 10 mg Tablet 5 mg PO AC & HS Qty: 120 RF: 0 Continued citalopram 20 mg tablet 20 mg PO DAILY Qty: 90 RF: 3 lovastatin 40 mg tablet 40 mg PO DAILY Qty: 90 RF: 3 oxybutynin chloride 5 mg tablet 5 mg PO TID Qty: 270 RF: 3 trazodone 50 mg tablet 25 mg PO HS Qty: 45 RF: 3 meclizine 12.5 mg tablet 12.5 mg PO TID PRN (Reason: dizziness) Qty: 30 RF: 0 ascorbic acid (vitamin C) [Vitamin C] 500 MG tablet 500 mg PO DAILY RF: 0 ketoconazole 15 GM cream 1 film Topical BID PRNQty: 1 RF: 1 sennosides [Senokot] 8.6 MG tablet 1 tab-cap PO DAILY PRNQty: 30 RF: 12 pantoprazole 40 mg tablet,delayed release (DR/EC) 40 mg PO DAILY Qty: 90 RF: 3 Trelegy Ellipta 100-62.5-25 mcg blister with device 1 inh IH DAILY RF: 0 albuterol sulfate [ProAir HFA] 90 mcg/actuation HFA aerosol inhaler 2 puff Inhalation Q4H PRN Qty: 3 RF: 3 Atrovent HFA 17 mcg/actuation HFA aerosol inhaler 2 puff IH QID Qty: 12.9 RF: 12 cyanocobalamin (vitamin B-12) 1,000 mcg/mL solution 1,000 mcg IM MONTHLY Qty: 1 RF: 12 ipratropium-albuterol 0.5 mg-3 mg(2.5 mg base)/3 mL Solution For Nebulization 3 ml UPD Q4H Qty: 1 RF: 0 Changed primidone 250 mg tablet 250 mg PO HS Qty: 60 RF: 12 No Action (DME) Briefs, Adult-Extra Large 1 EACH misc 1 ea Miscellaneous TID Qty: 90 RF: 11 meloxicam 15 mg tablet 15 mg PO DAILY Qty: 30 RF: 0 (DME) shower chair Qty: 1 RF: 0 (DME) Shower Chair Qty: 1 RF: 0 Discharge Instructions Instructions: COPD (Chronic Obstructive Pulmonary Disease) (DC) Additional Instructions: you have a colonic mass which will place you at risk for bowel obstruction. Continue bowel regimen to keep stool as soft as possible, keep stools liquid to avoid obstruction. steroids will help to shrink tumor and prevent obstruction, as well as help breathing and would keep her own them while she is in hospice- consider using dexamethazone.-will discharge on prednisone 40 mg daily and defer to pcp. Resumption of home health services. continue home oxygen as previously directed. Stand Alone Forms: Nursing Discharge Form Referrals: Jenna Nayak NP [Primary Care Provider] - 07/15/19 1:30 pm Activity:: Activity as Tolerated Equipment/Supplies:: No Equipment Needed Diet:: As Tolerated Discharge Orders Discharge Orders: Discharge Order (Routine); Ordered 07/08/19 Ordered By: Sydnee Chi Discharge Data Discharge Date/Time-TO BE ENTERED AT DEPARTURE: 07/08/19 13:03 DS: Summary Status at Discharge Functional status at discharge: independent ambulation Overall status at discharge: patient is not back to baseline Mental Status: other Speech and Movement: speech and movement normal Mood: other Affect: normal affect Exam Narrative Exam Narrative: older appearing than stated age, pink warm dry well perfused, in no acute distress HENMT Head: normal to inspection and atraumatic Mouth: oral mucosae normal Resp Effort & Inspection: normal respiratory effort Auscultation: diminished lung sounds bilaterally and wheezes expiratory wheezes (faint, scattered) Cardio Rate: regular rate Rhythm: regular rhythm GI Inspection: normal to inspection and obesity Palpation: soft Auscultation: normal bowel sounds Skin General skin exam: no rashes or lesions noted Neuro General: alert, awake and oriented x3 Extrem General: normal to inspection, full ROM and no pedal edema Psych Mental Status: other Speech and Movement: speech and movement normal Mood: other Affect: normal affect DS: Data Vitals/I&O Vitals and I&O: Vital Signs Temperature 37.2 C 07/08/19 07:20 Temperature Source Tympanic 07/08/19 07:20 Pulse 78 07/08/19 08:17 Pulse Rhythm Regular 07/07/19 23:39 Pulse 73 07/06/19 17:00 Respiratory Rate 24 07/08/19 08:17 Respiratory Effort Labored 07/08/19 08:06 Respiratory Depth Deep 07/08/19 08:06 Respiratory Pattern Normal 07/08/19 08:06 Blood Pressure 102/62 07/08/19 07:20 Blood Pressure Mean 73 07/07/19 14:54 Blood Pressure Position Sitting 07/06/19 12:53 Pulse Oximetry 98 07/08/19 08:17 Oxygen Delivery Method Nasal Cannula 07/08/19 08:02 Oxygen Flow Rate 2.5 07/08/19 08:02 Fraction of Inspired Oxygen (FIO2) 21 07/08/19 08:08 Pain Level 0 07/08/19 07:20 Comment 07/07/19 07:34 Intake & Output 07/07/19 07/07/19 07/08/19 11:59 23:59 11:59 Intake Total 400 / 1120 720 / 1120 360 / 360 Output Total 1375 / 1375 Balance -975 / -255 720 / -255 360 / 360 Intake: Oral 400 / 1120 720 / 1120 360 / 360 Output: Urine 1375 / 1375 Other: Urine Color Yellow Urine Appearance Clear Clear Urine Odor Normal Comment voided large amt with large loose pudding consistency brown stool in commode Voiding independently Stool Occult Blood Negative Negative Stool Size Copious Stool Characteristics Soft Soft Brown Brown Voiding Methods Bedside Commode Toilet [facility] Medical History (Updated 07/05/19 @ 19:18 by Gigi Duarte MD) Voioi-8-vhwmkeucpugsupny 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 Sargent B12 deficiency (Chronic 07/29/14) Benign neoplasm of colon (Chronic 11/22/12) Chronic airway obstruction, not elsewhere classified (Chronic 11/22/12) Severe 01/2016 FEV1 36%; 11/2012 overnight O2 sat: no sig nocturnal hypoxia alpha 1 antitrypsin level NL 02/15/18 Last APt with Rosetta at sleep/pulmonary clinic 02/15/18 Depression (Chronic) DVT of leg (deep venous thrombosis) Essential hypertension (Chronic 08/23/17) Fx upper humerus-closed (Resolved 03/05/13) GERD (gastroesophageal reflux disease) (Chronic) History of pneumonia (Resolved) Hyperlipidemia Hypomagnesemia (Chronic 11/28/17) Influenza A (Inactive) Insomnia (Chronic) Left hip pain (Resolved) Mass of hepatic flexure of colon (Acute) Mass of left ovary (Acute) Memory loss (Chronic 11/22/12) Mood disorder (Chronic) Other convulsions (Acute 11/22/12) Pneumonia (Inactive) Seizure disorder (Chronic) Sensorineural hearing loss, bilateral (Chronic 05/25/15) Tendonitis of wrist, left (Resolved 03/31/17) Tinnitus (Acute 09/04/14) Tobacco dependence syndrome (Acute 11/22/12) Unspecified hearing loss (Acute 11/22/12) Urinary incontinence (Chronic 11/22/12) Surgical History H/O shoulder surgery (Chronic) per pt she reports she has never had shoulder surgery History of cataract surgery (Chronic) History of colonoscopy (Chronic) Family History Father COPD (chronic obstructive pulmonary disease) Social History Smoking/Tobacco Use Status: Current every day Tobacco Type: cigarettes Alcohol Intake: former Drug use: Current Sobriety Substance use type: former substance user Housing: apartment What type of physical activity do you participate in: walking Duration: 15-30 minutes/day Frequency: daily Seatbelt use: always 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
--- NOTE | 2019-07-08 12:14 | PDOC.CMDIS ---
- If Service Date Differs Date of service: 07/08/19 Time of Service: 12:14 LACE Index Scoring Tool - Questions: Length of Stay (in days): 4 - 6 Acuity (Admit via E.D.?): Yes Comorbidities: Chronic Pulmonary Disease, Any Tumor E.D. Visits: 4 - Answers: Total Score: 16 Risk of Readmission: High Risk Care Management Discharge Reason for Hospitalization: COPD exacerbation, acute on chronic respiratory failure. Discharge Plan: Sophy is being discharged home with a resumption of Choices for Care - moderate needs, Home Health nursing and case management services, and home oxygen through [facility]. She will follow up with her primary care physician, palliative care on an outpatient basis, and plan of care as directed including medication recommendations. [facility] is transporting Sophy home. Patient/Family Education Needs: Nursing will review discharge instructions with Sophy re medications and follow-up appointments. Sophy is able to verbalize reason for hospitalization and how to manage care at home. Services Needed at Discharge: Transportation ( coordinated transport via [facility])
--- NOTE | 2019-07-08 13:22 | W.NUTCONSULT ---
Date of service: 07/08/19 Time of Service: 13:22 Nutritional Consult ASSESSMENT: 59 year old female with developmental delay, now presents with colonic and ovarian mass, with hx of ovarian cancer, COPD. Nursing reports to D/C home today. Has had pallative consult and wants to go home and not proceed with recommended diagnostics. Following Heart Healthy Diet with adeuate intake. BMI indicates class 1 obesity. Currently not considered at nutritional risk. Time Spent in Nutritional Counseling and Treatment: 0 time spent face to face
== END 2019-07-08 13:03 | disposition home or self-care (01) | DRG 189 ==
LOC: ER 07-04 00:22 → ICU 07-04 02:10 → MS 07-08 11:33 → ICU 07-12 11:38
PROVIDERS: Internal Medicine; Surgery; Admitting Provider Internal Medicine; Emergency Provider Emergency Medicine; PCP Nurse Practitioner; Visit Provider Family Medicine
DX: J96.21 Acute and chronic respiratory failure with hypoxia (principal); J44.0 Chronic obstructive pulmonary disease with (acute) lower respiratory infection; J44.1 Chronic obstructive pulmonary disease with (acute) exacerbation; J96.22 Acute and chronic respiratory failure with hypercapnia; J20.9 Acute bronchitis, unspecified; Z99.81 Dependence on supplemental oxygen; E88.01 Alpha-1-antitrypsin deficiency; R10.12 Left upper quadrant pain; K63.89 Other specified diseases of intestine; N83.8 Other noninflammatory disorders of ovary, fallopian tube and broad ligament; R91.8 Other nonspecific abnormal finding of lung field; F41.9 Anxiety disorder, unspecified; I10 Essential (primary) hypertension; K21.9 Gastro-esophageal reflux disease without esophagitis; E78.5 Hyperlipidemia, unspecified; F17.210 Nicotine dependence, cigarettes, uncomplicated; Z66 Do not resuscitate; Z51.5 Encounter for palliative care; F32.9 Major depressive disorder, single episode, unspecified; G40.909 Epilepsy, unspecified, not intractable, without status epilepticus
CPT/HCPCS: 36415; 76857; 80048; 80053; 82805; 84145; 86304; 93005; 94640; 96374; 99223; 99232; 99233; 99239; 99253; 99254; 99255; 99291; J1650; NC; 36600; 71045; 74019; 74176; 74177; 76830; 82378; 83605; 83735; 83880; 84439; 84443; 84480; 84484; 85025; 93010; 94660; J1941; J2060; J2930; J3490; J7512; J7613; J7620

== ENCOUNTER 2019-09-09 17:46 | Inpatient (IN) | payer MEDICAID, SELFPAY ==
[2019-09-09] VITALS (39 sets, daily range): BP systolic 92–165; BP diastolic 37–93; PULSE 106–144; RESP 4–45; TEMP 36.4–37.1; O2SAT 91–96
--- NOTE | 2019-09-09 17:45 | DI.RAD_ITS ---
EXAM: XR PORTABLE CHEST AP INDICATION: shortness of breath. COMPARISON: XR PORTABLE CHEST AP from 05/19/2019 CT ABDOMEN PELVIS WO from 07/05/2019 TECHNIQUE: 2D digital imaging was performed. FINDINGS: Heart size is within normal limits. Underlying fibrotic changes are again noted. There may be mild ly increased vascular prominence and increased interstitial markings which could indicate mild superi mposed CHF. Superimposed basilar infiltrate would also be difficult to exclude. No effusions are vi sible. IMPRESSION: Underlying fibrotic changes. Question of superimposed mild CHF. DATA REPOSITORY: RADIATION DOSE DELIVERED:
[2019-09-09] MEDS: Normal Saline 1,000 ML 1000 ML IV (17:59)
[2019-09-09] MEDS: Normal Saline Flush 10 ML SYR IVP ×2 (18:01→22:15)
--- NOTE | 2019-09-09 18:02 | ED.GENADUL_ITS ---
Discharge Plan Disposition Patient Disposition: [facility] INPATIENT Condition: Improving Discharge Details Chief Complaint: SOB Clinical Impression: COPD exacerbation Admit Date/Time: 09/09/19 19:04 Admit Provider: Elias August Attending Provider: Elias August Primary Care Provider: Jenna Nayak ED Provider: Sarwat Angela Discharge Instructions Activity:: Activity as Tolerated Equipment/Supplies:: No Equipment Needed Diet:: As Tolerated Discharge Orders Discharge Orders: Discharge Order (Routine); Ordered 09/12/19 Ordered By: Sydnee Chi Discharge Data Discharge Date/Time-TO BE ENTERED AT DEPARTURE: 09/09/19 20:35 Medical Decision Making 59 yo female with hx of end stage copd, seizure disorder, pulmonary htn, who comes in with chif complaint of worsening shortness of breath throughout the day and cough. No fevers, no chest pain or pressure. Called ems who gave her a duoneb and steroids and arrives with tachypnea, diffuse wheezing and placed on bipap and given duoneb, only able to speak in 1-2 word sentences. She denies any current chest pain. She has no leg swelling or jvd. Her symptoms seem most likely from copd exacerbation, will continue beta agonists and also evaluate for cardiac ischemia. No evidence of dvt and exam consistent with copd so doubt PE at this time. Will obtain flu swab and xray as well to eval for infiltrate. She reiterates that she is dnr/dni pt still with significant shortness of breath, labs and imaging unremarkable. Willl admit for continued treatment of copd Differential Diagnosis Differential Diagnosis: copd, asthma, pna, influenza Medical Records Medical records reviewed: Yes I reviewed the patient's medical records. Imaging Data Radiologic Study: Attestation: I personally reviewed and interpreted this imaging study as follows: Imaging: X-Ray Radiologist's impression: no acute findings Lab Data Lab results reviewed: Yes I reviewed the patient's lab results. ECG Data Attestation: I personally reviewed and interpreted this ECG (s) as follows: Prior ECG tracings: not available for review Interpretation: sinus rhythm, rate of 126, pr 126 HPI General Mode of arrival: EMS . Date/Time Provider Initiated Documentation: 09/09/19 17:53 . Limitations to Documentation: no limitations . Information obtained by: patient . History of Present Illness 59 year old F presents to the emergency department with the chief complaint of shortness of breath, described as moderate, and it has been constant. No relieving factors improve symptom(s), No exacerbating factors reported . Patient notes cough. Patient did receive the following treatments prior to arrival, none Related Data Home Medications Medication Instructions Recorded Confirmed ascorbic acid (vitamin C) [Vitamin 500 mg PO DAILY 05/24/13 09/09/19 C] ketoconazole 1 film TOPICAL BID PRN #1 tube 02/08/16 09/09/19 Briefs, Adult-Extra Large #90 ea 06/10/16 09/09/19 sennosides [Senokot] 1 tab-cap PO DAILY PRN #30 tab-cap 11/29/17 09/09/19 cyanocobalamin (vitamin B-12) 1,000 mcg IM MONTHLY #1 vial 06/04/19 09/09/19 1,000 mcg/mL injection solution bisacodyl 5 mg PO BID #60 tab 07/08/19 09/09/19 metoclopramide HCl 5 mg PO AC & HS #120 tab 07/08/19 09/09/19 polyethylene glycol 3350 17 g PO BID #30 ea 07/08/19 09/09/19 primidone 125 mg PO BID #60 tab 07/08/19 09/09/19 primidone 250 mg PO HS #60 tab 07/08/19 09/09/19 prednisone 10 mg tablet 10 mg PO DAILY #30 tab 08/06/19 09/09/19 silver sulfadiazine 1 % topical 1 applic TP BID #50 gm 08/15/19 09/09/19 cream albuterol sulfate 90 mcg/actuation 2 puff INHALATION Q4H PRN #3 08/20/19 09/09/19 aerosol inhaler inhaler fluticasone fur. 100 mcg-umeclid 1 inh IH DAILY #28 each 08/20/19 09/09/19 62.5 mcg-vilant 25 mcg inhalat.powder ipratropium bromide 17 2 puff IH QID #12.9 gm 08/20/19 09/09/19 mcg/actuation HFA aerosol inhaler sulfamethoxazole 800 1 tab PO BID #10 tab 08/20/19 09/09/19 mg-trimethoprim 160 mg tablet citalopram 20 mg tablet 20 mg PO DAILY #90 tab-cap 09/05/19 09/09/19 ipratropium 0.5 mg-albuterol 3 mg 3 ml UPD Q4H #90 ml 09/05/19 09/09/19 (2.5 mg base)/3 mL nebulization soln lovastatin 40 mg tablet 40 mg PO DAILY #90 tab 09/05/19 09/09/19 meclizine 12.5 mg tablet 12.5 mg PO TID PRN #30 tab 09/05/19 09/09/19 oxybutynin chloride 5 mg tablet 5 mg PO TID #270 tab-cap 09/05/19 09/09/19 pantoprazole 40 mg tablet,delayed 40 mg PO DAILY #90 tab-cap 09/05/19 09/09/19 release trazodone 50 mg tablet 25 mg PO HS #45 tab-cap 09/05/19 09/09/19 levofloxacin [Levaquin] 500 mg PO DAILY #4 tab 09/12/19 prednisone 40 mg PO DAILY #60 tab 09/12/19 Previous Rx's Medication Instructions Recorded cyanocobalamin (vitamin B-12) 1,000 mcg IM MONTHLY #1 vial 06/04/19 1,000 mcg/mL injection solution bisacodyl 5 mg PO BID #60 tab 07/08/19 metoclopramide HCl 5 mg PO AC & HS #120 tab 07/08/19 polyethylene glycol 3350 17 g PO BID #30 ea 07/08/19 primidone 125 mg PO BID #60 tab 07/08/19 primidone 250 mg PO HS #60 tab 07/08/19 prednisone 10 mg tablet 10 mg PO DAILY #30 tab 08/06/19 silver sulfadiazine 1 % topical 1 applic TP BID #50 gm 08/15/19 cream albuterol sulfate 90 mcg/actuation 2 puff INHALATION Q4H PRN #3 08/20/19 aerosol inhaler inhaler fluticasone fur. 100 mcg-umeclid 1 inh IH DAILY #28 each 08/20/19 62.5 mcg-vilant 25 mcg inhalat.powder ipratropium bromide 17 2 puff IH QID #12.9 gm 08/20/19 mcg/actuation HFA aerosol inhaler sulfamethoxazole 800 1 tab PO BID #10 tab 08/20/19 mg-trimethoprim 160 mg tablet citalopram 20 mg tablet 20 mg PO DAILY #90 tab-cap 09/05/19 ipratropium 0.5 mg-albuterol 3 mg 3 ml UPD Q4H #90 ml 09/05/19 (2.5 mg base)/3 mL nebulization soln lovastatin 40 mg tablet 40 mg PO DAILY #90 tab 09/05/19 meclizine 12.5 mg tablet 12.5 mg PO TID PRN #30 tab 09/05/19 oxybutynin chloride 5 mg tablet 5 mg PO TID #270 tab-cap 09/05/19 pantoprazole 40 mg tablet,delayed 40 mg PO DAILY #90 tab-cap 09/05/19 release trazodone 50 mg tablet 25 mg PO HS #45 tab-cap 09/05/19 levofloxacin [Levaquin] 500 mg PO DAILY #4 tab 09/12/19 prednisone 40 mg PO DAILY #60 tab 09/12/19 Allergies Allergy/AdvReac Type Severity Reaction Status Date / Time Penicillins Allergy Intermediate SKIN RASH Verified 09/09/19 17:55 adhesive AdvReac Mild Skin Rash Verified 09/09/19 17:55 General Stated Complaint: SOB BO: 2 Review of Systems All systems reviewed & are unremarkable except as noted in HPI and below Constitutional Constitutional: Denies chills, Denies fever(s) and Denies weakness Cardiovascular Cardiovascular: Denies chest pain Gastrointestinal Gastrointestinal: Denies abdominal pain, Denies nausea and Denies vomiting Musculoskeletal Musculoskeletal: Denies joint swelling Neurologic Neurologic: Denies weakness Psychiatric Psychiatric: Denies depression PFSH Medical History Gccio-6-ihuexhgazxepqbgm 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 Sargent B12 deficiency (Chronic 07/29/14) Benign neoplasm of colon (Chronic 11/22/12) Chronic airway obstruction, not elsewhere classified (Chronic 11/22/12) Severe 01/2016 FEV1 36%; 11/2012 overnight O2 sat: no sig nocturnal hypoxia alpha 1 antitrypsin level NL 02/15/18 Last APt with Rosetta at sleep/pulmonary clinic 02/15/18 Depression (Chronic) DVT of leg (deep venous thrombosis) Essential hypertension (Chronic 08/23/17) Fx upper humerus-closed (Resolved 03/05/13) GERD (gastroesophageal reflux disease) (Chronic) History of pneumonia (Resolved) Hyperlipidemia Hypomagnesemia (Chronic 11/28/17) Influenza A (Inactive) Insomnia (Chronic) Left hip pain (Resolved) Mass of hepatic flexure of colon (Acute) Mass of left ovary (Acute) Memory loss (Chronic 11/22/12) Mood disorder (Chronic) Other convulsions (Acute 11/22/12) Pneumonia (Inactive) Seizure disorder (Chronic) Sensorineural hearing loss, bilateral (Chronic 05/25/15) Tendonitis of wrist, left (Resolved 03/31/17) Tinnitus (Acute 09/04/14) Tobacco dependence syndrome (Acute 11/22/12) Unspecified hearing loss (Acute 11/22/12) Urinary incontinence (Chronic 11/22/12) Surgical History H/O shoulder surgery (Chronic) per pt she reports she has never had shoulder surgery History of cataract surgery (Chronic) History of colonoscopy (Chronic) Family History Father COPD (chronic obstructive pulmonary disease) Social History Smoking/Tobacco Use Status: Current every day Tobacco Type: cigarettes Alcohol Intake: former Drug use: Current Sobriety Substance use type: former substance user Housing: apartment What type of physical activity do you participate in: walking Duration: 15-30 minutes/day Frequency: daily Seatbelt use: always 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 Working smoke detector in home: Yes Fire extinguisher in home: Yes Carbon monox detector in home: Yes Do you feel safe at home: Yes Do you feel safe in your relationship?: Yes Exam Const General: no acute distress Orientation: alert HENMT Head: normal to inspection Ears: external ears normal General nose exam: external nose normal Mouth: moist mucous membranes Eyes General: appearance normal, both eyes and all related structures Neck Neck: normal visual inspection Resp Effort & Inspection: audible wheezes Cardio Rate: tachycardic Skin General skin exam: no rashes or lesions noted Neuro General: alert and oriented x3 Extrem General: normal to inspection Psych Mental Status: mental status grossly normal Course Vital Signs Vital signs: Vital Signs Temperature 37.1 C 09/09/19 17:47 Pulse 124 H 03/02/20 17:47 Respiratory Rate 35 H 09/09/19 17:47 Pulse Oximetry 93 L 09/09/19 17:47 Temperature 37.1 C 09/09/19 17:47 Temperature Source Temporal Artery Scan 09/09/19 17:47 Pulse 124 H 09/09/19 17:47 Respiratory Rate 35 H 09/09/19 17:47 Respiratory Effort Labored 09/09/19 17:54 Blood Pressure Position Sitting 09/09/19 17:47 Pulse Oximetry 93 L 09/09/19 17:47 Oxygen Delivery Method Nasal Cannula 09/09/19 17:47 Oxygen Flow Rate 2 09/09/19 17:47 Pain Level 0 09/09/19 17:47
[2019-09-09 18:05] LABS: BE (Venous) 4.4 mmol/L (-3-3); HCO3 (Venous) 30 mmol/L (22-28); O2 Sat (Venous) 93 % (70-80); TCO2 (Venous) 27 mmol/L (22-29); pCO2 (Venous) 58 mm/Hg (34-47); pH (Venous) 7.33 (7.35-7.45); pO2 (Venous) 66 mm/Hg (28-44)
[2019-09-09] MEDS: Albuterol/Ipratropium 3 ML UPD VIAL UPD (18:13)
[2019-09-09 18:14] LABS: Abs Immature Grans 0.02 k/cumm (0.0-0.09); Absolute Basophil Count 0.06 k/cumm (0.0-0.2); Absolute Eosinophil Count 0.16 k/cumm (0.0-0.7); Absolute Lymphocyte Count 2.36 k/cumm (1.2-3.4); Absolute Monocyte Count 1.23 k/cumm (0.11-0.7); Absolute Neutrophil Count 6.85 k/cumm (1.2-6.7); Basophils % 0.6; Eosinophils % 1.5; HCT 47.1 % (36.0-46.0); HGB 15.7 g/dL (12.0-15.5); Immature Grans % 0.2 %; Lymphocytes % 22.1; Mean Corp. HGB Concentration 33.3 g/dL (32.0-36.0); Mean Corpuscular Hemoglobin 30.5 pg (27.0-33.0); Mean Corpuscular Volume 91.5 fL (80-95); Mean Platelet Volume 10.4 fL (8.0-11.0); Monocytes % 11.5; Neutrophils % 64.1; Platelet Count 280 x1000/uL (130-400); RBC 5.15 m/cumm (4.00-5.20); RBC Distribution Width 16.6 % (11.7-14.6); White Blood Cell Count 10.68 k/cumm (4.4-10.8)
[2019-09-09 18:27] LABS: Prothrombin Time 9.7 sec (9.3-11.0)
[2019-09-09 18:28] LABS: ALT 19 U/L (14-59); AST 11 U/L (15-37); Albumin 3.7 g/dL (3.4-5.0); Alkaline Phosphatase 81 U/L (46-116); Anion Gap 7.3 mmol/L (3-11); BUN 5 mg/dL (7-18); Bilirubin, Total 0.2 mg/dL (0.2-1.0); CO2 30.7 mmol/L (21.0-32.0); CREATININE 0.75 mg/dL (0.55-1.02); Calcium 8.8 mg/dL (8.5-10.1); Chloride 106 mmol/L (98-107); Glucose 104 mg/dL (74-106); Magnesium 2.2 mg/dL (1.8-2.4); NT-proBNP 308 pg/mL (<300); Sodium 144 mmol/L (136-145); Total Protein 7.6 g/dL (6.4-8.2)
[2019-09-09 18:30] LABS: Troponin I < 0.05 ng/Ml (<0.06)
[2019-09-09] MEDS: LORazepam 2 MG/ML VIAL 1 MG IVP (18:36)
[2019-09-09] MEDS: levoFLOXacin 750 MG/150 ML BAG 100 MG IVPB (18:40)
--- NOTE | 2019-09-09 18:47 | DI.VRAD_ITS ---
PROCEDURE INFORMATION: Exam: XR Chest, 1 View Exam date and time: 09/09/2019 6:13 PM Age: 59 years old Clinical indication: Shortness of breath TECHNIQUE: Imaging protocol: XR of the chest Views: 1 view. COMPARISON: XR PORTABLE CHEST AP 07/03/2019 10:48 PM XR PORTABLE CHEST AP 05/19/2019 3:14:07 AM FINDINGS: Lungs: There is hyperinflation. Interstitial prominence is similar to the prior study. There are bibasilar streaky opacities. This is similar to prior studies and probably represents atelectasis or scar. No new areas of consolidation are seen. Pleural space: No pleural effusion or pneumothorax. Heart/Mediastinum: The heart and mediastinum are stable in appearance. Bones/joints: There is generalized osteopenia. IMPRESSION: Stable appearance of the chest. No definite acute consolidation. Dictated and Authenticated by: Ubaldo Thorne MD. Ordering:FRANTZ Fam MD
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
[2019-09-09] MEDS: methylPREDNISolone SUCC 40 MG VIAL IVP (22:14)
[2019-09-10] VITALS (16 sets, daily range): BP systolic 92–123; BP diastolic 62–79; PULSE 81–106; RESP 2–30; TEMP 36.8–37.4; O2SAT 92–97
--- NOTE | 2019-09-10 | DI.RAD_ITS ---
EXAM: 2D digital imaging was performed. CLINICAL HISTORY: nausea and vomiting, known mass,? obstruction. COMPARISON: XR ABDOMEN FLAT UPRIGHT from 07/05/2019 TECHNIQUE: Supine and upright views of the abdomen was performed. FINDINGS: BOWEL GAS PATTERN: Mildly distended loops of small and large bowel are noted. No definite obstructiv e pattern is seen.No free air. CALCIFICATIONS: No radiopaque calcifications. OSSEOUS STRUCTURES: Normal for age. OTHER FINDINGS: None. IMPRESSION: 1. Nonobstructive bowel gas pattern. 2. No radiopaque calculi. 3. No free air. DATA REPOSITORY: RADIATION DOSE DELIVERED:
[2019-09-10] MEDS: Albuterol/Ipratropium 3 ML UPD VIAL UPD ×4 (02:30→18:26)
[2019-09-10] MEDS: Normal Saline Flush 10 ML SYR IVP ×2 (06:38→13:15)
[2019-09-10] MEDS: methylPREDNISolone SUCC 40 MG VIAL IVP ×3 (06:38→21:21)
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
[2019-09-10] MEDS: Metoclopramide 10 MG TAB 5 MG PO ×3 (09:58→21:21)
[2019-09-10] MEDS: Pantoprazole 40 MG TABCR PO (09:59)
[2019-09-10] MEDS: Bisacodyl 5 MG TABEC PO ×2 (09:59→16:46)
[2019-09-10] MEDS: Oxybutynin 5 MG TAB PO ×3 (09:59→19:46)
[2019-09-10] MEDS: Primidone 250 MG TAB 125 MG PO ×2 (09:59→16:46)
[2019-09-10] MEDS: Enoxaparin 40 MG/0.4 ML SYR SC (09:59)
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
[2019-09-10] MEDS: Ondansetron 4 MG/2 ML VIAL IVP (13:15)
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
[2019-09-10] MEDS: Normal Saline 1,000 ML 1000 ML IV (15:11)
[2019-09-10] MEDS: Normal Saline 1,000 ML 100 ML IV (16:33)
--- NOTE | 2019-09-10 17:24 | DI.VRAD_ITS ---
PROCEDURE INFORMATION: Exam: XR Abdomen, 2 Views Exam date and time: 09/10/2019 5:05 PM Age: 59 years old Clinical indication: Nausea and vomiting TECHNIQUE: Imaging protocol: XR of the abdomen. Views: 2 Views. COMPARISON: CR XR ABDOMEN FLAT UPRIGHT 07/05/2019 9:36 AM FINDINGS: Gastrointestinal tract: Mildly dilated air-filled loops of bowel in the mid-upper abdomen without air-fluid levels or radiographic evidence of bowel wall edema. Intraperitoneal space: Normal. No free air. Bones/joints: Unremarkable for age. IMPRESSION: Mildly dilated air-filled loops of likely large and small bowel in the mid-upper the abdomen without air-fluid levels on these supine only views or radiographic evidence of bowel wall edema. Dictated and Authenticated by: Mariano Ba MD. Ordering:BRITTNEE Randhawa MD
[2019-09-10] MEDS: levoFLOXacin 500 MG/100 ML BAG 100 MG IVPB (18:27)
[2019-09-10] MEDS: Polyethylene Glycol 3350 17 GM PACKET PO (19:46)
[2019-09-10] MEDS: Primidone 250 MG TAB PO (21:21)
[2019-09-11] VITALS (9 sets, daily range): BP systolic 110–126; BP diastolic 68–70; PULSE 67–93; RESP 4–28; TEMP 36–36.3; O2SAT 90–94
[2019-09-11] MEDS: Albuterol/Ipratropium 3 ML UPD VIAL UPD ×5 (00:47→23:56)
[2019-09-11] MEDS: Ibuprofen 600 MG TAB PO (02:08)
[2019-09-11] MEDS: Normal Saline 1,000 ML 100 ML IV (05:07)
[2019-09-11] MEDS: methylPREDNISolone SUCC 40 MG VIAL IVP ×3 (05:47→21:49)
[2019-09-11 07:37] LABS: HCT 40.5 % (36.0-46.0); HGB 12.7 g/dL (12.0-15.5); Mean Corp. HGB Concentration 31.4 g/dL (32.0-36.0); Mean Corpuscular Hemoglobin 29.7 pg (27.0-33.0); Mean Corpuscular Volume 94.6 fL (80-95); Mean Platelet Volume 10.5 fL (8.0-11.0); Platelet Count 225 x1000/uL (130-400); RBC 4.28 m/cumm (4.00-5.20); RBC Distribution Width 16.3 % (11.7-14.6); White Blood Cell Count 10.83 k/cumm (4.4-10.8)
[2019-09-11 07:53] LABS: Anion Gap 4.6 mmol/L (3-11); BUN 16 mg/dL (7-18); CO2 28.4 mmol/L (21.0-32.0); CREATININE 0.76 mg/dL (0.55-1.02); Calcium 8.5 mg/dL (8.5-10.1); Chloride 107 mmol/L (98-107); Glucose 98 mg/dL (74-106); Potassium 4.4 mmol/L (3.5-5.1); Sodium 140 mmol/L (136-145)
[2019-09-11] MEDS: Bisacodyl 5 MG TABEC PO ×3 (09:14→19:57)
[2019-09-11] MEDS: Enoxaparin 40 MG/0.4 ML SYR SC (09:14)
[2019-09-11] MEDS: Polyethylene Glycol 3350 17 GM PACKET PO ×2 (09:14→19:56)
[2019-09-11] MEDS: Oxybutynin 5 MG TAB PO ×3 (09:15→19:57)
[2019-09-11] MEDS: Pantoprazole 40 MG TABCR PO (09:15)
[2019-09-11] MEDS: Primidone 250 MG TAB 125 MG PO ×2 (09:24→15:52)
[2019-09-11] MEDS: Metoclopramide 10 MG TAB 5 MG PO ×3 (11:37→21:49)
[2019-09-11] MEDS: LORazepam 0.5 MG TAB PO ×2 (11:37→19:57)
[2019-09-11] MEDS: Normal Saline Flush 10 ML SYR IVP (14:34)
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
--- NOTE | 2019-09-11 15:31 | W.NUTCONSULT ---
Date of service: 09/11/19 Time of Service: 15:32 Nutritional Consult ASSESSMENT: 59 year old female admitted with COPD, colonic mass, ovarian tumor, tobacco dependence. BMI wnl for age. Following Regular Meal Plan with adequate intake. Not considered at nutritional risk at this time. Met with Sophy today and she is content with current meal options. MONITORING AND EVALUATION: po intake, labs, weight monitored daily Time Spent in Nutritional Counseling and Treatment: 5 min spent face to face
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
[2019-09-11] MEDS: levoFLOXacin 500 MG/100 ML BAG 100 MG IVPB (18:03)
[2019-09-11] MEDS: Budesonide 0.5 MG/2 ML UPD VIAL UPD (20:11)
[2019-09-11] MEDS: Silver sulfaDIAZINE 1% 25 GM TUBE TP (21:48)
[2019-09-11] MEDS: Primidone 250 MG TAB PO (21:50)
[2019-09-12 00:23] VITALS: BP 114/68; PULSE 81; RESP 20; TEMP 36.6; O2SAT 95
[2019-09-12 00:42] VITALS: O2SAT 96
[2019-09-12] MEDS: methylPREDNISolone SUCC 40 MG VIAL IVP (06:07)
[2019-09-12] MEDS: Normal Saline Flush 10 ML SYR IVP (06:07)
[2019-09-12] MEDS: Albuterol/Ipratropium 3 ML UPD VIAL UPD ×2 (06:07→11:21)
[2019-09-12 07:30] VITALS: BP 101/68; PULSE 73; RESP 15; TEMP 36.5; O2SAT 96
[2019-09-12] MEDS: Budesonide 0.5 MG/2 ML UPD VIAL UPD (07:42)
[2019-09-12] MEDS: Metoclopramide 10 MG TAB 5 MG PO (08:34)
[2019-09-12] MEDS: Primidone 250 MG TAB 125 MG PO (08:34)
[2019-09-12] MEDS: Bisacodyl 5 MG TABEC PO (08:35)
[2019-09-12] MEDS: LORazepam 0.5 MG TAB PO ×2 (08:35→13:05)
[2019-09-12] MEDS: Pantoprazole 40 MG TABCR PO (08:35)
[2019-09-12] MEDS: Silver sulfaDIAZINE 1% 25 GM TUBE TP (08:36)
[2019-09-12] MEDS: Oxybutynin 5 MG TAB PO ×2 (08:36→13:06)
[2019-09-12] MEDS: Enoxaparin 40 MG/0.4 ML SYR SC (08:36)
[2019-09-12 10:54] VITALS: RESP 11
[2019-09-12 10:55] VITALS: O2SAT 95
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
[2019-09-12 11:21] VITALS: PULSE 86; RESP 20; RESP 4; RESP 8; O2SAT 96
--- NOTE | 2019-09-12 12:05 | PDOC.CMDIS ---
- If Service Date Differs Date of service: 09/12/19 Time of Service: 12:05 LACE Index Scoring Tool - Questions: Length of Stay (in days): 3 Acuity (Admit via E.D.?): Yes Comorbidities: Chronic Pulmonary Disease, Any Tumor E.D. Visits: 4 - Answers: Total Score: 15 Risk of Readmission: High Risk Care Management Discharge Reason for Hospitalization: COPD exacerbation Discharge Plan: Sophy is being discharged home with resumption of home health servcies. SANTINO contacted [facility] to schedule follow up however CM has not received a return phone call. Sophy will be transported home via private car at time of discharge with her family. SANTINO contacted her Mom Susanna and she will plan to pick her up at 1400. Sophy has follow up scheduled with her [facility] and she was able to meet with today for continue goals of care planning. Patient/Family Education Needs: Discharge education, limitations and follow up plan of care including COPD education and [facility] plan for follow up. Services Needed at Discharge: DME Agency, Home Health Care Services, Homemaking Services, Oxygen Therapy, Transportation
--- NOTE | 2019-09-12 16:10 | PT.INTREAT ---
Date of service: 09/12/19 Time of Service: 16:10 PT Notes Visit Reasons: COPD 09/12/2019 SUBJECTIVE: Sophy stating she is doing better today. She is hopeful to go home today. OBJECTIVE: Seated in her recliner. Agreeable to PT treatment. TRANSFERS Sit to stand: S Stand to sit: S GAIT Device: FWW Weight bearing: Full Assist: S Distance 150'x2 VITALS: 91-96% throughout on supplemental oxygen via NC. THEREX: Seated UE/LE strengthening exercises as noted on flow sheet. STAIRS: 2-6, 3-4 steps, 2 rails, step to pattern, SBA ASSESSMENT: Tolerates PT well today with increase in gait distance as increase in her activity tolerance. Complains of slight SOB which is her baseline and vitals remained WNL. PLAN: Pt to be discharged home. See discharge summary for details. Treatment time: 25' [id number], [id number] Zahida Feldman, KNIFE SETTER GRINDER MACHINE
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
== END 2019-09-12 14:15 | disposition home health service (06) | DRG 192 ==
LOC: ER 18:40 → MS 20:34
PROVIDERS: Nurse Practitioner Acute Care; Admitting Provider General Practice; Emergency Provider Emergency Medicine; PCP Nurse Practitioner; Visit Provider General Practice
DX: J44.1 Chronic obstructive pulmonary disease with (acute) exacerbation (principal); I27.20 Pulmonary hypertension, unspecified; E53.8 Deficiency of other specified B group vitamins; E88.01 Alpha-1-antitrypsin deficiency; E83.42 Hypomagnesemia; F32.9 Major depressive disorder, single episode, unspecified; I10 Essential (primary) hypertension; G40.909 Epilepsy, unspecified, not intractable, without status epilepticus; Z86.718 Personal history of other venous thrombosis and embolism; K21.9 Gastro-esophageal reflux disease without esophagitis; E78.5 Hyperlipidemia, unspecified; G47.00 Insomnia, unspecified; R41.3 Other amnesia; F39 Unspecified mood [affective] disorder; H90.3 Sensorineural hearing loss, bilateral; R32 Unspecified urinary incontinence; F17.210 Nicotine dependence, cigarettes, uncomplicated; Z66 Do not resuscitate; R11.2 Nausea with vomiting, unspecified; R19.09 Other intra-abdominal and pelvic swelling, mass and lump; N83.8 Other noninflammatory disorders of ovary, fallopian tube and broad ligament; T20.00XA Burn of unspecified degree of head, face, and neck, unspecified site, initial encounter
CPT/HCPCS: 36415; 80048; 80053; 82805; 85027; 87040; 87449; 93005; 94640; 94644; 96361; 96365; 96375; 97110; 97530; 99222; 99233; 99239; 99254; 99285; J1650; 71045; 74019; 83735; 83880; 84484; 85025; 85610; 85730; 93010; 94660; J1956; J2060; J2405; J7611; J7620; J7626

== ENCOUNTER 2020-01-17 13:46 | Emergency (ER) | payer MEDICAID, SELFPAY ==
[2020-01-17 13:49] VITALS: BP 117/60; PULSE 82; RESP 22; TEMP 37.6; O2SAT 96
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
[2020-01-17] MEDS: Normal Saline Flush 10 ML SYR IVP (14:19)
[2020-01-17] MEDS: Ondansetron 4 MG/2 ML VIAL IVP (14:19)
[2020-01-17] MEDS: Normal Saline 1,000 ML 1000 ML IV (14:19)
[2020-01-17 14:25] LABS: Abs Immature Grans 0.01 k/cumm (0.0-0.09); Absolute Basophil Count 0.03 k/cumm (0.0-0.2); Absolute Eosinophil Count 0.28 k/cumm (0.0-0.7); Absolute Lymphocyte Count 2.86 k/cumm (1.2-3.4); Absolute Monocyte Count 0.49 k/cumm (0.11-0.7); Absolute Neutrophil Count 4.22 k/cumm (1.2-6.7); Basophils % 0.4; Eosinophils % 3.5; HCT 37.6 % (36.0-46.0); HGB 12.1 g/dL (12.0-15.5); Immature Grans % 0.1 %; Lymphocytes % 36.2; Mean Corp. HGB Concentration 32.2 g/dL (32.0-36.0); Mean Corpuscular Hemoglobin 29.6 pg (27.0-33.0); Mean Corpuscular Volume 91.9 fL (80-95); Mean Platelet Volume 10.5 fL (8.0-11.0); Monocytes % 6.2; Neutrophils % 53.6; Platelet Count 228 x1000/uL (130-400); RBC 4.09 m/cumm (4.00-5.20); RBC Distribution Width 14.4 % (11.7-14.6); White Blood Cell Count 7.89 k/cumm (4.4-10.8)
[2020-01-17 14:26] LABS: Lactate 0.5 mmol/L (0.6-1.4)
[2020-01-17 14:34] LABS: Prothrombin Time 9.8 sec (9.3-11.0)
[2020-01-17 14:36] LABS: ALT 13 U/L (14-59); AST 12 U/L (15-37); Albumin 3.3 g/dL (3.4-5.0); Alkaline Phosphatase 74 U/L (46-116); Anion Gap 6.5 mmol/L (3-11); BUN 7 mg/dL (7-18); Bilirubin, Total 0.3 mg/dL (0.2-1.0); CO2 29.5 mmol/L (21.0-32.0); CREATININE 0.74 mg/dL (0.55-1.02); Calcium 8.4 mg/dL (8.5-10.1); Chloride 105 mmol/L (98-107); Glucose 92 mg/dL (74-106); Lipase 47 U/L (73-393); Magnesium 1.9 mg/dL (1.8-2.4); Potassium 3.7 mmol/L (3.5-5.1); Sodium 141 mmol/L (136-145); Total Protein 6.6 g/dL (6.4-8.2)
--- NOTE | 2020-01-17 15:13 | ED.GENADUL_ITS ---
Discharge Plan Disposition Patient Disposition: AGAINST MEDICAL ADVICE Condition: Serious Discharge Details Chief Complaint: Abd Prob Clinical Impression: Pneumonia, Post-op pain, Left pelvic adnexal fluid collection Primary Care Provider: Jenna Nayak ED Provider: Ashley Montemayor [place] Meds and New Rx's Prescriptions: New azithromycin 250 mg tablet See Rx Instructions .ROUTE .COMPLEX Qty: 6 RF: 0 Continued ipratropium-albuterol 0.5 mg-3 mg(2.5 mg base)/3 mL solution for nebulization 3 ml UPD Q4H Qty: 90 RF: 12 citalopram 20 mg tablet 20 mg PO DAILY Qty: 90 RF: 3 lovastatin 40 mg tablet 40 mg PO DAILY Qty: 90 RF: 3 oxybutynin chloride 5 mg tablet 5 mg PO TID Qty: 270 RF: 3 pantoprazole 40 mg tablet,delayed release (DR/EC) 40 mg PO DAILY Qty: 90 RF: 3 trazodone 50 mg tablet 25 mg PO HS Qty: 45 RF: 3 meclizine 12.5 mg tablet 12.5 mg PO TID PRN (Reason: dizziness) Qty: 90 RF: 3 Atrovent HFA 17 mcg/actuation HFA aerosol inhaler 2 puff IH QID Qty: 12.9 RF: 12 albuterol sulfate [ProAir HFA] 90 mcg/actuation HFA aerosol inhaler 2 puff Inhalation Q4H PRN Qty: 3 RF: 3 Trelegy Ellipta 100-62.5-25 mcg blister with device 1 inh IH DAILY Qty: 28 RF: 12 ascorbic acid (vitamin C) [Vitamin C] 500 MG tablet 500 mg PO DAILY RF: 0 ketoconazole 15 GM cream 1 film Topical BID PRNQty: 1 RF: 1 (DME) Briefs, Adult-Extra Large 1 EACH misc 1 ea Miscellaneous TID Qty: 90 RF: 11 sennosides [Senokot] 8.6 MG tablet 1 tab-cap PO DAILY PRNQty: 30 RF: 12 cyanocobalamin (vitamin B-12) 1,000 mcg/mL solution 1,000 mcg IM MONTHLY Qty: 1 RF: 12 (DME) BD Safety-Ryanne Detachable Needl 3 mL 23 gauge x 1 syringe See Rx Instructions .ROUTE .MEDSUPPLY Qty: 10 RF: 1 primidone 250 mg tablet 250 mg PO HS Qty: 180 RF: 3 bisacodyl 5 mg tablet,delayed release (DR/EC) 5 mg PO BID Qty: 60 RF: 0 polyethylene glycol 3350 17 gram/dose powder 17 gm PO DAILY PRN (Reason: laxative effect) Qty: 510 RF: 3 Discharge Instructions Instructions: Postoperative Bleeding (ED), Pneumonia (ED) Additional Instructions: At this time you have chosen to leave AGAINST MEDICAL ADVICE. I do think at this time that you would benefit from admission to the hospital for further observation and work-up. You have possible developing right lower lobe pneumonia. Also have a increasing left pelvic mass which is bleeding and you have fluid around the spleen which is most likely blood. You could get sicker and .. Please go to the nearest facility or hospital if any worsening and if you change your mind, return to the ED for any fever, dizziness, lightheadedness worsening in any way. Follow up with primary care provider in 3-5 days. Return to ED sooner if any worsening or concerns. Increase oral fluids. Discharge Data Discharge Date/Time-TO BE ENTERED AT DEPARTURE: 01/17/20 18:10 Medical Decision Making <EVER Rodriguez - Last Filed: 01/18/20 16:46> 59-year-old female with multiple comorbidities, most recently had colonoscopy on Monday at [facility] as an outpatient. I was able to obtain this record, indication for colonoscopy was high risk colon cancer surveillance, personal history of colonic polyps. It appears as though the procedure took place without complication. Patient reports since that time she has had increase diffuse abdominal pain, nausea, vomiting, constipation, last bowel movement was yesterday. She appears well, nontoxic, there is no rigidity or rebound tenderness of the abdomen. Differential includes but not excluded to post colonoscopy pain, constipation, small bowel obstruction, ileus, colitis, bowel perforation. Will obtain routine laboratory values including lactic acid, urinalysis, CBC, CMP, lipase, will give IV fluid and if renal function is unre markable, will obtain CT abdomen pelvis with contrast. The initial laboratory values reveal a white count of 7.89 hemoglobin 12.1 platelet count 228. Electrolytes unremarkable. Creatinine 0.74 with an estimated GFR greater than 60. Urinalysis is pending. Will now obtain CT imaging Patient is now at CT. Medical Records Medical records reviewed: Yes I reviewed the patient's medical records. Lab Data Lab results reviewed: Yes I reviewed the patient's lab results. Lab results narrative: Laboratory Tests Range/Units 01/17/20 01/17/20 01/17/20 13:55 13:55 13:55 WBC (4.4-10.8) k/cumm 7.89 RBC (4.00-5.20) m/cumm 4.09 Hgb (12.0-15.5) g/dL 12.1 Hct (36.0-46.0) % 37.6 MCV (80-95) fL 91.9 MCH (27.0-33.0) pg 29.6 MCHC (32.0-36.0) g/dL 32.2 RDW (11.7-14.6) % 14.4 Plt Count (130-400) x1000/uL 228 MPV (8.0-11.0) fL 10.5 Immature Gran % % 0.1 Neutrophils % 53.6 Lymphocytes % 36.2 Monocytes % 6.2 Eosinophils % 3.5 Basophils % 0.4 Absolute Neutrophils (1.2-6.7) k/cumm 4.22 Absolute Lymphocytes (1.2-3.4) k/cumm 2.86 Absolute Monocytes (0.11-0.7) k/cumm 0.49 Absolute Eosinophils (0.0-0.7) k/cumm 0.28 Absolute Basophils (0.0-0.2) k/cumm 0.03 PT (9.3-11.0) sec 9.8 INR (0.9-1.1) 1.0 Sodium (136-145) mmol/L 141 Potassium (3.5-5.1) mmol/L 3.7 Chloride (98-107) mmol/L 105 Carbon Dioxide (21.0-32.0) mmol/L 29.5 Anion Gap (3-11) mmol/L 6.5 BUN (7-18) mg/dL 7 Creatinine (0.55-1.02) mg/dL 0.74 Estimated GFR/1.73 m2 (mL/min/1.73m2) >= 60.00 Glucose (74-106) mg/dL 92 Lactate (0.6-1.4) mmol/L Calcium (8.5-10.1) mg/dL 8.4 L Magnesium (1.8-2.4) mg/dL 1.9 Total Bilirubin (0.2-1.0) mg/dL 0.3 AST (15-37) U/L 12 L ALT (14-59) U/L 13 L Alkaline Phosphatase (46-116) U/L 74 Total Protein (6.4-8.2) g/dL 6.6 Albumin (3.4-5.0) g/dL 3.3 L Lipase (73-393) U/L 47 Range/Units 01/17/20 14:24 WBC (4.4-10.8) k/cumm RBC (4.00-5.20) m/cumm Hgb (12.0-15.5) g/dL Hct (36.0-46.0) % MCV (80-95) fL MCH (27.0-33.0) pg MCHC (32.0-36.0) g/dL RDW (11.7-14.6) % Plt Count (130-400) x1000/uL MPV (8.0-11.0) fL Immature Gran % % Neutrophils % Lymphocytes % Monocytes % Eosinophils % Basophils % Absolute Neutrophils (1.2-6.7) k/cumm Absolute Lymphocytes (1.2-3.4) k/cumm Absolute Monocytes (0.11-0.7) k/cumm Absolute Eosinophils (0.0-0.7) k/cumm Absolute Basophils (0.0-0.2) k/cumm PT (9.3-11.0) sec INR (0.9-1.1) Sodium (136-145) mmol/L Potassium (3.5-5.1) mmol/L Chloride (98-107) mmol/L Carbon Dioxide (21.0-32.0) mmol/L Anion Gap (3-11) mmol/L BUN (7-18) mg/dL Creatinine (0.55-1.02) mg/dL Estimated GFR/1.73 m2 (mL/min/1.73m2) Glucose (74-106) mg/dL Lactate (0.6-1.4) mmol/L 0.5 L Calcium (8.5-10.1) mg/dL Magnesium (1.8-2.4) mg/dL Total Bilirubin (0.2-1.0) mg/dL AST (15-37) U/L ALT (14-59) U/L Alkaline Phosphatase (46-116) U/L Total Protein (6.4-8.2) g/dL Albumin (3.4-5.0) g/dL Lipase (73-393) U/L <Ashley Montemayor - Last Filed: 01/17/20 18:31> Care handed off to me from EVER Francis pending CT results. Patient is a 63-year-old female who came in by EMS, with chief complaint of abdominal pain and decreased appetite since a colonoscopy approximately [address] Mcleod at [facility]. With multiple comorbidities who presents to the ER for abdominal pain and decreased oral intake. Please refer to David's H&P and physical exam as noted above. 1710: Spoke with [facility] Dr. SARMIENTO regarding CT result. Findings show a slightly increased size of left adnexal mass which appears to have emerged with overall small volume of hyperattenuating fluid within the pelvis around spleen. No evidence of active extravasation. Small suspected consolidative opacity with adjacent groundglass attenuation within the right lower lobe concerning for developing pneumonia. Clinical correlation is advised. 1720: Discussed CT results with patient she declines knowing about a left adnexal mass she does have a congested cough she is a smoker. Patient states that this is a chronic cough and has not been new since the procedure 2 days ago. Patient became very upset tearful during our discussion, will rediscuss after speaking with [facility]. 1736: [facility] transfer center contacted regarding consult with possible transfer, GI to call me back. 1749: Upon further discussion with patient and patient reevaluation vital signs are improving 124/83 is her blood pressure, heart rate 67, respiration 20, temp is 37.2, O2 sat 94% on 3 L nasal cannula. She remains significantly upset and tearful. She states I want to go home I do not want to be admitted into the hospital I do not want to go back to [place] and she does not like hospitals. Discussed various options including admission here which patient declined at this time as well. At this time I have not spoken with GI at [facility]. I will call patient's mother who is her next of kin and on her contact list to discuss this. 1754: Spoke with patient's mother and transfer the phone into room so that mother can speak with her daughter. At this time patient is alert and oriented x4 and discussed AMA. Patient given instructions and azithromycin for possible developing pneumonia. Encouraged to return if any worsening. Patient requesting to leave AMA. The patient appears clinically sober and is not under the influence of any known substances. Discussed risks and benefits with patient. Patient verbalizes understanding of situation and the risks of leaving including worsening condition, developing disability, including but not limited to .Discussed results of labs and imaging, if they were performed and recommendations for further treatment and/or observation. The patient verbalizes understanding of the results discussed. Every effort was made to involve family if appropriate and situation discussed. At this time patient has opted to leave against medical advice. Patient is alert and oriented and has the capacity to make own decisions. 1829: Patient has left the department and was ambulatory and hemodynamically stable upon leaving AMA. Did speak with Dr. Palma with gastroenterology at [facility] discussed patient case in details and informed him that patient did leave AMA and that I recommended admission, he is aware and verbalized understanding. This text was generated using [email or web address] system, please disregard any oddities of phrase or misspellings. HPI <EVER Rodriguez - Last Filed: 01/18/20 16:46> General Mode of arrival: ambulatory . Date/Time Provider Initiated Documentation: 01/17/20 14:01 . Limitations to Documentation: no limitations . Information obtained by: patient . HPI Narrative: This is a 59-year-old female with a history of COPD, depression, hypertension, GERD, mood disorder, seizure disorder, arthritis, presenting to the ER with diffuse abdominal pain, moderate and crampy in nature associated with nausea and vomiting. She reports the pain is constant and has been constant since Monday when she had an outpatient colonoscopy at [facility]. 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 She reports I do not know what they do inside my body. Patient reports that she has had a decreased appetite and decreased bowel movements, did have a small bowel movement yesterday. She denies fever, change of her baseline chronic shortness of breath, any chest pain, back pain, dysuria, black tarry stools or bright red blood in her stools. Related Data Home Medications Medication Instructions Recorded Confirmed ascorbic acid (vitamin C) [Vitamin 500 mg PO DAILY 05/24/13 01/17/20 C] ketoconazole 1 film TOPICAL BID PRN #1 tube 02/08/16 01/17/20 Briefs, Adult-Extra Large #90 ea 06/10/16 01/17/20 sennosides [Senokot] 1 tab-cap PO DAILY PRN #30 tab-cap 11/29/17 01/17/20 albuterol sulfate 90 mcg/actuation 2 puff INHALATION Q4H PRN #3 08/20/19 01/17/20 aerosol inhaler inhaler fluticasone fur. 100 mcg-umeclid 1 inh IH DAILY #28 each 08/20/19 01/17/20 62.5 mcg-vilant 25 mcg inhalat.powder ipratropium bromide 17 2 puff IH QID #12.9 gm 08/20/19 01/17/20 mcg/actuation HFA aerosol inhaler citalopram 20 mg tablet 20 mg PO DAILY #90 tab-cap 09/05/19 01/17/20 ipratropium 0.5 mg-albuterol 3 mg 3 ml UPD Q4H #90 ml 09/05/19 01/17/20 (2.5 mg base)/3 mL nebulization soln lovastatin 40 mg tablet 40 mg PO DAILY #90 tab 09/05/19 01/17/20 oxybutynin chloride 5 mg tablet 5 mg PO TID #270 tab-cap 09/05/19 01/17/20 pantoprazole 40 mg tablet,delayed 40 mg PO DAILY #90 tab-cap 09/05/19 01/17/20 release trazodone 50 mg tablet 25 mg PO HS #45 tab-cap 09/05/19 01/17/20 cyanocobalamin (vitamin B-12) 1,000 mcg IM MONTHLY #1 vial 10/14/19 01/17/20 1,000 mcg/mL injection solution syringe with needle, safety 3 mL #10 each 10/14/19 01/17/20 23 gauge x 1 primidone 250 mg tablet 250 mg PO HS #180 tab 11/11/19 01/17/20 meclizine 12.5 mg tablet 12.5 mg PO TID PRN #90 tab 12/09/19 01/17/20 bisacodyl 5 mg tablet,delayed 5 mg PO BID #60 tab 12/26/19 01/17/20 release polyethylene glycol 3350 17 17 gm PO DAILY PRN #510 gm 12/26/19 01/17/20 gram/dose oral powder azithromycin See Rx Instructions .ROUTE 01/17/20 .COMPLEX #6 tab Previous Rx's Medication Instructions Recorded albuterol sulfate 90 mcg/actuation 2 puff INHALATION Q4H PRN #3 08/20/19 aerosol inhaler inhaler fluticasone fur. 100 mcg-umeclid 1 inh IH DAILY #28 each 08/20/19 62.5 mcg-vilant 25 mcg inhalat.powder ipratropium bromide 17 2 puff IH QID #12.9 gm 08/20/19 mcg/actuation HFA aerosol inhaler citalopram 20 mg tablet 20 mg PO DAILY #90 tab-cap 09/05/19 ipratropium 0.5 mg-albuterol 3 mg 3 ml UPD Q4H #90 ml 09/05/19 (2.5 mg base)/3 mL nebulization soln lovastatin 40 mg tablet 40 mg PO DAILY #90 tab 09/05/19 oxybutynin chloride 5 mg tablet 5 mg PO TID #270 tab-cap 09/05/19 pantoprazole 40 mg tablet,delayed 40 mg PO DAILY #90 tab-cap 09/05/19 release trazodone 50 mg tablet 25 mg PO HS #45 tab-cap 09/05/19 cyanocobalamin (vitamin B-12) 1,000 mcg IM MONTHLY #1 vial 10/14/19 1,000 mcg/mL injection solution syringe with needle, safety 3 mL #10 each 10/14/19 23 gauge x 1 primidone 250 mg tablet 250 mg PO HS #180 tab 11/11/19 meclizine 12.5 mg tablet 12.5 mg PO TID PRN #90 tab 12/09/19 bisacodyl 5 mg tablet,delayed 5 mg PO BID #60 tab 12/26/19 release polyethylene glycol 3350 17 17 gm PO DAILY PRN #510 gm 12/26/19 gram/dose oral powder azithromycin See Rx Instructions .ROUTE 01/17/20 .COMPLEX #6 tab Allergies Allergy/AdvReac Type Severity Reaction Status Date / Time Penicillins Allergy Intermediate SKIN RASH Verified 12/09/19 09:44 adhesive AdvReac Mild Skin Rash Verified 12/09/19 09:44 General Stated Complaint: Abd Prob BO: 3 Review of Systems <EVER Rodriguez - Last Filed: 01/18/20 16:46> Constitutional Constitutional: Denies fatigue, Denies fever(s) and Denies weakness ENT Ears, Nose, Mouth, and Throat: Denies neck pain and Denies sore throat Cardiovascular Cardiovascular: Denies chest pain and Reports dyspnea (Baseline) Respiratory Respiratory: Reports cough and Reports dyspnea (Baseline) Gastrointestinal Gastrointestinal: Reports abdominal pain, Denies melena, Denies hematochezia, Reports constipation, Denies diarrhea, Reports nausea, Reports vomiting and Denies hematemesis Genitourinary Genitourinary: Denies difficulty voiding Musculoskeletal Musculoskeletal: Denies back pain, Denies neck pain, Denies numbness and Denies tingling Integumentary/Breasts Skin/Breast: Denies rash Neurologic Neurologic: Denies numbness, Denies tingling and Denies weakness Endocrine Endocrine: Denies fatigue Hematologic/Lymphatic Hematologic/Lymphatic: Denies easy bleeding and Denies easy bruising PFSH <EVER Rodriguez - Last Filed: 01/18/20 16:46> Medical History [id number] 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 Sargent B12 deficiency (Chronic 07/29/14) Benign neoplasm of colon (Chronic 11/22/12) Chronic airway obstruction, not elsewhere classified (Chronic 11/22/12) Severe 01/2016 FEV1 36%; 11/2012 overnight O2 sat: no sig nocturnal hypoxia alpha 1 antitrypsin level NL 02/15/18 Last APt with Rosetta at sleep/pulmonary clinic 02/15/18 Depression (Chronic) Depression (Chronic) DVT of leg (deep venous thrombosis) Essential hypertension (Chronic 08/23/17) Fx upper humerus-closed (Resolved 03/05/13) GERD (gastroesophageal reflux disease) (Chronic) History of pneumonia (Resolved) Hyperlipidemia Hypomagnesemia (Chronic 11/28/17) Influenza A (Inactive) Insomnia (Chronic) Left hip pain (Resolved) Mass of hepatic flexure of colon (Acute) Mass of left ovary (Acute) Memory loss (Chronic 11/22/12) Mood disorder (Chronic) Other convulsions (Acute 11/22/12) Pneumonia (Inactive) Seizure disorder (Chronic) Sensorineural hearing loss, bilateral (Chronic 05/25/15) Tendonitis of wrist, left (Resolved 03/31/17) Tinnitus (Acute 09/04/14) Tobacco dependence syndrome (Acute 11/22/12) Unspecified hearing loss (Acute 11/22/12) Urinary incontinence (Chronic 11/22/12) Surgical History H/O shoulder surgery (Chronic) per pt she reports she has never had shoulder surgery History of cataract surgery (Chronic) History of colonoscopy (Chronic) Family History Father COPD (chronic obstructive pulmonary disease) Social History Smoking/Tobacco Use Status: Current every day Tobacco Type: cigarettes Alcohol Intake: former Drug use: Current Sobriety Substance use type: former substance user Housing: apartment What type of physical activity do you participate in: walking Duration: 15-30 minutes/day Frequency: daily Seatbelt use: always Drive intox or ride w/intox wrecker driver: No Working smoke detector in home: Yes Fire extinguisher in home: Yes Carbon monox detector in home: Yes Do you feel safe at home: Yes Do you feel safe in your relationship?: Yes Exam <EVER Rodriguez - Last Filed: 01/18/20 16:46> Const General: cooperative, healthy appearing, comfortable and no acute distress Orientation: alert, awake and oriented x3 HENMT Head: normal to inspection, normocephalic and atraumatic Mouth: moist mucous membranes Throat: posterior oropharynx normal Eyes Conjunctivae: conjunctivae normal Sclera: sclerae normal Neck Neck: normal visual inspection, trachea midline and supple Resp Effort & Inspection: normal respiratory effort and able to speak in complete sentences Auscultation: diminished lung sounds bilaterally in the lower lung salomon and wheezes scattered wheezes (Throughout, mostly clear with cough) Cardio Rate: regular rate Rhythm: regular rhythm GI Inspection: normal to inspection and obesity Palpation: soft, not firm, no guarding, not rigid and tender (Diffuse throughout) with no rebound tenderness Auscultation: normal bowel sounds Back/Spine/Pelvis Back: No back tenderness Skin General skin exam: no rashes or lesions noted Neuro General: patient alert, patient awake, patient oriented x3, moves all extremities and no focal motor deficits Speech: speech normal Sensory Exam: no sensory deficits noted Psych Appearance: grossly normal Mental Status: mental status grossly normal Course <EVER Rodriguez - Last Filed: 01/18/20 16:46> Vital Signs Vital signs: Vital Signs Temperature 37.6 C H 01/17/20 13:49 Pulse 82 01/17/20 13:49 Respiratory Rate 22 01/17/20 13:49 Blood Pressure 117/60 01/17/20 13:49 Pulse Oximetry 96 01/17/20 13:49 Temperature 37.6 C H 01/17/20 13:49 Temperature Source Temporal Artery Scan 01/17/20 13:49 Pulse 82 01/17/20 13:49 Respiratory Rate 22 01/17/20 13:49 Respiratory Effort Short of Breath 01/17/20 13:57 Blood Pressure 117/60 01/17/20 13:49 Blood Pressure Position Supine 01/17/20 13:49 Pulse Oximetry 96 01/17/20 13:49 Oxygen Delivery Method Nasal Cannula 01/17/20 13:49 Oxygen Flow Rate 3 01/17/20 13:49 Pain Level 10 01/17/20 13:49 Lab/Test Results Lab/Test Results: Laboratory Tests Range/Units 01/17/20 01/17/20 01/17/20 13:55 13:55 13:55 WBC (4.4-10.8) k/cumm 7.89 RBC (4.00-5.20) m/cumm 4.09 Hgb (12.0-15.5) g/dL 12.1 Hct (36.0-46.0) % 37.6 MCV (80-95) fL 91.9 MCH (27.0-33.0) pg 29.6 MCHC (32.0-36.0) g/dL 32.2 RDW (11.7-14.6) % 14.4 Plt Count (130-400) x1000/uL 228 MPV (8.0-11.0) fL 10.5 Immature Gran % % 0.1 Neutrophils % 53.6 Lymphocytes % 36.2 Monocytes % 6.2 Eosinophils % 3.5 Basophils % 0.4 Absolute Neutrophils (1.2-6.7) k/cumm 4.22 Absolute Lymphocytes (1.2-3.4) k/cumm 2.86 Absolute Monocytes (0.11-0.7) k/cumm 0.49 Absolute Eosinophils (0.0-0.7) k/cumm 0.28 Absolute Basophils (0.0-0.2) k/cumm 0.03 PT (9.3-11.0) sec 9.8 INR (0.9-1.1) 1.0 Sodium (136-145) mmol/L 141 Potassium (3.5-5.1) mmol/L 3.7 Chloride (98-107) mmol/L 105 Carbon Dioxide (21.0-32.0) mmol/L 29.5 Anion Gap (3-11) mmol/L 6.5 BUN (7-18) mg/dL 7 Creatinine (0.55-1.02) mg/dL 0.74 Estimated GFR/1.73 m2 (mL/min/1.73m2) >= 60.00 Glucose (74-106) mg/dL 92 Lactate (0.6-1.4) mmol/L Calcium (8.5-10.1) mg/dL 8.4 L Magnesium (1.8-2.4) mg/dL 1.9 Total Bilirubin (0.2-1.0) mg/dL 0.3 AST (15-37) U/L 12 L ALT (14-59) U/L 13 L Alkaline Phosphatase (46-116) U/L 74 Total Protein (6.4-8.2) g/dL 6.6 Albumin (3.4-5.0) g/dL 3.3 L Lipase (73-393) U/L 47 Range/Units 01/17/20 14:24 WBC (4.4-10.8) k/cumm RBC (4.00-5.20) m/cumm Hgb (12.0-15.5) g/dL Hct (36.0-46.0) % MCV (80-95) fL MCH (27.0-33.0) pg MCHC (32.0-36.0) g/dL RDW (11.7-14.6) % Plt Count (130-400) x1000/uL MPV (8.0-11.0) fL Immature Gran % % Neutrophils % Lymphocytes % Monocytes % Eosinophils % Basophils % Absolute Neutrophils (1.2-6.7) k/cumm Absolute Lymphocytes (1.2-3.4) k/cumm Absolute Monocytes (0.11-0.7) k/cumm Absolute Eosinophils (0.0-0.7) k/cumm Absolute Basophils (0.0-0.2) k/cumm PT (9.3-11.0) sec INR (0.9-1.1) Sodium (136-145) mmol/L Potassium (3.5-5.1) mmol/L Chloride (98-107) mmol/L Carbon Dioxide (21.0-32.0) mmol/L Anion Gap (3-11) mmol/L BUN (7-18) mg/dL Creatinine (0.55-1.02) mg/dL Estimated GFR/1.73 m2 (mL/min/1.73m2) Glucose (74-106) mg/dL Lactate (0.6-1.4) mmol/L 0.5 L Calcium (8.5-10.1) mg/dL Magnesium (1.8-2.4) mg/dL Total Bilirubin (0.2-1.0) mg/dL AST (15-37) U/L ALT (14-59) U/L Alkaline Phosphatase (46-116) U/L Total Protein (6.4-8.2) g/dL Albumin (3.4-5.0) g/dL Lipase (73-393) U/L Sign Out <EVER Rodriguez - Last Filed: 01/18/20 16:46> Sign Out Data: Sign Out Comment: Abdominal pain, nausea, vomiting, constipation since Monday status post colonoscopy at [facility]. Those records were obtained. Upon transfer of care, CT and urinalysis pending. Last updated by David Hughes PA at 01/17/20 15:34
[2020-01-17 16:13] VITALS: BP 100/53; PULSE 68; RESP 22; TEMP 36.9; O2SAT 95
[2020-01-17] MEDS: Omnipaque 350 MG/ML 100 ML BTL IJ (16:19)
--- NOTE | 2020-01-17 17:03 | DI.VRAD_ITS ---
Addendum created by Roni Walters DO on 01/17/2020 5:22:31 PM EDT Addendum: Bones/joints section should read: No acute fracture or dislocation. Addendum created by Roni Walters DO on 01/17/2020 5:08:29 PM EDT Findings were discussed with nurse practitioner Ashley Montemayor by Dr. Walters at approximately 4:05 p.m. on 01/17/2020 by phone. Central standard time. Please note that gynecologic consult continues to be recommended for the left adnexal mass if not already obtained. Initial report created on 01/17/2020 5:03:48 PM EDT PROCEDURE INFORMATION: Exam: CT Abdomen And Pelvis With Contrast Exam date and time: 01/17/2020 3:35 PM Age: 59 years old Clinical indication: Abdominal pain; Patient HX: Colonoscopy wed, worsening pain and constipation TECHNIQUE: Imaging protocol: Computed tomography of the abdomen and pelvis with intravenous contrast. COMPARISON: CT ABDOMEN PELVIS WO 07/05/2019 11:27 AM FINDINGS: Lungs: There is a small consolidative opacity with adjacent ground-glass attenuation within the right lower lobe. Trace pleural effusion is also likely present. Limited evaluation of the lung parenchyma secondary to motion. There is an opacity on image 1 series 4 within the right lower lobe measuring approximately 1.4 cm which likely represents a vessel however the caliber of which is slightly increased but stable. Liver: Focal fatty infiltration along the falciform versus perfusional abnormality. Gallbladder and bile ducts: Unremarkable. Pancreas: Unremarkable. Spleen: Unremarkable Adrenals: Similar thickened and irregular appearance of both adrenal glands. Kidneys and ureters: Unremarkable. Stomach and bowel: Unremarkable. Appendix: No evidence of appendicitis. Intraperitoneal space: Otherwise unremarkable. Vasculature: Scattered vascular calcifications. Lymph nodes: No suspicious lymphadenopathy. Bladder: Unremarkable. Reproductive: Slightly increased size of heterogeneous appearing mass in the region of the left adnexa. Measures approximately 6.4 cm on image 66 series 4, previously measuring up to 5.9 cm on 07/04/2019. There is new higher attenuation fluid adjacent to the lesion and also around the spleen. See image 16 series 4. The right adnexa is unremarkable. The uterus is displaced slightly rightward. Bones/joints: Acute fracture dislocation.. Soft tissues: Unremarkable. IMPRESSION: Slightly increased size of left adnexal mass which appears to have hemorrhaged with overall small volume of hyperattenuating fluid within the pelvis and around the spleen. No evidence of active extravasation. Small suspected consolidative opacity with adjacent ground-glass attenuation within the right lower lobe concerning for developing pneumonia. Clinical correlation is advised. Other miscellaneous findings as detailed. Dictated and Authenticated by: Roni Walters MD. Ordering:SAMMY Hernandez MD
[2020-01-17 17:45] VITALS: BP 124/83; PULSE 67; RESP 20; TEMP 37.2; O2SAT 94
--- NOTE | 2020-01-17 17:46 | NUR.NOTE ---
Nursing Note: pt crying, requesting to go home. States she doesnt like hospitals and wants to go home. Provider at bedside with patient at this time.
== END 2020-01-17 18:10 | disposition left against medical advice (07) ==
PROVIDERS: Physician Assistant; Emergency Provider Registered Nurse Emergency; PCP Nurse Practitioner
DX: R10.84 Generalized abdominal pain (principal); G89.18 Other acute postprocedural pain; J18.9 Pneumonia, unspecified organism; R93.5 Abnormal findings on diagnostic imaging of other abdominal regions, including retroperitoneum; R11.2 Nausea with vomiting, unspecified; I10 Essential (primary) hypertension; J44.9 Chronic obstructive pulmonary disease, unspecified; Z99.81 Dependence on supplemental oxygen; F17.210 Nicotine dependence, cigarettes, uncomplicated; Z53.29 Procedure and treatment not carried out because of patient's decision for other reasons
CPT/HCPCS: 36415; 80053; 83690; 96361; 96374; 99285; 74177; 81003; 83605; 83735; 85025; 85610; J2405; J3490

== ENCOUNTER 2020-02-04 15:31 | Outpatient (REF) | payer MEDICAID, SELFPAY ==
[2020-02-04 18:41] LABS: HGB 13.3 g/dL (11.2-15.7); MCH 29.7 pg (27.0-33.0); MCHC 31.7 % (32.0-36.0); MCV 93.8 fL (80-95); MPV 11.1 fL (8.0-11.0); Platelet Count 340 10^3/uL (130-400); RBC 4.48 10^6/uL (3.93-5.22); RDW 14.5 % (11.7-14.6); WBC 8.04 10^3/uL (4.4-10.8)
[2020-02-04 18:48] LABS: CREATININE 0.73 mg/dL (0.55-1.02)
== END 2020-02-04 15:51 ==
LOC: LBN 15:31
PROVIDERS: PCP Nurse Practitioner; Visit Provider Nurse Practitioner
DX: K66.1 Hemoperitoneum (principal); R19.09 Other intra-abdominal and pelvic swelling, mass and lump
CPT/HCPCS: 85027; 82565

== ENCOUNTER 2020-02-11 00:35 | Outpatient (CLI) | payer MEDICAID, SELFPAY ==
--- NOTE | 2020-02-11 | DI.CTLCSR_ITS ---
EXAM: CT CHEST LUNG CANCER SCREEN CLINICAL HISTORY: CURRENT SMOKER, F17.200 TECHNIQUE: COMPARISON: CT CT CHEST LUNG CANCER SCREEN from 02/15/2019 FINDINGS: CT examination of the chest was performed without contrast administration utilizing the low-dose lung cancer screening protocol. There are moderate to severe changes of centrilobular emphysema. Left a pical scarring and right basilar scarring again noted. 4 millimeter nodule in the right lung lateral ly, previously measured 5 millimeters. No new intrapulmonary nodule seen. No pleural effusion. No mediastinal mass or adenopathy. Images obtained through the upper abdomen show unremarkable appearance of visualized portions of live r, spleen, adrenals, and kidneys. Pancreas is unremarkable. IMPRESSION: Stable right-sided pulmonary nodule, 4 millimeters. Continue annual screening with LD CT in 12 month s. Lung RADS Cat 2 - Benign Appearance / Behavior: Nodules with a very low likelihood of becoming a clin ically active cancer due to size or lack of growth
== END 2020-02-11 00:55 ==
PROVIDERS: PCP Nurse Practitioner; Visit Provider Internal Medicine
DX: Z12.2 Encounter for screening for malignant neoplasm of respiratory organs (principal); F17.200 Nicotine dependence, unspecified, uncomplicated; R91.1 Solitary pulmonary nodule
CPT/HCPCS: G0297

== ENCOUNTER 2020-02-12 02:53 | Outpatient (CLI) | payer MEDICAID, SELFPAY ==
[2020-02-12] MEDS: Omnipaque 350 MG/ML 50 ML BTL IJ (08:32)
[2020-02-12] MEDS: Breeza Beverage 473 ML BTL PO (08:33)
--- NOTE | 2020-02-12 10:15 | DI.CT_ITS ---
EXAM: CT ABDOMEN PELVIS W CLINICAL HISTORY: f/u peritoneal hemorrhage on CT 01/16,K66.1,R19.8 TECHNIQUE: COMPARISON: CT CT ABDOMEN PELVIS W from 01/17/[address] ABDOMEN PELVIS W from 01/17/2020 FINDINGS: CT examination of the abdomen and pelvis was performed with intravenous infusion of 100 cc of Omnipaq ue 350 and ingestion of dilute barium. Examination is compared with prior CT January which showed a lef t perisplenic presumed hemorrhagic fluid collection. This is decreased in size on the current examin ation, now measuring roughly 6 x 3 cm in diameter on axial images as compared to about 9 x 3 cm in di ameter on prior study. No new perisplenic collection identified. Spleen appears intrinsically intac t. Liver is unremarkable in appearance. Pancreas appears normal. Gallbladder and bile ducts are CT normal. Adrenals and kidneys grossly unremarkable. No urinary tract calcification or obstruction. Abdominal aorta major visceral branches appear intact. No significant abdominal wall hernia seen. No significant abdominal or pelvic adenopathy. A presumed pelvic hematoma noted on the prior study has essentially resolved. There is a persistent left adnexal mass measuring 7.3 x 4.8 cm in diameter suspicious for malignancy. No gross pelvic michele opathy. No evidence of bowel obstruction. IMPRESSION: Interval decrease in size of left upper quadrant presumed hemorrhagic collection. Resolution of previously noted pelvic hemorrhagic collection. Persistent large heterogeneous left adnexal mass highly suspicious for neoplasm.
[2020-02-12] MEDS: Normal Saline - Diluent 50 ML VIAL IV (10:19)
[2020-02-12] MEDS: Omnipaque 350 MG/ML 100 ML BTL IJ (10:20)
[2020-02-12] MEDS: Normal Saline Flush 10 ML SYR IVP (10:21)
== END 2020-02-12 03:13 ==
PROVIDERS: PCP Nurse Practitioner; Visit Provider Nurse Practitioner
DX: R19.09 Other intra-abdominal and pelvic swelling, mass and lump (principal); K66.1 Hemoperitoneum
CPT/HCPCS: 74177; J3490; Q9967

== ENCOUNTER 2020-07-21 01:36 | Outpatient (CLI) | payer MEDICAID, SELFPAY ==
--- NOTE | 2020-07-21 08:30 | DI.MAMMO_ITS ---
EXAM: MAMMO SCREENING CLINICAL HISTORY: screening,z12.39 TECHNIQUE: Mammograms were interpreted according to the usual protocol including computer analysis w [employer] CAD system, tomosynthesis and C-view imaging. COMPARISON: 2010 through 2017 FINDINGS: The breasts are composed of scattered fibroglandular densities, Breast Density category B. No suspicious masses or suspicious microcalcifications are seen. No skin thickening or abnormal axillary lymph nodes are seen. There has been no significant change from prior exams. IMPRESSION: BI-RADS Category 1, Negative mammogram Yearly screening mammography is recommended. Breast Density - Category B, scattered fibroglandular densities. A negative radiographic report should not delay biopsy if a dominant or clinically suspicious mass is present. Up to ten percent of cancers are not identified on mammography. A negative report may reinforce clinical impression. Adenosis and dense breasts may obscure an underlying neoplasm. False positive reports average 6 to 10%. Patient will receive a letter notifying them of these results.
== END 2020-07-21 01:56 ==
PROVIDERS: PCP Nurse Practitioner; Visit Provider Nurse Practitioner
DX: Z12.31 Encounter for screening mammogram for malignant neoplasm of breast (principal)
CPT/HCPCS: 77063; 77067

== ENCOUNTER 2021-01-14 15:49 | Outpatient (REF) | payer MEDICAID, SELFPAY ==
[2021-01-14 19:09] LABS: ALT 14 U/L (14-59); AST 11 U/L (15-37); Albumin 3.3 g/dL (3.4-5.0); Alkaline Phosphatase 95 U/L (46-116); Anion Gap 6.4 mmol/L (3-11); BUN 9 mg/dL (7-18); Bilirubin, Total 0.3 mg/dL (0.2-1.0); CO2 32.6 mmol/L (21.0-32.0); CREATININE 0.9 mg/dL (0.55-1.02); Calcium 8.6 mg/dL (8.5-10.1); Calculated LDL 95 mg/dL (<100); Chloride 105 mmol/L (98-107); Cholesterol 176 mg/dL (<200); Glucose 89 mg/dL (74-106); HDL Cholesterol 68 mg/dL (40-60); Potassium 4.3 mmol/L (3.5-5.1); Sodium 144 mmol/L (136-145); TSH (W/Ref FT4) 0.67 uIU/mL (0.36-3.74); Total Protein 6.5 g/dL (6.4-8.2); Triglyceride 65 mg/dL (<150)
== END 2021-01-14 15:50 | disposition home or self-care (01) ==
LOC: LBO 15:49
PROVIDERS: PCP Nurse Practitioner; Visit Provider Nurse Practitioner
DX: R06.02 Shortness of breath (principal); I10 Essential (primary) hypertension; J44.9 Chronic obstructive pulmonary disease, unspecified; I27.20 Pulmonary hypertension, unspecified; E78.5 Hyperlipidemia, unspecified
CPT/HCPCS: 80053; 80061; 84443

== ENCOUNTER 2021-01-21 17:26 | Outpatient (REF) | payer MEDICAID, SELFPAY ==
[2021-01-21 17:56] LABS: HCT 43.7 % (36.0-46.0); HGB 13.5 g/dL (11.2-15.7); MCH 30.1 pg (27.0-33.0); MCHC 30.9 % (32.0-36.0); MCV 97.3 fL (80-95); MPV 11.1 fL (8.0-11.0); Platelet Count 331 10^3/uL (130-400); RBC 4.49 10^6/uL (3.93-5.22); RDW 14.2 % (11.7-14.6); RDW-SD 51.8 fL; WBC 7.76 10^3/uL (4.4-10.8)
== END 2021-01-21 17:27 | disposition home or self-care (01) ==
LOC: LBN 17:26
PROVIDERS: PCP Nurse Practitioner; Visit Provider Nurse Practitioner
DX: R06.02 Shortness of breath (principal); I10 Essential (primary) hypertension; J44.9 Chronic obstructive pulmonary disease, unspecified; I27.20 Pulmonary hypertension, unspecified
CPT/HCPCS: 85027

== ENCOUNTER 2021-02-23 13:47 | Emergency (ER) | payer MEDICAID, SELFPAY ==
--- NOTE | 2021-02-23 13:45 | DI.US_ITS ---
Exam(s) US EXTREMITY VENOUS BI EXAM: US EXTREMITY VENOUS BI CLINICAL HISTORY: Bilateral swelling x 2 weeks, hx of DVT left leg. TECHNIQUE: Ultrasound performed using standard protocol. COMPARISON: US US TRANSVAGINAL from 07/05/2019 FINDINGS: Duplex venous ultrasound was performed according to the usual protocol. The deep veins are freely com pressible throughout and there is normal flow augmentation with manual calf compression. 2D and Doppl er evaluation are unremarkable. IMPRESSION: No evidence of deep venous thrombosis of the right or left lower extremity. DATA REPOSITORY:
--- NOTE | 2021-02-23 13:45 | RT.EKG_ITS ---
APPROVED REPORT Exam: Resting ECG Reason for Exam: Leg swelling Patient Location: E HR:73 bpm ECG Measurements Heart Rate 73 AXIS VA 147 P 77 QRSd 96 QRS 66 QT 422 T 54 QTc 465 Conclusion Sinus rhythm...normal P axis, V-rate 60- 99
[2021-02-23 13:48] VITALS: BP 128/67; PULSE 76; RESP 20; TEMP 36.4; O2SAT 97
[2021-02-23 13:52] VITALS: O2SAT 98
[2021-02-23 13:54] VITALS: BP 128/67; PULSE 79; O2SAT 98
--- NOTE | 2021-02-23 14:00 | DI.RAD_ITS ---
Exam(s) XR CHEST 2V PA LATERAL EXAM: XR CHEST 2V PA LATERAL CLINICAL HISTORY: Bilateral lower leg swelling, hx COPD TECHNIQUE: COMPARISON: CR,XR XR PORTABLE CHEST AP from 09/09/2019 FINDINGS: The heart is not enlarged. There are clear upper lung salomon. Predominantly linear radiodensities n oted in the lung bases are probably unchanged from prior radiographs including September 2019. No gross acute consolidation. No pleural effusion seen. IMPRESSION: No evidence of acute process. RADIATION DOSE DELIVERED: Total DLP
--- NOTE | 2021-02-23 14:00 | ED.GENADUL_ITS ---
Discharge Plan Disposition Patient Disposition: HOME Condition: Stable Discharge Details Clinical Impression: Bilateral edema of lower extremity Primary Care Provider: Jenna Nayak ED Provider: Ashley Montemayor Home Meds and New Rx's Prescriptions: Continued meclizine 12.5 mg tablet 12.5 mg PO TID PRN (Reason: dizziness) Qty: 90 RF: 3 loperamide [Anti-Diarrheal (loperamide)] 2 mg capsule 2 mg PO QID PRN (Reason: loose stool) Qty: 30 RF: 2 nicotine (polacrilex) 2 mg gum 2 mg buccal Q2H PRN (Reason: nicotine cravings) Qty: 100 RF: 1 ascorbic acid (vitamin C) [Vitamin C] 500 MG tablet 500 mg PO DAILY RF: 0 ketoconazole 15 GM cream 1 film Topical BID PRNQty: 1 RF: 1 (DME) Briefs, Adult-Extra Large 1 EACH misc 1 ea Miscellaneous TID Qty: 90 RF: 11 sennosides [Senokot] 8.6 MG tablet 1 tab-cap PO DAILY PRNQty: 30 RF: 12 (DME) BD Safety-Ryanne Detachable Needl 3 mL 23 gauge x 1 syringe See Rx Instructions .ROUTE .MEDSUPPLY Qty: 10 RF: 1 Atrovent HFA 17 mcg/actuation HFA aerosol inhaler 2 puff IH QID Qty: 12.9 RF: 12 cyanocobalamin (vitamin B-12) 1,000 mcg/mL solution 1,000 mcg IM MONTHLY Qty: 1 RF: 12 Trelegy Ellipta 100-62.5-25 mcg blister with device 1 inh IH DAILY Qty: 28 RF: 12 citalopram 20 mg tablet 20 mg PO DAILY Qty: 90 RF: 3 oxybutynin chloride 5 mg tablet 5 mg PO TID Qty: 270 RF: 3 pantoprazole 40 mg tablet,delayed release (DR/EC) 40 mg PO DAILY Qty: 90 RF: 3 trazodone 50 mg tablet 25 mg PO HS Qty: 45 RF: 3 albuterol sulfate [ProAir HFA] 90 mcg/actuation HFA aerosol inhaler 2 puff Inhalation Q4H PRN Qty: 3 RF: 3 lovastatin 40 mg tablet 40 mg PO DAILY Qty: 90 RF: 3 primidone 250 mg tablet 250 mg PO HS Qty: 180 RF: 3 bisacodyl 5 mg tablet,delayed release (DR/EC) 5 mg PO BID PRN (Reason: constipation) Qty: 60 RF: 0 polyethylene glycol 3350 17 gram/dose powder 17 g PO DAILY PRN (Reason: laxative effect) Qty: 510 RF: 3 No Action furosemide 20 mg tablet 20 mg PO DAILY Qty: 14 RF: 0 potassium chloride 20 mEq/15 mL liquid 10 meq PO DAILY Qty: 120 RF: 0 ipratropium-albuterol 0.5 mg-3 mg(2.5 mg base)/3 mL solution for nebulization 3 ml UPD Q4H Qty: 90 RF: 12 Discharge Instructions Instructions: Edema (ED) Additional Instructions: Follow up with primary care provider in 3-5 days. Return to ED sooner if any worsening or concerns. Today your imaging, labs EKG are all within normal limits. No evidence for DVT or infection at this time. Referrals: Jenna Nayak NP [Primary Care Provider] - 5 days Discharge Data Discharge Date/Time-TO BE ENTERED AT DEPARTURE: 02/23/21 17:10 Medical Decision Making 60-year-old female has a past medical history of COPD on home O2, left lower extremity DVT present with 2 weeks of increasing bilateral lower extremity edema and increased pain and redness to the left lower extremity. She denies any chest pain, shortness of breath, fever or cough. EKG was reviewed by Dr. Oswald Angela ER attending, please see his official report and review. An old EKG was available for review. Upon further examination speaking with patient patient she has been out of her inhalers x2 days and is unable to get them filled until Monday. She does have bilateral scattered expiratory wheezes noted on assessment. Will give a DuoNeb here. Patient is satting 98% on 3 L nasal cannula which she wears at home. Initial lab results show no leukocytosis, sodium 144, potassium 3.7 carbon dioxide 37.7, GFR is greater than 60 initial troponin is within normal limits at less than 0.05, BNP is 288. Chest x-ray and bilateral lower extremity ultrasound is pending at this time. EXAM: US EXTREMITY VENOUS BI CLINICAL HISTORY: Bilateral swelling x 2 weeks, hx of DVT left leg. TECHNIQUE: Ultrasound performed using standard protocol. COMPARISON: US US TRANSVAGINAL from 07/05/2019 FINDINGS: Duplex venous ultrasound was performed according to the usual protocol. The deep veins are freely compressible throughout and there is normal flow augmentation with manual calf compression. 2D and Doppler evaluation are unremarkable. IMPRESSION: No evidence of deep venous thrombosis of the right or left lower extremity. Discussed ultrasound results with patient who verbalized understanding. She is currently receiving her nebulizer treatment. We will plan for discharge home. HPI General Mode of arrival: EMS . Date/Time Provider Initiated Documentation: 02/23/21 13:47 . Limitations to Documentation: no limitations . Information obtained by: patient and RN notes reviewed . HPI Narrative: 60-year-old female has a past medical history of COPD on home O2, left lower extremity DVT present with 2 weeks of increasing bilateral lower extremity edema and increased pain and redness to the left lower extremity. She denies any chest pain, shortness of breath, fever or cough. Related Data Home Medications Medication Instructions Recorded Confirmed ascorbic acid (vitamin C) [Vitamin 500 mg PO DAILY 05/24/13 02/25/21 C] ketoconazole 1 film TOPICAL BID PRN #1 tube 02/08/16 02/25/21 Briefs, Adult-Extra Large #90 ea 06/10/16 02/25/21 sennosides [Senokot] 1 tab-cap PO DAILY PRN #30 tab-cap 11/29/17 02/25/21 syringe with needle, safety 3 mL #10 each 10/14/19 02/25/21 23 gauge x 1 meclizine 12.5 mg tablet 12.5 mg PO TID PRN #90 tab 12/09/19 02/25/21 nicotine (polacrilex) 2 mg gum 2 mg BUCCAL Q2H PRN #100 ea 06/23/20 02/25/21 ipratropium bromide 17 2 puff IH QID #12.9 gm 08/14/20 02/25/21 mcg/actuation HFA aerosol inhaler cyanocobalamin (vitamin B-12) 1,000 mcg IM MONTHLY #1 vial 09/07/20 02/25/21 1,000 mcg/mL injection solution fluticasone fur. 100 mcg-umeclid 1 inh IH DAILY #28 each 09/11/20 02/25/21 62.5 mcg-vilant 25 mcg inhalat.powder citalopram 20 mg tablet 20 mg PO DAILY #90 tab-cap 09/14/20 02/25/21 oxybutynin chloride 5 mg tablet 5 mg PO TID #270 tab-cap 09/14/20 02/25/21 pantoprazole 40 mg tablet,delayed 40 mg PO DAILY #90 tab-cap 09/14/20 02/25/21 release trazodone 50 mg tablet 25 mg PO HS #45 tab-cap 09/14/20 02/25/21 albuterol sulfate 90 mcg/actuation 2 puff INHALATION Q4H PRN #3 09/16/2002/25 aerosol inhaler inhaler lovastatin 40 mg tablet 40 mg PO DAILY #90 tab 09/16/20 02/25/21 primidone 250 mg tablet 250 mg PO HS #180 tab 11/23/20 02/25/21 loperamide 2 mg capsule 2 mg PO QID PRN #30 cap 01/14/21 02/25/21 bisacodyl 5 mg tablet,delayed 5 mg PO BID PRN #60 tab 01/18/21 02/25/21 release polyethylene glycol 3350 17 17 g PO DAILY PRN #510 gm 01/18/21 02/25/21 gram/dose oral powder ipratropium 0.5 mg-albuterol 3 mg 3 ml UPD Q4H #90 ml 02/24/21 02/25/21 (2.5 mg base)/3 mL nebulization soln furosemide 20 mg tablet 20 mg PO DAILY #14 tab 02/25/21 02/25/21 potassium chloride 20 mEq/15 mL 10 meq PO DAILY #120 ml 02/25/21 02/25/21 oral liquid Previous Rx's Medication Instructions Recorded syringe with needle, safety 3 mL #10 each 10/14/19 23 gauge x 1 meclizine 12.5 mg tablet 12.5 mg PO TID PRN #90 tab 12/09/19 nicotine (polacrilex) 2 mg gum 2 mg BUCCAL Q2H PRN #100 ea 06/23/20 ipratropium bromide 17 2 puff IH QID #12.9 gm 08/14/20 mcg/actuation HFA aerosol inhaler cyanocobalamin (vitamin B-12) 1,000 mcg IM MONTHLY #1 vial 09/07/20 1,000 mcg/mL injection solution fluticasone fur. 100 mcg-umeclid 1 inh IH DAILY #28 each 09/11/20 62.5 mcg-vilant 25 mcg inhalat.powder citalopram 20 mg tablet 20 mg PO DAILY #90 tab-cap 09/14/20 oxybutynin chloride 5 mg tablet 5 mg PO TID #270 tab-cap 09/14/20 pantoprazole 40 mg tablet,delayed 40 mg PO DAILY #90 tab-cap 09/14/20 release trazodone 50 mg tablet 25 mg PO HS #45 tab-cap 09/14/20 albuterol sulfate 90 mcg/actuation 2 puff INHALATION Q4H PRN #3 09/16/20 aerosol inhaler inhaler lovastatin 40 mg tablet 40 mg PO DAILY #90 tab 09/16/20 primidone 250 mg tablet 250 mg PO HS #180 tab 11/23/20 loperamide 2 mg capsule 2 mg PO QID PRN #30 cap 01/14/21 bisacodyl 5 mg tablet,delayed 5 mg PO BID PRN #60 tab 01/18/21 release polyethylene glycol 3350 17 17 g PO DAILY PRN #510 gm 01/18/21 gram/dose oral powder ipratropium 0.5 mg-albuterol 3 mg 3 ml UPD Q4H #90 ml 02/24/21 (2.5 mg base)/3 mL nebulization soln furosemide 20 mg tablet 20 mg PO DAILY #14 tab 02/25/21 potassium chloride 20 mEq/15 mL 10 meq PO DAILY #120 ml 02/25/21 oral liquid Allergies Allergy/AdvReac Type Severity Reaction Status Date / Time Penicillins Allergy Intermediate SKIN RASH Verified 02/25/21 14:02 adhesive AdvReac Mild Skin Rash Verified 02/25/21 14:02 from nicotine patch General Stated Complaint: Vascular BO: 3 Review of Systems All systems reviewed & are unremarkable except as noted in HPI and below Cardiovascular Cardiovascular: Denies chest pain, Reports pedal edema, Reports leg edema and Denies dyspnea Respiratory Respiratory: Reports cough, Denies hemoptysis and Denies dyspnea Gastrointestinal Gastrointestinal: Denies abdominal pain, Denies hematochezia and Denies diarrhea Genitourinary Genitourinary: Denies difficulty voiding PFSH Medical History Ixqjw-1-ksnohrzhrznjgohr deficiency (03/08/19) does not need tx Dr. Sargent B12 deficiency (07/29/14) Benign neoplasm of colon (11/22/12) Chronic airway obstruction, not elsewhere classified (11/22/12) Severe 01/2016 FEV1 36%; 11/2012 overnight O2 sat: no sig nocturnal hypoxia alpha 1 antitrypsin level NL 02/15/18 Last APt with Rosetta at sleep/pulmonary clinic 02/15/18 Depression Depression DVT of leg (deep venous thrombosis) Essential hypertension (08/23/17) Fx upper humerus-closed (03/05/13) GERD (gastroesophageal reflux disease) History of pneumonia Hyperlipidemia Hypomagnesemia (11/28/17) Influenza A Insomnia Left hip pain Mass of hepatic flexure of colon Mass of left ovary Memory loss (11/22/12) Mood disorder Other convulsions (11/22/12) Pneumonia Seizure disorder Sensorineural hearing loss, bilateral (05/25/15) Hearing Aids, Cheryl Marie, HIS Tendonitis of wrist, left (03/31/17) Tinnitus (09/04/14) Tobacco dependence syndrome (11/22/12) Unspecified hearing loss (11/22/12) Urinary incontinence (11/22/12) Surgical History H/O colonoscopy (~01/2021) 01/26/21 - 1 year colonoscopy recommended [facility] [place] [facility] H/O shoulder surgery per pt she reports she has never had shoulder surgery History of cataract surgery History of colonoscopy Family History Father COPD (chronic obstructive pulmonary disease) Social History Smoking/Tobacco Use Status: Current every day Tobacco Type: cigarettes Smoking risk assessment performed?: Yes Alcohol Intake: former Drug use: Current Sobriety Substance use type: former substance user Housing: apartment What type of physical activity do you participate in: walking Duration: 15-30 minutes/day Frequency: daily Seatbelt use: always Drive intox or ride w/intox horse and wagon driver: No Working smoke detector in home: Yes Fire extinguisher in home: Yes Carbon monox detector in home: Yes Do you feel safe at home: Yes Do you feel safe in your relationship?: Yes Exam Narrative Exam Narrative: Constitutional: Alert and oriented x3. Appears stated age. Normal body habitus. Head: Normocephalic, no trauma. Eyes: Pupils PERRLA, Red reflex noted, EOM's intact. Eyelids symmetrical without lesions, discharge, or swelling. ENT: Bilateral TM's WNL, External ear normal to inspection, no mastoid TTP, swelling, or erythema, Nasal turbinates WNL, no nasal discharge. Normal dentition, Posterior pharynx WNL, no exudate. Chest: RRR, Normal S1, S2, distal pulses intact. Resp: Scattered expiratory wheezes throughout all lung salomon. Prolonged expiratory time. Musculoskeletal: Unable to assess gait. Patient has 2+ bilateral pitting edema to lower extremities there is some erythema noted to the left lower extremity and tenderness with palpation. Skin: Erythema and swelling noted to left lower extremity. 2+ pitting edema noted to bilateral lower extremities. Capillary refill less than 2 sec. Neurologic: Cranial nerves II-XII intact. Alert and oriented x 3. Hematologic/Lymphatic: No ecchymosis, no lymphadenopathy. Course Vital Signs Vital signs: Vital Signs Temperature 36.4 C L 02/23/21 13:48 Pulse 76 02/23/21 13:48 Respiratory Rate 20 02/23/21 13:48 Blood Pressure 128/67 02/23/21 13:48 Pulse Oximetry 97 02/23/21 13:48 Temperature 36.4 C L 02/23/21 13:48 Temperature Source Skin 02/23/21 13:48 Pulse 79 02/23/21 13:54 Respiratory Rate 20 02/23/21 13:48 Respiratory Effort Non-Labored 02/23/21 13:56 Blood Pressure 128/67 02/23/21 13:54 Blood Pressure Mean 82 02/23/21 13:54 Blood Pressure Position Supine 02/23/21 13:48 Pulse Oximetry 98 02/23/21 13:54 Oxygen Delivery Method Nasal Cannula 02/23/21 13:48 Oxygen Flow Rate 3 02/23/21 13:48 Pain Level 1 02/23/21 13:48
[2021-02-23 14:09] LABS: Abs Immature Grans 0.01 10^3/uL (0.0-0.06); Absolute Basophil Count 0.05 10^3/uL (0.0-0.2); Absolute Eosinophil Count 0.45 10^3/uL (0.0-0.7); Absolute Lymphocyte Count 2.17 10^3/uL (1.2-3.4); Absolute Monocyte Count 0.49 10^3/uL (0.1-0.8); Absolute Neutrophil Count 4.52 10^3/uL (1.2-6.7); Basophils % 0.7; Eosinophils % 5.9; HCT 39.8 % (36.0-46.0); HGB 12.4 g/dL (11.2-15.7); Immature Grans % 0.1; Lymphocytes % 28.2; MCH 30.5 pg (27.0-33.0); MCHC 31.2 % (32.0-36.0); MPV 10.3 fL (8.0-11.0); Monocytes % 6.4; Neutrophils % 58.7; Nucleated RBC 0 %; Platelet Count 230 10^3/uL (130-400); RBC 4.06 10^6/uL (3.93-5.22); RDW 13.7 % (11.7-14.6); RDW-SD 49.9 fL; WBC 7.69 10^3/uL (4.4-10.8)
[2021-02-23 14:28] LABS: ALT 12 U/L (14-59); AST 11 U/L (15-37); Albumin 3.4 g/dL (3.4-5.0); Alkaline Phosphatase 80 U/L (46-116); Anion Gap 0.3 mmol/L (3-11); BUN 11 mg/dL (7-18); Bilirubin, Total 0.2 mg/dL (0.2-1.0); CO2 37.7 mmol/L (21.0-32.0); CREATININE 0.8 mg/dL (0.55-1.02); Calcium 8.7 mg/dL (8.5-10.1); Chloride 106 mmol/L (98-107); Glucose 106 mg/dL (74-106); Magnesium 2.2 mg/dL (1.8-2.4); NT-proBNP 288 pg/mL (<300); Potassium 3.7 mmol/L (3.5-5.1); Sodium 144 mmol/L (136-145); Total Protein 6.9 g/dL (6.4-8.2)
[2021-02-23 14:31] LABS: Troponin I < 0.05 ng/mL (<0.06)
[2021-02-23] MEDS: Albuterol/Ipratropium 3 ML UPD VIAL UPD (15:30)
[2021-02-23 16:26] VITALS: BP 114/68; PULSE 71; TEMP 36.3; O2SAT 100
== END 2021-02-23 17:10 | disposition home or self-care (01) ==
PROVIDERS: Emergency Provider Registered Nurse Emergency; PCP Nurse Practitioner
DX: R60.0 Localized edema (principal); J44.9 Chronic obstructive pulmonary disease, unspecified; M79.604 Pain in right leg; M79.605 Pain in left leg; F17.210 Nicotine dependence, cigarettes, uncomplicated
CPT/HCPCS: 36415; 80053; 93005; 94640; 99285; 71046; 83735; 83880; 84484; 85025; 93010; 93970; 99284; J7620

== ENCOUNTER 2021-04-15 15:17 | Outpatient (REF) | payer MEDICAID, SELFPAY ==
[2021-04-15 17:54] LABS: Anion Gap -3.1 mmol/L (3-11); BUN 10 mg/dL (7-18); CO2 41.1 mmol/L (21.0-32.0); CREATININE 0.8 mg/dL (0.55-1.02); Calcium 8.9 mg/dL (8.5-10.1); Chloride 106 mmol/L (98-107); Glucose 80 mg/dL (74-106); Potassium 4.2 mmol/L (3.5-5.1); Sodium 144 mmol/L (136-145)
== END 2021-04-15 15:18 | disposition home or self-care (01) ==
LOC: LBN 15:17
PROVIDERS: PCP Nurse Practitioner; Visit Provider Nurse Practitioner
DX: R79.9 Abnormal finding of blood chemistry, unspecified (principal)
CPT/HCPCS: 80048

== ENCOUNTER 2021-04-27 14:59 | Outpatient (REF) | payer MEDICAID, SELFPAY ==
[2021-04-27 15:55] LABS: Anion Gap 5.8 mmol/L (3-11); BUN 9 mg/dL (7-18); CO2 34.2 mmol/L (21.0-32.0); CREATININE 0.7 mg/dL (0.55-1.02); Calcium 9.1 mg/dL (8.5-10.1); Chloride 105 mmol/L (98-107); Glucose 76 mg/dL (74-106); Potassium 4.1 mmol/L (3.5-5.1); Sodium 145 mmol/L (136-145)
== END 2021-04-27 15:00 | disposition home or self-care (01) ==
LOC: LBN 14:59
PROVIDERS: PCP Nurse Practitioner; Visit Provider Nurse Practitioner
DX: R79.9 Abnormal finding of blood chemistry, unspecified (principal)
CPT/HCPCS: 80048

== ENCOUNTER 2021-05-11 17:16 | Outpatient (REF) | payer MEDICAID, SELFPAY ==
--- OUTSIDE RECORDS SUMMARY | 2021-05-11 17:22 | XMS_ITS ---
:1960 Author Care Team Providers Name Role Phone [facility] Primary Care Provider [phone] MIHAELA RODRIGES NP Primary Care Provider [phone] Allergies Code Code System Name Reaction Severity Status Onset Adhesive Rash ? Active ? Penicillins Rash ? Active ? Medications Name Status Start Date Stop Date ? ? Advair HFA 115 mcg-21 mcg/actuation aerosol inhaler Completed ? 02/15/2018 Inhale 2 puffs twice a day by inhalation route. Anoro Ellipta 62.5 mcg-25 mcg/actuation powder for inhalation Co mpleted ? 07/18/2019 Inhale 1 puff every day by inhalation route. citalopram 20 mg tablet Active ? Not avai lable Take 1 tablet every day by oral route. cyanocobalamin (vit B-12) 1,000 mcg/mL injection solution Active ? Not available Inject 1 mL every month by intramuscular route. ipratropium 0.5 mg-albuterol 2.5 mg/2.5 mL solution for nebuliza tion Active ? Not available daily ipratropium 0.5 mg-albuterol 3 mg (2.5 mg base)/3 mL nebulizatio n soln Active ? Not available USE DAILY VIA NEBULIZATION DIRECTED ketoconazole Completed ? 03/08/2019 lovastatin 40 mg tablet Active ? Not avai lable Take 1 tablet every day by oral route. Mag-Oxide 400 mg tablet Active ? Not avai lable Take 1 tablet every day by oral route. oxybutynin chloride 5 mg tablet Active ? Not available Take 1 tablet 3 times a day by oral route. pantoprazole 40 mg tablet,delayed release Active ? Not available Take 1 tablet every day by oral route. potassium chloride Active ? Not available primidone 250 mg tablet Active ? Not avai lable Take 1 tablet 3 times a day by oral route. ProAir HFA Active ? Not available Senokot 8.6 mg tablet Active ? Not availa ble Take 1 tablet every day by oral route. Spiriva with HandiHaler 18 mcg and inhalation capsules Completed ? 02/15/2018 Inhale 1 capsule every day by inhalation route. Symbicort 160 mcg-4.5 mcg/actuation HFA aerosol inhaler Complete d ? 09/20/2018 Inhale 2 puffs twice a day by inhalation route. trazodone 50 mg tablet Active ? Not avail able Take 0.5 tablets every day by oral route. Trelegy Ellipta 100 mcg-62.5 mcg-25 mcg powder for inhalation Ac tive ? Not available Inhale 1 puff every day by inhalation route. Vitamin C 500 mg tablet Active ? Not avai lable Take by oral route. Problems Name Status Onset Date Source ? Benign Neoplasm of Colon Active 01/12/2018 ? Vitamin B12 Deficiency (Non Anemic) Active 01/12/2018 ? Hyperlipidemia Active 01/12/2018 ? Tobacco Dependence Syndrome Active 01/12/2018 ? Depressive Disorder Active 01/12/2018 ? Tinnitus Active 01/12/2018 ? Other Abnormal Auditory Perception Active 01/12/2018 ? Sensorineural Hearing Loss Active 01/12/2018 ? Deep Venous Thrombosis Active 01/12/2018 ? Chronic Obstructive Lung Disease Active 01/12/2018 ? Respiratory Obstruction Active 01/12/2018 ? Gastroesophageal Reflux Disease Active 01/12/2018 ? Memory Impairment Active 01/12/2018 ? Urinary Incontinence Active 01/12/2018 ? Fracture of Upper End of Humerus Active 01/12/2018 ? Tendonitis of Left Wrist Active 01/12/2018 ? Procedures Date Name Performed by ? 02/09/2018 Cataract Surgery Information not avai lable Notes: Right eye 01/18/2018 LDCT, Chest, for Lung Cancer Xray [facility] [address] [place], [place] [address] ([address] 02/15/2018 LDCT, Chest, for Lung Cancer Xray [facility] [address] [place] [address] ([facility] [address]) 09/28/2018 LDCT, Chest, for Lung Cancer Xray [facility] [address] [place] [address] ([facility]) 11/02/2018 US, Liver Xray [facility] [address] [place] [address] ([facility]) 03/08/2019 LDCT, Chest, for Lung Cancer Xray [facility] [address] [place], [place] [address] ([facility]) 05/01/2020 LDCT, Chest, for Lung Cancer Xray [facility] [address] [place], [place] [address] ([address]) Results Lab Results None recorded. Past Encounters 05/01/2020 Chronic Obstructive Lung Disease; Tobacc o Dependence Syndrome Senia Otero MD: [address] [place] [address] [address], [place] [address], Ph. Social History Tobacco Smoking Status Current Every Day Smoker Notes: 44 yrs. X 1.5 ppd, cutting down to 1/2 cigarette per day Vaccine List Vaccine Type influenza, injectable, quadrivalent 04/09/2018 04/05/2019 pneumococcal conjugate PCV 13 10/23/2016 pneumococcal polysaccharide PPV23 1992 07/07/2010 Tdap 01/28/2015 Plan of Care Reminders Provider Appointments None ? ? recorded. Lab None ? ? recorded. Referral None ? ? recorded. Procedures None ? ? recorded. Surgeries None ? ? recorded. Imaging None ? ? recorded. Vitals 05/01/2020 11:30AM Office 15 Height Weight BMI Blood Pressure 157.48 cm 72 kg 29 kg/m2 122/70 mm[Hg] 07/18/2019 01:30PM Office 30 Height Weight BMI Blood Pressure 157.48 cm 72.95 kg 29.4 kg/m2 128/80 mm[Hg] 03/08/2019 02:15PM Office 30 Height Weight BMI Blood Pressure 157.48 cm 73.85 kg 29.8 kg/m2 140/80 mm[Hg] 11/02/2018 10:00AM Office 30 Height Weight BMI Blood Pressure 157.48 cm 73.7 kg 29.7 kg/m2 110/70 mm[Hg] 09/28/2018 02:15PM Office 30 Height Weight BMI Blood Pressure 157.48 cm 74.3 kg 30 kg/m2 130/70 mm[Hg] 02/15/2018 09:30AM Office 30 Height Weight BMI Blood Pressure 157.48 cm 71 kg 28.6 kg/m2 120/82 mm[Hg] 01/18/2018 11:15AM Office 15 Height Weight BMI Blood Pressure 157.48 cm 68.95 kg 27.8 kg/m2 120/80 mm[Hg]
[2021-05-13 15:03] LABS: COVID-19 RT-PCR UVMMC Result Negative (Negative)
== END 2021-05-11 17:17 | disposition home or self-care (01) ==
LOC: LBN 17:16
PROVIDERS: PCP Nurse Practitioner; Visit Provider Nurse Practitioner
DX: Z20.822 Contact with and (suspected) exposure to COVID-19 (principal)
CPT/HCPCS: U0003

== ENCOUNTER 2021-06-10 03:12 | Outpatient (CLI) | payer MEDICAID, SELFPAY | END 2021-06-10 03:13 | disposition home or self-care (01) | LOC: RT 03:12 | PROVIDERS: PCP Nurse Practitioner; Visit Provider Student in an Organized Health Care Education/Training Program | DX: J96.01 Acute respiratory failure with hypoxia (principal); J96.02 Acute respiratory failure with hypercapnia | CPT/HCPCS: 94762 ==

== ENCOUNTER 2021-06-22 01:50 | Outpatient (CLI) | payer MEDICAID, SELFPAY ==
--- NOTE | 2021-06-22 07:15 | DI.CTLCSR_ITS ---
Exam(s) CT CHEST LUNG CANCER SCREEN EXAM: CT CHEST LUNG CANCER SCREEN CLINICAL HISTORY: Screening for lung cancer,current smoker, f17.210 TECHNIQUE: Imaging Protocol: Axial computed tomography images with coronal and sagittal reformatted images were created and reviewed COMPARISON: CT CT CHEST LUNG CANCER SCREEN from 02/11/2020 FINDINGS: The examination is limited due to patient motion artifact. Tracheobronchial tree: Patent where visualized. Pulmonary parenchyma: Stable scarring is seen in the left lung apex. Small areas of consolidation ar e seen in the right middle lobe and right lower lobe. Moderate centrilobular emphysematous changes a re present. There is a calcified granuloma in the right upper lobe corresponding to the nodule seen on the prior examination. Lung Nodules: No new pulmonary nodules. Mediastinum and Urvashi: No dominant adenopathy or fluid collection. The esophagus is grossly unremarkab le. Thyroid gland: Unremarkable. Evaluation is limited due to patient motion. Lymph nodes: Unremarkable. Pleura: No effusion or pneumothorax. Heart: The heart is not dilated. No coronary artery calcifications are seen. No pericardial effusion . Aorta: Thoracic aorta non-dilated.Atherosclerosis. Upper abdomen: Unremarkable. Soft Tissues: Unremarkable. Bones: Within normal limits. IMPRESSION: 1. Stable calcified granuloma in the right upper lobe. 2. No new pulmonary nodules. 3. Small areas of consolidation in the right middle lobe in the right lower lobe. This may represent atelectasis or pneumonia. Please correlate clinically. Lung RADS Cat 1 - Negative: No nodules and definitely benign nodules Lung-RADS 1.0 CATEGORIES: Category 0 - Prior chest CT exam(s) being located for comparison. Category 1 - Annual screening in 12 months. No nodules or definitely benign nodules. Category 2 - Annual screening in 12 months. Benign appearance. Nodules with low likelihood of becomin g active cancer. Category 3 - 6-month follow-up. Probably benign. Short-term follow-up suggested. Nodules with low lik elihood of becoming active cancer. Category 4A - 3-month follow-up and CT/PET if >8 mm in size. Suspicious finding. Findings which requi re additional testing. Category 4B - Findings which require additional testing and tissue sampling. Suspicious finding. Modifier S- Potentially clinically significant finding. (Non lung cancer) RADIATION DOSE DELIVERED: 77.01mGy.cm Total DLP 1.84mGy CTDIvol 77.01mGy.cm Total DLP 1.84mGy CTDIvol DATA REPOSITORY: All CT scans at this facility are submitted to the National Radiology Data Registry (NRDR) Dose Index Registry (DIR) with the [employer] ([employer]). RADIATION OPTIMIZATION: All CT scans at this facility use at least one of these dose optimization te chniques: automated exposure control; mA and/or kV adjustment per patient size (includes targeted exa ms where dose is matched to clinical indication); or iterative reconstruction.
== END 2021-06-22 02:10 ==
PROVIDERS: PCP Nurse Practitioner; Visit Provider Student in an Organized Health Care Education/Training Program
DX: Z12.2 Encounter for screening for malignant neoplasm of respiratory organs (principal); F17.210 Nicotine dependence, cigarettes, uncomplicated; R91.8 Other nonspecific abnormal finding of lung field; J98.4 Other disorders of lung
CPT/HCPCS: 71271

== ENCOUNTER 2021-08-26 12:36 | Outpatient (REF) | payer MEDICAID, SELFPAY ==
[2021-08-26 14:51] LABS: HGB 11.9 g/dL (11.2-15.7); MCH 29.8 pg (27.0-33.0); MCHC 31.3 % (32.0-36.0); MPV 10.9 fL (8.0-11.0); Platelet Count 242 10^3/uL (130-400); RDW-SD 49.6 fL; WBC 9.26 10^3/uL (4.4-10.8)
[2021-08-26 15:14] LABS: ALT 18 U/L (14-59); AST 11 U/L (15-37); Albumin 3.7 g/dL (3.4-5.0); Alkaline Phosphatase 102 U/L (46-116); BUN 11 mg/dL (7-18); Bilirubin, Total 0.2 mg/dL (0.2-1.0); CREATININE 0.7 mg/dL (0.55-1.02); Calcium 9.1 mg/dL (8.5-10.1); Chloride 104 mmol/L (98-107); Glucose 90 mg/dL (74-106); Potassium 4.6 mmol/L (3.5-5.1); Sodium 144 mmol/L (136-145); TSH (W/Ref FT4) 1.27 uIU/mL (0.36-3.74); Total Protein 7.1 g/dL (6.4-8.2)
== END 2021-08-26 12:37 | disposition home or self-care (01) ==
LOC: LBN 12:36
PROVIDERS: PCP Nurse Practitioner; Visit Provider Nurse Practitioner
DX: R63.4 Abnormal weight loss (principal); I10 Essential (primary) hypertension
CPT/HCPCS: 80053; 85027; 84443

== ENCOUNTER 2021-10-14 01:15 | Outpatient (CLI) | payer MEDICAID, SELFPAY ==
--- NOTE | 2021-10-14 07:00 | DI.CT_ITS ---
Exam(s) CT ABDOMEN PELVIS W EXAM: CT ABDOMEN PELVIS W CLINICAL HISTORY: follow ovarian mass,D49.59 TECHNIQUE: Imaging Protocol: Axial computed tomography images with coronal and sagittal reformatted images were created and reviewed CONTRAST MATERIAL: Intravenous: Omnipaque 350 Contrast volume:100 mL Oral: Yes COMPARISON: CT CT ABDOMEN PELVIS W from 02/12/2020 FINDINGS: The examination is limited due to patient motion artifact. ABDOMEN: Lung Bases: There is again seen a small infiltrate in the right middle lobe. This may represent atel ectasis or scarring. Pneumonia cannot be excluded. Please correlate clinically. Liver: Normal density. No measurable mass. Portal, Superior Mesenteric, and Splenic Veins: Unremarkable. Gallbladder and Biliary Tract: No radiodense calculus or dilation. Pancreas: Normal density, no abnormal calcifications or inflammatory process. Spleen: Normal. Adrenals: There is stable nodularity of the left adrenal gland. The right adrenal gland is unremarka ble. Kidneys: Normal size, contour and axis. No radiodense stones or obstructive uropathy. No masses seen. Abdominal Aorta: Abdominal portion non-dilated. Atherosclerosis. Bowel: No obstruction or bowel wall thickening. Appendix is unremarkable. Peritoneal Cavity: No ascites, collection or mesenteric inflammatory response. No free air. Lymph Nodes: Within normal limits. Bones: Within normal limits for the patient's age. Soft Tissues: Unremarkable. PELVIS: Bladder: Symmetric distention, no gross wall thickening. Reproductive Organs: There has been interval increase in size of the left adnexal mass since 02/12/2020 . Current measurements are 7.1 AP by 6.6 transverse by 7.6 craniocaudad. This compares to 5.8 AP by 6.6 transverse by 5.7 craniocaudad. Lymph Nodes: Within normal limits. Bones: Within normal limits for the patient's age. IMPRESSION: 1. Interval increase in size of the left adnexal mass since 02/12/2020. 2. Small infiltrate in the right middle lobe. This may represent atelectasis, scarring or pneumonia. Please correlate clinically. RADIATION DOSE DELIVERED: 2,178.34mGy.cm Total DLP DATA REPOSITORY: All CT scans at this facility are submitted to the National Radiology Data Registry (NRDR) Dose Index Registry (DIR) with the [employer] (ACR). RADIATION OPTIMIZATION: All CT scans at this facility use at least one of these dose optimization te chniques: automated exposure control; mA and/or kV adjustment per patient size (includes targeted exa ms where dose is matched to clinical indication); or iterative reconstruction.
[2021-10-14] MEDS: Omnipaque 350 MG/ML 50 ML BTL PO (07:35)
[2021-10-14] MEDS: Breeza Beverage 473 ML BTL PO ×2 (07:41→07:42)
[2021-10-14] MEDS: Omnipaque 350 MG/ML 100 ML BTL IJ (09:13)
== END 2021-10-14 01:35 ==
PROVIDERS: PCP Nurse Practitioner; Visit Provider Nurse Practitioner
DX: D39.12 Neoplasm of uncertain behavior of left ovary (principal); R91.8 Other nonspecific abnormal finding of lung field; R19.09 Other intra-abdominal and pelvic swelling, mass and lump
CPT/HCPCS: 74177; J3490; Q9967

== ENCOUNTER 2021-11-14 05:02 | Emergency (ER) | payer MEDICAID, SELFPAY ==
[2021-11-14] VITALS (49 sets, daily range): BP systolic 93–142; BP diastolic 29–76; PULSE 69–104; RESP 18–39; TEMP 37–37.2; O2SAT 96–100
--- NOTE | 2021-11-14 05:15 | DI.RAD_ITS ---
Exam(s) XR PORTABLE CHEST AP EXAM: XR PORTABLE CHEST AP CLINICAL HISTORY: shortness of breath TECHNIQUE: COMPARISON: CR XR CHEST 2V PA LATERAL from 02/23/[address] CHEST LUNG CANCER SCREEN from 06/22/2021 FINDINGS: The heart is not enlarged. There a are changes of COPD and pulmonary scarring. No gross acute conso lidation seen. No pleural effusion on this frontal film. IMPRESSION: No evidence of acute process. RADIATION DOSE DELIVERED: Total DLP
--- NOTE | 2021-11-14 05:17 | NUR.NOTE ---
Nursing Note: Patient has bilateral hearing aids present upon arrival.
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
--- NOTE | 2021-11-14 05:30 | RT.EKG_ITS ---
APPROVED REPORT Exam: Resting ECG Reason for Exam: short of breath Patient Location: E HR:71 bpm ECG Measurements Heart Rate 71 AXIS LA 157 P 58 QRSd 92 QRS 52 QT 393 T 55 QTc 429 Conclusion Sinus rhythm...normal P axis, V-rate 60- 99
[2021-11-14 05:35] LABS: BE (Venous) 10 mmol/L (-2-3); HCO3 (Venous) 36 mmol/L (23-28); O2 Sat (Venous) 61 %; TCO2 (Venous) 34 mmol/L (24-29); pH (Venous) 7.32 (7.31-7.41); pO2 (Venous) 30 mmHg
[2021-11-14 05:39] LABS: Abs Immature Grans 0.01 10^3/uL (0.0-0.06); Absolute Basophil Count 0.07 10^3/uL (0.0-0.2); Absolute Eosinophil Count 0.58 10^3/uL (0.0-0.7); Absolute Lymphocyte Count 2.38 10^3/uL (1.2-3.4); Absolute Monocyte Count 0.63 10^3/uL (0.1-0.8); Absolute Neutrophil Count 3.73 10^3/uL (1.2-6.7); Basophils % 0.9; Eosinophils % 7.8; HCT 39.3 % (36.0-46.0); HGB 12.3 g/dL (11.2-15.7); Immature Grans % 0.1; Lymphocytes % 32.2; MCH 30.8 pg (27.0-33.0); MCHC 31.3 % (32.0-36.0); MCV 99 fL (80-95); MPV 10.6 fL (8.0-11.0); Monocytes % 8.5; Neutrophils % 50.5; Platelet Count 223 10^3/uL (130-400); RBC 3.99 10^6/uL (3.93-5.22); RDW 13.3 % (11.7-14.6); RDW-SD 48.7 fL
[2021-11-14 05:40] LABS: Source Nasal/Nares
[2021-11-14 05:43] LABS: pCO2 (Venous) 70 mmHg (41-51)
[2021-11-14] MEDS: methylPREDNISolone SUCC 125 MG VIAL IVP (05:43)
[2021-11-14] MEDS: Albuterol/Ipratropium 3 ML UPD VIAL UPD ×2 (05:44)
[2021-11-14 06:04] LABS: NT-proBNP 195 pg/mL (<300)
[2021-11-14 06:09] LABS: ALT 14 U/L (14-59); AST 14 U/L (15-37); Albumin 3.7 g/dL (3.4-5.0); Alkaline Phosphatase 103 U/L (46-116); Anion Gap -0.1 mmol/L (3-11); BUN 15 mg/dL (7-18); Bilirubin, Total 0.2 mg/dL (0.2-1.0); CO2 37.1 mmol/L (21.0-32.0); CREATININE 0.8 mg/dL (0.55-1.02); Calcium 9.2 mg/dL (8.5-10.1); Chloride 105 mmol/L (98-107); Glucose 88 mg/dL (74-106); Sodium 142 mmol/L (136-145); Total Protein 7.4 g/dL (6.4-8.2); Troponin I < 50 ng/L (<or=60)
[2021-11-14 06:36] LABS: COVID-19 PCR Negative (Negative)
--- NOTE | 2021-11-14 07:09 | DI.VRAD_ITS ---
PROCEDURE INFORMATION: Exam: XR Chest Exam date and time: 11/14/2021 5:27 AM Age: 61 years old Clinical indication: Shortness of breath TECHNIQUE: Imaging protocol: XR of the chest. Views: 1 view. COMPARISON: CT CHEST LUNG CANCER SCREEN 06/22/2021 11:24 AM FINDINGS: Lungs: Unremarkable. No consolidation. Pleural spaces: Unremarkable. No pleural effusion. No pneumothorax. Heart/Mediastinum: Unremarkable. No cardiomegaly. Bones/joints: Unremarkable. IMPRESSION: No acute findings. Dictated and Authenticated by: Tanvir Hernandez MD. Ordering:MILLICENT Suazo MD
[2021-11-14 07:46] LABS: BE (Venous) 8 mmol/L (-2-3); HCO3 (Venous) 31 mmol/L (23-28); O2 Sat (Venous) 99 %; TCO2 (Venous) 28 mmol/L (24-29); pCO2 (Venous) 39 mmHg (41-51); pH (Venous) 7.51 (7.31-7.41); pO2 (Venous) 119 mmHg
[2021-11-14 09:00] LABS: Troponin I < 50 ng/L (<or=60)
[2021-11-14] MEDS: Inhaler, Assist Device 1 EACH MC (09:31)
[2021-11-14] MEDS: Albuterol HFA 8 GM 60 PUFF INH IH (09:31)
== END 2021-11-14 09:52 | disposition home or self-care (01) ==
PROVIDERS: Student in an Organized Health Care Education/Training Program; Emergency Provider Physician Assistant; PCP Nurse Practitioner
DX: J44.1 Chronic obstructive pulmonary disease with (acute) exacerbation (principal); F17.210 Nicotine dependence, cigarettes, uncomplicated; Z20.822 Contact with and (suspected) exposure to COVID-19; R06.02 Shortness of breath
CPT/HCPCS: 36415; 80053; 82805; 87635; 93005; 94640; 96374; 99284; 71045; 83880; 84484; 85025; 93010; J2930; J7620

== ENCOUNTER 2021-11-14 12:14 | Emergency (ER) | payer MEDICAID, SELFPAY ==
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
[2021-11-14 12:13] VITALS: O2SAT 97
[2021-11-14 13:00] VITALS: BP 110/64; PULSE 86; RESP 18; O2SAT 97
== END 2021-11-14 13:20 | disposition home or self-care (01) ==
PROVIDERS: Emergency Provider Physician Assistant; PCP Nurse Practitioner
DX: J44.9 Chronic obstructive pulmonary disease, unspecified (principal); Z99.81 Dependence on supplemental oxygen
CPT/HCPCS: 99281

== ENCOUNTER 2022-02-05 06:26 | Inpatient (IN) | payer MEDICAID, SELFPAY ==
[2022-02-05] VITALS (49 sets, daily range): BP systolic 95–127; BP diastolic 52–78; PULSE 77–109; RESP 2–32; TEMP 36.1–37.1; O2SAT 89–98
--- NOTE | 2022-02-05 06:15 | RT.EKG_ITS ---
APPROVED REPORT Exam: Resting ECG Reason for Exam: shortness of breath Patient Location: E HR:100 bpm ECG Measurements Heart Rate 100 AXIS IA 172 P 76 QRSd 106 QRS 39 QT 383 T 54 QTc 494 Conclusion Sinus tachycardia...rate> 99
--- NOTE | 2022-02-05 06:45 | DI.RAD_ITS ---
Exam(s) XR PORTABLE CHEST AP EXAM: XR PORTABLE CHEST AP CLINICAL HISTORY: cough TECHNIQUE: COMPARISON: CR,XR XR PORTABLE CHEST AP from 11/14/2021 FINDINGS: The patient is rotated to the right. There are changes of pulmonary scarring. Cardiac size grossly unremarkable. Allowing for changes in positioning, there is question of new areas patchy opacification of the right lower lung field since prior radiographs of November 14. PA and lateral chest suggested for additional evaluation to determine if there is in fact a new intrapulmonary consolidation. IMPRESSION: RADIATION DOSE DELIVERED: Total DLP
[2022-02-05] MEDS: Albuterol/Ipratropium 3 ML UPD VIAL UPD ×5 (06:47→23:11)
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
[2022-02-05 06:58] LABS: Source Nasal/Nares
[2022-02-05 07:00] LABS: Abs Immature Grans 0.03 10^3/uL (0.0-0.06); Absolute Eosinophil Count 0.72 10^3/uL (0.0-0.7); Absolute Lymphocyte Count 2.04 10^3/uL (1.2-3.4); Absolute Monocyte Count 0.59 10^3/uL (0.1-0.8); Absolute Neutrophil Count 4.54 10^3/uL (1.2-6.7); Basophils % 1.2; HCT 37.6 % (36.0-46.0); HGB 11.8 g/dL (11.2-15.7); Immature Grans % 0.4; Lymphocytes % 25.4; MCHC 31.4 % (32.0-36.0); MCV 96 fL (80-95); Monocytes % 7.4; Neutrophils % 56.6; Platelet Count 246 10^3/uL (130-400); RBC 3.93 10^6/uL (3.93-5.22); RDW 13.7 % (11.7-14.6); RDW-SD 48.9 fL; WBC 8.02 10^3/uL (4.4-10.8)
[2022-02-05 07:01] LABS: BE (Venous) 11 mmol/L (-2-3); HCO3 (Venous) 36 mmol/L (23-28); O2 Sat (Venous) 90 %; TCO2 (Venous) 33 mmol/L (24-29); pH (Venous) 7.35 (7.31-7.41); pO2 (Venous) 56 mmHg
[2022-02-05 07:04] LABS: pCO2 (Venous) 65 mmHg (41-51)
[2022-02-05] MEDS: Ibuprofen 600 MG TAB PO (07:04)
[2022-02-05 07:28] LABS: Prothrombin Time 10.1 sec (9.3-11.0)
[2022-02-05 07:50] LABS: COVID-19 PCR Negative (Negative)
[2022-02-05 07:54] LABS: D-Dimer 340 ng/mlFEU (<500)
[2022-02-05 07:56] LABS: ALT 16 U/L (14-59); AST 20 U/L (15-37); Albumin 3.6 g/dL (3.4-5.0); Alkaline Phosphatase 78 U/L (46-116); Anion Gap 3.1 mmol/L (3-11); BUN 12 mg/dL (7-18); Bilirubin, Total 0.2 mg/dL (0.2-1.0); CO2 36.9 mmol/L (21.0-32.0); CREATININE 0.7 mg/dL (0.55-1.02); Chloride 103 mmol/L (98-107); Glucose 103 mg/dL (74-106); NT-proBNP 117 pg/mL (<300); Potassium 3.9 mmol/L (3.5-5.1); Sodium 143 mmol/L (136-145); TSH (W/Ref FT4) 0.56 uIU/mL (0.36-3.74); Total Protein 7.2 g/dL (6.4-8.2); Troponin I < 50 ng/L (<or=60)
[2022-02-05] MEDS: Albuterol 2.5 MG/3 ML INH SOLN VIAL UPD ×2 (07:56→11:32)
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
--- NOTE | 2022-02-05 09:14 | DI.VRAD_ITS ---
PROCEDURE INFORMATION: Exam: XR Chest Exam date and time: 02/05/2022 6:55 AM Age: 61 years old Clinical indication: Cough TECHNIQUE: Imaging protocol: Radiologic exam of the chest. Views: 1 view. COMPARISON: XR PORTABLE CHEST AP 11/14/2021 5:27 AM FINDINGS: Lungs: Patchy opacification in the right lower lung. Diffuse emphysematous changes. Pleural spaces: Unremarkable. No pleural effusion. No pneumothorax. Heart/Mediastinum: Unremarkable. No cardiomegaly. Bones/joints: Unremarkable. IMPRESSION: Patchy opacification in the right lower lung. Findings may relate to an acute airspace process such as pneumonia. Dictated and Authenticated by: Tanvir Hernandez MD. Ordering:FRANTZ Fam MD
[2022-02-05] MEDS: Azithromycin 250 MG TAB 500 MG PO (09:30)
--- NOTE | 2022-02-05 11:19 | NUR.NOTE ---
pt became SOB after the trip to the prior to D/C . she never really recoverd and became anxious . she was brought back from the waiting room to rm 6Nursing Note:
[2022-02-05] MEDS: LORazepam 0.5 MG TAB PO ×2 (11:32→20:10)
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
[2022-02-05] MEDS: Oxybutynin 5 MG TAB PO ×2 (14:37→19:38)
[2022-02-05] MEDS: Enoxaparin 40 MG/0.4 ML SYR SC (15:42)
[2022-02-05] MEDS: Albuterol 2.5 MG/3 ML INH SOLN VIAL IH (15:52)
[2022-02-05] MEDS: Lovastatin 40 MG TAB PO (19:38)
[2022-02-05] MEDS: Acetaminophen 325 MG TAB PO (19:38)
[2022-02-05] MEDS: Cefpodoxime 200 MG TAB PO (19:39)
[2022-02-05] MEDS: Primidone 250 MG TAB 125 MG PO (20:47)
[2022-02-05 21:34] LABS: Bilirubin Negative (Negative); Blood Small (Negative); Clarity Sl Cloudy (Clear); Glucose Negative (Negative); Ketones Negative (Negative); Leukocyte Esterase Small (Negative); Nitrite Positive (Negative); Urobilinogen 0.2 EU/dL (Up TO 0.2)
[2022-02-05 21:44] LABS: Bacteria Many HPF (Negative); C & S Indicated? No/Sq. Contamination; Casts Negative LPF (Negative); Crystals Negative HPF (Negative); Epithelial Cells Many HPF (Negative); Mucus Negative (Negative); RBC Negative HPF (0-2)
[2022-02-05] MEDS: Primidone 250 MG TAB PO (22:07)
[2022-02-05] MEDS: traZODone 50 MG TAB 100 MG PO (22:07)
[2022-02-06] VITALS (24 sets, daily range): BP systolic 101–119; BP diastolic 62–73; PULSE 77–101; RESP 2–24; TEMP 36.2–37.2; O2SAT 84–96
[2022-02-06] MEDS: Acetaminophen 325 MG TAB PO (01:25)
[2022-02-06] MEDS: Albuterol 2.5 MG/3 ML INH SOLN VIAL IH ×2 (02:34→18:53)
[2022-02-06] MEDS: methylPREDNISolone SUCC 125 MG VIAL 60 MG IVP ×3 (04:10→19:51)
[2022-02-06] MEDS: Albuterol/Ipratropium 3 ML UPD VIAL UPD ×5 (04:11→19:50)
[2022-02-06] MEDS: LORazepam 1 MG TAB PO ×2 (04:11→17:59)
[2022-02-06 04:34] LABS: BE (Venous) 11 mmol/L (-2-3); HCO3 (Venous) 36 mmol/L (23-28); O2 Sat (Venous) 93 %; TCO2 (Venous) 33 mmol/L (24-29); pH (Venous) 7.37 (7.31-7.41); pO2 (Venous) 62 mmHg
[2022-02-06 04:35] LABS: pCO2 (Venous) 62 mmHg (41-51)
[2022-02-06 04:38] LABS: Abs Immature Grans 0.03 10^3/uL (0.0-0.06); Absolute Basophil Count 0.07 10^3/uL (0.0-0.2); Absolute Eosinophil Count 0.33 10^3/uL (0.0-0.7); Absolute Monocyte Count 0.95 10^3/uL (0.1-0.8); Absolute Neutrophil Count 6.04 10^3/uL (1.2-6.7); Basophils % 0.6; HCT 38.3 % (36.0-46.0); Immature Grans % 0.3; Lymphocytes % 33.3; MCH 30.3 pg (27.0-33.0); MCHC 31.3 % (32.0-36.0); MCV 97 fL (80-95); MPV 11.6 fL (8.0-11.0); Monocytes % 8.5; Neutrophils % 54.3; Platelet Count 212 10^3/uL (130-400); RBC 3.96 10^6/uL (3.93-5.22); RDW 13.8 % (11.7-14.6); RDW-SD 49.1 fL; WBC 11.12 10^3/uL (4.4-10.8)
[2022-02-06 04:46] LABS: Anion Gap 2.3 mmol/L (3-11); BUN 20 mg/dL (7-18); CO2 35.7 mmol/L (21.0-32.0); CREATININE 0.7 mg/dL (0.55-1.02); Calcium 8.9 mg/dL (8.5-10.1); Chloride 104 mmol/L (98-107); Glucose 110 mg/dL (74-106); Magnesium 2.1 mg/dL (1.8-2.4); Potassium 3.9 mmol/L (3.5-5.1); Sodium 142 mmol/L (136-145)
[2022-02-06] MEDS: Ascorbic Acid 500 MG TAB PO (09:15)
[2022-02-06] MEDS: Primidone 250 MG TAB 125 MG PO ×2 (09:15→19:49)
[2022-02-06] MEDS: Azithromycin 250 MG TAB 500 MG PO (09:16)
[2022-02-06] MEDS: Pantoprazole 40 MG TABCR PO (09:16)
[2022-02-06] MEDS: Cefpodoxime 200 MG TAB PO ×2 (09:16→19:49)
[2022-02-06] MEDS: Citalopram 20 MG TAB 40 MG PO (09:16)
[2022-02-06] MEDS: Oxybutynin 5 MG TAB PO ×3 (09:17→19:49)
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
[2022-02-06] MEDS: Normal Saline Flush 10 ML SYR IVP ×2 (12:21→19:51)
[2022-02-06] MEDS: Enoxaparin 40 MG/0.4 ML SYR SC (15:13)
--- NOTE | 2022-02-06 17:18 | W.PM.PROGNOT ---
Date of Service Date of service: 02/06/22 Time of Service: 17:18 Assessment and Plan Assessment and plan (1) COPD with exacerbation: Start date: 02/05/22 Start time: 14:37 Status: Acute Assessment and plan: LABA, TRAE refuses IV; PO azithromycin, prednisone, cefpodoxime; Sophy wants to go home, stated she was going to go AMA - see above (2) UTI (urinary tract infection): Status: Acute Assessment and plan: Last night Sophy c/o soome pressure with urination - a urine was checked and found to be infected, abx started. (3) Depression: Start date: 02/05/22 Start time: 14:37 Status: Chronic Assessment and plan: Stable; continue home medications Qualifiers: Depression Type: unspecified Qualified Code(s): F32.9 - Major depressive disorder, single episode, unspecified (4) Pelvic mass in female: Start date: 02/05/22 Start time: 14:37 Status: Acute Assessment and plan: Currently she is being worked up by [facility]; no current abdominal pain, denies vag discharge (5) Gastroesophageal reflux disease: Start date: 02/05/22 Start time: 14:37 Status: Chronic Assessment and plan: Stable; continue pantoprazole Qualifiers: Esophagitis presence: esophagitis presence not specified Qualified Code(s): K21.9 - Gastro-esophageal reflux disease without esophagitis (6) Nicotine dependence, cigarettes, uncomplicated: Start date: 02/05/22 Start time: 14:38 Status: Acute Assessment and plan: She continues to smoke. We will review smoking cessation; provide nicotine gum (7) DVT prophylaxis: Start date: 02/05/22 Start time: 14:38 Status: Acute Assessment and plan: Enoxaparin (8) Discharge planning issues: Start date: 02/05/22 Start time: 14:38 Status: Acute Assessment and plan: Assist Home without services Discussed w Dr Marquez Subjective Subjective Patient reports: no new complaints, tolerating liquids well, voiding w/o difficulty and shortness of breath (continued); denies diarrhea, vomiting or fever Interval history since last seen: Sophy has slight improvement today. She would like to go home. She was asking to sign out AMA. She did do an exercise oximetry and was at her baseline on 3 L/min which is the oxygen level that she uses at home. Today she was going to go home by RCT, however, she only has a half of tank of oxygen here with her and needs someone to bring her a tank so she has enough oxgen to last for the ride home. we recommended she not do that she agreed. She continues to have shortness of breath with speaking. She does report her current respiratory status is her baseline and she feels she is doing the best that she can with her chronic condition and will be succesful at home. She is concerned about tomorrow being the first of the month and several things that she has to take care of regarding that. She feels that she is able to go home and be independent and return to life as it was prior to admission. She is taking her medications willingly and did eat lunch. She has no complaints of dysuria. Culture is pending. Exam Narrative Exam Narrative: Const General: cooperative (older appearing than stated age), moderate distress at baseline, frail appearing and ill appearing chronically Nutritional Appearance: average body habitus Orientation: alert, awake and oriented x3 HENMT Head: normal to inspection, normocephalic and atraumatic Mouth: oral mucosae dryl Resp Effort & Inspection: abnormal respiratory pattern and cough Auscultation: distant, expiratory wheezes throughout, 3-5 word dyspnea Cardio: Rate: regular rate Rhythm: regular rhythm Heart Sounds: no murmurs GI Inspection: non-distended Palpation: soft and nontender Auscultation: hypoactive bowel sounds General: deferred Skin General skin exam: no rashes or lesions noted Neuro General: alert, awake and oriented x3 Extrem General: normal to inspection, full ROM Const General: no acute distress Orientation: alert HENMT Head: normal to inspection Ears: external ears normal General nose exam: external nose normal Mouth: moist mucous membranes Eyes General: appearance normal, both eyes and all related structures Neck Neck: normal visual inspection Resp Effort & Inspection: audible wheezes and no nasal flaring Cardio Rate: regular rate Skin General skin exam: no rashes or lesions noted Neuro General: patient alert and patient oriented x3 Extrem General: normal to inspection Psych Mental Status: mental status grossly normal Speech and Movement: speech and movement normal Mood: congruent mood Affect: normal affect Objective Last Vital Signs Temp 36.4 C L 02/06/22 15:40 Pulse 80 02/06/22 15:40 Resp 20 02/06/22 15:40 BP 101/63 02/06/22 15:40 Pulse Ox 95 02/06/22 15:40 Laboratory Results - last 24 hr 02/05/22 02/06/22 02/06/22 20:00 04:25 04:25 WBC 11.12 H RBC 3.96 Hgb 12.0 Hct 38.3 MCV 97 H MCH 30.3 MCHC 31.3 L RDW 13.8 Plt Count 212 MPV 11.6 H Immature Gran % 0.3 Neutrophils % 54.3 Lymphocytes % 33.3 Monocytes % 8.5 Eosinophils % 3.0 Basophils % 0.6 Nucleated RBC % 0.0 Absolute Neutrophils 6.04 Absolute Lymphocytes 3.70 H Absolute Monocytes 0.95 H Absolute Eosinophils 0.33 Absolute Basophils 0.07 VBG pH VBG pCO2 VBG pO2 VBG HCO3 VBG Total CO2 VBG O2 Saturation VBG Base Excess Sodium 142 Potassium 3.9 Chloride 104 Carbon Dioxide 35.7 H Anion Gap 2.3 L BUN 20 H Creatinine 0.7 Estimated GFR/1.73 m2 >= 60.00 Glucose 110 H Calcium 8.9 Magnesium 2.1 Urine Color Yellow Urine Clarity Sl Cloudy Urine pH 7.0 Ur Specific [place] 1.010 Urine Protein Negative Urine Ketones Negative Urine Blood Small H Urine Nitrite Positive H Urine Bilirubin Negative Urine Urobilinogen 0.2 Ur Leukocyte Esterase Small H Urine RBC Negative Urine WBC 3-5 Ur Epithelial Cells Many Urine Crystals Negative Urine Bacteria Many Urine Casts Negative Urine Mucus Negative Ur Culture Indicated? No/Sq. Contamination Urine Glucose Negative Add-On Test Request 02/06/22 02/06/22 04:25 Unknown WBC RBC Hgb Hct MCV MCH MCHC RDW Plt Count MPV Immature Gran % Neutrophils % Lymphocytes % Monocytes % Eosinophils % Basophils % Nucleated RBC % Absolute Neutrophils Absolute Lymphocytes Absolute Monocytes Absolute Eosinophils Absolute Basophils VBG pH 7.37 VBG pCO2 62 H* VBG pO2 62 VBG HCO3 36 H VBG Total CO2 33 H VBG O2 Saturation 93 VBG Base Excess 11 H Sodium Potassium Chloride Carbon Dioxide Anion Gap BUN Creatinine Estimated GFR/1.73 m2 Glucose Calcium Magnesium Urine Color Urine Clarity Urine pH Ur Specific [place] Urine Protein Urine Ketones Urine Blood Urine Nitrite Urine Bilirubin Urine Urobilinogen Ur Leukocyte Esterase Urine RBC Urine WBC Ur Epithelial Cells Urine Crystals Urine Bacteria Urine Casts Urine Mucus Ur Culture Indicated? Urine Glucose Add-On Test Request Cancelled Reviewed Pertinent PMH: Yes Objective Narrative Objective Narrative: Vital signs are stable
[2022-02-06] MEDS: Lovastatin 40 MG TAB PO (19:49)
[2022-02-06] MEDS: traZODone 50 MG TAB 100 MG PO (21:15)
[2022-02-06] MEDS: Primidone 250 MG TAB PO (21:15)
[2022-02-07] VITALS (11 sets, daily range): BP systolic 101–123; BP diastolic 63–76; PULSE 78–93; RESP 2–28; TEMP 36.6–37.1; O2SAT 90–95
[2022-02-07] MEDS: Albuterol/Ipratropium 3 ML UPD VIAL UPD ×4 (00:15→11:51)
[2022-02-07] MEDS: methylPREDNISolone SUCC 125 MG VIAL 60 MG IVP ×2 (04:07→11:50)
[2022-02-07] MEDS: Normal Saline Flush 10 ML SYR IVP ×2 (04:08→11:52)
[2022-02-07] MEDS: Albuterol 2.5 MG/3 ML INH SOLN VIAL IH ×2 (04:16→14:47)
[2022-02-07] MEDS: LORazepam 1 MG TAB PO ×2 (04:16→15:30)
[2022-02-07 06:38] LABS: Abs Immature Grans 0.02 10^3/uL (0.0-0.06); Absolute Basophil Count 0.02 10^3/uL (0.0-0.2); Absolute Eosinophil Count 0.01 10^3/uL (0.0-0.7); Absolute Lymphocyte Count 1.64 10^3/uL (1.2-3.4); Absolute Monocyte Count 0.41 10^3/uL (0.1-0.8); Absolute Neutrophil Count 5.95 10^3/uL (1.2-6.7); Basophils % 0.2; Eosinophils % 0.1; HCT 36.2 % (36.0-46.0); HGB 11.7 g/dL (11.2-15.7); Immature Grans % 0.2; Lymphocytes % 20.4; MCHC 32.3 % (32.0-36.0); MCV 96 fL (80-95); MPV 11.5 fL (8.0-11.0); Monocytes % 5.1; Platelet Count 221 10^3/uL (130-400); RBC 3.78 10^6/uL (3.93-5.22); RDW 14.1 % (11.7-14.6); RDW-SD 49.8 fL; WBC 8.05 10^3/uL (4.4-10.8)
[2022-02-07] MEDS: Fluticasone NASAL SPRAY 16 GM BTL NS (08:22)
[2022-02-07] MEDS: Cefpodoxime 200 MG TAB PO (08:23)
[2022-02-07] MEDS: Azithromycin 250 MG TAB 500 MG PO (08:23)
[2022-02-07] MEDS: Citalopram 20 MG TAB 40 MG PO (08:23)
[2022-02-07] MEDS: Ascorbic Acid 500 MG TAB PO (08:23)
[2022-02-07] MEDS: Oxybutynin 5 MG TAB PO ×2 (08:23→14:02)
[2022-02-07] MEDS: Pantoprazole 40 MG TABCR PO (08:24)
[2022-02-07] MEDS: Primidone 250 MG TAB 125 MG PO (08:24)
--- NOTE | 2022-02-07 09:13 | PDOC.CMPRO ---
- If Service Date Differs Date of service: 02/07/22 Time of Service: 09:13 Care Management Progress Note S/O: Sophy was lying in bed when CM met with her. She would like to discharge home as soon as she can as she really finds her hospital bed uncomfortable. Earlier this afternoon Sophy was requesting to leave AMA, however after speaking with this pattern chart writer she is agreeable to stay at least another night and agrees that she is not well enough to discharge home. A: 61 year old female admitted to [facility] on 02/05/22 for COPD exacerbation P: Sophy will discharge home with a resumption of VNA services when medically cleared by provider. She will follow up with her PCP, pulmonology, and plan of care as instructed. She will be transported home via RCT coordinated by CM when ready. CM will continue to follow.
[2022-02-07] MEDS: Enoxaparin 40 MG/0.4 ML SYR SC (14:01)
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
== END 2022-02-07 15:55 | disposition left against medical advice (07) | DRG 191 ==
LOC: ER 12:22 → MS 12:44
PROVIDERS: Emergency Medicine; Family Medicine; Nurse Practitioner Family; Admitting Provider Internal Medicine; Emergency Provider Emergency Medicine; PCP Nurse Practitioner; Visit Provider Internal Medicine
DX: J44.1 Chronic obstructive pulmonary disease with (acute) exacerbation (principal); N39.0 Urinary tract infection, site not specified; F17.210 Nicotine dependence, cigarettes, uncomplicated; Z99.81 Dependence on supplemental oxygen; I10 Essential (primary) hypertension; K21.9 Gastro-esophageal reflux disease without esophagitis; R51.9 Headache, unspecified; E88.01 Alpha-1-antitrypsin deficiency; E78.5 Hyperlipidemia, unspecified; R79.89 Other specified abnormal findings of blood chemistry; R60.0 Localized edema; R29.898 Other symptoms and signs involving the musculoskeletal system; F32.A Depression, unspecified; G40.909 Epilepsy, unspecified, not intractable, without status epilepticus; I27.20 Pulmonary hypertension, unspecified; E53.8 Deficiency of other specified B group vitamins; E83.42 Hypomagnesemia; Z86.718 Personal history of other venous thrombosis and embolism; R32 Unspecified urinary incontinence; H90.3 Sensorineural hearing loss, bilateral; R19.00 Intra-abdominal and pelvic swelling, mass and lump, unspecified site
CPT/HCPCS: 36415; 80048; 80053; 82805; 87635; 93005; 94618; 94640; 99285; J1650; 71045; 81003; 81015; 83735; 83880; 84443; 84484; 85025; 85379; 85610; 85730; 87070; 87086; 87205; 93010; 94760; 99222; 99232; 99239; J2930; J7613; J7620

== ENCOUNTER 2022-04-07 11:13 | Outpatient (REF) | payer MEDICAID, SELFPAY ==
[2022-04-07 16:03] LABS: Calculated LDL 97 mg/dL (<100); Cholesterol 185 mg/dL (<200); HDL Cholesterol 79 mg/dL (40-60); Triglyceride 49 mg/dL (<150)
== END 2022-04-07 11:14 | disposition home or self-care (01) ==
LOC: LBN 11:13
PROVIDERS: PCP Nurse Practitioner; Visit Provider Nurse Practitioner
DX: E78.5 Hyperlipidemia, unspecified (principal)
CPT/HCPCS: 80061

== ENCOUNTER 2022-07-08 00:32 | Outpatient (CLI) | payer MEDICAID, SELFPAY ==
--- NOTE | 2022-07-08 06:30 | DI.CTLCSR_ITS ---
Exam(s) CT CHEST LUNG CANCER SCREEN EXAM: CT CHEST LUNG CANCER SCREEN CLINICAL HISTORY: Screening for lung cancer,CURRENT SMOKER, F17.210 TECHNIQUE: Imaging Protocol: Axial computed tomography images with coronal and sagittal reformatted images were created and reviewed. Low dose screening protocol. COMPARISON: CR XR CHEST 2V PA LATERAL from 02/23/[address] CHEST LUNG CANCER SCREEN from 06/22/2021 CR,XR XR PORTABLE CHEST AP from 02/05/2022 FINDINGS: Exam is somewhat limited by respiratory motion at the lung bases. Tracheobronchial tree: No bronchiectasis or mucus plugging.. Mediastinum and Urvashi: No dominant adenopathy or fluid collection. Pulmonary parenchyma: No consolidation or dominant measurable mass. Moderate centrilobular emphysemat ous changes greatest at upper lobes. Stable scarring left upper lobe. Linear densities left lower l obe, grossly stable, somewhat obscured by artifact. Lung Nodules: Calcified granuloma right upper lobe. Pleura: No effusion. No pneumothorax. Heart: The heart is not dilated. No coronary artery calcifications are seen. Aorta: Thoracic aorta non-dilated. Mild atherosclerotic changes. Upper abdomen: Unremarkable. Bones: Unremarkable for age. Soft Tissues: Unremarkable. IMPRESSION: No suspicious pulmonary nodules. Exam somewhat limited for detection of nodules at lung bases due to respiratory motion. Lung RADS Cat 2 - Benign Appearance / Behavior: Nodules with a very low likelihood of becoming a clin ically active cancer due to size or lack of growth Lung-RADS 1.0 CATEGORIES: Category 0 - Prior chest CT exam(s) being located for comparison. Category 1 - Annual screening in 12 months. No nodules or definitely benign nodules. Category 2 - Annual screening in 12 months. Benign appearance. Nodules with low likelihood of becomin g active cancer. Category 3 - 6-month follow-up. Probably benign. Short-term follow-up suggested. Nodules with low lik elihood of becoming active cancer. Category 4A - 3-month follow-up and CT/PET if >8 mm in size. Suspicious finding. Findings which requi re additional testing. Category 4B - Findings which require additional testing and tissue sampling. Category 4X - Category 3 or 4 nodules with additional features or imaging findings that increases the suspicion of malignancy. Modifier S- Potentially clinically significant findings (non lung cancer) RADIATION DOSE DELIVERED: 72.24mGy.cm Total DLP DATA REPOSITORY: All CT scans at this facility are submitted to the National Radiology Data Registry (NRDR) Dose Index Registry (DIR) with the [employer] (ACR). RADIATION OPTIMIZATION: All CT scans at this facility use at least one of these dose optimization te chniques: automated exposure control; mA and/or kV adjustment per patient size (includes targeted exa ms where dose is matched to clinical indication); or iterative reconstruction.
== END 2022-07-08 00:52 ==
LOC: DI 00:32
PROVIDERS: PCP Nurse Practitioner; Visit Provider Student in an Organized Health Care Education/Training Program
DX: Z12.2 Encounter for screening for malignant neoplasm of respiratory organs (principal); F17.210 Nicotine dependence, cigarettes, uncomplicated; J43.2 Centrilobular emphysema; J98.4 Other disorders of lung; R91.8 Other nonspecific abnormal finding of lung field
CPT/HCPCS: 71271

== ENCOUNTER 2022-07-26 10:43 | Outpatient (CLI) | payer MEDICAID, SELFPAY ==
--- NOTE | 2022-07-26 10:55 | DI.MAMMO_ITS ---
Exam(s) MG MAMMO SCREENING 60 MIN DUR EXAM: MG MAMMO SCREENING 60 MIN DUR CLINICAL HISTORY: breast cancer screening, Z12.39, uses walker. TECHNIQUE: Bilateral full field digital CC and MLO mammographic images were obtained with 3D tomosyn thesis and utilizing computer aided detection (CAD). COMPARISON: Prior mammograms were reviewed. FINDINGS: There has been no significant change in the appearance and distribution of the fibroglandular tissue. There are no new spiculated masses nor malignant appearing microcalcification groups. There is no significant architectural distortion nor skin thickening-retraction. IMPRESSION: No radiographic evidence of malignancy. BI-RADS Category 1 - Negative Breast Density - Category B - Scattered areas of fibroglandular density Breast density Category C or D implies that the patient has dense breast tissue. Dense breast tissue can make it harder to find cancer on a mammogram. Dense breast tissue is also associated with an incr eased risk of breast cancer. This information about the result of the mammogram report was provided to the patient to raise their awareness. Use this report when you speak with the patient about their risks for breast cancer, which includes their family history. At that time, you may recommend additional screening tests (Ultrasoun d or MRI) as these tests may add significant information. A negative radiographic report should not delay biopsy if a dominant or clinically suspicious mass is present. Up to ten percent of cancers are not identified on mammography. A negative report may reinforce clinical impression. Adenosis and dense breasts may obscure an underlying neoplasm. False positive reports average 6 to 10%. Patient will receive a letter notifying them of these results.
== END 2022-07-26 11:03 ==
LOC: DI 10:45
PROVIDERS: PCP Nurse Practitioner; Visit Provider Nurse Practitioner
DX: Z12.31 Encounter for screening mammogram for malignant neoplasm of breast (principal); R92.8 Other abnormal and inconclusive findings on diagnostic imaging of breast
CPT/HCPCS: 77063; 77067

== ENCOUNTER 2023-01-19 11:01 | Emergency (ER) | payer MEDICAID, SELFPAY ==
[2023-01-19 11:05] VITALS: BP 116/64; PULSE 75; RESP 18; TEMP 37.2; O2SAT 99
--- NOTE | 2023-01-19 11:30 | DI.RAD_ITS ---
Exam(s) XR RIBS LT W PA LAT CHEST EXAM: XR RIBS LT W PA LAT CHEST CLINICAL HISTORY: pain left lower lateral rib, tender. TECHNIQUE: 2D digital imaging was performed. COMPARISON: CR,XR XR PORTABLE CHEST AP from 11/14/2021 CR,XR XR PORTABLE CHEST AP from 02/05/2022 FINDINGS: Left rib cage-four views: There is osteopenia. No obvious acute left rib fracture. No rib lesions e vident. Chest-two views: Heart size normal. Mediastinum not widened. Scarring in left upper lobe is unchanged from November 2021. Left lung is clear. There is platelike atelectasis in the lateral right lung base. Right middle l obe region. No pleural effusions. No pulmonary edema. No pneumothorax. IMPRESSION: 1. No obvious left rib fractures. 2. Atelectasis versus early infiltrate in the lateral right lung base. There are no pleural effusion s evident. DATA REPOSITORY: RADIATION DOSE DELIVERED:
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
[2023-01-19] MEDS: Ketorolac 15 MG/ML VIAL IM (11:43)
[2023-01-19] MEDS: Lidocaine 5% Patch 1 PATCH TP (11:43)
[2023-01-19] MEDS: Acetaminophen 325 MG TAB 650 MG PO (11:44)
[2023-01-19 14:08] VITALS: BP 135/71; PULSE 62; RESP 18; O2SAT 97
== END 2023-01-19 14:16 | disposition home or self-care (01) ==
PROVIDERS: Emergency Provider Student in an Organized Health Care Education/Training Program; PCP Nurse Practitioner
DX: R07.89 Other chest pain (principal); M94.0 Chondrocostal junction syndrome [Tietze]; M85.88 Other specified disorders of bone density and structure, other site; J44.9 Chronic obstructive pulmonary disease, unspecified; I10 Essential (primary) hypertension; F17.210 Nicotine dependence, cigarettes, uncomplicated; Z99.81 Dependence on supplemental oxygen
CPT/HCPCS: 96374; 99283; 71046; 71100; 99284; J1885

== ENCOUNTER 2023-01-24 11:23 | Outpatient (REF) | payer MEDICAID, SELFPAY ==
[2023-01-24 16:12] LABS: Abs Immature Grans 0.01 10^3/uL (0.0-0.06); Absolute Basophil Count 0.06 10^3/uL (0.0-0.2); Absolute Eosinophil Count 0.15 10^3/uL (0.0-0.7); Absolute Lymphocyte Count 1.78 10^3/uL (1.2-3.4); Absolute Neutrophil Count 4.23 10^3/uL (1.2-6.7); Basophils % 0.9; Eosinophils % 2.3; HGB 10.8 g/dL (11.2-15.7); Immature Grans % 0.2; Lymphocytes % 26.8; MCH 30.4 pg (27.0-33.0); MCHC 32.7 % (32.0-36.0); MCV 93 fL (80-95); Neutrophils % 63.8; Platelet Count 228 10^3/uL (130-400); RBC 3.55 10^6/uL (3.93-5.22); RDW 13.3 % (11.7-14.6); RDW-SD 46.4 fL; WBC 6.63 10^3/uL (4.4-10.8)
[2023-01-24 16:31] LABS: ALT 17 U/L (14-59); AST 15 U/L (15-37); Albumin 3.6 g/dL (3.4-5.0); Alkaline Phosphatase 73 U/L (46-116); Anion Gap 5.7 mmol/L (3-11); BUN 11 mg/dL (7-18); Bilirubin, Total 0.3 mg/dL (0.2-1.0); CO2 32.3 mmol/L (21.0-32.0); CREATININE 0.8 mg/dL (0.55-1.02); Chloride 104 mmol/L (98-107); Estimated GFR 82.23 (mL/min/1.73m2); Glucose 97 mg/dL (74-106); Potassium 4.4 mmol/L (3.5-5.1); Sodium 142 mmol/L (136-145); TSH (W/Ref FT4) 1.41 uIU/mL (0.36-3.74); Total Protein 6.8 g/dL (6.4-8.2)
== END 2023-01-24 11:24 | disposition home or self-care (01) ==
LOC: LBN 11:23
PROVIDERS: PCP Nurse Practitioner; Visit Provider Nurse Practitioner
DX: R63.4 Abnormal weight loss (principal); J44.9 Chronic obstructive pulmonary disease, unspecified; E53.8 Deficiency of other specified B group vitamins; F32.89 Other specified depressive episodes; E78.5 Hyperlipidemia, unspecified
CPT/HCPCS: 80053; 84443; 85025

== ENCOUNTER → 2023-07-18 02:06 | Outpatient (CLI) | payer MEDICARE, MEDICAID, SELFPAY ==
[2023-07-18 11:35] LABS: CREATININE 0.8 mg/dL (0.55-1.02); Estimated GFR 81.72 (mL/min/1.73m2)
--- NOTE | 2023-07-18 13:40 | DI.CTLCSR_ITS ---
Exam(s) CT CHEST LUNG CANCER SCREEN EXAM: CT CHEST LUNG CANCER SCREEN CLINICAL HISTORY: Screening for lung cancer,current smoker, F17.210. TECHNIQUE: Imaging Protocol: Low Dose Technique CONTRAST MATERIAL: None COMPARISON: CT CT CHEST LUNG CANCER SCREEN from 06/22/[address] CHEST LUNG CANCER SCREEN from 07/08/2022 CR XR RIBS LT W PA LAT CHEST from 01/19/2023 FINDINGS: CHEST: LUNGS: Left upper lobe sub apical scarring is again noted with minimal change from 06/22/2021 CT scan .. Mild ground-glass infiltrate in the lingular segment of the left lung exhibits mild increased fro m the 2020 study. There are no new significant left lung nodules nor pleural effusion. In the oppos ite-right lung there are no findings in the right upper and right middle lobes. Infiltrate in the ba rob segments of the right lower lobe again noted. This is related to mild bronchiectasis. No pleura l effusions. No new findings in the trachea and mainstem bronchi. MEDIASTINUM: There is no obvious hilar nor mediastinal adenopathy. CARDIAC: Heart size upper normal. No pericardial effusion.Caliber of the thoracic aorta is within no rmal limits. OTHER: No obvious new adrenal masses. OSSEOUS: Healed fractures of the lateral right 7th and 8th ribs these rib fractures were not present on prior CT scan of June 2021. No acute fractures evident. Noted.. IMPRESSION: 1. Bilateral benign-appearing lung findings. Scarring in left upper lobe and infiltrate in the right lower lobe. No pleural effusions nor obvious intrathoracic adenopathy. 2. Healed fractures of the right 7th and 8th ribs. 3. Lung RADS Cat 2 - Benign Appearance / Behavior: Nodules with a very low likelihood of becoming a c linically active cancer due to size or lack of growth Lung-RADS 1.0 CATEGORIES: Category 0 - Prior chest CT exam(s) being located for comparison. Category 1 - Annual screening in 12 months. No nodules or definitely benign nodules. Category 2 - Annual screening in 12 months. Benign appearance. Nodules with low likelihood of becomin g active cancer. Category 3 - 6-month follow-up. Probably benign. Short-term follow-up suggested. Nodules with low lik elihood of becoming active cancer. Category 4A - 3-month follow-up and CT/PET if >8 mm in size. Suspicious finding. Findings which requi re additional testing. Category 4B - Findings which require additional testing and tissue sampling. Category 4X - Category 3 or 4 nodules with additional features or imaging findings that increases the suspicion of malignancy. Modifier S- Potentially clinically significant findings (non lung cancer) RADIATION DOSE DELIVERED: 71.7mGy.cm Total DLP DATA REPOSITORY: All CT scans at this facility are submitted to the National Radiology Data Registry (NRDR) Dose Index Registry (DIR) with the [employer] ([employer]). RADIATION OPTIMIZATION: All CT scans at this facility use at least one of these dose optimization te chniques: automated exposure control; mA and/or kV adjustment per patient size (includes targeted exa ms where dose is matched to clinical indication); or iterative reconstruction.
== END ==
PROVIDERS: PCP Nurse Practitioner; Visit Provider Student in an Organized Health Care Education/Training Program
DX: N83.8 Other noninflammatory disorders of ovary, fallopian tube and broad ligament (principal); R63.4 Abnormal weight loss; F17.210 Nicotine dependence, cigarettes, uncomplicated; Z12.2 Encounter for screening for malignant neoplasm of respiratory organs; R91.8 Other nonspecific abnormal finding of lung field
CPT/HCPCS: 71271; 82565

== ENCOUNTER → 2023-07-18 02:07 | Outpatient (CLI) | payer MEDICARE, MEDICAID, SELFPAY ==
[2023-07-18] MEDS: Normal Saline - Diluent 50 ML VIAL IJ (13:41)
[2023-07-18] MEDS: Omnipaque 350 MG/ML 100 ML BTL IJ (13:42)
--- NOTE | 2023-07-18 13:50 | DI.CT_ITS ---
Exam(s) CT ABDOMEN PELVIS W EXAM: CT ABDOMEN PELVIS W CLINICAL HISTORY: f/u ovarian mass,wt loss,n83.8,r63.4. TECHNIQUE: Imaging Protocol: Axial computed tomography images with coronal and sagittal reformatted images were created and reviewed CONTRAST MATERIAL: Intravenous: Omnipaque-350 100cc Oral: Yes. Oral contrast was also administered for bowel opacification. COMPARISON: CT CT ABDOMEN PELVIS WO from 07/05/[address] ABDOMEN PELVIS W from 10/14/2021 FINDINGS: VISUALIZED LUNG BASES: No nodules nor pleural effusions evident. ABDOMEN: There is no ascites. LIVER: There are no focal hepatic lesions evident. No dilated intrahepatic ducts. GALLBLADDER/BILIARY: No obvious gallbladder pathology. CBD is not dilated. PANCREAS: No evidence of pancreatic mass nor dilatation of the pancreatic duct. SPLEEN: Spleen is not enlarged. No obvious intrasplenic lesions. Splenic and portal veins are paten t. ADRENALS: Thickening of the left adrenal gland again noted. Right adrenal gland remains unremarkable . KIDNEYS:No cysts evident. No solid renal masses. No calculi nor hydronephrosis.. ABDOMINAL AORTA: Calcified but not enlarged. Common iliac arteries are also calcified but not enlarg ed. LYMPH NODES:There is no retroperitoneal nor paraaortic adenopathy. ABDOMINAL WALL: No evidence of significant anterior abdominal wall nor inguinal hernia. GI: There is no evidence of bowel obstruction, free air, nor abscess. PELVIS: GI: No evidence of appendicitis.No evidence of sigmoid diverticulitis. LYMPH NODES: There is no intrapelvic nor inguinal adenopathy. REPRODUCTIVE: Uterus size is normal. The previously described concerning left adnexal mass has furth er increased in size, presently measuring 10 cm AP by 7.3 cm craniocaudal by 6.5 cm wide. This is a multi cystic mass which is suspicious for malignancy despite absence of surrounding free fluid. The mass now significantly indents the left side of the urinary bladder. No significant right adnexal ma sses. URINARY BLADDER: No calculi nor obvious masses evident OSSEOUS: No fractures and no significant osseous lesions. IMPRESSION: 1. Compared to the CT scan of October 2021 there is further interval increase in the size of the concer shaun solid/cystic left adnexal mass, presently measuring approximately 10 x 7.3 x 6.5 cm. Concerning for malignancy such as serous cystadenocarcinoma, despite absence of surrounding free fluid in the p anisha. 2. There are no significant findings in the upper abdomen and there is no ascites in the upper abdome n. 3. 4. RADIATION DOSE DELIVERED: 726.44mGy.cm Total DLP DATA REPOSITORY: All CT scans at this facility are submitted to the National Radiology Data Registry (NRDR) Dose Index Registry (DIR) with the [employer] ([employer]). RADIATION OPTIMIZATION: All CT scans at this facility use at least one of these dose optimization te chniques: automated exposure control; mA and/or kV adjustment per patient size (includes targeted exa ms where dose is matched to clinical indication); or iterative reconstruction.
== END ==
PROVIDERS: PCP Nurse Practitioner; Visit Provider Nurse Practitioner
DX: N83.8 Other noninflammatory disorders of ovary, fallopian tube and broad ligament (principal); R63.4 Abnormal weight loss; Z12.2 Encounter for screening for malignant neoplasm of respiratory organs; F17.210 Nicotine dependence, cigarettes, uncomplicated; R91.8 Other nonspecific abnormal finding of lung field
CPT/HCPCS: 71271; 74177; 82565; J3490

== ENCOUNTER → 2023-08-03 11:06 | Outpatient (BNVA) | payer MEDICARE, MEDICAID, SELFPAY | PROVIDERS: PCP Nurse Practitioner; Referring Provider Nurse Practitioner; Visit Provider Physician Assistant Surgical | DX: J44.9 Chronic obstructive pulmonary disease, unspecified (principal); J96.91 Respiratory failure, unspecified with hypoxia; J96.92 Respiratory failure, unspecified with hypercapnia; F17.210 Nicotine dependence, cigarettes, uncomplicated; Z14.8 Genetic carrier of other disease | CPT/HCPCS: 99214 ==

== ENCOUNTER → 2023-11-07 10:04 | Outpatient (BNVA) | payer MEDICARE, MEDICAID, SELFPAY | PROVIDERS: PCP Nurse Practitioner; Referring Provider Nurse Practitioner; Visit Provider Student in an Organized Health Care Education/Training Program | DX: Z14.8 Genetic carrier of other disease (principal); J96.91 Respiratory failure, unspecified with hypoxia; J96.92 Respiratory failure, unspecified with hypercapnia; F17.210 Nicotine dependence, cigarettes, uncomplicated; J44.9 Chronic obstructive pulmonary disease, unspecified | CPT/HCPCS: 99214 ==

== ENCOUNTER 2023-11-16 04:03 | Inpatient (IN) | payer OTHER, MEDICAID, SELFPAY ==
[2023-11-16] VITALS (94 sets, daily range): BP systolic 83–168; BP diastolic 46–105; PULSE 59–100; RESP 14–35; TEMP 36.4–36.7; O2SAT 92–100
--- NOTE | 2023-11-16 04:00 | RT.EKG_ITS ---
APPROVED REPORT Exam: Resting ECG Reason for Exam: short of breath Patient Location: E HR:78 bpm ECG Measurements Heart Rate 78 AXIS LA 161 P 69 QRSd 92 QRS 43 QT 384 T 52 QTc 437 Conclusion Sinus rhythm...normal P axis, V-rate 60- 99 Low voltage, precordial leads...precordial leads <1.0mV no stemi
--- NOTE | 2023-11-16 04:00 | DI.RAD_ITS ---
Exam(s) XR PORTABLE CHEST AP EXAM: XR PORTABLE CHEST AP CLINICAL HISTORY: short of breath TECHNIQUE: 2D digital imaging was performed of the chest. Two images were obtained. AP views were obtained. COMPARISON: CR,XR XR PORTABLE CHEST AP from 02/05/2022 CR XR RIBS LT W PA LAT CHEST from 01/19/[address] CHEST LUNG CANCER SCREEN from 07/18/2023 FINDINGS: MEDIASTINUM: Normal. HEART: Normal. PULMONARY VASCULATURE: Normal. LUNGS: The lungs are hyperinflated with flattened diaphragms suggesting underlying COPD. There is a persistent opacity in the right right costophrenic angle. Chronic stable background interstitial pro minence is also noted. PLEURAL SPACE: No pleural effusion or pneumothorax. BONE:Within normal limits for the patient's age. OTHER FINDINGS:Normal. IMPRESSION: 1. There is an opacity in the right costophrenic angle. This may represent atelectasis, scarring or pneumonia. Please correlate clinically. 2. Chronic changes of the lungs including COPD. DATA REPOSITORY: RADIATION DOSE DELIVERED:
[2023-11-16] MEDS: Albuterol/Ipratropium 3 ML UPD VIAL UPD ×2 (04:31→20:56)
[2023-11-16] MEDS: methylPREDNISolone SUCC 125 MG VIAL IVP (04:32)
[2023-11-16 04:38] LABS: Lactate 0.5 mmol/L (0.6-1.4)
[2023-11-16 04:39] LABS: Abs Immature Grans 0.01 10^3/uL (0.0-0.06); Absolute Basophil Count 0.05 10^3/uL (0.0-0.2); Absolute Eosinophil Count 0.17 10^3/uL (0.0-0.7); Absolute Lymphocyte Count 2.19 10^3/uL (1.2-3.4); Absolute Monocyte Count 0.58 10^3/uL (0.1-0.8); Absolute Neutrophil Count 4.65 10^3/uL (1.2-6.7); Basophils % 0.7 %; Eosinophils % 2.2 %; HCT 35.1 % (36.0-46.0); HGB 11.2 g/dL (11.2-15.7); Immature Grans % 0.1 %; Lymphocytes % 28.6 %; MCH 30.3 pg (27.0-33.0); MCHC 31.9 % (32.0-36.0); MCV 95 fL (80-95); MPV 10.3 fL (8.0-11.0); Monocytes % 7.6 %; Neutrophils % 60.8 %; Platelet Count 236 10^3/uL (130-400); RDW 13.8 % (11.7-14.6); RDW-SD 48.9 fL; WBC 7.65 10^3/uL (4.4-10.8)
[2023-11-16 04:41] LABS: BE (Venous) 7 mmol/L (-2-3); HCO3 (Venous) 34 mmol/L (23-28); O2 Sat (Venous) 93 %; TCO2 (Venous) 32 mmol/L (24-29); pH (Venous) 7.28 (7.31-7.41); pO2 (Venous) 69 mmHg
[2023-11-16 04:42] LABS: pCO2 (Venous) 72 mmHg (41-51)
[2023-11-16] MEDS: cefTRIAXone 1 GM/50 ML BAG 100 GM (07:08)
[2023-11-16] MEDS: Azithromycin 500 MG VIAL (07:45)
--- NOTE | 2023-11-16 08:46 | DI.VRAD_ITS ---
PROCEDURE INFORMATION: Exam: XR Chest Exam date and time: 11/16/2023 4:40 AM Age: 63 years old Clinical indication: Shortness of breath TECHNIQUE: Imaging protocol: Radiologic exam of the chest. Views: 1 view. COMPARISON: CT CHEST LUNG CANCER SCREEN 03/10/2024 13:31 FINDINGS: Lungs: Right basilar atelectasis/infiltrate. Emphysema. Left apical scarring. Pleural spaces: No pleural effusion or pneumothorax. Heart/Mediastinum: Unremarkable. No cardiomegaly. Bones/joints: Unremarkable. IMPRESSION: Right basilar atelectasis/infiltrate. Dictated and Authenticated by: Angel Sargent MD. Ordering:KIERRA Salcido MD
[2023-11-16 09:33] LABS: ALT 18 U/L (14-59); AST 13 U/L (15-37); Albumin 3.6 g/dL (3.4-5.0); Alkaline Phosphatase 87 U/L (46-116); Anion Gap 2.4 mmol/L (3-11); BUN 12 mg/dL (7-18); Bilirubin, Total 0.2 mg/dL (0.2-1.0); CO2 35.6 mmol/L (21.0-32.0); CREATININE 0.8 mg/dL (0.55-1.02); Calcium 9.1 mg/dL (8.5-10.1); Chloride 105 mmol/L (98-107); Estimated GFR 81.72 (mL/min/1.73m2); Glucose 91 mg/dL (74-106); Magnesium 2.1 mg/dL (1.8-2.4); Sodium 143 mmol/L (136-145); Total Protein 7.2 g/dL (6.4-8.2); Troponin I < 50 ng/L (< or =60)
[2023-11-16 09:33] LABS: COVID-19 PCR Negative (Negative); Influenza A PCR Negative (Negative); Influenza B PCR Negative (Negative); RSV PCR Negative (Negative)
--- NOTE | 2023-11-16 10:52 | W.PCEDHO ---
Registration Status: REG ER Primary Language: Preferred Language: Greenlandic ED Information & Data Chief Complaint RespSymp 11/16/23 04:11 Chief Complaint RespSymp 11/16/23 04:04 Triage Note multiple falls last 24 hr, 11/16/23 04:04 increased weakness, unable to stand. At home neb treatments ~ 6 times a day, 3.5L/min nc is baseline, afebrile. Medical / Surgical History (Last Reviewed 10/03/23 @ 16:47 by Jesi Pepe NP) DVT prophylaxis History of pneumonia Left hip pain GERD (gastroesophageal reflux disease) Depression Fx upper humerus-closed (03/05/13) Tendonitis of wrist, left (03/31/17) DVT of leg (deep venous thrombosis) Hyperlipidemia Influenza A Pneumonia (Last Reviewed 10/03/23 @ 16:47 by Jesi Pepe NP) H/O colonoscopy (~01/2021) History of colonoscopy History of cataract surgery H/O shoulder surgery Most Recent Vital Signs Temperature 36.7 C 11/16/23 04:04 Pulse 66 11/16/23 10:00 Pulse 68 11/16/23 09:31 Respiratory Rate 22 11/16/23 10:00 Respiratory Effort Normal, Non-Labored 11/16/23 10:00 Respiratory Depth Normal 11/16/23 10:00 Respiratory Pattern Normal 11/16/23 10:00 Blood Pressure 115/60 11/16/23 10:00 Blood Pressure Mean 78 11/16/23 10:00 Blood Pressure Position Sitting 11/16/23 10:00 Pulse Oximetry 99 11/16/23 10:00 Oxygen Delivery Method Bi-pap 11/16/23 10:00 Oxygen Flow Rate 4 11/16/23 04:04 Fraction of Inspired Oxygen (FIO2) 28 11/16/23 09:00 Pain Level 0 11/16/23 04:04 Allergies Penicillins Allergy (Intermediate, Verified 09/05/23 11:52) SKIN RASH adhesive Adverse Reaction (Mild, Verified 09/05/23 11:52) Skin Rash from nicotine patch IV IV Catheter Type [Right Peripheral IV Antecubital] IV Catheter Gauge [Right 18 Antecubital] Diagnostics 11/16/23 11/16/23 11/16/23 Range/Units 07:13 04:30 04: WBC 7.65 (4.4-10.8) 10^3/uL RBC 3.70 L (3.93-5.22) 10^6/uL Hgb 11.2 (11.2-15.7) g/dL Hct 35.1 L (36.0-46.0) % MCV 95 (80-95) fL MCH 30.3 (27.0-33.0) pg MCHC 31.9 L (32.0-36.0) % RDW 13.8 (11.7-14.6) % Plt Count 236 (130-400) 10^3/uL MPV 10.3 (8.0-11.0) fL Immature Gran % 0.1 % Neutrophils % 60.8 % Lymphocytes % 28.6 % Monocytes % 7.6 % Eosinophils % 2.2 % Basophils % 0.7 % Nucleated RBC % 0.0 (0.0-0.3) % Absolute Neutrophils 4.65 (1.2-6.7) 10^3/uL Absolute Lymphocytes 2.19 (1.2-3.4) 10^3/uL Absolute Monocytes 0.58 (0.1-0.8) 10^3/uL Absolute Eosinophils 0.17 (0.0-0.7) 10^3/uL Absolute Basophils 0.05 (0.0-0.2) 10^3/uL VBG pH 7.28 L (7.31-7.41) VBG pCO2 72 H* (41-51) mmHg VBG pO2 69 mmHg VBG HCO3 34 H (23-28) mmol/L VBG Total CO2 32 H (24-29) mmol/L VBG O2 Saturation 93 % VBG Base Excess 7 H (-2-3) mmol/L VBG Lactate 0.5 L (0.6-1.4) mmol/L Sodium Pending Potassium Pending Chloride Pending Carbon Dioxide Pending Anion Gap Pending BUN Pending Creatinine Pending Est GFR (CKD-EPI 2020) Pending Glucose Pending Calcium Pending Magnesium Pending Total Bilirubin Pending AST Pending ALT Pending Alkaline Phosphatase Pending Troponin I Pending Pending Total Protein Pending Albumin Pending Procalcitonin Pending COVID-19 Source Pending SARS-CoV-2 (PCR) Pending Influenza Type A (PCR) Pending Influenza Type B (PCR) Pending RSV (PCR) Pending Intake and Output - 24 Hour Total 11/16/23 03:58 thru 11/16/23 04:04 Weight 58.5 kg Falls Risk Assessment History of Falls Admit Due to Fall 11/16/23 04:11 Contributing Factors No Factors 11/16/23 04:11 Ambulatory Aids Independent 11/16/23 04:11 Tubes/Lines With any additional score 11/16/23 04:11 Gait Evaluation W/any additional score 11/16/23 04:11 Cognition No cognitive impairment 11/16/23 04:11 Fall Total Score 65 11/16/23 04:11 Level of Risk High Risk 11/16/23 04:11 v v v v v v v v v Sending and/or Receiving Nurses: Please use comment section below to note any information pertinent to the patient hand-off not included above. Information / Comments: Report received from: Francia May RN
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
[2023-11-16 12:16] LABS: Procalcitonin < 0.1 ng/mL
[2023-11-16 12:40] LABS: NT-proBNP 331 pg/mL (<300)
[2023-11-16 13:34] LABS: Troponin I < 50 ng/L (< or =60)
[2023-11-16] MEDS: Normal Saline Flush 10 ML SYR ×2 (13:36→20:54)
[2023-11-16] MEDS: methylPREDNISolone SUCC 125 MG VIAL 80 MG IVP ×2 (14:05→20:52)
[2023-11-16] MEDS: cefTRIAXone 1 GM/50 ML BAG IVPB (14:05)
[2023-11-16] MEDS: Enoxaparin 40 MG/0.4 ML SYR SC (14:19)
[2023-11-16 16:19] LABS: BE (Venous) 8 mmol/L (-2-3); HCO3 (Venous) 32 mmol/L (23-28); O2 Sat (Venous) 75 %; TCO2 (Venous) 30 mmol/L (24-29); pCO2 (Venous) 53 mmHg (41-51); pO2 (Venous) 39 mmHg
[2023-11-16] MEDS: traZODone 50 MG TAB 100 MG PO (20:52)
[2023-11-16] MEDS: Budesonide/Formoterol 160/4.5 6 GM 60 PUFF INH IH (20:52)
[2023-11-16] MEDS: Primidone 250 MG TAB 375 MG PO (20:53)
[2023-11-16] MEDS: guaiFENesin/D-METHORPHAN HB 5 ML CUP 10 ML PO (20:54)
[2023-11-16] MEDS: Acetaminophen 325 MG TAB PO (21:22)
[2023-11-17] VITALS (41 sets, daily range): BP systolic 82–134; BP diastolic 49–89; PULSE 54–112; RESP 2–30; TEMP 36.4–37.2; O2SAT 1–100
[2023-11-17] MEDS: methylPREDNISolone SUCC 125 MG VIAL 80 MG IVP (05:45)
[2023-11-17] MEDS: Normal Saline Flush 10 ML SYR IVP ×4 (05:46→21:05)
[2023-11-17 06:54] LABS: Abs Immature Grans 0.02 10^3/uL (0.0-0.06); Absolute Basophil Count 0.02 10^3/uL (0.0-0.2); Absolute Lymphocyte Count 1.28 10^3/uL (1.2-3.4); Absolute Monocyte Count 0.36 10^3/uL (0.1-0.8); Absolute Neutrophil Count 5.95 10^3/uL (1.2-6.7); Basophils % 0.3 %; HCT 31.8 % (36.0-46.0); HGB 10.6 g/dL (11.2-15.7); Immature Grans % 0.3 %; Lymphocytes % 16.8 %; MCH 30.6 pg (27.0-33.0); MCHC 33.3 % (32.0-36.0); MCV 92 fL (80-95); MPV 11.3 fL (8.0-11.0); Monocytes % 4.7 %; Neutrophils % 77.9 %; Platelet Count 253 10^3/uL (130-400); RBC 3.46 10^6/uL (3.93-5.22); RDW 13.6 % (11.7-14.6); RDW-SD 45.5 fL; WBC 7.63 10^3/uL (4.4-10.8)
[2023-11-17 07:06] LABS: Anion Gap 6.2 mmol/L (3-11); BUN 21 mg/dL (7-18); CO2 31.8 mmol/L (21.0-32.0); CREATININE 0.8 mg/dL (0.55-1.02); Calcium 8.9 mg/dL (8.5-10.1); Chloride 103 mmol/L (98-107); Estimated GFR 81.72 (mL/min/1.73m2); Glucose 143 mg/dL (74-106); Potassium 3.6 mmol/L (3.5-5.1); Sodium 141 mmol/L (136-145)
[2023-11-17] MEDS: Budesonide/Formoterol 160/4.5 6 GM 60 PUFF INH IH ×2 (08:30→21:23)
[2023-11-17] MEDS: Tiotropium Bromide-Respimat 10 PUFF INH IH (08:30)
[2023-11-17] MEDS: Albuterol/Ipratropium 3 ML UPD VIAL UPD ×4 (08:31→20:03)
[2023-11-17] MEDS: Primidone 250 MG TAB 125 MG PO (08:31)
[2023-11-17] MEDS: Azithromycin 250 MG TAB PO (08:32)
[2023-11-17] MEDS: Escitalopram 20 MG TAB PO (08:32)
[2023-11-17] MEDS: Pantoprazole 40 MG TABCR PO (08:32)
[2023-11-17] MEDS: cefTRIAXone 2 GM/50 ML BAG IVPB (08:32)
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
--- NOTE | 2023-11-17 09:13 | W.PM.PROGNOT ---
Date of Service Date of service: 11/17/23 Time of Service: 09:13 Assessment and Plan Assessment and plan (1) Acute respiratory failure with hypoxia and hypercarbia: Status: Acute Assessment and plan: Stablized now on BiPAP overnight, repeat VBG showed showed resolution of repiratory acidosis EKG and troponin, BNP do not suggest cardiac etiology contributing. Treating pnuemonia, but minimal cough and no sputum or fevers, consider stopping if stays stable. Transition from IV to oral steroids today. Case discussed with Dr. Orr/Pulmonology, who sees her as outpatient. She chronically retains and gets hypercarbic from wearing too much oxygen. This may have been how this episode started, will try to educate before discharge. (2) COPD exacerbation: Status: Acute Assessment and plan: As above, continue home inhalers as well. (3) Community acquired bilateral lower lobe pneumonia: Status: Acute Assessment and plan: Possible pneumonia on CXR, treat for now with ceftriaxone/azithro give acute respiratory failure. (4) Toxic metabolic encephalopathy: Status: Acute Assessment and plan: Normalized, this was likely her hypercapnia. Still holding her anticholinergic oxybutynin for now. (5) Depression: Status: Chronic Assessment and plan: On home citalopram high dose, trazodone. Changed to escitalopram to limit side effects (citalopram doses >20mg not recommended over 65 per pharm) Qualifiers: Depression Type: unspecified Qualified Code(s): F32.9 - Major depressive disorder, single episode, unspecified (6) Nicotine dependence, cigarettes, uncomplicated: Status: Acute Assessment and plan: Low level smoking, encouraged cessation, declines NRT for now (7) Other convulsions: Status: Acute Assessment and plan: Looks to me that she has intention tremor, which would make sense with her primidone, but this is not on her problem list. Continue home primidone. (8) Ovarian tumor: Status: Acute Assessment and plan: looks like concern for cancer with this tumor and weight loss, hasn't had [place] [facility] [place]. Encourage to f/u as outpatient. (9) DVT prophylaxis: Assessment and plan: LMWH (10) Palliative care status: Status: Acute Assessment and plan: non-urgent consult to check in with patient, placed today Subjective Subjective Patient reports: denies diarrhea, vomiting or fever Interval history since last seen: On BiPAP 8 of 12 hours overnight. Now on NC at 1L (on 3.5L at home but retains) Sophy feels better this morning. She doesn't remember me from ED. She is worried about her keys to her apartment and her kittens at home. Exam Narrative Exam Narrative: GEN: Alert and oriented, speaking more clearly, but emotional when discussing kittens HEENT: MMM, no JVP LUNGS: Poor air movement diffusely with some high pitched expiratory wheezing bilaterally. no rales. CV: RRR with no murmurs, gallops, or rubs. ABD: +BS, soft, NT/ND EXT: no cyanosis, clubbing, or edema Objective Last Vital Signs Temp 37 C 11/17/23 04:45 Pulse 90 11/17/23 08:35 Resp 23 11/17/23 08:35 BP 119/64 11/17/23 06:01 Pulse Ox 91 L 11/17/23 08:35 Laboratory Results - last 24 hr 11/16/23 11/16/23 11/16/23 04:26 04:30 07:16 WBC RBC Hgb Hct MCV MCH MCHC RDW Plt Count MPV Immature Gran % Neutrophils % Lymphocytes % Monocytes % Eosinophils % Basophils % Nucleated RBC % Absolute Neutrophils Absolute Lymphocytes Absolute Monocytes Absolute Eosinophils Absolute Basophils VBG pH 7.28 L VBG pCO2 72 H* VBG pO2 69 VBG HCO3 34 H VBG Total CO2 32 H VBG O2 Saturation 93 VBG Base Excess 7 H VBG Lactate 0.5 L Sodium 143 Potassium 4.0 Chloride 105 Carbon Dioxide 35.6 H Anion Gap 2.4 L BUN 12 Creatinine 0.8 Est GFR (CKD-EPI 2020) 81.72 Glucose 91 Calcium 9.1 Magnesium 2.1 Total Bilirubin 0.2 AST 13 L ALT 18 Alkaline Phosphatase 87 Troponin I < 50 < 50 NT-Pro-B Natriuret Pep 331 H Total Protein 7.2 Albumin 3.6 Procalcitonin < 0.1 COVID-19 Source Not Applicable SARS-CoV-2 (PCR) Negative Influenza Type A (PCR) Negative Influenza Type B (PCR) Negative RSV (PCR) Negative 11/16/23 11/17/23 16:15 05:28 WBC 7.63 RBC 3.46 L Hgb 10.6 L Hct 31.8 L MCV 92 MCH 30.6 MCHC 33.3 RDW 13.6 Plt Count 253 MPV 11.3 H Immature Gran % 0.3 Neutrophils % 77.9 Lymphocytes % 16.8 Monocytes % 4.7 Eosinophils % 0.0 Basophils % 0.3 Nucleated RBC % 0.0 Absolute Neutrophils 5.95 Absolute Lymphocytes 1.28 Absolute Monocytes 0.36 Absolute Eosinophils 0.00 Absolute Basophils 0.02 VBG pH 7.40 VBG pCO2 53 H VBG pO2 39 VBG HCO3 32 H VBG Total CO2 30 H VBG O2 Saturation 75 VBG Base Excess 8 H VBG Lactate Sodium 141 Potassium 3.6 Chloride 103 Carbon Dioxide 31.8 Anion Gap 6.2 BUN 21 H Creatinine 0.8 Est GFR (CKD-EPI 2020) 81.72 Glucose 143 H Calcium 8.9 Magnesium Total Bilirubin AST ALT Alkaline Phosphatase Troponin I NT-Pro-B Natriuret Pep Total Protein Albumin Procalcitonin COVID-19 Source SARS-CoV-2 (PCR) Influenza Type A (PCR) Influenza Type B (PCR) RSV (PCR) Time Spent with Patient Time Spent with Patient: >50 minutes Time was spent: preparing to see the patient(eg.review tests), obtaining and/or reviewing separately otained hiistory, ordering medications,tests, procedures, referring, communicating with other health health care technician, indepentently interpreting results, counseling the patient and care coordination
[2023-11-17] MEDS: predniSONE 20 MG TAB 40 MG PO (10:28)
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
[2023-11-17] MEDS: Enoxaparin 40 MG/0.4 ML SYR SC (12:36)
[2023-11-17] MEDS: Acetaminophen 325 MG TAB PO ×2 (14:57→23:36)
--- NOTE | 2023-11-17 15:37 | CHAPLAIN ---
I remember Sophy from previous admissions, but she doesn't remember me. I ask her about her cats and she tells me that she has two cats and two kittens, and two birds. She talks about the animals for a while and then cries when I ask who's feeding them. (Sophy has a roommate, Heather, and her mother, Susanna, lives nearby according to Care Management notes, so the animals are very likely being cared for.) Sophy said she's feeling better today. She was on BiPAP yesterday. She doesn't not like being in the hospital, and expresses that every time she's here.
--- NOTE | 2023-11-17 16:10 | PT.INTREAT ---
PT Notes Visit Reasons: Hypoxic/Hypercarbic Resp Failure, COPD Inpatient Physical Therapy Treatment Note [facility] Date: 11/17/23 PRECAUTIONS:Standard OBJECTIVE: ? Therapeutic Activities (00135m[1]): Direct one-on-one instruction in dynamic activities to improve functional performance. ? BED MOBILITY/TRANSFERS? Supine-sit: CGA? Sit-supine: CGA ? Sit-stand: CGA? Stand-sit: CGA? GAIT? Assistive Device: FWW ? Weight bearing: Full Assist: CGA ? Distance:? 130ft? 3L NC oxygen with ambulation low 90% oxygen ? Therapeutic Exercises (10594i[1]): Direct one-on-one instruction in therapeutic exercises to develop strength, endurance, range of motion and flexibility. ? Exercises ? Rowing x 5 Shoulder horz abd x 5 LAQ x 10 ? ASSESSMENT:? Pt required cuing for relaxation and proper pursed lip breathing techniques. Pt would get anxious during her session and would get SOB. PLAN: Cont as per PT POC. TREATMENT CODE/TIME: 3:45-4:08 (23) ELDON FLAHERTY
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
[2023-11-17] MEDS: Primidone 250 MG TAB 375 MG PO (20:07)
[2023-11-17] MEDS: traZODone 50 MG TAB 100 MG PO (20:09)
[2023-11-17] MEDS: Lovastatin 40 MG TAB PO (20:09)
[2023-11-18] VITALS (8 sets, daily range): BP systolic 105–118; BP diastolic 53–66; PULSE 64–85; RESP 2–22; TEMP 35.8–37.3; O2SAT 91–97
[2023-11-18] MEDS: Albuterol 2.5 MG/3 ML INH SOLN VIAL (02:10)
[2023-11-18] MEDS: Albuterol/Ipratropium 3 ML UPD VIAL UPD ×2 (07:42→11:43)
[2023-11-18] MEDS: Tiotropium Bromide-Respimat 10 PUFF INH IH (07:43)
[2023-11-18] MEDS: Budesonide/Formoterol 160/4.5 6 GM 60 PUFF INH IH (07:43)
[2023-11-18] MEDS: Primidone 250 MG TAB 125 MG PO (09:47)
[2023-11-18] MEDS: cefTRIAXone 2 GM/50 ML BAG IVPB (09:47)
[2023-11-18] MEDS: Ascorbic Acid 500 MG TAB PO (09:48)
[2023-11-18] MEDS: Escitalopram 20 MG TAB PO (09:48)
[2023-11-18] MEDS: Azithromycin 250 MG TAB PO (09:48)
[2023-11-18] MEDS: predniSONE 20 MG TAB 40 MG PO (09:48)
[2023-11-18] MEDS: Pantoprazole 40 MG TABCR PO (09:48)
[2023-11-18] MEDS: Normal Saline Flush 10 ML SYR IVP (09:49)
[2023-11-18] MEDS: Enoxaparin 40 MG/0.4 ML SYR SC (11:02)
[2023-11-18] MEDS: Cyanocobalamin 1000 MCG/ML VIAL IM (11:02)
--- NOTE | 2023-11-18 11:18 | PT.INTREAT ---
PT Notes Visit Reasons: Hypoxic/Hypercarbic Resp Failure, COPD Inpatient Physical Therapy Treatment Note [facility] Date: 11/18/23 SUBJECTIVE: Sophy states that she feels better and wants to go home. She is very upset that she is only on 1L of O2 and is under the impression that her lung specialist specifically told her 3L. OBJECTIVE: []? Therapeutic Activities ([id number]): Direct one-on-one instruction in dynamic activities to improve functional performance. ? BED MOBILITY/TRANSFERS? pt seated in chair ? Sit-stand: CGA? Stand-sit:CGA ? Provided skilled cues and instruction on performance and technique throughout. GAIT? Assistive Device: FWW? Weight bearing: full Assist: SBA ? Distance:? approx 150' ? Deviation: slow luis angel.? Therapeutic Exercises (67070z6): Direct one-on-one instruction in therapeutic exercises to develop strength, endurance, range of motion and flexibility. ? Exercises ?LAQ: 10x seated march x10 sit to stand x4 (with arms) HR x10 ASSESSMENT:? tolerated session fairly well despite being upset with current O2 level. No SOB noted during session. PLAN: continue to progress strength and functional mobility to tolerance following PT POC TREATMENT CODE/TIME: 25 min. [id number], [id number]
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
--- NOTE | 2023-11-18 12:19 | RESPIRATORY ---
Patient advised her DME was Jose C Fatima. Discharged home with Jose C hamilton from [facility]. Tank #[id number] Regulator #[id number]
--- NOTE | 2023-11-18 12:23 | PDOC.CMDIS ---
Date of service: 11/18/23 Time of Service: 12:23 LACE Index Scoring Tool Questions: Length of Stay (in days): 2 Was the patient admitted via the E.D.?: Yes Comorbidities: Chronic Pulmonary Disease E.D. Visits: 0 Answers: Total Score: 7 Risk of Readmission: Low Risk Care Management Discharge Plan Reason for Hospitalization: Respiratory Failure, COPD Discharge Plan: Sophy will return home today with a resumption of HH RN, OT, and the addition of PT, through [facility]. SANTINO faxed discharge summary to [facility] for a resumption of services. She will transport home via private vehicle by [facility], coordinated by SANTINO. She will follow up with her PCP and discharge plan of care. She is happy to be going home. Patient/Family Education Needs: Review discharge instructions and limitations, discussion of self care needs including ask me three. Services Needed at Discharge: Home Health Care Services (resumption of HH RN, OT; add PT- [facility]) SDOH Health Related Social Needs: No Data to Display
== END 2023-11-18 13:07 | disposition home health service (06) | DRG 193 ==
LOC: ER 04:11 → ICU 11:43 → MS 11-17 21:23
PROVIDERS: Admitting Provider Family Medicine; Emergency Provider Student in an Organized Health Care Education/Training Program; PCP Nurse Practitioner; Visit Provider Family Medicine
DX: J18.9 Pneumonia, unspecified organism (principal); G92.8 Other toxic encephalopathy; J96.21 Acute and chronic respiratory failure with hypoxia; J96.22 Acute and chronic respiratory failure with hypercapnia; J44.1 Chronic obstructive pulmonary disease with (acute) exacerbation; J44.0 Chronic obstructive pulmonary disease with (acute) lower respiratory infection; F32.9 Major depressive disorder, single episode, unspecified; G25.2 Other specified forms of tremor; Z79.899 Other long term (current) drug therapy; R63.4 Abnormal weight loss; Z68.22 Body mass index [BMI] 22.0-22.9, adult; D49.59 Neoplasm of unspecified behavior of other genitourinary organ; Z99.81 Dependence on supplemental oxygen; W19.XXXA Unspecified fall, initial encounter; R53.1 Weakness; E88.01 Alpha-1-antitrypsin deficiency; R60.0 Localized edema; E78.5 Hyperlipidemia, unspecified; G40.909 Epilepsy, unspecified, not intractable, without status epilepticus; I10 Essential (primary) hypertension; H90.3 Sensorineural hearing loss, bilateral; R32 Unspecified urinary incontinence; E83.42 Hypomagnesemia; E53.8 Deficiency of other specified B group vitamins; R41.3 Other amnesia; Z86.718 Personal history of other venous thrombosis and embolism; Z51.5 Encounter for palliative care
CPT/HCPCS: 00123; 36415; 80048; 80053; 82805; 84145; 87637; 93005; 94640; 96372; 96374; 96375; 97110; 97162; 97164; 97530; 99285; J1650; 71045; 83605; 83735; 83880; 84484; 85025; 93010; 94660; 94664; 94667; 94668; 94760; 99223; 99233; 99238; J0456; J0696; J2919; J3420; J7512; J7613; J7620

== ENCOUNTER → 2024-02-08 10:51 | Outpatient (BNVA) | payer OTHER, MEDICAID, SELFPAY | PROVIDERS: PCP Nurse Practitioner; Referring Provider Nurse Practitioner; Visit Provider Physician Assistant Surgical | DX: J44.9 Chronic obstructive pulmonary disease, unspecified (principal); J96.91 Respiratory failure, unspecified with hypoxia; J96.92 Respiratory failure, unspecified with hypercapnia; F17.210 Nicotine dependence, cigarettes, uncomplicated | CPT/HCPCS: 99214 ==

== ENCOUNTER → 2024-05-28 09:48 | Outpatient (BNVA) | payer OTHER, MEDICAID, SELFPAY | PROVIDERS: PCP Nurse Practitioner; Referring Provider Nurse Practitioner; Visit Provider Physician Assistant Surgical | DX: J44.9 Chronic obstructive pulmonary disease, unspecified (principal); J96.91 Respiratory failure, unspecified with hypoxia; J96.92 Respiratory failure, unspecified with hypercapnia; F17.210 Nicotine dependence, cigarettes, uncomplicated; Z29.11 Encounter for prophylactic immunotherapy for respiratory syncytial virus (RSV); Z23 Encounter for immunization | CPT/HCPCS: 90380; 90677; 90679; 96381; 99214; G0009 ==

== ENCOUNTER → 2024-08-27 10:02 | Outpatient (BNVA) | payer MEDICARE, MEDICAID, SELFPAY | PROVIDERS: PCP Nurse Practitioner; Referring Provider Nurse Practitioner; Visit Provider Physician Assistant Surgical | DX: J44.9 Chronic obstructive pulmonary disease, unspecified (principal); J96.91 Respiratory failure, unspecified with hypoxia; J96.92 Respiratory failure, unspecified with hypercapnia; F17.210 Nicotine dependence, cigarettes, uncomplicated; Z14.8 Genetic carrier of other disease | CPT/HCPCS: 99214; G0296 ==

== ENCOUNTER → 2024-11-28 11:14 | Outpatient (BNVA) | payer MEDICARE, MEDICAID, SELFPAY | PROVIDERS: PCP Nurse Practitioner; Referring Provider Nurse Practitioner; Visit Provider Physician Assistant Surgical | DX: Z14.8 Genetic carrier of other disease (principal); J96.91 Respiratory failure, unspecified with hypoxia; J96.92 Respiratory failure, unspecified with hypercapnia; F17.210 Nicotine dependence, cigarettes, uncomplicated; J44.9 Chronic obstructive pulmonary disease, unspecified | CPT/HCPCS: 99214 ==

== ENCOUNTER → 2025-03-03 11:40 | Outpatient (BNVA) | payer MEDICARE, MEDICAID, SELFPAY | PROVIDERS: PCP Nurse Practitioner; Referring Provider Nurse Practitioner; Visit Provider Physician Assistant Surgical | DX: J96.91 Respiratory failure, unspecified with hypoxia (principal); Z14.8 Genetic carrier of other disease; J96.92 Respiratory failure, unspecified with hypercapnia; J44.9 Chronic obstructive pulmonary disease, unspecified; F17.210 Nicotine dependence, cigarettes, uncomplicated | CPT/HCPCS: 99214 ==

== ENCOUNTER → 2025-06-19 10:56 | Outpatient (BNVA) | payer MEDICARE, MEDICAID, SELFPAY | PROVIDERS: PCP Nurse Practitioner; Referring Provider Nurse Practitioner; Visit Provider Physician Assistant Surgical | DX: J44.9 Chronic obstructive pulmonary disease, unspecified (principal); Z14.8 Genetic carrier of other disease; J96.91 Respiratory failure, unspecified with hypoxia; J96.92 Respiratory failure, unspecified with hypercapnia; F17.210 Nicotine dependence, cigarettes, uncomplicated | CPT/HCPCS: 99214 ==